=== PATIENT | female | born 1950 | race Caucasian/White ===

== ENCOUNTER 2020-07-15 13:12 | Inpatient (IN) | payer OTHER ==
[2020-07-15] MEDS ORDERED: SODIUM CHLORIDE 0.9% 500 ML INFUS.BAG IV ONE ×2 (14:11→16:35)
--- NOTE | 2020-07-15 14:11 | PDOC ---
History of Present Illness - General Chief Complaint: Weakness Stated Complaint: R/O SEPSIS Time Seen by Provider: 07/15/20 13:57 Past History - Medical History Allergies/Adverse Reactions: Allergies Allergy/AdvReac Type Severity Reaction Status Date / Time No Known Allergies Allergy Verified 07/15/20 13:21 Home Medications: Ambulatory Orders Escitalopram Oxalate [Lexapro -] 20 mg PO HS 04/10/20 Risperidone 3 mg PO HS 04/10/20 Aspirin [ASA -] 325 mg PO DAILY tablet 04/15/20 Atorvastatin Ca [Lipitor] 80 mg PO HS tablet 04/15/20 Clopidogrel Bisulfate [Plavix -] 75 mg PO DAILY #30 tablet 04/15/20 Enoxaparin [Lovenox -] 40 mg SQ DAILY disp.syrin 04/15/20 Insulin (Levemir) [Levemir Vial] 12 units SQ BID units 04/15/20 Insulin (Levemir) [Levemir Vial] 15 units SQ BID@0700,2200 units 04/15/20 Insulin Sliding Scale [Novolog Vial Sliding Scale -] 1 vial SQ ACHS units 04/15/20 Metoprolol Succinate [Toprol XL -] 50 mg PO DAILY tab.sr.24h 04/15/20 metFORMIN HCL [Glucophage -] 1,000 mg PO BID@0700,1630 tablet 04/15/20 Anemia: No Asthma: No Cancer: No Cardiac Disorders: (s/p stent 2014) CVA: Yes (04/2020) COPD: No CHF: No Dementia: No Diabetes: Yes GI Disorders: No Disorders: No HTN: Yes Hypercholesterolemia: Yes Liver Disease: No Psychiatric Problems: Yes Seizures: No Thyroid Disease: No - Surgical History Abdominal Surgery: No Appendectomy: No Cardiac Surgery: Yes (s/p stent 2014) Cholecystectomy: No Lung Surgery: No Neurologic Surgery: No Orthopedic Surgery: No - Reproductive History Is Patient Now?: No - Psycho-Social/Smoking History Smoking History: Never smoked Have you smoked in the past 12 months: No Information on smoking cessation initiated: No - Substance Abuse Hx (Audit-C & DAST Scrn) How often the patient has a drink containing alcohol: Never Score: In Men: 4 or > Positive; In Women: 3 or > Positive: 0 Screen Result (Pos requires Nsg. Audit-10AR): Negative In the last yr the pt used illegal drug/Rx for NonMed reason: No Score: Yes response is considered Positive: 0 Screen Result (Positive result requires Nsg. DAST-10): Negative *Physical Exam - Vital Signs Last Vital Signs Temp Pulse Resp BP Pulse Ox 97.8 F 100 H 19 97/57 L 98 07/15/20 13:14 07/15/20 13:14 07/15/20 13:14 07/15/20 13:14 07/15/20 13:14 ED Treatment Course - ADDITIONAL ORDERS Additional order review: Laboratory Results 07/15/20 13:26 POC Glucometer 105 07/15/20 13:26 POC Glucometer 105 Discharge - Follow up/Referral Referrals: Beatriz Desir [Primary Care Provider] - - Patient Discharge Instructions - Post Discharge Activity
--- NOTE | 2020-07-15 14:18 | PDOC ---
History of Present Illness - General Chief Complaint: Weakness Stated Complaint: R/O SEPSIS Time Seen by Provider: 07/15/20 13:57 - History of Present Illness Initial Comments: 07/15/20 14:12 HPI 70y/o F hx of CVA (3months ago), IDDM, HTN presents to the ED with 2 weeks of urinary frequency and urgency. pt is tamazight speaking and accompanied by her daughter. pt has been complaining of suprapubic pain and increaed urinary frequ ency. Pt' peterer reports that the urine is fouls smelling, but there is no hematuria, pt was at pcp's office today where she was hypotensive and hypoglycemic to 46. daughter reports pt has had decreased appetite over the last 2 weeks. PMHx: as noted above ROS: as noted SHx: Denies Etoh, IVDA, tobacco use Allergies: NKDA ROS: GENERAL/CONSTITUTIONAL: No fever or chills. No weakness. HEAD, EYES, EARS, NOSE AND THROAT: No change in vision. No ear pain or discharge. No sore throat. CARDIOVASCULAR: No chest pain or shortness of breath RESPIRATORY: No cough, wheezing, or hemoptysis. GASTROINTESTINAL: No nausea, vomiting, diarrhea or constipation. GENITOURINARY: No dysuria, frequency, or change in urination. MUSCULOSKELETAL: No joint or muscle swelling or pain. No neck or back pain. SKIN: No rash NEUROLOGIC: No headache, vertigo, loss of consciousness, or change in strength/sensation. ENDOCRINE: No increased thirst. No abnormal weight change HEMATOLOGIC/LYMPHATIC: No anemia, easy bleeding, or history of blood clots. ALLERGIC/IMMUNOLOGIC: No hives or skin allergy. PE: GENERAL: Awake, alert, and fully oriented, in no acute distress HEAD: No signs of trauma, normocephalic, atraumatic EYES: PERRLA, EOMI, sclera anicteric, conjunctiva clear ENT: Auricles normal inspection, hearing grossly normal, nares patent, oropharynx clear without exudates. Moist mucosa NECK: Normal ROM, supple, no lymphadenopathy, JVD, or masses LUNGS: No distress, speaks full sentences, clear to auscultation bilaterally HEART: Regular rate and rhythm, normal S1 and S2, no murmurs, rubs or gallops, peripheral pulses normal and equal bilaterally. ABDOMEN: Soft, suprapubic ttp. No guarding, no rebound. No masses EXTREMITIES : Normal inspection, Normal range of motion, no edema. No clubbing or cyanosis NEUROLOGICAL: Cranial nerves II through XII grossly intact. Normal speech, normal gait, no focal sensorimotor deficits SKIN: Warm, Dry, normal turgor, no rashes or lesions noted MDM DDx including but not limited to: uti, ED course elevated lactic acid ua positive for uti pt given 2L NS, and ceftriaxone IV CXR: arthritic changes some atelectasis at right base Dr. Beatriz Desir's service contacted for admission 07/15/20 18:41 Past History - Medical History Allergies/Adverse Reactions: Allergies Allergy/AdvReac Type Severity Reaction Status Date / Time No Known Allergies Allergy Verified 07/15/20 13:21 Home Medications: Ambulatory Orders Escitalopram Oxalate [Lexapro -] 20 mg PO HS 04/10/20 Aspirin [ASA -] 325 mg PO DAILY tablet 04/15/20 Atorvastatin Ca [Lipitor] 80 mg PO HS tablet 04/15/20 Insulin Sliding Scale [Novolog Vial Sliding Scale -] 1 vial SQ ACHS units 04/15/20 Metoprolol Succinate [Toprol XL -] 50 mg PO DAILY tab.sr.24h 04/15/20 Insulin (Levemir) [Levemir Vial] 16 units SQ BID@0700,2200 07/15/20 metFORMIN HCL [Glucophage -] 500 mg PO BID@0700,1630 07/15/20 Anemia: No Asthma: No Cancer: No Cardiac Disorders: (s/p stent 2014) CVA: Yes (04/2020) COPD: No CHF: No Dementia: No Diabetes: Yes GI Disorders: No Disorders: No HTN: Yes Hypercholesterolemia: Yes Liver Disease: No Psychiatric Problems: Yes Seizures: No Thyroid Disease: No - Surgical History Abdominal Surgery: No Appendectomy: No Cardiac Surgery: Yes (s/p stent 2014) Cholecystectomy: No Lung Surgery: No Neurologic Surgery: No Orthopedic Surgery: No - Reproductive History Is Patient Now?: No - Psycho-Social/Smoking History Smoking History: Never smoked Have you smoked in the past 12 months: No Information on smoking cessation initiated: No - Substance Abuse Hx (Audit-C & DAST Scrn) How often the patient has a drink containing alcohol: Never Score: In Men: 4 or > Positive; In Women: 3 or > Positive: 0 Screen Result (Pos requires Nsg. Audit-10AR): Negative In the last yr the pt used illegal drug/Rx for NonMed reason: No Score: Yes response is considered Positive: 0 Screen Result (Positive result requires Nsg. DAST-10): Negative *Physical Exam - Vital Signs Last Vital Signs Temp Pulse Resp BP Pulse Ox 97.8 F 100 H 19 97/57 L 98 07/15/20 13:14 07/15/20 13:14 07/15/20 13:14 07/15/20 13:14 07/15/20 13:14 ED Treatment Course - LABORATORY CBC & Chemistry Diagram: 07/21/20 08:02 07/21/20 08:02 - ADDITIONAL ORDERS Additional order review: Laboratory Results 07/15/20 13:26 POC Glucometer 105 07/15/20 13:26 POC Glucometer 105 Discharge - Discharge Information Problems reviewed: Yes Clinical Impression/Diagnosis: Urinary tract infection Qualifiers: Urinary tract infection type: acute pyelonephritis Qualified Code(s): N10 - Acute pyelonephritis - Follow up/Referral - Patient Discharge Instructions - Post Discharge Activity
[2020-07-15 14:57] LABS: BASO % 0.2 % (0-2.0); EOS % 0.1 % (0-4.5); HEMOGLOBIN 10.9 GM/dL (10.7-15.3); LYMPH % 5.9 % (8-40); MCH 28.9 pg (25.7-33.7); MCHC 33.1 g/dl (32.0-36.0); MEAN CELL VOLUME 87.5 fl (80-96); MONO % 4.4 % (3.8-10.2); NEUT % 89.4 % (42.8-82.8); PLATELET COUNT 542 K/MM3 (134-434); RBC 3.77 M/mm3 (3.60-5.2); RDW 14.9 % (11.6-15.6); WHITE BLOOD COUNT 22.5 K/mm3 (4.0-10.0)
[2020-07-15 15:22] LABS: ALBUMIN 1.9 g/dl (3.4-5.0); BILIRUBIN,TOTAL 0.8 mg/dL (0.2-1); BLOOD UREA NITROGEN 15.9 mg/dL (7-18); CALCIUM 8.5 mg/dL (8.5-10.1); CREATININE 1.2 mg/dL (0.55-1.3); POTASSIUM 3.6 mmol/L (3.5-5.1); TOT PROT 7.4 g/dl (6.4-8.2)
[2020-07-15 15:24] LABS: ANISOCYTOSIS 0; MACROCYTOSIS 0; PLATELET ESTIMATE INCREASED
--- NOTE | 2020-07-15 16:58 | PDOC ---
Documentation entered by Jordyn Bueno SCRIBE, acting as scribe for Soraida Lyons MD. Soraida Lyons MD: This documentation has been prepared by the Myles mora Xhesika, SCRIBE, under my direction and personally reviewed by me in its entirety. I confirm that the documentation accurately reflects all work, treatment, procedures, and medical decision making performed by me. Attending Attestation - Resident Resident Name: BrisaleisaKeikoSravanthiTiffanie - [facility] HPI: 07/15/20 15:02 The patient is a 70y/o F with a pmh of CVA (3months ago), IDDM, HTN who presents to the ED with intermittent lower abdominal/ suprapubic pain, urinary frequency, urgency and dysuria x2 weeks. Per daughter, the pt's urine is fouls smelling, but denies hematuria. Daughter reports 2 weeks of decreased appetite. Per daughter, the pt was seen at her PCP's office today and she was hypotensive and hypoglycemic to 46, was given orange juice and was sent to the ED. Allergies: NKDA PCP:Dr. Desir, Beatriz - Physicial Exam PE: 07/15/20 15:44 GENERAL: aao x2, in no acute distress HEAD: No signs of trauma NECK: Normal ROM, supple, no lymphadenopathy, JVD, or masses LUNGS: Breath sounds equal, clear to auscultation bilaterally. No wheezes, and no crackles HEART: Regular rate and rhythm, normal S1 and S2, no murmurs, rubs or gallops ABDOMEN: Soft, nontender, normoactive bowel sounds. No guarding, no rebound. No masses EXTREMITIES: Normal range of motion, no edema. No clubbing or cyanosis. No cords, erythema, or tenderness SKIN: Warm, Dry, normal turgor, no rashes lesions noted. - Medical Decision Making 07/15/20 16:48 Pt presents to the ED complaining of dysuria, urgency and frequency and hypoglycemia in her PCPs office. Now is comfortable and at her baseline mental status, although daughter reports intermittent confusion for several days. Borderline BP on arrival to the ED, improved with IV fluids. Symptoms are most consistent with a UTI, although other infectious etiologies remain on the differential. Will check CT head to rule out intracranial bleed or mass. Will give IV hydration and IV antibiotics and admit to medicine. 07/15/20 16:52 Discharge - Discharge Information Problems reviewed: Yes Clinical Impression/Diagnosis: Urinary tract infection Qualifiers: Urinary tract infection type: acute pyelonephritis Qualified Code(s): N10 - Acute pyelonephritis - Follow up/Referral - Patient Discharge Instructions - Post Discharge Activity
[2020-07-15] MEDS ORDERED: CEFTRIAXONE 1,000 MG in DEXTROSE 5%-WATER - 50 ML IVPB ONE (17:26)
[2020-07-15] MEDS ORDERED: CEFTRIAXONE 1 GM/50 ML BAG ONE (17:48)
[2020-07-15 18:10] LABS: EPI CELLS 13 /uL (0-25.1); HYALINE CASTS 4 /uL (0-3.1); URINE APPEARANCE TURBID; URINE BACTERIA 3968 /uL (0-1359); URINE BILIRUBIN NEGATIVE (NEGATIVE); URINE COLOR YELLOW; URINE GLUCOSE (UA) NEGATIVE (NEGATIVE); URINE KETONE NEGATIVE (NEGATIVE); URINE LEUK ESTERASE 3+ (NEGATIVE); URINE NITRITE NEGATIVE (NEGATIVE); URINE PROTEIN 2+ (NEGATIVE); URINE WBC 2057 /uL (0-25.8)
[2020-07-15 18:32] LABS: URINE RBC 233.5 /uL (0-23.9); YEAST NEGATIVE (NEGATIVE)
[2020-07-15] MEDS ORDERED: ATORVASTATIN CA 80 MG TABLET (FP) ONE (22:53)
[2020-07-15] MEDS ORDERED: HEPARIN NA (PORCINE) 5,000 UNITS/ML 1ML VIAL ONE (22:54)
[2020-07-15] MEDS ORDERED: ESCITALOPRAM OXALATE 10 MG TABLET ONE (22:54)
[2020-07-15] MEDS ORDERED: INSULIN (LEVEMIR) 100 UNITS/ML UNITS SQ ONE (22:55)
[2020-07-15] MEDS: INSULIN (LEVEMIR) 100 UNITS/ML UNITS SQ SCH (23:18)
[2020-07-15] MEDS: HEPARIN NA (PORCINE) 5,000 UNITS/ML 1ML VIAL SQ SCH (23:18)
[2020-07-15] MEDS: INSULIN SLIDING SCALE (NOVOLOG) 1 VIAL SQ SCH (23:19)
[2020-07-15] MEDS: ATORVASTATIN CA 80 MG TABLET (FP) PO SCH (23:19)
[2020-07-15] MEDS: ESCITALOPRAM OXALATE 20 MG TABLET PO SCH (23:19)
[2020-07-16 06:10] LABS: BASO % 0.2 % (0-2.0); EOS % 0.4 % (0-4.5); HEMATOCRIT 28.3 % (32.4-45.2); HEMOGLOBIN 9.5 GM/dL (10.7-15.3); LYMPH % 10.8 % (8-40); MCH 29.1 pg (25.7-33.7); MCHC 33.6 g/dl (32.0-36.0); MEAN CELL VOLUME 86.6 fl (80-96); MEAN PLT VOLUME 7.4 fl (7.5-11.1); MONO % 7.2 % (3.8-10.2); NEUT % 81.4 % (42.8-82.8); PLATELET COUNT 432 K/MM3 (134-434); RBC 3.27 M/mm3 (3.60-5.2); RDW 14.6 % (11.6-15.6)
[2020-07-16 06:34] LABS: ALBUMIN 1.5 g/dl (3.4-5.0); BILIRUBIN,TOTAL 0.7 mg/dL (0.2-1); BLOOD UREA NITROGEN 13.2 mg/dL (7-18); CALCIUM 7.3 mg/dL (8.5-10.1); CREATININE 0.7 mg/dL (0.55-1.3)
[2020-07-16 06:40] LABS: POTASSIUM 2.6 mmol/L (3.5-5.1)
[2020-07-16] MEDS ORDERED: DEXTROSE 50%-WATER - 25 GM/50 ML VIAL IVPUSH ONE (07:35)
[2020-07-16] MEDS ORDERED: DEXTROSE 50%-WATER 25 GM/50 ML DISP.SYRIN ONE (07:36)
[2020-07-16] MEDS: INSULIN SLIDING SCALE (NOVOLOG) 1 VIAL SQ SCH ×4 (07:53→21:21)
[2020-07-16] MEDS: INSULIN (LEVEMIR) 100 UNITS/ML UNITS SQ SCH (07:54)
[2020-07-16] MEDS ORDERED: HEPARIN NA (PORCINE) 5,000 UNITS/ML 1ML VIAL ONE ×2 (08:47→21:23)
[2020-07-16] MEDS ORDERED: ASPIRIN 325 MG ENTERIC COATED TABLET (FP) ONE (08:47)
[2020-07-16] MEDS: metFORMIN HCL 500 MG TABLET (FP) PO SCH ×2 (08:47→21:11)
[2020-07-16] MEDS ORDERED: CEFTRIAXONE 1 GM/50 ML BAG ONE (08:47)
[2020-07-16] MEDS ORDERED: metFORMIN HCL 500 MG TABLET (FP) ONE ×2 (08:47→21:10)
[2020-07-16] MEDS: HEPARIN NA (PORCINE) 5,000 UNITS/ML 1ML VIAL SQ SCH ×2 (09:03→22:23)
[2020-07-16] MEDS: CEFTRIAXONE 1 GM in DEXTROSE 5%-WATER - 50 ML IVPB SCH (09:03)
[2020-07-16] MEDS: ASPIRIN 325 MG TABLET PO SCH (09:03)
--- NOTE | 2020-07-16 09:14 | HP ---
Admitting History and Physical - Primary Care Physician PCP: Beatriz Desir S - Admission Chief Complaint: dysuria low BP History of Present Illness: The patient is a 70y/o F with a pmh of CVA (3months ago), IDDM, HTN who presents to the ED with intermittent lower abdominal/ suprapubic pain, urinary frequency, urgency and dysuria x2 weeks. Per daughter, the pt's urine is fouls smelling, but denies hematuria. Daughter reports 2 weeks of decreased appetite. I saw pt in office yesterday and she was hypotensive and hypoglycemic to 46, was given orange juice and was sent to the ED. History Source: Patient, Family Member Limitations to Obtaining History: No Limitations - Past Medical History [employer]: Yes: CVA Cardiovascular: Yes: CAD, HTN, Hyperlipdemia ...: No Psych: Yes: Schizophrenia Endocrine: Yes: Diabetes Mellitus - Smoking History Smoking history: Never smoked Have you smoked in the past 12 months: No - Alcohol/Substance Use Hx Alcohol Use: No History of Substance Use: reports: None - Social History Usual Living Arrangement: Yes: With Child History of Recent Travel: No Home Medications - Allergies Allergies/Adverse Reactions: Allergies Allergy/AdvReac Type Severity Reaction Status Date / Time No Known Allergies Allergy Verified 07/15/20 13:21 - Home Medications Home Medications: Ambulatory Orders Escitalopram Oxalate [Lexapro -] 20 mg PO HS 04/10/20 Aspirin [ASA -] 325 mg PO DAILY tablet 04/15/20 Atorvastatin Ca [Lipitor] 80 mg PO HS tablet 04/15/20 Insulin Sliding Scale [Novolog Vial Sliding Scale -] 1 vial SQ ACHS units 04/15/20 Metoprolol Succinate [Toprol XL -] 50 mg PO DAILY tab.sr.24h 04/15/20 Insulin (Levemir) [Levemir Vial] 16 units SQ BID@0700,2200 07/15/20 metFORMIN HCL [Glucophage -] 500 mg PO BID@0700,1630 07/15/20 Family Medical History Family History: Unremarkable Review of Systems - Review of Systems Constitutional: denies: Chills, Fever, Lethargy Eyes: denies: Blind Spots, Double Vision, Eye Pain HENT: denies: Ear Pain, Epistaxis Neck: denies: Stiffness, Tenderness Cardiovascular: denies: Chest Pain, Shortness of Breath Respiratory: denies: Cough, SOB Gastrointestinal: reports: Abdominal Pain, Diarrhea. denies: Constipation, Vom iting Genitourinary: reports: Burning, Dysuria. denies: Flank Pain Musculoskeletal: denies: Back Pain, Joint Swelling Integumentary: denies: Eczema, Rash Neurological: reports: Dizziness, Pre-Existing Deficit, Unsteady Gait, Weakness. denies: Change in LOC, Change in Speech, Confusion, Headache, Seizure, Syncope Hematology/Lymphatic: denies: Easily Bruised, Excessive Bleeding Psychiatric: denies: Anxiety, Depression, Suicidal Physical Examination Vital Signs: Vital Signs Temperature 98.0 F 07/16/20 08:17 Pulse Rate 72 07/16/20 08:17 Respiratory Rate 07/16/20 08:17 Blood Pressure 128/57 L 07/16/20 08:17 O2 Sat by Pulse Oximetry (%) 97 07/16/20 08:17 Constitutional: Yes: No Distress, Calm Eyes: Yes: Conjunctiva Clear HENT: Yes: Atraumatic Neck: Yes: Supple Cardiovascular: Yes: Regular Rate and Rhythm Respiratory: Yes: Diminished Gastrointestinal: Yes: Soft. No: Tenderness Renal/: No: Hematuria Musculoskeletal: No: Joint Stiffness, Joint Swelling Extremities: No: Cold, Cool, Cyanosis Edema: No Integumentary: No: Pressure Ulcer, Rash, Venous Stasis Changes Neurological: Yes: Alert, Oriented ...Motor Strength: LUE (4/5), LLE (4/5) Psychiatric: Yes: Alert, Oriented. No: Agitated, Suicidal Ideation Labs: CBC, BMP 07/16/20 05:35 07/16/20 05:35 Imaging - Results Chest X-ray: Report Reviewed Cat Scan: Report Reviewed Assessment/Plan The patient is a 70y/o F with a pmh of CVA (3months ago), IDDM, HTN who presents to the ED with intermittent lower abdominal/ suprapubic pain, urinary frequency, urgency and dysuria x2 weeks. Also borderline hypotensive and hypoglycemic lactic acidosis low K admit IVF IV ATB replete K hold insulin f/u cx labs ID and renal eval abdomen CT d/w pt and daughter Vidaly DVT and falls and decubs pfx d/w pt and daughter do not get OOB alone; turn in bed DVT pfx d/w staff
--- NOTE | 2020-07-16 09:18 | EKG ---
Test Reason : Blood Pressure : / mmHG Vent. Rate : 078 BPM Atrial Rate : 078 BPM P-R Int : 154 ms QRS Dur : 084 ms QT Int : 492 ms P-R-T Axes : 057 -11 028 degrees QTc Int : 560 ms SINUS RHYTHM WITH PREMATURE ATRIAL COMPLEXES PROLONGED QT ABNORMAL ECG WHEN COMPARED WITH ECG OF 15-APR-2020 11:40, PREMATURE ATRIAL COMPLEXES ARE NOW PRESENT NONSPECIFIC T WAVE ABNORMALITY NO LONGER EVIDENT IN ANTERIOR LEADS QT HAS LENGTHENED Confirmed by ISMAEL LEAL MD ([id number]) on 07/16/2020 9:18:24 AM Referred By: Confirmed By:ISMAEL LEAL MD
[2020-07-16 09:29] LABS: ANISOCYTOSIS 2+; MACROCYTOSIS 0; PLATELET ESTIMATE NORMAL
[2020-07-16] MEDS ORDERED: KCL 10 MEQ IVPB 10 MEQ/100 ML INFUS.BAG IVPB SCH (09:50)
[2020-07-16] MEDS ORDERED: POTASSIUM CHLORIDE ORAL LIQUID 20 MEQ/15 ML PO ONE (09:55)
[2020-07-16] MEDS ORDERED: POTASSIUM CHLORIDE 10 MEQ in DEXTROSE 5%-NORMAL SALINE 1,000 ML IVPB SCH (10:30)
[2020-07-16] MEDS: POTASSIUM CHLORIDE 10 MEQ in DEXTROSE 5%-NORMAL SALINE 1,000 ML IVPB SCH (11:52)
[2020-07-16] MEDS: KCL 10 MEQ IVPB 10 MEQ/100 ML INFUS.BAG IVPB SCH ×2 (11:57→13:48)
[2020-07-16] MEDS ORDERED: KCL 10 MEQ IVPB 10 MEQ/100 ML INFUS.BAG IVPB ONE ×2 (11:57→13:42)
--- NOTE | 2020-07-16 13:16 | CON.NEP ---
Consult Consult Specialty:: Nephrology Referred by:: Dr. Desir Reason for Consultation:: Hypokalemia - History of Present Illness Chief Complaint: Lower abdominal pain History of Present Illness: This is a 70 year old woman with history of CVA, IDDM, hypertension who presented with lower abdominal pain and found to have likely UTI with hypokalemia. Pt seen and examined in the ED. She is awake and alert, only Romanian speaking. Denies any sob, cp, fever, chills. Had urinary discomfort. Also reports history of diarrhea. No N/V. No flank pain. Her home meds show no list diuretics. - History Source History Provided By: Patient Limitations to Obtaining History: Language Barrier - Past Medical History ...: No Psych: Yes: Schizophrenia - Alcohol/Substance Use Hx Alcohol Use: No - Smoking History Smoking history: Never smoked Have you smoked in the past 12 months: No Home Medications - Allergies Allergies/Adverse Reactions: Allergies Allergy/AdvReac Type Severity Reaction Status Date / Time No Known Allergies Allergy Verified 07/15/20 13:21 - Home Medications Home Medications: Ambulatory Orders Escitalopram Oxalate [Lexapro -] 20 mg PO HS 04/10/20 Aspirin [ASA -] 325 mg PO DAILY tablet 04/15/20 Atorvastatin Ca [Lipitor] 80 mg PO HS tablet 04/15/20 Insulin Sliding Scale [Novolog Vial Sliding Scale -] 1 vial SQ ACHS units 04/15/20 Metoprolol Succinate [Toprol XL -] 50 mg PO DAILY tab.sr.24h 04/15/20 Insulin (Levemir) [Levemir Vial] 16 units SQ BID@0700,2200 07/15/20 metFORMIN HCL [Glucophage -] 500 mg PO BID@0700,1630 07/15/20 Family Medical History Family History: Unremarkable Review of Systems - Review of Systems Constitutional: reports: Loss of Appetite Eyes: reports: No Symptoms HENT: reports: No Symptoms Neck: reports: No Symptoms Cardiovascular: denies: Chest Pain, Edema, Palpitations, Shortness of Breath Respiratory: denies: Cough, Hemoptysis, Orthopnea, SOB, SOB on Exertion Gastrointestinal: reports: Abdominal Pain, Diarrhea. denies: Vomiting Genitourinary: reports: Burning, Dysuria Musculoskeletal: reports: No Symptoms Neurological: reports: No Symptoms Nephrology Consult - Height Height: 5 ft 3 in - Weight Weight: 63.503 kg - BMI Body Mass Index (BMI): 24.7 - Lab Results CBC,BMP: CBC, BMP 07/16/20 05:35 07/16/20 05:35 Anion Gap: Anion Gap Anion Gap 9 MMOL/L (8-16) 07/16/20 05:35 - Imaging Chest X-ray: Report Reviewed - Physical Examination Vital Signs: Vital Signs Temperature 98.0 F 07/16/20 08:17 Pulse Rate 72 07/16/20 08:17 Respiratory Rate 20 07/16/20 08:17 Blood Pressure 128/57 L 07/16/20 08:17 O2 Sat by Pulse Oximetry (%) 97 07/16/20 08:17 Constitutional: Yes: No Distress, Calm Eyes: Yes: Conjunctiva Clear HENT: Yes: Atraumatic Neck: Yes: Supple Cardiovascular: Yes: Regular Rate and Rhythm Respiratory: Yes: Regular, CTA Bilaterally Gastrointestinal: Yes: Soft. No: Tenderness Renal/: No: Bladder Distention, CVA Tenderness - Left, CVA Tenderness - Right, Solorzano Present Extremities: No: Cold, Cool, Cyanosis Edema: No Neurological: Yes: Alert Assessment/Plan 70 year old woman with history of CVA, IDDM, hypertension who presented with lower abdominal pain and found to have likely UTI with hypokalemia. 1. Hypokalemia in setting of diarrhea/GI losses 2. Suspected cystitis/UTI 3. Hypertension 4. IDDM 5. Anemia 6. Lactic acidosis Continue IV and oral potassium supplementation Check Mg levels, keep > 2 Repeat BMP this afternoon Check lactic acid this afternoon Start IVF with potassium Check iron studies Continue empiric antibiotics as per ID Thank you Will follow Guillermo Ricks DO
[2020-07-16 13:55] LABS: BLOOD UREA NITROGEN 13.5 mg/dL (7-18); CALCIUM 7.8 mg/dL (8.5-10.1); CREATININE 0.8 mg/dL (0.55-1.3); POTASSIUM 3.7 mmol/L (3.5-5.1)
--- NOTE | 2020-07-16 14:02 | PN ---
Progress Note (short form) - Note Progress Note: ID consult dictated imp/reccd 70 yo female admitted from home abd pain leukocytosis UTI hyponatremia continue ceftriaxone f/u cultures renal f/u of hyponatremia Problem List - Problems (1) Abdominal pain Code(s): R10.9 - UNSPECIFIED ABDOMINAL PAIN (2) Leukocytosis Code(s): D72.829 - ELEVATED WHITE BLOOD CELL COUNT, UNSPECIFIED (3) Urinary tract infection Code(s): N39.0 - URINARY TRACT INFECTION, SITE NOT SPECIFIED Qualifiers: Urinary tract infection type: acute pyelonephritis Qualified Code(s): N10 - Acute pyelonephritis (4) Hyponatremia Code(s): E87.1 - HYPO-OSMOLALITY AND HYPONATREMIA
[2020-07-16 17:34] LABS: CALCIUM 7.7 mg/dL (8.5-10.1); CREATININE 0.7 mg/dL (0.55-1.3); MAGNESIUM 1.9 mg/dL (1.8-2.4); POTASSIUM 3.4 mmol/L (3.5-5.1)
--- NOTE | 2020-07-16 20:36 | CONS ---
INFECTIOUS DISEASE CONSULTATION DATE OF CONSULTATION: DATE OF DICTATION: 07/16/2020 This is a 70-year-old woman who presents with lower abdominal pain. She has a history of schizophrenia. She is awake and alert and currently has no complaints. I am asked to see her for further evaluation. In the ER, she was noted to have a white count of 17,000, no fevers, and pyuria. PAST MEDICAL HISTORY: Notable for schizophrenia. She has a history of CVA in the past, diabetes, and hypertension. SOCIAL HISTORY: She lives in the community. No history of cigarette or substance use. ALLERGIES: She has no known drug allergies. MEDICATIONS: She takes Lexapro, aspirin, Lipitor, insulin, Toprol, Levemir, and Glucophage. FAMILY HISTORY: Not available. REVIEW OF SYSTEMS: Notable for lower abdominal pain. PHYSICAL EXAMINATION: General: She is resting comfortably on a stretcher without any complaints. Vital Signs: Temperature is 98. Pulse is 72. Blood pressure 128/57. Respiratory rate is 20. She is saturating 97% on room air. HEENT: She is normocephalic. Her eyes are anicteric. Neck: Supple. Lungs: Clear to auscultation. Heart: Regular rate and rhythm. Abdomen: Soft, nontender. She has some suprapubic discomfort to deep palpation. Extremities: Without edema. LABORATORY DATA: White count on admission was 22.5; repeat is 17. Hemoglobin is 9.5. Platelets are 432. BUN is 13 and creatinine 0.8. LFTs are normal. Urinalysis has 3+ leukocyte esterase with 2000 white cells. Cultures are pending. Head CT is without acute change. Chest x-ray shows no infiltrate. In summary, this is a 70-year-old woman admitted with a UTI, lower abdominal pain, and leukocytosis. Would agree with ceftriaxone. Follow up her cultures and adjust antibiotic accordingly. She has evidence of hyponatremia as well. Follow up with Urology. AXEL KNUTSON M.D. [id number]
[2020-07-16] MEDS ORDERED: LISINOPRIL 20 MG TABLET ONE (21:23)
[2020-07-16] MEDS ORDERED: ESCITALOPRAM OXALATE 10 MG TABLET ONE (21:23)
[2020-07-16] MEDS: ATORVASTATIN CA 80 MG TABLET (FP) PO SCH (22:23)
[2020-07-16] MEDS: ESCITALOPRAM OXALATE 20 MG TABLET PO SCH (22:23)
[2020-07-16] MEDS: ACETAMINOPHEN 325 MG TABLET (FP) PO PRN (23:38)
[2020-07-17] MEDS: POTASSIUM CHLORIDE 10 MEQ in DEXTROSE 5%-NORMAL SALINE 1,000 ML IVPB SCH ×3 (04:27→16:13)
[2020-07-17] MEDS: INSULIN SLIDING SCALE (NOVOLOG) 1 VIAL SQ SCH ×4 (06:06→21:28)
[2020-07-17] MEDS: metFORMIN HCL 500 MG TABLET (FP) PO SCH ×2 (06:26→17:00)
[2020-07-17 07:39] VITALS: BMI 28.9
--- NOTE | 2020-07-17 08:48 | PN ---
Progress Note, Physician Chief Complaint: in bed NAD had low grade fever last night but afebrile today VSS GLU better had some diarrhea and white vaginal DC - Current Medication List Current Medications: Active Medications Acetaminophen (Tylenol -) 650 mg PO NOW PRN PRN Reason: FEVER Last Admin: 07/16/20 23:38 Dose: 650 mg Documented by: Aspirin (Asa -) 325 mg PO DAILY [facility] Last Admin: 07/16/20 09:03 Dose: 325 mg Documented by: Atorvastatin Calcium (Lipitor -) 80 mg PO [facility] Last Admin: 07/16/20 22:23 Dose: 80 mg Documented by: Escitalopram Oxalate (Lexapro -) 20 mg PO [facility] Last Admin: 07/16/20 22:23 Dose: 20 mg Documented by: Heparin Sodium (Porcine) (Heparin -) 5,000 unit SQ BID [facility] Last Admin: 07/16/20 22:23 Dose: 5,000 unit Documented by: Ceftriaxone Sodium 1 gm/ (Dextrose) 50 mls @ 100 mls/hr IVPB DAILY [facility] Last Admin: 07/16/20 09:03 Dose: 100 mls/hr Documented by: Potassium Chloride 10 meq/ (Dextrose/Sodium Chloride) 1,005 mls @ 75 mls/hr IVPB Q13H [facility] Last Admin: 07/17/20 08:09 Dose: 75 mls/hr Documented by: Insulin Aspart (Novolog Vial Sliding Scale -) 1 vial SQ ACHS [facility]; Protocol Last Admin: 07/17/20 06:06 Dose: Not Given Documented by: Metformin HCl (Glucophage -) 500 mg PO BID@0700,1630 [facility] Last Admin: 07/17/20 06:26 Dose: 500 mg Documented by: Metoprolol Succinate (Toprol Xl -) 50 mg PO DAILY [facility] Last Admin: 07/16/20 09:03 Dose: 50 mg Documented by: - Objective Vital Signs: Vital Signs Temperature 98.2 F 07/17/20 05:51 Pulse Rate 69 07/17/20 05:51 Respiratory Rate 18 07/17/20 05:51 Blood Pressure 167/72 07/17/20 05:51 O2 Sat by Pulse Oximetry (%) 99 07/17/20 05:51 Constitutional: Yes: No Distress, Calm Eyes: Yes: Conjunctiva Clear HENT: Yes: Atraumatic Neck: Yes: Supple Cardiovascular: Yes: Regular Rate and Rhythm Respiratory: Yes: CTA Bilaterally Gastrointestinal: Yes: Soft. No: Tenderness Genitourinary: No: Hematuria Musculoskeletal: No: Joint Stiffness, Joint Swelling Extremities: No: Cold, Cool, Cyanosis Edema: No Integumentary: No: Rash, Venous Stasis Changes Neurological: Yes: Alert, Oriented ...Motor Strength: LUE (4.5), LLE (4/5) Psychiatric: Yes: Alert, Oriented. No: Agitated, Suicidal Ideation Labs: CBC, BMP 07/16/20 05:35 07/16/20 14:00 Assessment/Plan The patient is a 70y/o F with a pmh of CVA (3months ago), IDDM, HTN who presents to the ED with intermittent lower abdominal/ suprapubic pain, urinary frequency, urgency and dysuria x2 weeks. Also borderline hypotensive and hypoglycemic lactic acidosis low K IVF IV ATB replete K hold insulin f/u cx labs ID and renal eval abdomen CT to be done now DVT and falls and decubs pfx d/w pt and daughter do not get OOB alone; turn in bed DVT pfx d/w pt and staff
[2020-07-17] MEDS ORDERED: cefTRIAXone SODIUM 1 GM VIAL ONE (09:19)
[2020-07-17] MEDS ORDERED: PT OWN MED DRAWER 7, Y5N ONE ×2 (09:19→21:12)
[2020-07-17] MEDS ORDERED: DEXTROSE 5%-WATER - 50 ML IVPB ONE (09:20)
[2020-07-17 09:24] LABS: BASO % 0.3 % (0-2.0); EOS % 0.5 % (0-4.5); HEMATOCRIT 29.1 % (32.4-45.2); HEMOGLOBIN 9.7 GM/dL (10.7-15.3); LYMPH % 9.2 % (8-40); MCH 29.5 pg (25.7-33.7); MCHC 33.4 g/dl (32.0-36.0); MEAN CELL VOLUME 88.2 fl (80-96); MEAN PLT VOLUME 7.5 fl (7.5-11.1); MONO % 7.3 % (3.8-10.2); NEUT % 82.7 % (42.8-82.8); PLATELET COUNT 444 K/MM3 (134-434); RDW 14.7 % (11.6-15.6); WHITE BLOOD COUNT 14.3 K/mm3 (4.0-10.0)
[2020-07-17] MEDS: CEFTRIAXONE 1 GM in DEXTROSE 5%-WATER - 50 ML IVPB SCH (09:33)
[2020-07-17] MEDS: HEPARIN NA (PORCINE) 5,000 UNITS/ML 1ML VIAL SQ SCH ×2 (09:34→21:27)
[2020-07-17] MEDS: ASPIRIN 325 MG TABLET PO SCH (09:34)
[2020-07-17 10:18] LABS: ALBUMIN 1.7 g/dl (3.4-5.0); CALCIUM 7.7 mg/dL (8.5-10.1); POTASSIUM 3.4 mmol/L (3.5-5.1)
[2020-07-17 10:24] LABS: BILIRUBIN,TOTAL 0.5 mg/dL (0.2-1); CREATININE 0.6 mg/dL (0.55-1.3); MAGNESIUM 1.8 mg/dL (1.8-2.4); PHOSPHOROUS 2.3 mg/dL (2.5-4.9); TOT PROT 6.4 g/dl (6.4-8.2)
[2020-07-17] MEDS ORDERED: INSULIN (NOVOLOG) ASPART 100 UNITS/ML 10ML VIAL ONE (11:11)
[2020-07-17] MEDS ORDERED: POTASSIUM CHLORIDE TABS 20 MEQ TABLET.ER (FP) PO ONE (11:15)
--- NOTE | 2020-07-17 14:10 | PN ---
Progress Note, Physician History of Present Illness: Pt seen and examined at bedside. She is awake and appears comfortable. - Current Medication List Current Medications: Active Medications Acetaminophen (Tylenol -) 650 mg PO NOW PRN PRN Reason: FEVER Last Admin: 07/16/20 23:38 Dose: 650 mg Documented by: Aspirin (Asa -) 325 mg PO DAILY [facility] Last Admin: 07/17/20 09:34 Dose: 325 mg Documented by: Atorvastatin Calcium (Lipitor -) 80 mg PO HS [facility] Last Admin: 07/16/20 22:23 Dose: 80 mg Documented by: Escitalopram Oxalate (Lexapro -) 20 mg PO HS [facility] Last Admin: 07/16/20 22:23 Dose: 20 mg Documented by: Heparin Sodium (Porcine) (Heparin -) 5,000 unit SQ BID [facility] Last Admin: 07/17/20 09:34 Dose: 5,000 unit Documented by: Ceftriaxone Sodium 1 gm/ (Dextrose) 50 mls @ 100 mls/hr IVPB DAILY [facility] Last Admin: 07/17/20 09:33 Dose: 100 mls/hr Documented by: Potassium Chloride 10 meq/ (Dextrose/Sodium Chloride) 1,005 mls @ 75 mls/hr IVPB Q13H [facility] Last Admin: 07/17/20 08:09 Dose: 75 mls/hr Documented by: Insulin Aspart (Novolog Vial Sliding Scale -) 1 vial SQ ACHS [facility]; Protocol Last Admin: 07/17/20 11:25 Dose: Not Given Documented by: Metformin HCl (Glucophage -) 500 mg PO BID@0700,1630 [facility] Last Admin: 07/17/20 06:26 Dose: 500 mg Documented by: Metoprolol Succinate (Toprol Xl -) 50 mg PO DAILY [facility] Last Admin: 07/17/20 09:34 Dose: 50 mg Documented by: - Objective Vital Signs: Vital Signs Temperature 98.1 F 07/17/20 09:00 Pulse Rate 70 07/17/20 09:00 Respiratory Rate 18 07/17/20 09:00 Blood Pressure 152/75 07/17/20 09:00 O2 Sat by Pulse Oximetry (%) 97 07/17/20 09:00 Constitutional: Yes: Calm Eyes: Yes: Conjunctiva Clear HENT: Yes: Atraumatic Neck: Yes: Supple Cardiovascular: Yes: S1, S2 Respiratory: Yes: CTA Bilaterally Gastrointestinal: Yes: Soft Genitourinary: Yes: Incontinence Musculoskeletal: Yes: Muscle Weakness Edema: No Integumentary: Yes: WNL Neurological: Yes: Oriented Psychiatric: Yes: Oriented Labs: CBC, BMP 07/17/20 08:45 07/17/20 08:45 Assessment/Plan Current Medications Generic Name Dose Route Start Last Admin Trade Name Freq PRN Reason Stop Dose Admin Acetaminophen 650 mg 07/16/20 23:29 07/16/20 23:38 Tylenol - PO 650 mg NOW PRN Administration FEVER Aspirin 325 mg 07/16/20 10:00 07/17/20 09:34 Asa - PO 325 mg DAILY JC Administration Atorvastatin Calcium 80 mg 07/15/20 22:00 07/16/20 22:23 Lipitor - PO 80 mg HS JC Administration Escitalopram Oxalate 20 mg 07/15/20 22:00 07/16/20 22:23 Lexapro - PO 20 mg HS JC Administration Heparin Sodium (Porcine) 5,000 unit 07/15/20 22:00 07/17/20 09:34 Heparin - SQ 5,000 unit BID JC Administration Ceftriaxone Sodium 1 gm/ 50 mls @ 100 mls/hr 07/16/20 10:00 07/17/20 09:33 Dextrose IVPB 100 mls/hr DAILY JC Administration Potassium Chloride 10 meq/ 1,005 mls @ 75 mls/hr 07/16/20 11:48 07/17/20 08:09 Dextrose/Sodium Chloride IVPB 75 mls/hr Q13H JC Administration Insulin Aspart 1 vial 07/15/20 22:00 07/17/20 11:25 Novolog Vial Sliding Scale - SQ Not Given ACHS [facility] Protocol Metformin HCl 500 mg 07/16/20 07:00 07/17/20 06:26 Glucophage - PO 500 mg BID@0700,1630 JC Administration Metoprolol Succinate 50 mg 07/16/20 10:00 07/17/20 09:34 Toprol Xl - PO 50 mg DAILY JC Administration Laboratory Tests 07/15/20 07/15/20 07/16/20 15:12 20:05 16:30 Sodium Potassium Lactic Acid 2.9 H* 2.3 H* 0.9 Phosphorus Magnesium 07/17/20 08:45 Sodium 134 L Potassium 3.4 L Lactic Acid Phosphorus 2.3 L Magnesium 1.8 1. Hypokalemia in setting of diarrhea/GI losses 2. Suspected cystitis/UTI 3. Hypertension 4. IDDM 5. Anemia 6. Lactic acidosis 7. hyponatremia Plan - cont fluids - replace phos - replace potassium - repeat labs in am - sodium improving
[2020-07-17] MEDS ORDERED: POTASSIUM PHOSPHATE IVPB ONE (15:00)
[2020-07-17] MEDS ORDERED: SODIUM CHLORIDE IVPB ONE (15:00)
--- NOTE | 2020-07-17 19:10 | PN ---
Progress Note (short form) - Note Progress Note: abd CT reviewed - diverticulitis and possible abscess; hydronephrosis; rectal thickening; ileum inflammation; added flagyl IV; IF f/u; called GI and surgery for evals; pt stable; f/u labs cultures; d/w pt's daughter Vidaly and d/w staff
--- NOTE | 2020-07-17 19:32 | CON.GI ---
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 Cardio/Vascular: Yes: CAD, HTN, Hyperlipdemia ...: No Psych: Yes: Schizophrenia Endocrine: Yes: Diabetes Mellitus - Alcohol/Substance Use Hx Alcohol Use: No History of Substance Use: reports: None - Smoking History Smoking history: Never smoked Have you smoked in the past 12 months: No - Social History History of Recent Travel: No Home Medications - Allergies Allergies/Adverse Reactions: Allergies Allergy/AdvReac Type Severity Reaction Status Date / Time No Known Allergies Allergy Verified 07/15/20 13:21 - Home Medications Home Medications: Ambulatory Orders Escitalopram Oxalate [Lexapro -] 20 mg PO HS 04/10/20 Aspirin [ASA -] 325 mg PO DAILY tablet 04/15/20 Atorvastatin Ca [Lipitor] 80 mg PO HS tablet 04/15/20 Insulin Sliding Scale [Novolog Vial Sliding Scale -] 1 vial SQ ACHS units 04/15/20 Metoprolol Succinate [Toprol XL -] 50 mg PO DAILY tab.sr.24h 04/15/20 Insulin (Levemir) [Levemir Vial] 16 units SQ BID@0700,2200 07/15/20 metFORMIN HCL [Glucophage -] 500 mg PO BID@0700,1630 07/15/20 Family Medical History Family History: Unremarkable Physical Exam-GI Vital Signs: Vital Signs Temperature 98.7 F 07/17/20 18:00 Pulse Rate 70 07/17/20 18:00 Respiratory Rate 18 07/17/20 18:00 Blood Pressure 159/57 L 07/17/20 18:00 O2 Sat by Pulse Oximetry (%) 97 07/17/20 14:00 Labs: CBC, BMP 07/17/20 08:45 07/17/20 08:45 Problem List - Problems (1) Colonic diverticular abscess Assessment/Plan: R> IV hydration continue antibiotics consult IR for percutaneous drainage Code(s): K57.20 - DVTRCLI OF LG INT W PERFORATION AND ABSCESS W/O BLEEDING
[2020-07-17] MEDS: ATORVASTATIN CA 80 MG TABLET (FP) PO SCH (21:27)
[2020-07-17] MEDS: ESCITALOPRAM OXALATE 20 MG TABLET PO SCH (21:27)
[2020-07-18] MEDS: POTASSIUM CHLORIDE 10 MEQ in DEXTROSE 5%-NORMAL SALINE 1,000 ML IVPB SCH ×3 (03:33→20:38)
[2020-07-18] MEDS: INSULIN SLIDING SCALE (NOVOLOG) 1 VIAL SQ SCH ×4 (06:14→21:47)
[2020-07-18] MEDS: metFORMIN HCL 500 MG TABLET (FP) PO SCH (06:28)
[2020-07-18] MEDS ORDERED: DEXTROSE 5%-WATER - 50 ML IVPB ONE (08:51)
[2020-07-18] MEDS ORDERED: PT OWN MED DRAWER 7, Y5N ONE (08:51)
[2020-07-18] MEDS ORDERED: cefTRIAXone SODIUM 1 GM VIAL ONE (08:51)
[2020-07-18] MEDS: ASPIRIN 325 MG TABLET PO SCH (09:10)
[2020-07-18] MEDS: HEPARIN NA (PORCINE) 5,000 UNITS/ML 1ML VIAL SQ SCH ×2 (09:11→21:45)
[2020-07-18 10:05] LABS: BASO % 0.2 % (0-2.0); EOS % 0.2 % (0-4.5); HEMATOCRIT 29.6 % (32.4-45.2); HEMOGLOBIN 9.9 GM/dL (10.7-15.3); LYMPH % 10.8 % (8-40); MCH 29.3 pg (25.7-33.7); MCHC 33.5 g/dl (32.0-36.0); MEAN CELL VOLUME 87.4 fl (80-96); MEAN PLT VOLUME 7.4 fl (7.5-11.1); MONO % 6.4 % (3.8-10.2); NEUT % 82.4 % (42.8-82.8); PLATELET COUNT 473 K/MM3 (134-434); RBC 3.38 M/mm3 (3.60-5.2); RDW 14.6 % (11.6-15.6); WHITE BLOOD COUNT 13.4 K/mm3 (4.0-10.0)
[2020-07-18 10:30] LABS: BILIRUBIN,TOTAL 0.9 mg/dL (0.2-1); CREATININE 0.6 mg/dL (0.55-1.3); SGPT/ALT 31 U/L (13-61)
[2020-07-18 10:31] LABS: ALBUMIN 1.6 g/dl (3.4-5.0); ALK PHOS 133 U/L (45-117); ANION GAP 9 MMOL/L (8-16); BLOOD UREA NITROGEN 8.6 mg/dL (7-18); CALCIUM 7.6 mg/dL (8.5-10.1); CHLORIDE 102 mmol/L (98-107); CO2 24 mmol/L (21-32); MAGNESIUM 1.8 mg/dL (1.8-2.4); PHOSPHOROUS 3.3 mg/dL (2.5-4.9); SODIUM 134 mmol/L (136-145)
[2020-07-18] MEDS: CEFTRIAXONE 1 GM in DEXTROSE 5%-WATER - 50 ML IVPB SCH (10:34)
[2020-07-18 11:03] LABS: GLUCOSE,RANDOM 147 mg/dL (74-106); SGOT/AST 22 U/L (15-37); TOT PROT 7.3 g/dl (6.4-8.2)
--- NOTE | 2020-07-18 11:54 | PN ---
Progress Note, Physician Chief Complaint: in bed NAD VSS afebrile feels better but still with some abdominal pain and diarrhea CT scan and consults appreciated - Current Medication List Current Medications: Active Medications Acetaminophen (Tylenol -) 650 mg PO NOW PRN PRN Reason: FEVER Last Admin: 07/16/20 23:38 Dose: 650 mg Documented by: Aspirin (Asa -) 325 mg PO DAILY [facility] Last Admin: 07/18/20 09:10 Dose: 325 mg Documented by: Atorvastatin Calcium (Lipitor -) 80 mg PO [facility] Last Admin: 07/17/20 21:27 Dose: 80 mg Documented by: Escitalopram Oxalate (Lexapro -) 20 mg PO [facility] Last Admin: 07/17/20 21:27 Dose: 20 mg Documented by: Heparin Sodium (Porcine) (Heparin -) 5,000 unit SQ BID [facility] Last Admin: 07/18/20 09:11 Dose: 5,000 unit Documented by: Ceftriaxone Sodium 1 gm/ (Dextrose) 50 mls @ 100 mls/hr IVPB DAILY [facility] Last Admin: 07/18/20 10:34 Dose: 100 mls/hr Documented by: Potassium Chloride 10 meq/ (Dextrose/Sodium Chloride) 1,005 mls @ 75 mls/hr IVPB Q13H [facility] Last Admin: 07/18/20 03:33 Dose: Not Given Documented by: Metronidazole (Flagyl 500mg Premixed Ivpb -) 500 mg in 100 mls @ 100 mls/hr IVPB Q8H-IV [facility] Last Admin: 07/18/20 11:14 Dose: 100 mls/hr Documented by: Insulin Aspart (Novolog Vial Sliding Scale -) 1 vial SQ ACHS [facility]; Protocol Last Admin: 07/18/20 11:14 Dose: 2 unit Documented by: Metformin HCl (Glucophage -) 500 mg PO BID@0700,1630 [facility] Last Admin: 07/18/20 06:28 Dose: 500 mg Documented by: Metoprolol Succinate (Toprol Xl -) 50 mg PO DAILY [facility] Last Admin: 07/18/20 09:11 Dose: 50 mg Documented by: - Objective Vital Signs: Vital Signs Temperature 98.1 F 07/18/20 10:00 Pulse Rate 80 07/18/20 10:00 Respiratory Rate 18 07/18/20 10:00 Blood Pressure 160/90 07/18/20 10:00 O2 Sat by Pulse Oximetry (%) 96 07/18/20 10:00 Constitutional: Yes: No Distress Eyes: Yes: Conjunctiva Clear HENT: Yes: Atraumatic Neck: Yes: Supple Cardiovascular: Yes: Regular Rate and Rhythm Respiratory: Yes: CTA Bilaterally, Diminished Gastrointestinal: Yes: Soft. No: Tenderness Genitourinary: No: Hematuria Musculoskeletal: No: Joint Stiffness, Joint Swelling Extremities: No: Cold, Cool Edema: No Integumentary: No: Rash Neurological: Yes: Alert, Oriented ...Motor Strength: LUE, LLE Psychiatric: Yes: Alert, Oriented. No: Agitated, Suicidal Ideation Labs: CBC, BMP 07/18/20 08:10 07/18/20 08:10 - ....Imaging Cat Scan: Report Reviewed Assessment/Plan The patient is a 70y/o F with a pmh of CVA (3months ago), IDDM, HTN who presents to the ED with intermittent lower abdominal/ suprapubic pain,diarrhea, urinary frequency, urgency and dysuria x2 weeks. Also borderline hypotensive and hypoglycemic lactic acidosis low K IVF IV ATB replete K sq insulin per BGM f/u cx labs ID and renal eval abdomen CT noted - GI, , IR consulted; cardio and neuro evals preop DVT and falls and decubs pfx d/w pt and daughter do not get OOB alone; turn in bed DVT pfx d/w pt and staff
--- NOTE | 2020-07-18 12:11 | CONSULT ---
- Consultation REQUESTING PROVIDER: Leopoldo Desir MD CONSULT REQUEST: We have been asked to surgically evaluate this patient for complicated diverticulitis. Hospitalist:Beatriz Desir HISTORY OF PRESENT ILLNESS: YASMANI who is a 70y/o F who presented to the ED with 2 weeks of urinary frequency and urgency. Per her daughter Josee who I spoke with the pt has been complaining of suprapubic pain and increaed urinary frequency. Pt' daughter reports that the urine is foul smelling, but there is no hematuria, pt was at Dr. Haley Wilder office on the day of admission where she was hypotensive and hypoglycemic to 46; she was xferred to the hospital ED. Her daughter reports pt has had decreased appetite over the last 2 weeks; there is no other pertinent hx.; she is not very ambulatory since her CVA. PMHx: CVA/IDDM/HTN/depression PSHx: ? vaginal hystrectomy. Home Medications Medication Instructions Recorded Escitalopram Oxalate [Lexapro -] 20 mg PO HS 04/10/20 Aspirin [ASA -] 325 mg PO DAILY tablet 04/15/20 Atorvastatin Ca [Lipitor] 80 mg PO HS tablet 04/15/20 Insulin Sliding Scale [Novolog 1 vial SQ ACHS units 04/15/20 Vial Sliding Scale -] Metoprolol Succinate [Toprol XL -] 50 mg PO DAILY tab.sr.24h 04/15/20 Insulin (Levemir) [Levemir Vial] 16 units SQ BID@0700,2200 07/15/20 metFORMIN HCL [Glucophage -] 500 mg PO BID@0700,1630 07/15/20 Allergies Allergy/AdvReac Type Severity Reaction Status Date / Time No Known Allergies Allergy Verified 07/15/20 13:21 REVIEW OF SYSTEMS: CONSTITUTIONAL: Absent: fever, chills, diaphoresis, generalized weakness, malaise, loss of appetite, weight change CARDIOVASCULAR: Absent: chest pain, syncope, palpitations, irregular heart rate, lightheadedness, peripheral edema RESPIRATORY: Absent: cough, shortness of breath, dyspnea with exertion, wheezing, stridor, hemoptysis GASTROINTESTINAL: Absent: abdominal pain, abdominal distension, nausea, vomiting, diarrhea, constipation, melena, hematochezia GENITOURINARY: Absent: dysuria, frequency, urgency, hesitancy, hematuria, flank pain, genital pain MUSCULOSKELETAL: Absent: myalgia, arthralgia, joint swelling, back pain, neck pain SKIN: Absent: rash, itching, pallor HEMATOLOGIC/IMMUNOLOGIC: Absent: easy bleeding, easy bruising, lymphadenopathy NEUROLOGIC: Absent: headache, Present:focal weakness. Absent: paresthesias, dizziness, unsteady gait, seizure, mental status changes, bladder or bowel incontinence PSYCHIATRIC: Absent: anxiety, depression, suicidal or homicidal ideation, hallucinations. PHYSICAL EXAM: GENERAL: Awake, alert, and fully oriented, in no acute distress. HEAD: Normal with no signs of trauma. EYES: PERRL, sclera anicteric, conjunctiva clear. NECK: Normal ROM, supple without lymphadenopathy, JVD, or masses. ABDOMEN: Soft, nontender, not distended, normoactive bowel sounds, no guarding, no rebound, no masses. No organomegaly. MUSCULOSKELETAL: Normal ROM at all joints. No bony deformities or tenderness. No CVA tenderness. UPPER EXTREMITIES: 2+ pulses, warm, well-perfused. No cyanosis. Cap refill <2 seconds. No peripheral edema. LOWER EXTREMITIES: 2+ pulses, warm, well-perfused. No calf tenderness. No peripheral edema. NEUROLOGICAL: Normal speech, gait not observed. PSYCH: Cooperative. Good eye contact. Appropriate mood and affect. SKIN: Warm, dry, normal turgor, no rashes or lesions noted. Vital Signs Temperature 98.1 F 07/18/20 10:00 Pulse Rate 80 07/18/20 10:00 Respiratory Rate 18 07/18/20 10:00 Blood Pressure 160/90 07/18/20 10:00 O2 Sat by Pulse Oximetry (%) 96 07/18/20 10:00 Lab Results WBC 13.4 K/mm3 (4.0-10.0) H 07/18/20 08:10 RBC 3.38 M/mm3 (3.60-5.2) L 07/18/20 08:10 Hgb 9.9 GM/dL (10.7-15.3) L 07/18/20 08:10 Hct 29.6 % (32.4-45.2) L 07/18/20 08:10 MCV 87.4 fl (80-96) 07/18/20 08:10 MCHC 33.5 g/dl (32.0-36.0) 07/18/20 08:10 RDW 14.6 % (11.6-15.6) 07/18/20 08:10 Plt Count 473 K/MM3 (134-434) H 07/18/20 08:10 Sodium 134 mmol/L (136-145) L 07/18/20 08:10 Potassium 4.0 mmol/L (3.5-5.1) 07/18/20 08:10 Chloride 102 mmol/L (98-107) 07/18/20 08:10 Carbon Dioxide 24 mmol/L (21-32) 07/18/20 08:10 Anion Gap 9 MMOL/L (8-16) 07/18/20 08:10 BUN 8.6 mg/dL (7-18) 07/18/20 08:10 Creatinine 0.6 mg/dL (0.55-1.3) 07/18/20 08:10 Random Glucose 147 mg/dL (74-106) H 07/18/20 08:10 Calcium 7.6 mg/dL (8.5-10.1) L 07/18/20 08:10 Urine is growing Pseudomonas and E. 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 PLAN: Evaluation for IRD of pelvic collections h/e patient may need a Hartmans procedure and repair of colovesical fistula; I spoke with her daughter Josee about this today; in the inetrim NPO/IVF/IVAB'Patricia evaluation; trend temp and WBC; will f/u. Raghu Horton MD FACS
--- NOTE | 2020-07-18 12:21 | PN ---
Progress Note, Physician History of Present Illness: Pt seen and examined at bedside. She had diarrhea today. - Current Medication List Current Medications: Active Medications Acetaminophen (Tylenol -) 650 mg PO NOW PRN PRN Reason: FEVER Last Admin: 07/16/20 23:38 Dose: 650 mg Documented by: Aspirin (Asa -) 325 mg PO DAILY [facility] Last Admin: 07/18/20 09:10 Dose: 325 mg Documented by: Atorvastatin Calcium (Lipitor -) 80 mg PO HS [facility] Last Admin: 07/17/20 21:27 Dose: 80 mg Documented by: Escitalopram Oxalate (Lexapro -) 20 mg PO HS [facility] Last Admin: 07/17/20 21:27 Dose: 20 mg Documented by: Heparin Sodium (Porcine) (Heparin -) 5,000 unit SQ BID [facility] Last Admin: 07/18/20 09:11 Dose: 5,000 unit Documented by: Ceftriaxone Sodium 1 gm/ (Dextrose) 50 mls @ 100 mls/hr IVPB DAILY [facility] Last Admin: 07/18/20 10:34 Dose: 100 mls/hr Documented by: Potassium Chloride 10 meq/ (Dextrose/Sodium Chloride) 1,005 mls @ 75 mls/hr IVPB Q13H [facility] Last Admin: 07/18/20 03:33 Dose: Not Given Documented by: Metronidazole (Flagyl 500mg Premixed Ivpb -) 500 mg in 100 mls @ 100 mls/hr IVPB Q8H-IV [facility] Last Admin: 07/18/20 11:14 Dose: 100 mls/hr Documented by: Insulin Aspart (Novolog Vial Sliding Scale -) 1 vial SQ ACHS [facility]; Protocol Last Admin: 07/18/20 11:14 Dose: 2 unit Documented by: Insulin Detemir (Levemir Vial) 6 units SQ BID@0700,2200 [facility] Metoprolol Succinate (Toprol Xl -) 50 mg PO DAILY [facility] Last Admin: 07/18/20 09:11 Dose: 50 mg Documented by: Metoprolol Succinate (Toprol Xl -) 25 mg PO DAILY [facility] - Objective Vital Signs: Vital Signs Temperature 98.1 F 07/18/20 10:00 Pulse Rate 80 07/18/20 10:00 Respiratory Rate 18 07/18/20 10:00 Blood Pressure 160/90 07/18/20 10:00 O2 Sat by Pulse Oximetry (%) 96 07/18/20 10:00 Constitutional: Yes: Calm Eyes: Yes: Conjunctiva Clear HENT: Yes: Atraumatic Neck: Yes: Supple Cardiovascular: Yes: S1, S2 Respiratory: Yes: CTA Bilaterally Gastrointestinal: Yes: Normal Bowel Sounds, Soft Genitourinary: Yes: WNL Musculoskeletal: Yes: WNL Edema: No Neurological: Yes: Oriented Psychiatric: Yes: Oriented Labs: CBC, BMP 07/18/20 08:10 07/18/20 08:10 Assessment/Plan Current Medications Generic Name Dose Route Start Last Admin Trade Name Freq PRN Reason Stop Dose Admin Acetaminophen 650 mg 07/16/20 23:29 07/16/20 23:38 Tylenol - PO 650 mg NOW PRN Administration FEVER Aspirin 325 mg 07/16/20 10:00 07/18/20 09:10 Asa - PO 325 mg DAILY JC Administration Atorvastatin Calcium 80 mg 07/15/20 22:00 07/17/20 21:27 Lipitor - PO 80 mg HS JC Administration Escitalopram Oxalate 20 mg 07/15/20 22:00 07/17/20 21:27 Lexapro - PO 20 mg HS JC Administration Heparin Sodium (Porcine) 5,000 unit 07/15/20 22:00 07/18/20 09:11 Heparin - SQ 5,000 unit BID JC Administration Ceftriaxone Sodium 1 gm/ 50 mls @ 100 mls/hr 07/16/20 10:00 07/18/20 10:34 Dextrose IVPB 100 mls/hr DAILY JC Administration Potassium Chloride 10 meq/ 1,005 mls @ 75 mls/hr 07/16/20 11:48 07/18/20 03:33 Dextrose/Sodium Chloride IVPB Not Given Q13H JC Metronidazole 500 mg in 100 mls @ 100 mls/hr 07/17/20 18:00 07/18/20 11:14 Flagyl 500mg Premixed Ivpb - IVPB 100 mls/hr Q8H-IV JC Administration Insulin Aspart 1 vial 07/15/20 22:00 07/18/20 11:14 Novolog Vial Sliding Scale - SQ 2 unit ACHS JC Administration Protocol Insulin Detemir 6 units 07/18/20 22:00 Levemir Vial SQ BID@0700,2200 JC Metoprolol Succinate 50 mg 07/16/20 10:00 07/18/20 09:11 Toprol Xl - PO 50 mg DAILY JC Administration Metoprolol Succinate 25 mg 07/18/20 12:00 Toprol Xl - PO DAILY JC 1. Hypokalemia in setting of diarrhea/GI losses 2. Suspected cystitis/UTI 3. Hypertension 4. IDDM 5. Anemia 6. Lactic acidosis 7. hyponatremia Plan - sodium stabilizing - cont fluids for now as she has diarrhea - cont to monitor lytes - potassium stable - avoid nsaids
[2020-07-18] MEDS: metoPROLOL SUCCINATE 25 MG TAB.SR.24H (FP) PO SCH (13:15)
--- NOTE | 2020-07-18 14:18 | CON.GU ---
Consult - History of Present Illness History of Present Illness: 70 yo female admitted with lower abd pain, dysuria. CT with bilat hydro to bladder and pelvic collections poss from diverticular abscesses. 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 Cardio/Vascular: Yes: CAD, HTN, Hyperlipdemia ...: No Psych: Yes: Schizophrenia Endocrine: Yes: Diabetes Mellitus - Alcohol/Substance Use Hx Alcohol Use: No History of Substance Use: reports: None - Smoking History Smoking history: Never smoked Have you smoked in the past 12 months: No - Social History History of Recent Travel: No Home Medications - Allergies Allergies/Adverse Reactions: Allergies Allergy/AdvReac Type Severity Reaction Status Date / Time No Known Allergies Allergy Verified 07/15/20 13:21 - Home Medications Home Medications: Ambulatory Orders Escitalopram Oxalate [Lexapro -] 20 mg PO HS 04/10/20 Aspirin [ASA -] 325 mg PO DAILY tablet 04/15/20 Atorvastatin Ca [Lipitor] 80 mg PO HS tablet 04/15/20 Insulin Sliding Scale [Novolog Vial Sliding Scale -] 1 vial SQ ACHS units 04/15/20 Metoprolol Succinate [Toprol XL -] 50 mg PO DAILY tab.sr.24h 04/15/20 Insulin (Levemir) [Levemir Vial] 16 units SQ BID@0700,2200 07/15/20 metFORMIN HCL [Glucophage -] 500 mg PO BID@0700,1630 07/15/20 Family Medical History Family History: Unremarkable Review of Systems - Review of Systems Genitourinary: reports: Dysuria Physical Exam- Vital Signs: Vital Signs Temperature 98.1 F 07/18/20 10:00 Pulse Rate 77 07/18/20 13:00 Respiratory Rate 18 07/18/20 13:00 Blood Pressure 161/79 07/18/20 13:00 O2 Sat by Pulse Oximetry (%) 96 07/18/20 10:00 Kidneys: Yes: Other (no CVAT) Labs: CBC, BMP 07/18/20 08:10 07/18/20 08:10 Imaging - Results Cat Scan: Image Reviewed Problem List - Problems (1) Bilateral hydronephrosis Assessment/Plan: unclear if bilateral hydro are from pelvic collections vs retention would insert rodriguez for now abx for uti Code(s): N13.30 - UNSPECIFIED HYDRONEPHROSIS
--- NOTE | 2020-07-18 15:39 | CON.GI ---
Consult Consult Specialty:: coverage for Dr Bronson - History of Present Illness History of Present Illness: The patient is a 70y/o F with a pmh of CVA (3months ago), IDDM, HTN who presents to the ED with intermittent lower abdominal/ suprapubic pain, urinary frequency, urgency and dysuria x2 weeks. History obtained from the medical records as the patient is a poor informant. 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 Cardio/Vascular: Yes: CAD, HTN, Hyperlipdemia ...: No Psych: Yes: Schizophrenia Endocrine: Yes: Diabetes Mellitus - Alcohol/Substance Use Hx Alcohol Use: No History of Substance Use: reports: None - Smoking History Smoking history: Never smoked Have you smoked in the past 12 months: No - Social History History of Recent Travel: No Home Medications - Allergies Allergies/Adverse Reactions: Allergies Allergy/AdvReac Type Severity Reaction Status Date / Time No Known Allergies Allergy Verified 07/15/20 13:21 - Home Medications Home Medications: Ambulatory Orders Escitalopram Oxalate [Lexapro -] 20 mg PO HS 04/10/20 Aspirin [ASA -] 325 mg PO DAILY tablet 04/15/20 Atorvastatin Ca [Lipitor] 80 mg PO HS tablet 04/15/20 Insulin Sliding Scale [Novolog Vial Sliding Scale -] 1 vial SQ ACHS units 04/15/20 Metoprolol Succinate [Toprol XL -] 50 mg PO DAILY tab.sr.24h 04/15/20 Insulin (Levemir) [Levemir Vial] 16 units SQ BID@0700,2200 07/15/20 metFORMIN HCL [Glucophage -] 500 mg PO BID@0700,1630 07/15/20 Family Medical History Family History: Unremarkable Physical Exam-GI Vital Signs: Vital Signs Temperature 98.1 F 07/18/20 10:00 Pulse Rate 77 07/18/20 13:00 Respiratory Rate 18 07/18/20 13:00 Blood Pressure 161/79 07/18/20 13:00 O2 Sat by Pulse Oximetry (%) 96 07/18/20 10:00 Constitutional: Yes: Well Nourished, Poor Hygeine Eyes: Yes: Occular Prosthesis HENT: Yes: Tonsillar Exudate Cardiovascular: Yes: Regular Rate and Rhythm Respiratory: Yes: CTA Bilaterally ...Palpate: Yes: Soft, Tenderness (suprapubic tenderness, mild). No: Firm/Rigid, Guarding, Hepatomegaly, Mass, Pulsatile Mass, Splenomegaly Labs: CBC, BMP 07/18/20 08:10 07/18/20 08:10 CBCD WBC 13.4 K/mm3 (4.0-10.0) H 07/18/20 08:10 RBC 3.38 M/mm3 (3.60-5.2) L 07/18/20 08:10 Hgb 9.9 GM/dL (10.7-15.3) L 07/18/20 08:10 Hct 29.6 % (32.4-45.2) L 07/18/20 08:10 MCV 87.4 fl (80-96) 07/18/20 08:10 MCHC 33.5 g/dl (32.0-36.0) 07/18/20 08:10 RDW 14.6 % (11.6-15.6) 07/18/20 08:10 Plt Count 473 K/MM3 (134-434) H 07/18/20 08:10 MPV 7.4 fl (7.5-11.1) L 07/18/20 08:10 CMP Sodium 134 mmol/L (136-145) L 07/18/20 08:10 Potassium 4.0 mmol/L (3.5-5.1) 07/18/20 08:10 Chloride 102 mmol/L (98-107) 07/18/20 08:10 Carbon Dioxide 24 mmol/L (21-32) 07/18/20 08:10 Anion Gap 9 MMOL/L (8-16) 07/18/20 08:10 BUN 8.6 mg/dL (7-18) 07/18/20 08:10 Creatinine 0.6 mg/dL (0.55-1.3) 07/18/20 08:10 Calcium 7.6 mg/dL (8.5-10.1) L 07/18/20 08:10 Total Bilirubin 0.9 mg/dL (0.2-1) 07/18/20 08:10 AST 22 U/L (15-37) 07/18/20 08:10 ALT 31 U/L (13-61) 07/18/20 08:10 Alkaline Phosphatase 133 U/L (45-117) H 07/18/20 08:10 Total Protein 7.3 g/dl (6.4-8.2) 07/18/20 08:10 Albumin 1.6 g/dl (3.4-5.0) L 07/18/20 08:10 Problem List - Problems (1) Colonic diverticular abscess Assessment/Plan: R> continue antibiotics, IV hydration interventional radiology consult Code(s): K57.20 - DVTRCLI OF LG INT W PERFORATION AND ABSCESS W/O BLEEDING
--- NOTE | 2020-07-18 15:45 | CON.CARD ---
Consult Consult Specialty:: cardiology Reason for Consultation:: pre-op - History of Present Illness Chief Complaint: Pt A&O; no chest pain; + lower abdominal pain. History of Present Illness: The patient is a 70y/o F (b. [place]) with a pmh of CVA (multiple infarcts noted 3 months ago)-->mild-moderate L sided weakness and decreased ability to ambulate, markedly elevated LDL cholesterol-->atorvastatin 80 mg daily 04/2020, IDDM, HTN, scoliosis, degenerative joint disease, who presents to the ED with intermittent lower abdominal/ suprapubic pain, urinary frequency, urgency and dysuria x2 weeks. Per daughter, the pt's urine is foul- smelling, but denies hematuria. Daughter reports 2 weeks of decreased appetite. Per daughter, the pt was seen at her PCP's office; she was hypotensive and hypoglycemic to 46, was given orange juice and was sent to the ED. Allergies: NKDA PCP:Beatriz Fabian Paver: Dr. 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 Cardio/Vascular: Yes: CAD, CHF (diastolic (04/2020 ECHO)), HTN, Hyperlipdemia Pulmonary: No: Asthma Reproductive: Yes: Postmenopausal ...: No Heme/Onc: Yes: Anemia (recently noted) Psych: Yes: Schizophrenia Endocrine: Yes: Diabetes Mellitus - Alcohol/Substance Use Hx Alcohol Use: No History of Substance Use: reports: None - Smoking History Smoking history: Never smoked Have you smoked in the past 12 months: No - Social History History of Recent Travel: No Home Medications - Allergies Allergies/Adverse Reactions: Allergies Allergy/AdvReac Type Severity Reaction Status Date / Time No Known Allergies Allergy Verified 07/15/20 13:21 - Home Medications Home Medications: Ambulatory Orders Escitalopram Oxalate [Lexapro -] 20 mg PO HS 04/10/20 Aspirin [ASA -] 325 mg PO DAILY tablet 04/15/20 Atorvastatin Ca [Lipitor] 80 mg PO HS tablet 04/15/20 Insulin Sliding Scale [Novolog Vial Sliding Scale -] 1 vial SQ ACHS units 04/15/20 Metoprolol Succinate [Toprol XL -] 50 mg PO DAILY tab.sr.24h 04/15/20 Insulin (Levemir) [Levemir Vial] 16 units SQ BID@0700,2200 07/15/20 metFORMIN HCL [Glucophage -] 500 mg PO BID@0700,1630 07/15/20 Family Medical History Family Hx Cardiac Disorders: Father (CVA age 62; LA age?) Review of Systems - Review of Systems Constitutional: reports: Weakness Eyes: reports: No Symptoms HENT: reports: No Symptoms Cardiovascular: reports: No Symptoms Respiratory: reports: SOB on Exertion Gastrointestinal: reports: Abdominal Pain Genitourinary: reports: Dysuria Breasts: reports: No Symptoms Reported Musculoskeletal: reports: Muscle Weakness Integumentary: reports: No Symptoms Neurological: reports: Unsteady Gait, Weakness Endocrine: reports: No Symptoms Hematology/Lymphatic: reports: No Symptoms Psychiatric: reports: Anxiety - Risk Factors Known Risk Factors: Yes: Age, Diabetes Mellitus, Hypercholesterolemia, Hypertension, Physical Inactivity, Prior LA /Emb Stroke Vital Signs: Vital Signs Temperature 98.9 F 07/18/20 14:00 Pulse Rate 77 07/18/20 14:00 Respiratory Rate 18 07/18/20 14:00 Blood Pressure 162/86 07/18/20 14:00 O2 Sat by Pulse Oximetry (%) 100 07/18/20 14:00 Constitutional: Yes: Anxious Eyes: Yes: WNL HENT: Yes: WNL Neck: Yes: WNL Respiratory: Yes: Regular Gastrointestinal: Yes: Soft Renal/: No: Anuria Cardiovascular: Yes: Regular Rate and Rhythm JVD: No Carotid Bruit: No PMI: Non-Displaced Heart Sounds: Yes: S1, S2, S4 Murmur: Yes: Systolic Murmur, Grade 2 Musculoskeletal: Yes: Joint Stiffness, Muscle Weakness Extremities: Yes: Cool Edema: Yes Edema: LLE: Trace, RLE: Trace Peripheral Pulses WNL: Yes Integumentary: Yes: WNL, Venous Stasis Changes Neurological: Yes: Alert, Oriented, Weakness Psychiatric: Yes: Alert, Oriented, Other - Other Data Labs, Other Data: CBC, BMP 07/18/20 08:10 07/18/20 08:10 Abnormal Lab Results 07/18/20 07/18/20 08:10 08:10 WBC 13.4 H RBC 3.38 L Hgb 9.9 L Hct 29.6 L Plt Count 473 H MPV 7.4 L Absolute Neuts (auto) 11.0 H Sodium 134 L Random Glucose 147 H Calcium 7.6 L Alkaline Phosphatase 133 H Creatine Kinase 17 L Albumin 1.6 L HDL Cholesterol 23 L Echo: Report Reviewed Ejection Fraction %: LVEF > or = 40 % Imaging - Results Chest X-ray: Image Reviewed Cat Scan: Image Reviewed Ultrasound: Report Reviewed MRI: Image Reviewed EKG: Image Reviewed Assessment/Plan Dysuria GI Hyperlipidemia poorly-controlled DM HTN iron-deficiency anemia hyperprolactinemia hypoalbuminemia hypokalemia leukocytosis Prolonged QT diastolic LV dysfunction PL: TNI Repeat EKG; f/u QT Start lisinopril 5 mg daily (HTN; DM; CHF); f/u BUn/Cr and electrolytes. ECHO: normal LVEF; abnormal diastolic compliance. Replete K and PO4: Keep K 4.0-4.5; Mg 2.0-2.4; PO4 2.5-4.9. F/u surgical, and GI w/u. 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
[2020-07-18] MEDS: LISINOPRIL 5 MG TABLET PO SCH (17:04)
[2020-07-18 18:06] LABS: CHOLESTEROL 91 mg/dL (50-200); HDL CHOLESTEROL 23 mg/dL (40-60); LDL CHOLESTEROL (ONLY SJRH) 57 mg/dL (5-100); TRIGLYCERIDES 106 mg/dL (0-150)
[2020-07-18] MEDS ORDERED: ACETAMINOPHEN 325 MG TABLET (FP) PO PRN (18:43)
[2020-07-18] MEDS: ESCITALOPRAM OXALATE 20 MG TABLET PO SCH (21:45)
[2020-07-18] MEDS: ATORVASTATIN CA 80 MG TABLET (FP) PO SCH (21:45)
[2020-07-18] MEDS: INSULIN (LEVEMIR) 100 UNITS/ML UNITS SQ SCH (21:46)
[2020-07-19] MEDS: POTASSIUM CHLORIDE 10 MEQ in DEXTROSE 5%-NORMAL SALINE 1,000 ML IVPB SCH (05:54)
[2020-07-19] MEDS: INSULIN SLIDING SCALE (NOVOLOG) 1 VIAL SQ SCH ×4 (06:01→21:06)
[2020-07-19] MEDS: INSULIN (LEVEMIR) 100 UNITS/ML UNITS SQ SCH ×2 (06:07→21:06)
--- NOTE | 2020-07-19 06:30 | PN ---
Progress Note, Physician Chief Complaint: in bed NAD afebrile no new c/o consults appreciated - Current Medication List Current Medications: Active Medications Acetaminophen (Tylenol -) 650 mg PO NOW PRN PRN Reason: FEVER Last Admin: 07/16/20 23:38 Dose: 650 mg Documented by: Acetaminophen (Tylenol -) 650 mg PO Q6H PRN PRN Reason: PAIN LEVEL 6-10 Last Admin: 07/18/20 18:52 Dose: 650 mg Documented by: Aspirin (Asa -) 325 mg PO DAILY [facility] Last Admin: 07/18/20 09:10 Dose: 325 mg Documented by: Atorvastatin Calcium (Lipitor -) 80 mg PO HS [facility] Last Admin: 07/18/20 21:45 Dose: 80 mg Documented by: Escitalopram Oxalate (Lexapro -) 20 mg PO HS [facility] Last Admin: 07/18/20 21:45 Dose: 20 mg Documented by: Heparin Sodium (Porcine) (Heparin -) 5,000 unit SQ BID [facility] Last Admin: 07/18/20 21:45 Dose: 5,000 unit Documented by: Ceftriaxone Sodium 1 gm/ (Dextrose) 50 mls @ 100 mls/hr IVPB DAILY [facility] Last Admin: 07/18/20 10:34 Dose: 100 mls/hr Documented by: Potassium Chloride 10 meq/ (Dextrose/Sodium Chloride) 1,005 mls @ 75 mls/hr IVPB Q13H [facility] Last Admin: 07/19/20 05:54 Dose: Not Given Documented by: Metronidazole (Flagyl 500mg Premixed Ivpb -) 500 mg in 100 mls @ 100 mls/hr IVPB Q8H-IV [facility] Last Admin: 07/19/20 01:14 Dose: 100 mls/hr Documented by: Insulin Aspart (Novolog Vial Sliding Scale -) 1 vial SQ ACHS [facility]; Protocol Last Admin: 07/19/20 06:01 Dose: Not Given Documented by: Insulin Detemir (Levemir Vial) 6 units SQ BID@0700,2200 [facility] Last Admin: 07/19/20 06:07 Dose: 6 units Documented by: Lisinopril (Prinivil) 5 mg PO DAILY [facility] Last Admin: 07/18/20 17:04 Dose: 5 mg Documented by: Metoprolol Succinate (Toprol Xl -) 50 mg PO DAILY [facility] Last Admin: 07/18/20 09:11 Dose: 50 mg Documented by: Metoprolol Succinate (Toprol Xl -) 25 mg PO DAILY [facility] Last Admin: 07/18/20 13:15 Dose: 25 mg Documented by: - Objective Vital Signs: Vital Signs Temperature 98.1 F 07/19/20 05:59 Pulse Rate 68 07/19/20 05:59 Respiratory Rate 16 07/19/20 05:59 Blood Pressure 143/70 07/19/20 05:59 O2 Sat by Pulse Oximetry (%) 99 07/19/20 05:59 Constitutional: Yes: No Distress Eyes: Yes: Conjunctiva Clear HENT: Yes: Atraumatic Neck: Yes: Supple Cardiovascular: Yes: Regular Rate and Rhythm Respiratory: Yes: CTA Bilaterally Gastrointestinal: Yes: Soft. No: Tenderness Genitourinary: No: Hematuria Musculoskeletal: No: Joint Stiffness, Joint Swelling Extremities: No: Cold, Cool Edema: No Integumentary: No: Rash Neurological: Yes: Alert, Oriented ...Motor Strength: LUE, LLE Psychiatric: Yes: Alert, Oriented. No: Agitated, Suicidal Ideation Labs: CBC, BMP 07/18/20 08:10 07/18/20 08:10 Assessment/Plan The patient is a 70y/o F with a pmh of CVA (3months ago), IDDM, HTN who presents to the ED with intermittent lower abdominal/ suprapubic pain,diarrhea, urinary frequency, urgency and dysuria x2 weeks. Also borderline hypotensive and hypoglycemic lactic acidosis low K IVF IV ATB replete K sq insulin per BGM f/u cx labs ID and renal eval abdomen CT diverticulitis abscesses - GI, , IR consulted; surgery consulted - cardio and neuro evals preop DVT and falls and decubs pfx turn in bed DVT pfx d/w pt and staff
[2020-07-19 08:34] LABS: BASO % 0.4 % (0-2.0); EOS % 0.6 % (0-4.5); HEMATOCRIT 27.8 % (32.4-45.2); HEMOGLOBIN 9.4 GM/dL (10.7-15.3); LYMPH % 11.6 % (8-40); MCH 29.5 pg (25.7-33.7); MCHC 33.8 g/dl (32.0-36.0); MEAN CELL VOLUME 87.3 fl (80-96); MONO % 7.3 % (3.8-10.2); NEUT % 80.1 % (42.8-82.8); PLATELET COUNT 487 K/MM3 (134-434); RBC 3.19 M/mm3 (3.60-5.2); RDW 15.2 % (11.6-15.6); WHITE BLOOD COUNT 11.6 K/mm3 (4.0-10.0)
[2020-07-19 08:58] LABS: ALBUMIN 1.5 g/dl (3.4-5.0); BILIRUBIN,TOTAL 0.8 mg/dL (0.2-1); BLOOD UREA NITROGEN 6.7 mg/dL (7-18); CALCIUM 7.7 mg/dL (8.5-10.1); CREATININE 0.6 mg/dL (0.55-1.3); POTASSIUM 3.7 mmol/L (3.5-5.1); TOT PROT 6.1 g/dl (6.4-8.2)
--- NOTE | 2020-07-19 09:36 | PN ---
Progress Note, Physician History of Present Illness: Afebrile, denies abd pain despite pelvic absesses. - Current Medication List Current Medications: Active Medications Acetaminophen (Tylenol -) 650 mg PO NOW PRN PRN Reason: FEVER Last Admin: 07/16/20 23:38 Dose: 650 mg Documented by: Acetaminophen (Tylenol -) 650 mg PO Q6H PRN PRN Reason: PAIN LEVEL 6-10 Last Admin: 07/18/20 18:52 Dose: 650 mg Documented by: Aspirin (Asa -) 325 mg PO DAILY [facility] Last Admin: 07/18/20 09:10 Dose: 325 mg Documented by: Atorvastatin Calcium (Lipitor -) 80 mg PO HS [facility] Last Admin: 07/18/20 21:45 Dose: 80 mg Documented by: Escitalopram Oxalate (Lexapro -) 20 mg PO HS [facility] Last Admin: 07/18/20 21:45 Dose: 20 mg Documented by: Heparin Sodium (Porcine) (Heparin -) 5,000 unit SQ BID [facility] Last Admin: 07/18/20 21:45 Dose: 5,000 unit Documented by: Ceftriaxone Sodium 1 gm/ (Dextrose) 50 mls @ 100 mls/hr IVPB DAILY [facility] Last Admin: 07/18/20 10:34 Dose: 100 mls/hr Documented by: Potassium Chloride 10 meq/ (Dextrose/Sodium Chloride) 1,005 mls @ 75 mls/hr IVPB Q13H [facility] Last Admin: 07/19/20 05:54 Dose: Not Given Documented by: Metronidazole (Flagyl 500mg Premixed Ivpb -) 500 mg in 100 mls @ 100 mls/hr IVPB Q8H-IV [facility] Last Admin: 07/19/20 01:14 Dose: 100 mls/hr Documented by: Insulin Aspart (Novolog Vial Sliding Scale -) 1 vial SQ ACHS [facility]; Protocol Last Admin: 07/19/20 06:01 Dose: Not Given Documented by: Insulin Detemir (Levemir Vial) 6 units SQ BID@0700,2200 [facility] Last Admin: 07/19/20 06:07 Dose: 6 units Documented by: Lisinopril (Prinivil) 5 mg PO DAILY [facility] Last Admin: 07/18/20 17:04 Dose: 5 mg Documented by: Metoprolol Succinate (Toprol Xl -) 50 mg PO DAILY [facility] Last Admin: 07/18/20 09:11 Dose: 50 mg Documented by: Metoprolol Succinate (Toprol Xl -) 25 mg PO DAILY [facility] Last Admin: 07/18/20 13:15 Dose: 25 mg Documented by: - Objective Vital Signs: Vital Signs Temperature 98.1 F 07/19/20 05:59 Pulse Rate 68 07/19/20 05:59 Respiratory Rate 16 07/19/20 05:59 Blood Pressure 143/70 07/19/20 05:59 O2 Sat by Pulse Oximetry (%) 99 07/19/20 05:59 Constitutional: Yes: No Distress, Calm Neck: Yes: Supple Cardiovascular: Yes: Regular Rate and Rhythm Respiratory: Yes: Regular, CTA Bilaterally Gastrointestinal: Yes: Soft, Hypoactive Bowel Sounds Edema: No Labs: CBC, BMP 07/19/20 07:48 07/19/20 07:48 - ....Imaging EKG: Report Reviewed (nsr @ 72 w/o st-t changes) Problem List - Problems (1) Pre-operative cardiovascular examination Code(s): Z01.810 - ENCOUNTER FOR PREPROCEDURAL CARDIOVASCULAR EXAMINATION (2) Colonic diverticular abscess Code(s): K57.20 - DVTRCLI OF LG INT W PERFORATION AND ABSCESS W/O BLEEDING (3) Colovesical fistula Code(s): N32.1 - VESICOINTESTINAL FISTULA (4) CAD (coronary artery disease) Code(s): I25.10 - ATHSCL HEART DISEASE OF [place] CORONARY ARTERY W/O ANG PCTRS Qualifiers: Coronary Disease-Associated Artery/Lesion type: [place] artery [place] vs. transplanted heart: [place] heart Associated angina: without angina Qualified Code(s): I25.10 - Atherosclerotic heart disease of [place] coronary artery without angina pectoris (5) Carotid stenosis, left Code(s): I65.22 - OCCLUSION AND STENOSIS OF LEFT CAROTID ARTERY (6) Cerebrovascular accident (CVA) Code(s): I63.9 - CEREBRAL INFARCTION, UNSPECIFIED Qualifiers: CVA mechanism: unspecified Qualified Code(s): I63.9 - Cerebral infarction, unspecified (7) Diabetes Code(s): E11.9 - TYPE 2 DIABETES MELLITUS WITHOUT COMPLICATIONS Qualifiers: Diabetes mellitus type: type 2 Diabetes mellitus retirement insulin use: with retirement use Diabetes mellitus complication status: with neurologic complications (8) HTN (hypertension) Code(s): I10 - ESSENTIAL (PRIMARY) HYPERTENSION Qualifiers: Hypertension type: essential hypertension Qualified Code(s): I10 - Essential (primary) hypertension (9) Hypercholesterolemia Code(s): E78.00 - PURE HYPERCHOLESTEROLEMIA, UNSPECIFIED (10) Hypothyroidism Code(s): E03.9 - HYPOTHYROIDISM, UNSPECIFIED Qualifiers: Hypothyroidism type: unspecified Qualified Code(s): E03.9 - Hypothyroidism, unspecified Assessment/Plan 04/12/2020 ECHO: normal LVEF; abnormal diastolic compliance, Tr TR 1. Diverticular abscess referable to colovesicular fistula 2. Diastolic dysfunction 3. Poorly controlled DM c/b neuropathy 4. HTN 5. Chronic stroke 6. Multi-infarct dementia 7. Hypokalemia improved 8. Anemia 9. UTI P: 1. Empiric abx per ID 2. Plan for repair of colovesicular fistula. Given absence of symptoms of acute coronary syndrome, decompensated CHF or malignant arrhythmia, may proceed with OR from CV-standpoint w/o further testing 3. Added lisinopril 5 mg daily (HTN; DM; CHF); f/u BUn/Cr and electrolytes, continue Lipitor 80 qd, Toprol XL 75 qd, DVT prophylaxis, ASA held perioperatively, resume once post-op hemostasis assured
[2020-07-19] MEDS ORDERED: DEXTROSE 5%-WATER - 50 ML IVPB ONE (09:49)
[2020-07-19] MEDS ORDERED: cefTRIAXone SODIUM 1 GM VIAL ONE (09:49)
[2020-07-19] MEDS: metoPROLOL SUCCINATE 25 MG TAB.SR.24H (FP) PO SCH (09:57)
[2020-07-19] MEDS: ACETAMINOPHEN 325 MG TABLET (FP) PO PRN ×2 (09:57→11:03)
[2020-07-19] MEDS: LISINOPRIL 5 MG TABLET PO SCH (09:58)
[2020-07-19] MEDS: HEPARIN NA (PORCINE) 5,000 UNITS/ML 1ML VIAL SQ SCH ×2 (09:58→21:03)
[2020-07-19] MEDS: ASPIRIN 325 MG TABLET PO SCH (09:58)
--- NOTE | 2020-07-19 11:02 | EKG ---
Test Reason : Blood Pressure : / mmHG Vent. Rate : 072 BPM Atrial Rate : 072 BPM P-R Int : 148 ms QRS Dur : 086 ms QT Int : 434 ms P-R-T Axes : 048 -21 027 degrees QTc Int : 475 ms NORMAL SINUS RHYTHM NORMAL ECG WHEN COMPARED WITH ECG OF 15-JUL-2020 19:14, PREMATURE ATRIAL COMPLEXES ARE NO LONGER PRESENT QT HAS SHORTENED Confirmed by MERCEDES REYNOSO MD ([id number]) on 07/19/2020 11:02:07 AM Referred By: Confirmed By:MERCEDES REYNOSO MD
[2020-07-19] MEDS: CEFTRIAXONE 1 GM in DEXTROSE 5%-WATER - 50 ML IVPB SCH (11:03)
--- NOTE | 2020-07-19 11:36 | PN ---
Progress Note, Physician History of Present Illness: Seen and examined at the bedside awake and alert no overnight events no sob, cp, fever or chills - Current Medication List Current Medications: Active Medications Acetaminophen (Tylenol -) 650 mg PO NOW PRN PRN Reason: FEVER Last Admin: 07/19/20 11:03 Dose: 650 mg Documented by: Acetaminophen (Tylenol -) 650 mg PO Q6H PRN PRN Reason: PAIN LEVEL 6-10 Last Admin: 07/18/20 18:52 Dose: 650 mg Documented by: Aspirin (Asa -) 325 mg PO DAILY [facility] Last Admin: 07/19/20 09:58 Dose: Not Given Documented by: Atorvastatin Calcium (Lipitor -) 80 mg PO HS [facility] Last Admin: 07/18/20 21:45 Dose: 80 mg Documented by: Escitalopram Oxalate (Lexapro -) 20 mg PO HS [facility] Last Admin: 07/18/20 21:45 Dose: 20 mg Documented by: Heparin Sodium (Porcine) (Heparin -) 5,000 unit SQ BID [facility] Last Admin: 07/19/20 09:58 Dose: Not Given Documented by: Ceftriaxone Sodium 1 gm/ (Dextrose) 50 mls @ 100 mls/hr IVPB DAILY [facility] Last Admin: 07/19/20 11:03 Dose: 100 mls/hr Documented by: Potassium Chloride 10 meq/ (Dextrose/Sodium Chloride) 1,005 mls @ 75 mls/hr IVPB Q13H [facility] Last Admin: 07/19/20 05:54 Dose: Not Given Documented by: Metronidazole (Flagyl 500mg Premixed Ivpb -) 500 mg in 100 mls @ 100 mls/hr IVPB Q8H-IV [facility] Last Admin: 07/19/20 09:57 Dose: 100 mls/hr Documented by: Insulin Aspart (Novolog Vial Sliding Scale -) 1 vial SQ ACHS [facility]; Protocol Last Admin: 07/19/20 11:13 Dose: Not Given Documented by: Insulin Detemir (Levemir Vial) 6 units SQ BID@0700,2200 [facility] Last Admin: 07/19/20 06:07 Dose: 6 units Documented by: Lisinopril (Prinivil) 5 mg PO DAILY [facility] Last Admin: 07/19/20 09:58 Dose: 5 mg Documented by: Metoprolol Succinate (Toprol Xl -) 50 mg PO DAILY [facility] Last Admin: 07/19/20 09:57 Dose: 50 mg Documented by: Metoprolol Succinate (Toprol Xl -) 25 mg PO DAILY [facility] Last Admin: 07/19/20 09:57 Dose: 25 mg Documented by: - Objective Vital Signs: Vital Signs Temperature 98.1 F 07/19/20 05:59 Pulse Rate 68 07/19/20 05:59 Respiratory Rate 16 07/19/20 05:59 Blood Pressure 143/70 07/19/20 05:59 O2 Sat by Pulse Oximetry (%) 99 07/19/20 05:59 Constitutional: Yes: No Distress HENT: Yes: Atraumatic Neck: Yes: Supple Cardiovascular: Yes: Regular Rate and Rhythm Respiratory: Yes: Regular Gastrointestinal: Yes: Soft. No: Tenderness Extremities: No: Cold, Cool, Cyanosis Edema: No Neurological: Yes: Alert, Oriented Labs: CBC, BMP 07/19/20 07:48 07/19/20 07:48 Assessment/Plan 70 year old woman with history of CVA, IDDM, hypertension who presented with lower abdominal pain and found to have likely UTI with hypokalemia. 1. Hypokalemia in setting of diarrhea/GI losses 2. Diverticular abscess 3. Hypertension 4. IDDM 5. Anemia 6. Lactic acidosis Hypokalemia improved and stable. Mg levels > 2 Continue IVF with potassium, will supplament Mg via IV if needed. Surgical follow up, possible OR date later this week. Continue empiric antibiotics as per ABELARDO Ricks DO
--- NOTE | 2020-07-19 11:42 | PN.GI ---
GI Progress Note Subjective: GI NOte: Dr. Fraga's coverage is appreciated. Looks remarkably comfortable despite multiple and large abscesses. Urine is growing E. coli and Pseudomonas and the daughter described foul smelling urine lending support to an underlying colovesical fistula. Discussed the case with DR Horton. Given the multiple # and size of abscesses and the likelihood of a fistula agree with his plan for surgery rather than IR approach. He is coordinating wit Dr. Cheng. - Objective Vital Signs: Vital Signs Temperature 99.1 F 07/19/20 10:00 Pulse Rate 69 07/19/20 10:00 Respiratory Rate 18 07/19/20 10:00 Blood Pressure 151/81 07/19/20 10:00 O2 Sat by Pulse Oximetry (%) 99 07/19/20 10:00 CBC,CMP WBC 11.6 K/mm3 (4.0-10.0) H 07/19/20 07:48 RBC 3.19 M/mm3 (3.60-5.2) L 07/19/20 07:48 Hgb 9.4 GM/dL (10.7-15.3) L 07/19/20 07:48 Hct 27.8 % (32.4-45.2) L 07/19/20 07:48 MCV 87.3 fl (80-96) 07/19/20 07:48 MCH 29.5 pg (25.7-33.7) 07/19/20 07:48 MCHC 33.8 g/dl (32.0-36.0) 07/19/20 07:48 RDW 15.2 % (11.6-15.6) 07/19/20 07:48 Plt Count 487 K/MM3 (134-434) H 07/19/20 07:48 MPV 7.0 fl (7.5-11.1) L 07/19/20 07:48 Absolute Neuts (auto) 9.3 K/mm3 (1.5-8.0) H 07/19/20 07:48 Neutrophils % 80.1 % (42.8-82.8) 07/19/20 07:48 Neutrophils % (Manual) 81.8 % (42.8-82.8) 07/16/20 05:35 Band Neutrophils % 0.0 % 07/16/20 05:35 Lymphocytes % 11.6 % (8-40) 07/19/20 07:48 Lymphocytes % (Manual) 8.1 % (8-40) 07/16/20 05:35 Monocytes % 7.3 % (3.8-10.2) 07/19/20 07:48 Monocytes % (Manual) 9 % (3.8-10.2) D 07/16/20 05:35 Eosinophils % 0.6 % (0-4.5) D 07/19/20 07:48 Eosinophils % (Manual) 1.0 % (0-4.5) D 07/16/20 05:35 Basophils % 0.4 % (0-2.0) 07/19/20 07:48 Basophils % (Manual) 0.0 % (0-2.0) 07/16/20 05:35 Myelocytes % (Man) 0 % (0-2) D 07/16/20 05:35 Promyelocytes % (Man) 0 % (0-2) 07/16/20 05:35 Blast Cells % (Manual) 0 % (0-0) 07/16/20 05:35 Nucleated RBC % 0 % (0-0) 07/19/20 07:48 Metamyelocytes 0 % (0-2) D 07/16/20 05:35 Hypochromia 0 07/16/20 05:35 Platelet Estimate Normal 07/16/20 05:35 Polychromasia 1+ 07/16/20 05:35 Poikilocytosis 0 07/16/20 05:35 Anisocytosis 2+ 07/16/20 05:35 Microcytosis 2+ 07/16/20 05:35 Macrocytosis 0 07/16/20 05:35 Sodium 134 mmol/L (136-145) L 07/19/20 07:48 Potassium 3.7 mmol/L (3.5-5.1) 07/19/20 07:48 Chloride 101 mmol/L (98-107) 07/19/20 07:48 Carbon Dioxide 27 mmol/L (21-32) 07/19/20 07:48 Anion Gap 6 MMOL/L (8-16) L 07/19/20 07:48 BUN 6.7 mg/dL (7-18) L 07/19/20 07:48 Creatinine 0.6 mg/dL (0.55-1.3) 07/19/20 07:48 Est GFR (CKD-EPI)AfAm 105.54 07/19/20 07:48 Est GFR (CKD-EPI)NonAf 91.06 07/19/20 07:48 POC Glucometer 92 UNITS (80-120) 07/19/20 11:07 Random Glucose 132 mg/dL (74-106) H 07/19/20 07:48 Lactic Acid 0.9 mmol/L (0.4-2.0) 07/16/20 16:30 Calcium 7.7 mg/dL (8.5-10.1) L 07/19/20 07:48 Phosphorus 3.3 mg/dL (2.5-4.9) 07/18/20 08:10 Magnesium 1.8 mg/dL (1.8-2.4) 07/18/20 08:10 Iron 21 ug/dL (50-175) L 07/17/20 08:45 TIBC 152 ug/dL (250-450) L 07/17/20 08:45 Iron Saturation 13 % (17.5-39) L 07/17/20 08:45 Unsaturated IBC 131 ug/dL (200-275) L 07/17/20 08:45 Ferritin 1020.9 ng/ml (8-388) H 07/17/20 08:45 Total Bilirubin 0.8 mg/dL (0.2-1) 07/19/20 07:48 AST 16 U/L (15-37) 07/19/20 07:48 ALT 21 U/L (13-61) 07/19/20 07:48 Alkaline Phosphatase 115 U/L (45-117) 07/19/20 07:48 Creatine Kinase 17 U/L (26-192) L 07/18/20 08:10 Troponin I < 0.02 ng/ml (0.00-0.05) 07/18/20 08:10 Total Protein 6.1 g/dl (6.4-8.2) L 07/19/20 07:48 Albumin 1.5 g/dl (3.4-5.0) L 07/19/20 07:48 Triglycerides 106 mg/dL (0-150) 07/18/20 08:10 Cholesterol 91 mg/dL (50-200) 07/18/20 08:10 Total LDL Cholesterol 57 mg/dL (5-100) 07/18/20 08:10 HDL Cholesterol 23 mg/dL (40-60) L 07/18/20 08:10 Current Medications Generic Name Dose Route Start Last Admin Trade Name Flora PRN Reason Stop Dose Admin Acetaminophen 650 mg 07/16/20 23:29 07/19/20 11:03 Tylenol - PO 650 mg NOW PRN Administration FEVER Acetaminophen 650 mg 07/18/20 18:43 07/18/20 18:52 Tylenol - PO 650 mg Q6H PRN Administration PAIN LEVEL 6-10 Aspirin 325 mg 07/16/20 10:00 07/19/20 09:58 Asa - PO Not Given DAILY [facility] Atorvastatin Calcium 80 mg 07/15/20 22:00 07/18/20 21:45 Lipitor - PO 80 mg HS JC Administration Escitalopram Oxalate 20 mg 07/15/20 22:00 07/18/20 21:45 Lexapro - PO 20 mg HS JC Administration Heparin Sodium (Porcine) 5,000 unit 07/15/20 22:00 07/19/20 09:58 Heparin - SQ Not Given BID [facility] Ceftriaxone Sodium 1 gm/ 50 mls @ 100 mls/hr 07/16/20 10:00 07/19/20 11:03 Dextrose IVPB 100 mls/hr DAILY [facility] Administration Potassium Chloride 10 meq/ 1,005 mls @ 75 mls/hr 07/16/20 11:48 07/19/20 05:54 Dextrose/Sodium Chloride IVPB Not Given Q13H [facility] Metronidazole 500 mg in 100 mls @ 100 mls/hr 07/17/20 18:00 07/19/20 09:57 Flagyl 500mg Premixed Ivpb - IVPB 100 mls/hr Q8H-IV JC Administration Insulin Aspart 1 vial 07/15/20 22:00 07/19/20 11:13 Novolog Vial Sliding Scale - SQ Not Given ACHS [facility] Protocol Insulin Detemir 6 units 07/18/20 22:00 07/19/20 06:07 Levemir Vial SQ 6 units BID@0700,2200 JC Administration Lisinopril 5 mg 07/18/20 16:30 07/19/20 09:58 Prinivil PO 5 mg DAILY [facility] Administration Metoprolol Succinate 50 mg 07/16/20 10:00 07/19/20 09:57 Toprol Xl - PO 50 mg DAILY JC Administration Metoprolol Succinate 25 mg 07/18/20 12:00 07/19/20 09:57 Toprol Xl - PO 25 mg DAILY JC Administration Constitutional: Calm ...Auscultate: Yes: Normoactive Bowel Sounds ...Palpate: Yes: Soft, Other (no tenderness elicited) Labs: CBC, BMP 07/19/20 07:48 07/19/20 07:48 Assessment/Plan Impression: - Multiple and large pelvic abscesses likely secondary to diverticular disease and 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 - Diarrhea is likely paradoxical and of an overflow nature with suspect proximal fecal impaction. Stool of C diff negative Plan: - NPO except medications until surgery can be done - evaluation in progress - Continue antibiotics - Switch to Clinimix Discussed with Dr Horton and with Dr. Rambo Li Problem List - Problems (1) Colonic diverticular abscess Code(s): K57.20 - DVTRCLI OF LG INT W PERFORATION AND ABSCESS W/O BLEEDING (2) Colovesical fistula Code(s): N32.1 - VESICOINTESTINAL FISTULA (3) Bilateral hydronephrosis Code(s): N13.30 - UNSPECIFIED HYDRONEPHROSIS (4) Urinary tract infection Code(s): N39.0 - URINARY TRACT INFECTION, SITE NOT SPECIFIED Qualifiers: Urinary tract infection type: acute pyelonephritis Qualified Code(s): N10 - Acute pyelonephritis (5) CAD (coronary artery disease) Code(s): I25.10 - ATHSCL HEART DISEASE OF [place] CORONARY ARTERY W/O ANG PCTRS (6) Cerebrovascular accident (CVA) Code(s): I63.9 - CEREBRAL INFARCTION, UNSPECIFIED Qualifiers: CVA mechanism: unspecified Qualified Code(s): I63.9 - Cerebral infarction, unspecified (7) Diabetes Code(s): E11.9 - TYPE 2 DIABETES MELLITUS WITHOUT COMPLICATIONS (8) HTN (hypertension) Code(s): I10 - ESSENTIAL (PRIMARY) HYPERTENSION (9) Hypercholesterolemia Code(s): E78.00 - PURE HYPERCHOLESTEROLEMIA, UNSPECIFIED (10) Hypothyroidism Code(s): E03.9 - HYPOTHYROIDISM, UNSPECIFIED (11) Schizophrenia Code(s): F20.9 - SCHIZOPHRENIA, UNSPECIFIED
--- NOTE | 2020-07-19 11:48 | CON.NEURO ---
Consult Consult Specialty:: Moe Referred by:: PCP Reason for Consultation:: Clearnace - History of Present Illness History of Present Illness: this is a very pleasant 70-year-old right-handed female patient well known to me from previous admission to [facility] patient can't to the hospital again 4 days ago with a chief complaint of dysuria patient was evaluated by multiple specialists patient was in the hospital back in April ient was diagnosed with right MCA stroke patient was not a candidate for TPA. 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 Cardio/Vascular: Yes: CAD, CHF (diastolic (04/2020 ECHO)), HTN, Hyperlipdemia Pulmonary: No: Asthma ...: No Psych: Yes: Schizophrenia Endocrine: Yes: Diabetes Mellitus - Alcohol/Substance Use Hx Alcohol Use: No History of Substance Use: reports: None - Smoking History Smoking history: Never smoked Have you smoked in the past 12 months: No - Social History History of Recent Travel: No Home Medications - Allergies Allergies/Adverse Reactions: Allergies Allergy/AdvReac Type Severity Reaction Status Date / Time No Known Allergies Allergy Verified 07/15/20 13:21 - Home Medications Home Medications: Ambulatory Orders Escitalopram Oxalate [Lexapro -] 20 mg PO HS 04/10/20 Aspirin [ASA -] 325 mg PO DAILY tablet 04/15/20 Atorvastatin Ca [Lipitor] 80 mg PO HS tablet 04/15/20 Insulin Sliding Scale [Novolog Vial Sliding Scale -] 1 vial SQ ACHS units 04/15/20 Metoprolol Succinate [Toprol XL -] 50 mg PO DAILY tab.sr.24h 04/15/20 Insulin (Levemir) [Levemir Vial] 16 units SQ BID@0700,2200 07/15/20 metFORMIN HCL [Glucophage -] 500 mg PO BID@0700,1630 07/15/20 Family Medical History Family History: Unremarkable Family Hx Cardiac Disorders: Father (CVA age 62; HI age?) Physical Exam-Neuro Vital Signs: Vital Signs Temperature 99.1 F 07/19/20 10:00 Pulse Rate 69 07/19/20 10:00 Respiratory Rate 18 07/19/20 10:00 Blood Pressure 151/81 07/19/20 10:00 O2 Sat by Pulse Oximetry (%) 99 07/19/20 10:00 Labs: CBC, BMP 07/19/20 07:48 07/19/20 07:48 - Neuro Exam Level Of Consciousness: Yes: Oriented to Person, Oriented to Place Eyes: Yes: PERRLA Speech: WNL Dominant Hand: Right Cranial Nerves II-XII Intact: Yes Gag: Present DTR's: 1+ Left Bicep, 1+ Right Bicep, 1+ Left Tricep, 1+ Right Tricep Response to light touch: Abnormal Response to pain prick: Abnormal Response to temperature: Abnormal Motor Strength: 3/5: Left Arm, Right Arm, Left Leg, Right Leg Gait: Deferred Imaging - Results Cat Scan: Image Reviewed Assessment/Plan chronic stroke. Neuropathy associated with diabetes. Multi-infarct dementia 1. Tight blood sugar control. 2. Neurologically patient is cleared for surgery. 3. Resume Ecotrin 48 hours after surgery. 4. Subcutaneous heparin. 5. Homocystine level. Thank you very much for allowing me to be part of this patient's neurological care. Sparkle Rosa M.D. [phone]
[2020-07-19] MEDS ORDERED: AMINO ACIDS 4.25%/D5W 1,000 ML IV SCH (12:30)
--- NOTE | 2020-07-19 13:07 | PN ---
Progress Note (short form) - Note Progress Note: events noted ct scan with acute diverticulitis with multiple absesses, question of colovesicle fistula noted resting comfortably Vital Signs Period Temp Pulse Resp BP Sys/Ferrer Pulse Ox Last 24 Hr 97.8 F-99.1 F 62-77 16-18 143-164/68-86 98-100 cor-rrr llungs clear abd soft,nt ext no edema rodriguez with clear urine CBC, BMP 07/19/20 07:48 07/19/20 07:48 Microbiology 07/18/20 15:00 Stool Clostridioides difficile Antigen - Final 07/18/20 15:00 Stool Clostridioides difficile Toxin Assay - Final 07/15/20 20:10 Blood - Peripheral Venous Blood Culture - Preliminary NO GROWTH OBTAINED AFTER 72 HOURS, INCUBATION TO CONTINUE FOR 2 DAYS. 07/15/20 20:10 Blood - Peripheral Venous Blood Culture - Preliminary NO GROWTH OBTAINED AFTER 72 HOURS, INCUBATION TO CONTINUE FOR 2 DAYS. 07/15/20 15:10 Urine - Urine Clean Catch Urine Culture - Final Pseudomonas Aeruginosa Escherichia Coli imp/reccd diverticulitis with abscess possible colovestilve fistula UTI- hydronephrosis noted switch to zosyn, f/u with urology and surgery crp
[2020-07-19] MEDS ORDERED: PIPERACILLIN/TAZOBACTAM 4.5 GM VIAL IVPB ONE ×2 (13:47→16:35)
[2020-07-19] MEDS ORDERED: DEXTROSE 5%-WATER 100 ML IVPB ONE ×2 (13:47→16:35)
[2020-07-19] MEDS: PIPERACILLIN/TAZOB 4.5 GM 4.5 GM in DEXTROSE 5%-WATER 100 ML IVPB SCH ×2 (14:04→17:56)
[2020-07-19] MEDS: AMINO ACIDS 4.25%/D5W 1,000 ML IV SCH ×2 (16:25→20:57)
[2020-07-19] MEDS ORDERED: INSULIN (NOVOLOG) ASPART 100 UNITS/ML 10ML VIAL ONE (16:34)
[2020-07-19] MEDS ORDERED: PT OWN MED DRAWER 7, Y5N ONE (16:34)
[2020-07-19] MEDS: ESCITALOPRAM OXALATE 20 MG TABLET PO SCH (21:03)
[2020-07-19] MEDS: ATORVASTATIN CA 80 MG TABLET (FP) PO SCH (21:03)
[2020-07-20] MEDS ORDERED: PIPERACILLIN/TAZOBACTAM 4.5 GM VIAL IVPB ONE ×3 (00:42→17:40)
[2020-07-20] MEDS ORDERED: DEXTROSE 5%-WATER 100 ML IVPB ONE ×3 (00:42→17:40)
[2020-07-20] MEDS: PIPERACILLIN/TAZOB 4.5 GM 4.5 GM in DEXTROSE 5%-WATER 100 ML IVPB SCH ×3 (01:24→17:47)
[2020-07-20] MEDS: AMINO ACIDS 4.25%/D5W 1,000 ML IV SCH (02:30)
[2020-07-20] MEDS: INSULIN SLIDING SCALE (NOVOLOG) 1 VIAL SQ SCH ×4 (06:10→21:50)
[2020-07-20] MEDS: INSULIN (LEVEMIR) 100 UNITS/ML UNITS SQ SCH ×2 (06:10→21:42)
[2020-07-20] MEDS: metoPROLOL SUCCINATE 25 MG TAB.SR.24H (FP) PO SCH (09:07)
[2020-07-20] MEDS: LISINOPRIL 5 MG TABLET PO SCH (09:07)
[2020-07-20] MEDS: HEPARIN NA (PORCINE) 5,000 UNITS/ML 1ML VIAL SQ SCH ×2 (09:07→21:48)
[2020-07-20 09:08] LABS: BASO % 0.4 % (0-2.0); EOS % 0.4 % (0-4.5); HEMATOCRIT 26.3 % (32.4-45.2); HEMOGLOBIN 8.9 GM/dL (10.7-15.3); LYMPH % 12.9 % (8-40); MCH 29.6 pg (25.7-33.7); MCHC 33.9 g/dl (32.0-36.0); MEAN CELL VOLUME 87.3 fl (80-96); MEAN PLT VOLUME 7.2 fl (7.5-11.1); MONO % 7.1 % (3.8-10.2); NEUT % 79.2 % (42.8-82.8); PLATELET COUNT 457 K/MM3 (134-434); RBC 3.01 M/mm3 (3.60-5.2); RDW 15.2 % (11.6-15.6); WHITE BLOOD COUNT 11.3 K/mm3 (4.0-10.0)
[2020-07-20 09:18] LABS: INR 1.3 (0.83-1.09); PROTHROMBIN TIME (PATIENT) 15.4 SEC (9.7-13.0)
[2020-07-20 09:21] LABS: ACTIVATED PTT 29.1 SECONDS (25.2-36.5)
[2020-07-20 09:38] LABS: CREATININE 0.6 mg/dL (0.55-1.3); MAGNESIUM 1.3 mg/dL (1.8-2.4); PHOSPHOROUS 1.6 mg/dL (2.5-4.9)
[2020-07-20 09:40] LABS: POTASSIUM 2.9 mmol/L (3.5-5.1)
[2020-07-20] MEDS ORDERED: PT OWN MED DRAWER 7, Y5N ONE ×2 (10:12→11:20)
[2020-07-20] MEDS: ASPIRIN 325 MG TABLET PO SCH (10:27)
[2020-07-20] MEDS: POTASSIUM CHLORIDE TABS 20 MEQ TABLET.ER (FP) PO SCH (10:30)
[2020-07-20] MEDS ORDERED: KCL 10 MEQ IVPB 10 MEQ/100 ML INFUS.BAG IVPB SCH ×2 (10:45)
[2020-07-20] MEDS ORDERED: MAGNESIUM SULF 50% (8.12 MEQ/2 ML-1 GM VIAL) IVPB SCH (10:45)
[2020-07-20] MEDS: POTASSIUM CHLORIDE 40 MEQ in AMINO ACIDS 4.25%/D5W 1,000 ML IVPB SCH ×2 (11:00→22:15)
[2020-07-20] MEDS ORDERED: POTASSIUM PHOSPHATE 30 MM in DEXTROSE 5%-WATER - 500 ML IVPB ONE (11:00)
[2020-07-20] MEDS: MAGNESIUM SULFATE IN WATER 2 GM/50 ML IVPB IVPB SCH ×2 (11:46→12:41)
--- NOTE | 2020-07-20 12:01 | PN ---
Progress Note, Physician History of Present Illness: Seen and examined at the bedside awake and alert still has moderate lower abdominal pain no overnight events no sob, cp, fever or chills - Current Medication List Current Medications: Active Medications Acetaminophen (Tylenol -) 650 mg PO NOW PRN PRN Reason: FEVER Last Admin: 07/19/20 11:03 Dose: 650 mg Documented by: Acetaminophen (Tylenol -) 650 mg PO Q6H PRN PRN Reason: PAIN LEVEL 6-10 Last Admin: 07/18/20 18:52 Dose: 650 mg Documented by: Aspirin (Asa -) 325 mg PO DAILY [facility] Last Admin: 07/20/20 10:27 Dose: 325 mg Documented by: Atorvastatin Calcium (Lipitor -) 80 mg PO HS [facility] Last Admin: 07/19/20 21:03 Dose: 80 mg Documented by: Escitalopram Oxalate (Lexapro -) 20 mg PO HS [facility] Last Admin: 07/19/20 21:03 Dose: 20 mg Documented by: Heparin Sodium (Porcine) (Heparin -) 5,000 unit SQ BID [facility] Last Admin: 07/20/20 09:07 Dose: 5,000 unit Documented by: Piperacillin Sod/Tazobactam (Sod 4.5 gm/ Dextrose) 100 mls @ 200 mls/hr IVPB Q8H-IV [facility]; Protocol Last Admin: 07/20/20 09:07 Dose: 200 mls/hr Documented by: Potassium Chloride 40 meq/ (Amino Acids) 1,020 mls @ 84 mls/hr IVPB Q12H [facility] Potassium Phosphate 30 mm/ (Dextrose) 510 mls @ 62.5 mls/hr IVPB ONCE ONE Stop: 07/20/20 19:09 Magnesium Sulfate (Magnesium Sulf 2 G/50 Ml Bag) 2 gm in 50 mls @ 50 mls/hr IVPB Q1H [facility] Stop: 07/20/20 12:44 Last Admin: 07/20/20 11:46 Dose: 50 mls/hr Documented by: Insulin Aspart (Novolog Vial Sliding Scale -) 1 vial SQ ACHS [facility]; Protocol Last Admin: 07/20/20 11:12 Dose: Not Given Documented by: Insulin Detemir (Levemir Vial) 6 units SQ BID@0700,2200 [facility] Last Admin: 07/20/20 06:10 Dose: Not Given Documented by: Lisinopril (Prinivil) 5 mg PO DAILY [facility] Last Admin: 07/20/20 09:07 Dose: 5 mg Documented by: Metoprolol Succinate (Toprol Xl -) 50 mg PO DAILY [facility] Last Admin: 07/20/20 09:07 Dose: 50 mg Documented by: Metoprolol Succinate (Toprol Xl -) 25 mg PO DAILY [facility] Last Admin: 07/20/20 09:07 Dose: 25 mg Documented by: Potassium Chloride (K-Dur -) 40 meq PO DAILY [facility] Last Admin: 07/20/20 10:30 Dose: 40 meq Documented by: - Objective Vital Signs: Vital Signs Temperature 99.2 F 07/20/20 09:02 Pulse Rate 66 07/20/20 09:02 Respiratory Rate 16 07/20/20 09:02 Blood Pressure 148/77 07/20/20 09:02 O2 Sat by Pulse Oximetry (%) 100 07/20/20 09:02 Constitutional: Yes: No Distress, Calm HENT: Yes: Atraumatic Neck: Yes: Supple Cardiovascular: Yes: Regular Rate and Rhythm Respiratory: Yes: Regular Gastrointestinal: Yes: Soft, Tenderness Extremities: No: Cyanosis Edema: No Neurological: Yes: Alert Labs: CBC, BMP 07/20/20 08:35 07/20/20 08:35 INR, PTT INR 1.30 (0.83-1.09) H 07/20/20 08:35 Assessment/Plan 70 year old woman with history of CVA, IDDM, hypertension who presented with lower abdominal pain and found to have likely UTI with hypokalemia. 1. Hypokalemia in setting of diarrhea/GI losses 2. Diverticular abscess 3. Hypertension 4. IDDM 5. Anemia 6. Lactic acidosis 7. Hypomagnesemia 8. Hypophosphatemia supplement potassium, magnesium and phos today. Repeat levels this evening. Pt changed to IV clinimx yesterday. Will add potassium. Rate reduced as serum sodium was downtrending (Clinmix is mostly D5W) Surgical follow up Continue empiric antibiotics as per ABELARDO Ricks DO
--- NOTE | 2020-07-20 14:59 | PN ---
Progress Note, Physician Chief Complaint: in bed no c/o afebrile consults reviewed - Current Medication List Current Medications: Active Medications Acetaminophen (Tylenol -) 650 mg PO NOW PRN PRN Reason: FEVER Last Admin: 07/19/20 11:03 Dose: 650 mg Documented by: Acetaminophen (Tylenol -) 650 mg PO Q6H PRN PRN Reason: PAIN LEVEL 6-10 Last Admin: 07/18/20 18:52 Dose: 650 mg Documented by: Aspirin (Asa -) 325 mg PO DAILY [facility] Last Admin: 07/20/20 10:27 Dose: 325 mg Documented by: Atorvastatin Calcium (Lipitor -) 80 mg PO HS [facility] Last Admin: 07/19/20 21:03 Dose: 80 mg Documented by: Escitalopram Oxalate (Lexapro -) 20 mg PO [facility] Last Admin: 07/19/20 21:03 Dose: 20 mg Documented by: Heparin Sodium (Porcine) (Heparin -) 5,000 unit SQ BID [facility] Last Admin: 07/20/20 09:07 Dose: 5,000 unit Documented by: Piperacillin Sod/Tazobactam (Sod 4.5 gm/ Dextrose) 100 mls @ 200 mls/hr IVPB Q8H-IV [facility]; Protocol Last Admin: 07/20/20 09:07 Dose: 200 mls/hr Documented by: Potassium Chloride 40 meq/ (Amino Acids) 1,020 mls @ 84 mls/hr IVPB Q12H [facility] Potassium Phosphate 30 mm/ (Dextrose) 510 mls @ 62.5 mls/hr IVPB ONCE ONE Stop: 07/20/20 19:09 Last Admin: 07/20/20 12:53 Dose: 62.5 mls/hr Documented by: Insulin Aspart (Novolog Vial Sliding Scale -) 1 vial SQ ACHS [facility]; Protocol Last Admin: 07/20/20 11:12 Dose: Not Given Documented by: Insulin Detemir (Levemir Vial) 6 units SQ BID@0700,2200 [facility] Last Admin: 07/20/20 06:10 Dose: Not Given Documented by: Lisinopril (Prinivil) 5 mg PO DAILY [facility] Last Admin: 07/20/20 09:07 Dose: 5 mg Documented by: Metoprolol Succinate (Toprol Xl -) 50 mg PO DAILY [facility] Last Admin: 07/20/20 09:07 Dose: 50 mg Documented by: Metoprolol Succinate (Toprol Xl -) 25 mg PO DAILY [facility] Last Admin: 07/20/20 09:07 Dose: 25 mg Documented by: Potassium Chloride (K-Dur -) 40 meq PO DAILY [facility] Last Admin: 07/20/20 10:30 Dose: 40 meq Documented by: - Objective Vital Signs: Vital Signs Temperature 99.2 F 07/20/20 09:02 Pulse Rate 66 07/20/20 09:02 Respiratory Rate 16 07/20/20 09:02 Blood Pressure 148/77 07/20/20 09:02 O2 Sat by Pulse Oximetry (%) 100 07/20/20 09:02 Constitutional: Yes: No Distress, Calm Eyes: Yes: Conjunctiva Clear HENT: Yes: Atraumatic Neck: Yes: Supple Cardiovascular: Yes: Regular Rate and Rhythm Respiratory: Yes: CTA Bilaterally Gastrointestinal: Yes: Soft. No: Tenderness Genitourinary: No: Hematuria Musculoskeletal: No: Joint Stiffness, Joint Swelling Extremities: No: Cold, Cool, Cyanosis Edema: No Integumentary: No: Rash, Venous Stasis Changes Neurological: Yes: Alert, Oriented ...Motor Strength: LUE, LLE Psychiatric: Yes: Alert, Oriented. No: Agitated Labs: CBC, BMP 07/20/20 08:35 07/20/20 08:35 INR, PTT INR 1.30 (0.83-1.09) H 07/20/20 08:35 - ....Imaging Other: Report Reviewed Assessment/Plan The patient is a 70y/o F with a pmh of CVA (3months ago), IDDM, HTN admitted with sepsis diverticulitis with abscesses and UTI, also hydronephrosis IVF IV ATB replete K sq insulin per BGM f/u labs ID, renal, GI, , IR consulted; surgery consulted for possibe Gavin procedure - cardio and neuro evals preop I d/w pt's daughter Vidaly she is aware what surgery entails she discussed with dr Horton and she also informed her sister; aware of what colostomy means and that pt might have it indefinitely DVT and falls and decubs pfx turn in bed DVT pfx d/w pt and staff
[2020-07-20 18:20] LABS: BLOOD UREA NITROGEN 13.9 mg/dL (7-18); CALCIUM 7.2 mg/dL (8.5-10.1); CREATININE 0.7 mg/dL (0.55-1.3); MAGNESIUM 2.8 mg/dL (1.8-2.4); PHOSPHOROUS 3.4 mg/dL (2.5-4.9); POTASSIUM 3.7 mmol/L (3.5-5.1)
--- NOTE | 2020-07-20 21:27 | PN.GI ---
GI Progress Note Subjective: GI NOte: Reports mild lower abdominal pain but no chills or vomiting. DR Ricks's fluid and electrolyte adjustments are appreciated. - Objective Vital Signs: Vital Signs Temperature 98.8 F 07/20/20 18:45 Pulse Rate 57 L 07/20/20 18:45 Respiratory Rate 18 07/20/20 18:45 Blood Pressure 112/55 L 07/20/20 18:45 O2 Sat by Pulse Oximetry (%) 97 07/20/20 18:45 Laboratory Tests 07/15/20 07/16/20 07/19/20 14:05 05:35 07:48 WBC 22.5 H 17.0 H Hgb 10.9 9.4 L BUN Creatinine Random Glucose C-Reactive Protein 07/20/20 07/20/20 07/20/20 08:35 08:35 17:45 WBC 11.3 H Hgb 8.9 L BUN 13.9 Creatinine 0.7 Random Glucose 149 H C-Reactive Protein 9.8 H Constitutional: Calm ...Auscultate: Yes: Hypoactive Bowel Sounds ...Palpate: Yes: Soft, Tenderness (mild LLQ tenderness but no guarding) Labs: CBC, BMP 07/20/20 08:35 07/20/20 17:45 INR, PTT INR 1.30 (0.83-1.09) H 07/20/20 08:35 Assessment/Plan Impression: - Multiple and large pelvic abscesses likely secondary to diverticular disease and 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 - Diarrhea is likely paradoxical and of an overflow nature with suspect proximal fecal impaction. Stool of C diff negative Plan: - NPO except medications until surgery can be done - evaluation in progress - Continue antibiotics - Anticipate surgery 07/22 Problem List - Problems (1) Colonic diverticular abscess Code(s): K57.20 - DVTRCLI OF LG INT W PERFORATION AND ABSCESS W/O BLEEDING (2) Colovesical fistula Code(s): N32.1 - VESICOINTESTINAL FISTULA (3) Bilateral hydronephrosis Code(s): N13.30 - UNSPECIFIED HYDRONEPHROSIS (4) Urinary tract infection Code(s): N39.0 - URINARY TRACT INFECTION, SITE NOT SPECIFIED Qualifiers: Urinary tract infection type: acute pyelonephritis Qualified Code(s): N10 - Acute pyelonephritis (5) CAD (coronary artery disease) Code(s): I25.10 - ATHSCL HEART DISEASE OF [place] CORONARY ARTERY W/O ANG PCTRS Qualifiers: Coronary Disease-Associated Artery/Lesion type: [place] artery [place] vs. transplanted heart: [place] heart Associated angina: without angina Qualified Code(s): I25.10 - Atherosclerotic heart disease of [place] coronary artery wit hout angina pectoris (6) Cerebrovascular accident (CVA) Code(s): I63.9 - CEREBRAL INFARCTION, UNSPECIFIED Qualifiers: CVA mechanism: unspecified Qualified Code(s): I63.9 - Cerebral infarction, unspecified (7) Diabetes Code(s): E11.9 - TYPE 2 DIABETES MELLITUS WITHOUT COMPLICATIONS Qualifiers: Diabetes mellitus type: type 2 Diabetes mellitus mcfp insulin use: with terminal superintendent use Diabetes mellitus complication status: with neurologic complications (8) HTN (hypertension) Code(s): I10 - ESSENTIAL (PRIMARY) HYPERTENSION Qualifiers: Hypertension type: essential hypertension Qualified Code(s): I10 - Essential (primary) hypertension (9) Hypercholesterolemia Code(s): E78.00 - PURE HYPERCHOLESTEROLEMIA, UNSPECIFIED (10) Hypothyroidism Code(s): E03.9 - HYPOTHYROIDISM, UNSPECIFIED Qualifiers: Hypothyroidism type: unspecified Qualified Code(s): E03.9 - Hypothyroidism, unspecified (11) Schizophrenia Code(s): F20.9 - SCHIZOPHRENIA, UNSPECIFIED
[2020-07-20] MEDS ORDERED: ESCITALOPRAM OXALATE 10 MG TABLET ONE (21:34)
[2020-07-20] MEDS ORDERED: INSULIN (NOVOLOG) ASPART 100 UNITS/ML 10ML VIAL ONE (21:35)
[2020-07-20] MEDS: ATORVASTATIN CA 80 MG TABLET (FP) PO SCH (21:48)
[2020-07-20] MEDS: ESCITALOPRAM OXALATE 20 MG TABLET PO SCH (21:48)
[2020-07-21] MEDS ORDERED: PIPERACILLIN/TAZOBACTAM 4.5 GM VIAL IVPB ONE ×3 (01:39→20:05)
[2020-07-21] MEDS ORDERED: DEXTROSE 5%-WATER 100 ML IVPB ONE ×3 (01:39→20:05)
[2020-07-21] MEDS: PIPERACILLIN/TAZOB 4.5 GM 4.5 GM in DEXTROSE 5%-WATER 100 ML IVPB SCH ×3 (01:47→20:11)
[2020-07-21] MEDS: INSULIN SLIDING SCALE (NOVOLOG) 1 VIAL SQ SCH ×4 (06:12→21:45)
[2020-07-21] MEDS: INSULIN (LEVEMIR) 100 UNITS/ML UNITS SQ SCH ×2 (06:12→21:45)
[2020-07-21] MEDS ORDERED: PEG 3350/NA SULF BICARB CL/KCL 4000 ML SOLN.RECON PO ONE (09:00)
[2020-07-21 09:05] LABS: BASO % 0.4 % (0-2.0); EOS % 1.2 % (0-4.5); HEMATOCRIT 26.6 % (32.4-45.2); HEMOGLOBIN 8.9 GM/dL (10.7-15.3); LYMPH % 10.3 % (8-40); MCH 28.9 pg (25.7-33.7); MCHC 33.4 g/dl (32.0-36.0); MEAN CELL VOLUME 86.7 fl (80-96); MEAN PLT VOLUME 7.1 fl (7.5-11.1); NEUT % 81.1 % (42.8-82.8); PLATELET COUNT 490 K/MM3 (134-434); RBC 3.07 M/mm3 (3.60-5.2); RDW 15.4 % (11.6-15.6); WHITE BLOOD COUNT 11.1 K/mm3 (4.0-10.0)
[2020-07-21 09:20] LABS: INR 1.18 (0.83-1.09)
[2020-07-21 09:37] LABS: POTASSIUM 4.3 mmol/L (3.5-5.1)
[2020-07-21 10:08] LABS: ALBUMIN 1.4 g/dl (3.4-5.0); BLOOD UREA NITROGEN 14.3 mg/dL (7-18); CALCIUM 7.4 mg/dL (8.5-10.1); CREATININE 0.7 mg/dL (0.55-1.3); TOT PROT 6.1 g/dl (6.4-8.2)
[2020-07-21] MEDS: POTASSIUM CHLORIDE TABS 20 MEQ TABLET.ER (FP) PO SCH (10:56)
[2020-07-21] MEDS: metoPROLOL SUCCINATE 25 MG TAB.SR.24H (FP) PO SCH (10:56)
[2020-07-21] MEDS: LISINOPRIL 5 MG TABLET PO SCH (10:57)
[2020-07-21] MEDS: HEPARIN NA (PORCINE) 5,000 UNITS/ML 1ML VIAL SQ SCH ×2 (10:57→21:44)
--- NOTE | 2020-07-21 11:44 | PN ---
Progress Note, Physician History of Present Illness: Afebrile, denies abd pain despite pelvic absesses. She us undergoing prep prior to Gavin's procedure. - Current Medication List Current Medications: Active Medications Acetaminophen (Tylenol -) 650 mg PO NOW PRN PRN Reason: FEVER Last Admin: 07/19/20 11:03 Dose: 650 mg Documented by: Acetaminophen (Tylenol -) 650 mg PO Q6H PRN PRN Reason: PAIN LEVEL 6-10 Last Admin: 07/18/20 18:52 Dose: 650 mg Documented by: Aspirin (Asa -) 325 mg PO DAILY [facility] Last Admin: 07/20/20 10:27 Dose: 325 mg Documented by: Atorvastatin Calcium (Lipitor -) 80 mg PO HS [facility] Last Admin: 07/20/20 21:48 Dose: 80 mg Documented by: Escitalopram Oxalate (Lexapro -) 20 mg PO HS [facility] Last Admin: 07/20/20 21:48 Dose: 20 mg Documented by: Heparin Sodium (Porcine) (Heparin -) 5,000 unit SQ BID [facility] Last Admin: 07/21/20 10:57 Dose: 5,000 unit Documented by: Piperacillin Sod/Tazobactam (Sod 4.5 gm/ Dextrose) 100 mls @ 200 mls/hr IVPB Q8H-IV [facility]; Protocol Last Admin: 07/21/20 10:53 Dose: 200 mls/hr Documented by: Potassium Chloride 40 meq/ (Amino Acids) 1,020 mls @ 84 mls/hr IVPB Q12H [facility] Last Admin: 07/20/20 22:15 Dose: 84 mls/hr Documented by: Insulin Aspart (Novolog Vial Sliding Scale -) 1 vial SQ ACHS [facility]; Protocol Last Admin: 07/21/20 06:12 Dose: Not Given Documented by: Insulin Detemir (Levemir Vial) 6 units SQ BID@0700,2200 [facility] Last Admin: 07/21/20 06:12 Dose: Not Given Documented by: Lisinopril (Prinivil) 5 mg PO DAILY [facility] Last Admin: 07/21/20 10:57 Dose: 5 mg Documented by: Metoprolol Succinate (Toprol Xl -) 50 mg PO DAILY [facility] Last Admin: 07/21/20 10:57 Dose: 50 mg Documented by: Metoprolol Succinate (Toprol Xl -) 25 mg PO DAILY [facility] Last Admin: 07/21/20 10:56 Dose: 25 mg Documented by: Potassium Chloride (K-Dur -) 40 meq PO DAILY [facility] Last Admin: 07/21/20 10:56 Dose: 40 meq Documented by: - Objective Vital Signs: Vital Signs Temperature 98.9 F 07/21/20 05:50 Pulse Rate 62 07/21/20 05:50 Respiratory Rate 18 07/21/20 05:50 Blood Pressure 130/70 07/21/20 05:50 O2 Sat by Pulse Oximetry (%) 96 07/21/20 05:50 Constitutional: Yes: No Distress, Calm, Thin Neck: Yes: Supple Cardiovascular: Yes: Regular Rate and Rhythm Respiratory: Yes: Regular, CTA Bilaterally Gastrointestinal: Yes: Soft, Hypoactive Bowel Sounds Genitourinary: Yes: [place] Present Edema: No Labs: CBC, BMP 07/21/20 08:02 07/21/20 08:02 INR, PTT INR 1.18 (0.83-1.09) H 07/21/20 08:02 Problem List - Problems (1) Pre-operative cardiovascular examination Code(s): Z01.810 - ENCOUNTER FOR PREPROCEDURAL CARDIOVASCULAR EXAMINATION (2) Colonic diverticular abscess Code(s): K57.20 - DVTRCLI OF LG INT W PERFORATION AND ABSCESS W/O BLEEDING (3) Colovesical fistula Code(s): N32.1 - VESICOINTESTINAL FISTULA (4) CAD (coronary artery disease) Code(s): I25.10 - ATHSCL HEART DISEASE OF [place] CORONARY ARTERY W/O ANG PCTRS Qualifiers: Coronary Disease-Associated Artery/Lesion type: [place] artery [place] vs. tr ansplanted heart: [place] heart Associated angina: without angina Qualified Code(s): I25.10 - Atherosclerotic heart disease of [place] coronary artery without angina pectoris (5) Carotid stenosis, left Code(s): I65.22 - OCCLUSION AND STENOSIS OF LEFT CAROTID ARTERY (6) Cerebrovascular accident (CVA) Code(s): I63.9 - CEREBRAL INFARCTION, UNSPECIFIED Qualifiers: CVA mechanism: unspecified Qualified Code(s): I63.9 - Cerebral infarction, unspecified (7) Diabetes Code(s): E11.9 - TYPE 2 DIABETES MELLITUS WITHOUT COMPLICATIONS Qualifiers: Diabetes mellitus type: type 2 Diabetes mellitus buttermaker helper insulin use: with buttermaker helper use Diabetes mellitus complication status: with neurologic complications (8) HTN (hypertension) Code(s): I10 - ESSENTIAL (PRIMARY) HYPERTENSION Qualifiers: Hypertension type: essential hypertension Qualified Code(s): I10 - Essential (primary) hypertension (9) Hypercholesterolemia Code(s): E78.00 - PURE HYPERCHOLESTEROLEMIA, UNSPECIFIED (10) Hypothyroidism Code(s): E03.9 - HYPOTHYROIDISM, UNSPECIFIED Qualifiers: Hypothyroidism type: unspecified Qualified Code(s): E03.9 - Hypothyroidism, unspecified Assessment/Plan 04/12/2020 ECHO: normal LVEF; abnormal diastolic compliance, Tr TR 1. Diverticular abscess referable to colovesicular fistula 2. Diastolic dysfunction 3. Poorly controlled DM c/b neuropathy 4. HTN 5. Chronic stroke 6. Multi-infarct dementia 7. Hypokalemia improved 8. Anemia 9. UTI P: 1. Empiric abx per ID 2. Plan for repair of colovesicular fistula 07/22/2020. Given absence of symptoms of acute coronary syndrome, decompensated CHF or malignant arrhythmia, may proceed with OR from CV-standpoint w/o further testing 3. Continue lisinopril 5 mg daily (HTN; DM; CHF); f/u BUn/Cr and electrolytes, continue Lipitor 80 qd, Toprol XL 75 qd, DVT prophylaxis, ASA held perioperatively, resume once post-op hemostasis assured
[2020-07-21 11:53] LABS: PHOSPHOROUS 2.4 mg/dL (2.5-4.9)
--- NOTE | 2020-07-21 13:56 | PN ---
Progress Note, Physician History of Present Illness: Seen and examined at the bedside awake and alert offers no acute complaints no overnight events no sob, cp, fever or chills - Current Medication List Current Medications: Active Medications Acetaminophen (Tylenol -) 650 mg PO NOW PRN PRN Reason: FEVER Last Admin: 07/19/20 11:03 Dose: 650 mg Documented by: Acetaminophen (Tylenol -) 650 mg PO Q6H PRN PRN Reason: PAIN LEVEL 6-10 Last Admin: 07/18/20 18:52 Dose: 650 mg Documented by: Aspirin (Asa -) 325 mg PO DAILY [facility] Last Admin: 07/20/20 10:27 Dose: 325 mg Documented by: Atorvastatin Calcium (Lipitor -) 80 mg PO HS [facility] Last Admin: 07/20/20 21:48 Dose: 80 mg Documented by: Escitalopram Oxalate (Lexapro -) 20 mg PO HS [facility] Last Admin: 07/20/20 21:48 Dose: 20 mg Documented by: Heparin Sodium (Porcine) (Heparin -) 5,000 unit SQ BID [facility] Last Admin: 07/21/20 10:57 Dose: 5,000 unit Documented by: Piperacillin Sod/Tazobactam (Sod 4.5 gm/ Dextrose) 100 mls @ 200 mls/hr IVPB Q8H-IV [facility]; Protocol Last Admin: 07/21/20 10:53 Dose: 200 mls/hr Documented by: Potassium Chloride 40 meq/ (Amino Acids) 1,020 mls @ 84 mls/hr IVPB Q12H [facility] Last Admin: 07/20/20 22:15 Dose: 84 mls/hr Documented by: Insulin Aspart (Novolog Vial Sliding Scale -) 1 vial SQ ACHS [facility]; Protocol Last Admin: 07/21/20 06:12 Dose: Not Given Documented by: Insulin Detemir (Levemir Vial) 6 units SQ BID@0700,2200 [facility] Last Admin: 07/21/20 06:12 Dose: Not Given Documented by: Lisinopril (Prinivil) 5 mg PO DAILY [facility] Last Admin: 07/21/20 10:57 Dose: 5 mg Documented by: Metoprolol Succinate (Toprol Xl -) 50 mg PO DAILY [facility] Last Admin: 07/21/20 10:57 Dose: 50 mg Documented by: Metoprolol Succinate (Toprol Xl -) 25 mg PO DAILY [facility] Last Admin: 07/21/20 10:56 Dose: 25 mg Documented by: Potassium Chloride (K-Dur -) 40 meq PO DAILY [facility] Last Admin: 07/21/20 10:56 Dose: 40 meq Documented by: - Objective Vital Signs: Vital Signs Temperature 98.9 F 07/21/20 05:50 Pulse Rate 62 07/21/20 05:50 Respiratory Rate 18 07/21/20 05:50 Blood Pressure 130/70 07/21/20 05:50 O2 Sat by Pulse Oximetry (%) 96 07/21/20 05:50 Constitutional: Yes: No Distress HENT: Yes: Atraumatic Neck: Yes: Supple Cardiovascular: Yes: Regular Rate and Rhythm Respiratory: Yes: Regular Gastrointestinal: Yes: Soft, Tenderness Extremities: No: Cyanosis Edema: No Labs: CBC, BMP 07/21/20 08:02 07/21/20 08:02 INR, PTT INR 1.18 (0.83-1.09) H 07/21/20 08:02 Assessment/Plan 70 year old woman with history of CVA, IDDM, hypertension who presented with lower abdominal pain and found to have likely UTI with hypokalemia. 1. Hypokalemia in setting of diarrhea/GI losses 2. Diverticular abscess 3. Hypertension 4. IDDM 5. Anemia 6. Lactic acidosis 7. Hypomagnesemia 8. Hypophosphatemia Serum potassium is improved to within normal limits. Phos levels remain slightly low, will give IV sodium phosphate today. Repeat levels this evening. Continue clinmix with KCl with close monitoring of sodium levels. Surgical follow up Continue empiric antibiotics as per ABELARDO Ricks DO
[2020-07-21] MEDS ORDERED: SODIUM PHOSPHATE - 15 MM in DEXTROSE 5%-WATER - 250 ML IVPB ONE (14:00)
--- NOTE | 2020-07-21 15:00 | PN ---
Progress Note, Physician Chief Complaint: in bed NAD VSS afebrile no new c/o feels well - Current Medication List Current Medications: Active Medications Acetaminophen (Tylenol -) 650 mg PO NOW PRN PRN Reason: FEVER Last Admin: 07/19/20 11:03 Dose: 650 mg Documented by: Acetaminophen (Tylenol -) 650 mg PO Q6H PRN PRN Reason: PAIN LEVEL 6-10 Last Admin: 07/18/20 18:52 Dose: 650 mg Documented by: Aspirin (Asa -) 325 mg PO DAILY [facility] Last Admin: 07/20/20 10:27 Dose: 325 mg Documented by: Atorvastatin Calcium (Lipitor -) 80 mg PO HS [facility] Last Admin: 07/20/20 21:48 Dose: 80 mg Documented by: Escitalopram Oxalate (Lexapro -) 20 mg PO [facility] Last Admin: 07/20/20 21:48 Dose: 20 mg Documented by: Heparin Sodium (Porcine) (Heparin -) 5,000 unit SQ BID [facility] Last Admin: 07/21/20 10:57 Dose: 5,000 unit Documented by: Piperacillin Sod/Tazobactam (Sod 4.5 gm/ Dextrose) 100 mls @ 200 mls/hr IVPB Q8H-IV [facility]; Protocol Last Admin: 07/21/20 10:53 Dose: 200 mls/hr Documented by: Potassium Chloride 40 meq/ (Amino Acids) 1,020 mls @ 84 mls/hr IVPB Q12H [facility] Last Admin: 07/20/20 22:15 Dose: 84 mls/hr Documented by: Sodium Phosphate 15 mm/ (Dextrose) 255 mls @ 42.5 mls/hr IVPB ONCE ONE Stop: 07/21/20 19:59 Insulin Aspart (Novolog Vial Sliding Scale -) 1 vial SQ ACHS [facility]; Protocol Last Admin: 07/21/20 06:12 Dose: Not Given Documented by: Insulin Detemir (Levemir Vial) 6 units SQ BID@0700,2200 [facility] Last Admin: 07/21/20 06:12 Dose: Not Given Documented by: Lisinopril (Prinivil) 5 mg PO DAILY [facility] Last Admin: 07/21/20 10:57 Dose: 5 mg Documented by: Metoprolol Succinate (Toprol Xl -) 50 mg PO DAILY [facility] Last Admin: 07/21/20 10:57 Dose: 50 mg Documented by: Metoprolol Succinate (Toprol Xl -) 25 mg PO DAILY [facility] Last Admin: 07/21/20 10:56 Dose: 25 mg Documented by: Potassium Chloride (K-Dur -) 40 meq PO DAILY [facility] Last Admin: 07/21/20 10:56 Dose: 40 meq Documented by: - Objective Vital Signs: Vital Signs Temperature 98.8 F 07/21/20 14:44 Pulse Rate 70 07/21/20 14:44 Respiratory Rate 07/21/20 14:44 Blood Pressure 159/78 07/21/20 14:44 O2 Sat by Pulse Oximetry (%) 96 07/21/20 05:50 Constitutional: Yes: No Distress, Calm Eyes: Yes: Conjunctiva Clear HENT: Yes: Atraumatic Neck: Yes: Supple Cardiovascular: Yes: Regular Rate and Rhythm Respiratory: Yes: CTA Bilaterally Gastrointestinal: Yes: Soft. No: Tenderness Genitourinary: No: Hematuria Musculoskeletal: No: Joint Stiffness, Joint Swelling Extremities: No: Cold, Cool, Cyanosis Edema: No Integumentary: No: Rash, Venous Stasis Changes Neurological: Yes: Alert, Oriented ...Motor Strength: LUE, LLE Psychiatric: Yes: Alert, Oriented. No: Agitated Labs: CBC, BMP 07/21/20 08:02 07/21/20 08:02 INR, PTT INR 1.18 (0.83-1.09) H 07/21/20 08:02 - ....Imaging Other: Report Reviewed Assessment/Plan The patient is a 70y/o F with a pmh of CVA (3months ago), IDDM, HTN admitted with sepsis diverticulitis with abscesses and UTI, also hydronephrosis IVF IV ATB replete K sq insulin per BGM f/u labs ID, renal, GI, , IR consulted; surgery consulted for possibe Gavin procedure - cleared by cardio and neuro I d/w pt's daughter Vidaly she is aware what surgery entails she discussed with dr Horton and she also informed her sister; d/w daughter pt's comorbidities and recent stroke put her at higher risk for surgery for intraop or postop compli cations (like [place] CVA) she understands and agrees with surgery DVT and falls and decubs pfx turn in bed DVT pfx d/w pt and staff
--- NOTE | 2020-07-21 15:02 | PN ---
Progress Note (short form) - Note Progress Note: resting comfortably, no complaints ct scan with acute diverticulitis with multiple abscesses, question of colovesicle fistula noted Vital Signs Period Temp Pulse Resp BP Sys/Ferrer Pulse Ox Last 24 Hr 98.8 F-99.1 F 57-70 18-20 112-159/55-78 96-98 cor-rrr lungs decreased bs at bases abd soft,nt ext no edema +rodriguez CBC, BMP 07/21/20 08:02 07/21/20 08:02 Microbiology 07/18/20 15:00 Stool Clostridioides difficile Antigen - Final 07/18/20 15:00 Stool Clostridioides difficile Toxin Assay - Final 07/15/20 20:10 Blood - Peripheral Venous Blood Culture - Preliminary NO GROWTH OBTAINED AFTER 72 HOURS, INCUBATION TO CONTINUE FOR 2 DAYS. 07/15/20 20:10 Blood - Peripheral Venous Blood Culture - Preliminary NO GROWTH OBTAINED AFTER 72 HOURS, INCUBATION TO CONTINUE FOR 2 DAYS. 07/15/20 15:10 Urine - Urine Clean Catch Urine Culture - Final Pseudomonas Aeruginosa Escherichia Coli imp/reccd diverticulitis with abscess possible colovestilve fistula UTI- hydronephrosis noted continue zosyn for surgery in am crp-9.8
--- NOTE | 2020-07-21 15:39 | SPA.PREOP ---
- PRE-OP NOTE Dx: complicated sigmoid diverticulitis, colovesical fistula Planned Procedure: hartmans procedure Surgeon: Last Vital Signs Temp Pulse Resp BP Pulse Ox 98.8 F 70 20 159/78 96 07/21/20 14:44 07/21/20 14:44 07/21/20 14:44 07/21/20 14:44 07/21/20 05:50 Lab Results WBC 11.1 K/mm3 (4.0-10.0) H 07/21/20 08:02 RBC 3.07 M/mm3 (3.60-5.2) L 07/21/20 08:02 Hgb 8.9 GM/dL (10.7-15.3) L 07/21/20 08:02 Hct 26.6 % (32.4-45.2) L 07/21/20 08:02 MCV 86.7 fl (80-96) 07/21/20 08:02 MCHC 33.4 g/dl (32.0-36.0) 07/21/20 08:02 RDW 15.4 % (11.6-15.6) 07/21/20 08:02 Plt Count 490 K/MM3 (134-434) H 07/21/20 08:02 INR 1.18 (0.83-1.09) H 07/21/20 08:02 Sodium 132 mmol/L (136-145) L 07/21/20 08:02 Potassium 4.3 mmol/L (3.5-5.1) 07/21/20 08:02 Chloride 103 mmol/L (98-107) 07/21/20 08:02 Carbon Dioxide 22 mmol/L (21-32) 07/21/20 08:02 Anion Gap 7 MMOL/L (8-16) L 07/21/20 08:02 BUN 14.3 mg/dL (7-18) 07/21/20 08:02 Creatinine 0.7 mg/dL (0.55-1.3) 07/21/20 08:02 Random Glucose 161 mg/dL (74-106) H 07/21/20 08:02 Calcium 7.4 mg/dL (8.5-10.1) L 07/21/20 08:02 - IMAGING Chest X-ray: Other (no focal lung finding- no infiltrates) EKG: Other (sinus thythm rate 72) - ASSESSMENT/PLAN 1. Make NPO after midnight except po meds 2. GI/DVT PPX 3. Medical optimization / clearance in chart from medical/neurology 4. Consent to be obtained by surgeon after risks, benefits and alternatives discussed with patient and or Health Care Proxy. 5. Bowel prep today with npo after midnight except for meds 6. D/w Dr. Horton 7. BMP T&S in the am <Puja Kelley - Last Filed: 07/21/20 15:45> - PRE-OP NOTE Dx: Planned Procedure: Surgeon: Last Vital Signs Temp Pulse Resp BP Pulse Ox 98.7 F 76 18 144/76 99 07/26/20 14:37 07/26/20 14:37 07/26/20 14:37 07/26/20 14:37 07/26/20 14:37 Lab Results WBC 11.2 K/mm3 (4.0-10.0) H 07/26/20 07:28 RBC 3.33 M/mm3 (3.60-5.2) L 07/26/20 07:28 Hgb 9.9 GM/dL (10.7-15.3) L 07/26/20 07:28 Hct 29.4 % (32.4-45.2) L 07/26/20 07:28 MCV 88.0 fl (80-96) 07/26/20 07:28 MCHC 33.8 g/dl (32.0-36.0) 07/26/20 07:28 RDW 15.1 % (11.6-15.6) 07/26/20 07:28 Plt Count 480 K/MM3 (134-434) H 07/26/20 07:28 INR 1.18 (0.83-1.09) H 07/21/20 08:02 Sodium 138 mmol/L (136-145) 07/26/20 07:28 Potassium 3.2 mmol/L (3.5-5.1) L 07/26/20 07:28 Chloride 104 mmol/L (98-107) 07/26/20 07:28 Carbon Dioxide 26 mmol/L (21-32) 07/26/20 07:28 Anion Gap 8 MMOL/L (8-16) 07/26/20 07:28 BUN 10.7 mg/dL (7-18) 07/26/20 07:28 Creatinine 0.5 mg/dL (0.55-1.3) L 07/26/20 07:28 Random Glucose 83 mg/dL (74-106) 07/26/20 07:28 Calcium 7.0 mg/dL (8.5-10.1) L 07/26/20 07:28 Blood Type A POSITIVE 07/22/20 07:42 Antibody Screen Negative 07/22/20 07:42 - ASSESSMENT/PLAN 1. Make NPO after midnight except po meds 2. GI/DVT PPX 3. Medical optimization / clearance 4. Consent to be obtained by surgeon after risks, benefits and alternatives discussed with patient and or Health Care Proxy. <Raghu Horton - Last Filed: 07/26/20 15:40>
[2020-07-21] MEDS: POTASSIUM CHLORIDE 40 MEQ in AMINO ACIDS 4.25%/D5W 1,000 ML IVPB SCH ×2 (18:09→23:11)
[2020-07-21] MEDS ORDERED: ESCITALOPRAM OXALATE 10 MG TABLET ONE (21:11)
[2020-07-21] MEDS: ATORVASTATIN CA 80 MG TABLET (FP) PO SCH (21:45)
[2020-07-21] MEDS: ESCITALOPRAM OXALATE 20 MG TABLET PO SCH (21:46)
[2020-07-22] MEDS ORDERED: DEXTROSE 5%-WATER 100 ML IVPB ONE ×2 (02:41→17:08)
[2020-07-22] MEDS ORDERED: PIPERACILLIN/TAZOBACTAM 4.5 GM VIAL IVPB ONE ×2 (02:41→17:07)
[2020-07-22] MEDS: PIPERACILLIN/TAZOB 4.5 GM 4.5 GM in DEXTROSE 5%-WATER 100 ML IVPB SCH ×3 (03:00→17:25)
[2020-07-22] MEDS: INSULIN (LEVEMIR) 100 UNITS/ML UNITS SQ SCH ×3 (06:39→22:00)
[2020-07-22] MEDS: INSULIN SLIDING SCALE (NOVOLOG) 1 VIAL SQ SCH ×3 (06:39→16:51)
--- NOTE | 2020-07-22 07:57 | PN ---
Progress Note, Physician Chief Complaint: in bed NAD no new c/o awaiting surgery - Current Medication List Current Medications: Active Medications Acetaminophen (Tylenol -) 650 mg PO NOW PRN PRN Reason: FEVER Last Admin: 07/19/20 11:03 Dose: 650 mg Documented by: Acetaminophen (Tylenol -) 650 mg PO Q6H PRN PRN Reason: PAIN LEVEL 6-10 Last Admin: 07/18/20 18:52 Dose: 650 mg Documented by: Aspirin (Asa -) 325 mg PO DAILY [facility] Last Admin: 07/20/20 10:27 Dose: 325 mg Documented by: Atorvastatin Calcium (Lipitor -) 80 mg PO HS [facility] Last Admin: 07/21/20 21:45 Dose: 80 mg Documented by: Escitalopram Oxalate (Lexapro -) 20 mg PO [facility] Last Admin: 07/21/20 21:46 Dose: 20 mg Documented by: Heparin Sodium (Porcine) (Heparin -) 5,000 unit SQ BID [facility] Last Admin: 07/21/20 21:44 Dose: 5,000 unit Documented by: Piperacillin Sod/Tazobactam (Sod 4.5 gm/ Dextrose) 100 mls @ 200 mls/hr IVPB Q8H-IV [facility]; Protocol Last Admin: 07/22/20 03:00 Dose: 200 mls/hr Documented by: Potassium Chloride 40 meq/ (Amino Acids) 1,020 mls @ 84 mls/hr IVPB Q12H [facility] Last Admin: 07/21/20 23:11 Dose: 84 mls/hr Documented by: Ertapenem 1 gm/ Sodium (Chloride) 50 mls @ 50 mls/hr IVPB ONCE ONE Stop: 07/21/20 16:46 Insulin Aspart (Novolog Vial Sliding Scale -) 1 vial SQ ACHS [facility]; Protocol Last Admin: 07/22/20 06:39 Dose: Not Given Documented by: Insulin Detemir (Levemir Vial) 6 units SQ BID@0700,2200 [facility] Last Admin: 07/22/20 06:39 Dose: 6 units Documented by: Lisinopril (Prinivil) 5 mg PO DAILY [facility] Last Admin: 07/21/20 10:57 Dose: 5 mg Documented by: Metoprolol Succinate (Toprol Xl -) 50 mg PO DAILY [facility] Last Admin: 07/21/20 10:57 Dose: 50 mg Documented by: Metoprolol Succinate (Toprol Xl -) 25 mg PO DAILY [facility] Last Admin: 07/21/20 10:56 Dose: 25 mg Documented by: Potassium Chloride (K-Dur -) 40 meq PO DAILY [facility] Last Admin: 07/21/20 10:56 Dose: 40 meq Documented by: - Objective Vital Signs: Vital Signs Temperature 99.5 F 07/22/20 06:57 Pulse Rate 82 07/22/20 06:57 Respiratory Rate 07/22/20 06:57 Blood Pressure 142/76 07/22/20 06:57 O2 Sat by Pulse Oximetry (%) 100 07/21/20 21:00 Constitutional: Yes: No Distress, Calm Eyes: Yes: Conjunctiva Clear HENT: Yes: Atraumatic Neck: Yes: Supple Cardiovascular: Yes: Regular Rate and Rhythm Respiratory: Yes: CTA Bilaterally Gastrointestinal: Yes: Soft. No: Tenderness Genitourinary: No: Hematuria Musculoskeletal: No: Joint Stiffness, Joint Swelling Extremities: No: Cold, Cool, Cyanosis Edema: No Integumentary: No: Rash, Venous Stasis Changes Neurological: Yes: Alert, Oriented ...Motor Strength: LUE, LLE Psychiatric: Yes: Alert, Oriented. No: Agitated, Suicidal Ideation Labs: CBC, BMP 07/21/20 08:02 07/21/20 08:02 INR, PTT INR 1.18 (0.83-1.09) H 07/21/20 08:02 - ....Imaging Chest X-ray: Report Reviewed Other: Report Reviewed Assessment/Plan The patient is a 70y/o F with a pmh of CVA (3months ago), IDDM, HTN admitted with sepsis diverticulitis with abscesses and UTI, also hydronephrosis IVF/ clinimix; IV ATB replete K NPO except meds sq insulin per BGM f/u labs ID, renal, GI, , IR consulted; surgery for Gavin procedure cleared by cardio and neuro I d/w pt's daughter Vidaly she is aware what surgery entails she discussed with dr Horton and she also informed her sister; d/w daughter pt's comorbidities and recent stroke put her at higher risk for surgery for intraop or postop complications (like [place] CVA) she understands and agrees with surgery DVT and falls and decubs pfx turn in bed DVT pfx d/w pt and staff
[2020-07-22] MEDS ORDERED: fentaNYL CITRATE 250 MCG/5 ML VIAL ONE (08:26)
--- NOTE | 2020-07-22 08:26 | PN ---
Progress Note (short form) - Note Progress Note: Attending Surgeon For laparotomy and Hartmans procedure and drainage of pelvic abscesses; r/b/t/a's d/w the patients daughter Vidaly on # occasions and informed telephone consent obtained; her daughter understands her ostomy will most likely be permanent h/e that decision will be re-evaluated on an ongoing basis after she recovers from this surgery down the line. Raghu Horton MD FACS
[2020-07-22] MEDS ORDERED: PROPOFOL 20 ML ONE ×2 (08:27)
[2020-07-22] MEDS ORDERED: DEXAMETHASONE SOD PHOSPHATE 4 MG/1 ML VIAL ONE (09:12)
[2020-07-22] MEDS ORDERED: LIDOCAINE HCL/PF 2% SDV 5ML VIAL ONE (09:12)
[2020-07-22] MEDS ORDERED: LIDOCAINE HCL 2% JELLY (5 ML/TUBE) ONE (09:12)
[2020-07-22] MEDS ORDERED: ROCURONIUM BROMIDE 50 MG/5 ML SYRINGE ONE ×2 (09:12→11:29)
[2020-07-22] MEDS ORDERED: ERTAPENEM SODIUM 1 GM in SODIUM CHLORIDE 50 ML IVPB ONE (09:15)
[2020-07-22 09:26] LABS: CREATININE 0.7 mg/dL (0.55-1.3); MAGNESIUM 1.7 mg/dL (1.8-2.4); PHOSPHOROUS 2.6 mg/dL (2.5-4.9)
[2020-07-22] MEDS ORDERED: ERTAPENEM SODIUM 1 GM VIAL IVPB ONE (09:40)
[2020-07-22] MEDS ORDERED: HYDROmorphone HCl 2 MG/ML VIAL ONE (09:54)
[2020-07-22] MEDS ORDERED: METOPROLOL TARTRATE 5 MG/5 ML VIAL ONE (10:04)
[2020-07-22] MEDS ORDERED: NEOSTIGMINE METHYLSULFATE 0.5 MG/ML - 10 ML MDV ONE (11:42)
[2020-07-22] MEDS ORDERED: BENZOIN/ALOE VERA/STORAX/TOLU 58 ML BOTTLE ONE (12:00)
--- NOTE | 2020-07-22 12:36 | OP ---
Operative Note - Note: Operative Date: 07/22/20 Pre-Operative Diagnosis: complicated sigmoid diverticulitis Operation: Hartmans procedure Findings: complicated diverticulitis Post-Operative Diagnosis: Same as Pre-op Surgeon: Raghu Horton [employer] Teacher: Rubi Herrera Anesthesiologist/[place] [employer]ORY PROFESSOR: Brittny Singletary Anesthesia: General Specimens Removed: portion of sigmoid colon Estimated Blood Loss (mls): 450 Drains & Tubes with Location: 10 mm SERGE x 2 in the pelvis Drains, Volume Out (mls): 200 Blood Volume Replaced (mls): 300 Fluid Volume Replaced (mls): 1,500
[2020-07-22] MEDS ORDERED: SODIUM PHOSPHATE - 15 MM in DEXTROSE 5%-WATER - 250 ML IVPB ONE (12:58)
--- NOTE | 2020-07-22 13:00 | PN ---
Progress Note, Physician History of Present Illness: Pt in OR today. no overnight events remains on IV clinmix with KCl - Current Medication List Current Medications: Active Medications Acetaminophen (Tylenol -) 650 mg PO NOW PRN PRN Reason: FEVER Last Admin: 07/19/20 11:03 Dose: 650 mg Documented by: Acetaminophen (Tylenol -) 650 mg PO Q6H PRN PRN Reason: PAIN LEVEL 6-10 Last Admin: 07/18/20 18:52 Dose: 650 mg Documented by: Aspirin (Asa -) 325 mg PO DAILY [facility] Last Admin: 07/20/20 10:27 Dose: 325 mg Documented by: Atorvastatin Calcium (Lipitor -) 80 mg PO HS [facility] Last Admin: 07/21/20 21:45 Dose: 80 mg Documented by: Escitalopram Oxalate (Lexapro -) 20 mg PO [facility] Last Admin: 07/21/20 21:46 Dose: 20 mg Documented by: Heparin Sodium (Porcine) (Heparin -) 5,000 unit SQ BID [facility] Last Admin: 07/21/20 21:44 Dose: 5,000 unit Documented by: Piperacillin Sod/Tazobactam (Sod 4.5 gm/ Dextrose) 100 mls @ 200 mls/hr IVPB Q8H-IV [facility]; Protocol Last Admin: 07/22/20 03:00 Dose: 200 mls/hr Documented by: Potassium Chloride 40 meq/ (Amino Acids) 1,020 mls @ 84 mls/hr IVPB Q12H [facility] Last Admin: 07/21/20 23:11 Dose: 84 mls/hr Documented by: Sodium Phosphate 15 mm/ (Dextrose) 255 mls @ 62.5 mls/hr IVPB ONCE ONE Stop: 07/22/20 17:02 Insulin Aspart (Novolog Vial Sliding Scale -) 1 vial SQ ACHS [facility]; Protocol Last Admin: 07/22/20 06:39 Dose: Not Given Documented by: Insulin Detemir (Levemir Vial) 6 units SQ BID@0700,2200 [facility] Last Admin: 07/22/20 06:39 Dose: 6 units Documented by: Lisinopril (Prinivil) 5 mg PO DAILY [facility] Last Admin: 07/21/20 10:57 Dose: 5 mg Documented by: Metoprolol Succinate (Toprol Xl -) 50 mg PO DAILY [facility] Last Admin: 07/21/20 10:57 Dose: 50 mg Documented by: Metoprolol Succinate (Toprol Xl -) 25 mg PO DAILY [facility] Last Admin: 07/21/20 10:56 Dose: 25 mg Documented by: Potassium Chloride (K-Dur -) 40 meq PO DAILY [facility] Last Admin: 07/21/20 10:56 Dose: 40 meq Documented by: - Objective Vital Signs: Vital Signs Temperature 99.5 F 07/22/20 06:57 Pulse Rate 82 07/22/20 06:57 Respiratory Rate 20 07/22/20 06:57 Blood Pressure 142/76 07/22/20 06:57 O2 Sat by Pulse Oximetry (%) 100 07/21/20 21:00 Labs: CBC, BMP 07/21/20 08:02 07/22/20 07:42 INR, PTT INR 1.18 (0.83-1.09) H 07/21/20 08:02 Assessment/Plan 70 year old woman with history of CVA, IDDM, hypertension who presented with lower abdominal pain and found to have likely UTI with hypokalemia. 1. Hypokalemia in setting of diarrhea/GI losses 2. Diverticular abscess 3. Hypertension 4. IDDM 5. Anemia 6. Lactic acidosis 7. Hypomagnesemia 8. Hypophosphatemia Serum potassium is stable. Will give additional dose of sodium phosphate IV today Continue clinmix with KCl with close monitoring of sodium levels. Advance diet as per surgery following procedure. Surgical follow up Continue empiric antibiotics as per ABELARDO Ricks DO
[2020-07-22] MEDS ORDERED: IBUPROFEN 800 MG/8 ML IJ IVPB PRN (13:43)
[2020-07-22] MEDS ORDERED: ACETAMINOPHEN 1000 MG/100 ML VIAL (NON FORMULARY) IVPB PRN (13:44)
[2020-07-22] MEDS ORDERED: MORPHINE SULFATE 2 MG/ML VIAL IVPUSH PRN (13:44)
[2020-07-22] MEDS ORDERED: SODIUM CHLORIDE 0.9% 500 ML INFUS.BAG IV SCH (13:45)
[2020-07-22] MEDS ORDERED: ACETAMINOPHEN INJECTION 100 ML IVPB ONE (15:25)
[2020-07-22] MEDS ORDERED: ONDANSETRON 4 MG/2 ML VIAL IVPUSH PRN (15:31)
[2020-07-22] MEDS ORDERED: LACTATED RINGERS SOLUTION 1000 ML INFUS.BAG IV SCH (16:45)
--- NOTE | 2020-07-22 16:46 | SURG ---
Surgery Abstracter Note Abstracter: Rubi Herrera PA-C (Suzy) Date of Service: 07/22/20 Diagnosis: complicated sigmoid diverticulitis Procedure: Operation: Hartmans procedure I was present for the entirety of the operative procedure. For further detail, please refer to operative report. Visit type - Case Type Case Type: ED Admission - Emergency Emergency Visit: Yes ED Registration Date: 07/15/20 Care time: The patient presented to the Emergency Department on the above date and was hospitalized for further evaluation of their emergent condition. - New patient This patient is new to me today: Yes Date on this admission: 07/22/20 - Critical Care Critical Care patient: No
[2020-07-22] MEDS: POTASSIUM CHLORIDE 40 MEQ in AMINO ACIDS 4.25%/D5W 1,000 ML IVPB SCH (16:49)
[2020-07-22] MEDS: LISINOPRIL 5 MG TABLET PO SCH (16:50)
[2020-07-22] MEDS: POTASSIUM CHLORIDE TABS 20 MEQ TABLET.ER (FP) PO SCH (16:50)
[2020-07-22] MEDS: metoPROLOL SUCCINATE 25 MG TAB.SR.24H (FP) PO SCH (16:50)
[2020-07-22] MEDS: HEPARIN NA (PORCINE) 5,000 UNITS/ML 1ML VIAL SQ SCH (16:50)
[2020-07-22] MEDS: LACTATED RINGERS SOLUTION 1,000 ML IV SCH (17:27)
[2020-07-22] MEDS ORDERED: ESCITALOPRAM OXALATE 10 MG TABLET ONE (21:27)
[2020-07-22] MEDS: ESCITALOPRAM OXALATE 20 MG TABLET NGT SCH (22:05)
[2020-07-22] MEDS: ATORVASTATIN CA 80 MG TABLET (FP) PO SCH (22:06)
[2020-07-23] MEDS ORDERED: PIPERACILLIN/TAZOBACTAM 4.5 GM VIAL IVPB ONE ×3 (01:23→17:53)
[2020-07-23] MEDS ORDERED: DEXTROSE 5%-WATER 100 ML IVPB ONE ×3 (01:23→17:53)
[2020-07-23] MEDS: PIPERACILLIN/TAZOB 4.5 GM 4.5 GM in DEXTROSE 5%-WATER 100 ML IVPB SCH ×3 (01:29→18:01)
[2020-07-23] MEDS: INSULIN (LEVEMIR) 100 UNITS/ML UNITS SQ SCH ×3 (01:33→21:57)
[2020-07-23] MEDS: INSULIN SLIDING SCALE (NOVOLOG) 1 VIAL SQ SCH ×5 (01:34→21:53)
[2020-07-23 08:56] LABS: BASO % 0.2 % (0-2.0); EOS % 0.1 % (0-4.5); HEMATOCRIT 25.5 % (32.4-45.2); HEMOGLOBIN 8.5 GM/dL (10.7-15.3); LYMPH % 7.6 % (8-40); MCH 29.5 pg (25.7-33.7); MCHC 33.4 g/dl (32.0-36.0); MEAN CELL VOLUME 88.2 fl (80-96); MEAN PLT VOLUME 7.2 fl (7.5-11.1); MONO % 5.9 % (3.8-10.2); NEUT % 86.2 % (42.8-82.8); PLATELET COUNT 465 K/MM3 (134-434); RBC 2.89 M/mm3 (3.60-5.2); RDW 15.6 % (11.6-15.6); WHITE BLOOD COUNT 19.5 K/mm3 (4.0-10.0)
--- NOTE | 2020-07-23 09:02 | PN ---
Progress Note, Physician History of Present Illness: POD#1 Hartmans procedure for complicated sigmoid diverticulitis, pain well- controlled. - Current Medication List Current Medications: Active Medications Acetaminophen (Ofirmev Injection -) 1,000 mg IVPB Q6H PRN PRN Reason: PAIN LEVEL 1-5 Stop: 07/23/20 13:44 Last Admin: 07/22/20 15:30 Dose: 1,000 mg Documented by: Aspirin (Asa -) 325 mg NGT DAILY [facility] Atorvastatin Calcium (Lipitor -) 80 mg PO HS [facility] Last Admin: 07/22/20 22:06 Dose: 80 mg Documented by: Escitalopram Oxalate (Lexapro -) 20 mg NGT HS [facility] Last Admin: 07/22/20 22:05 Dose: 20 mg Documented by: Fentanyl (Sublimaze Injection -) 50 mcg IVPUSH [id number] PRN PRN Reason: PAIN-PACU ORDER X 4 DOSES ONLY Last Admin: 07/22/20 14:20 Dose: 25 mcg Documented by: Heparin Sodium (Porcine) (Heparin -) 5,000 unit SQ BID [facility] Piperacillin Sod/Tazobactam (Sod 4.5 gm/ Dextrose) 100 mls @ 200 mls/hr IVPB Q8H-IV [facility]; Protocol Last Admin: 07/23/20 01:29 Dose: 200 mls/hr Documented by: Lactated Ringer's (Lactated Ringers Solution) 1,000 mls @ 125 mls/hr IV ASDIR [facility] Last Admin: 07/22/20 17:27 Dose: 125 mls/hr Documented by: Ibuprofen (Caldolor Injection -) 400 mg IVPB Q8H PRN PRN Reason: PAIN LEVEL 4 - 6 Insulin Aspart (Novolog Vial Sliding Scale -) 1 vial SQ ACHS [facility]; Protocol Last Admin: 07/23/20 06:12 Dose: 4 units Documented by: Insulin Detemir (Levemir Vial) 6 units SQ BID@0700,2200 [facility] Last Admin: 07/23/20 06:12 Dose: 6 units Documented by: Lactated Ringer's (Lactated Ringers Solution) 100 ml IV ASDIR [facility] Last Admin: 07/22/20 17:27 Dose: Not Given Documented by: Lisinopril (Prinivil) 5 mg NGT DAILY [facility] Metoprolol Tartrate (Lopressor Injection -) 5 mg IVPB Q6H PRN PRN Reason: HYPERTENSION Morphine Sulfate (Morphine Sulfate) 0.5 mg IVPUSH Q6H PRN PRN Reason: PAIN LEVEL 7 - 10 Ondansetron HCl (Zofran Injection) 4 mg IVPUSH Q6H PRN PRN Reason: NAUSEA AND/OR VOMITING Potassium Chloride (K-Dur -) 40 meq PO DAILY [facility] - Objective Vital Signs: Vital Signs Temperature 98.9 F 07/23/20 05:57 Pulse Rate 98 H 07/23/20 05:57 Respiratory Rate 20 07/23/20 05:57 Blood Pressure 111/58 L 07/23/20 05:57 O2 Sat by Pulse Oximetry (%) 96 07/23/20 05:57 Constitutional: Yes: No Distress, Calm Neck: Yes: Supple Cardiovascular: Yes: Regular Rate and Rhythm Respiratory: Yes: Regular, Diminished Gastrointestinal: Yes: Hypoactive Bowel Sounds, Other (colostomy bag in place, SERGE drain) Genitourinary: Yes: Solorzano Present Edema: No Labs: CBC, BMP 07/23/20 07:48 INR, PTT INR 1.18 (0.83-1.09) H 07/21/20 08:02 Problem List - Problems (1) Colonic diverticular abscess Code(s): K57.20 - DVTRCLI OF LG INT W PERFORATION AND ABSCESS W/O BLEEDING (2) Colovesical fistula Code(s): N32.1 - VESICOINTESTINAL FISTULA (3) CAD (coronary artery disease) Code(s): I25.10 - ATHSCL HEART DISEASE OF [place] CORONARY ARTERY W/O ANG PCTRS Qualifiers: Coronary Disease-Associated Artery/Lesion type: [place] artery [place] vs. transplanted heart: [place] heart Associated angina: without angina Qualified Code(s): I25.10 - Atherosclerotic heart disease of [place] coronary artery without angina pectoris (4) Carotid stenosis, left Code(s): I65.22 - OCCLUSION AND STENOSIS OF LEFT CAROTID ARTERY (5) Cerebrovascular accident (CVA) Code(s): I63.9 - CEREBRAL INFARCTION, UNSPECIFIED Qualifiers: CVA mechanism: unspecified Qualified Code(s): I63.9 - Cerebral infarction, unspecified (6) Diabetes Code(s): E11.9 - TYPE 2 DIABETES MELLITUS WITHOUT COMPLICATIONS Qualifiers: Diabetes mellitus type: type 2 Diabetes mellitus nursing home insulin use: with exterminator use Diabetes mellitus complication status: with neurologic complications (7) HTN (hypertension) Code(s): I10 - ESSENTIAL (PRIMARY) HYPERTENSION Qualifiers: Hypertension type: essential hypertension Qualified Code(s): I10 - Essential (primary) hypertension (8) Hypercholesterolemia Code(s): E78.00 - PURE HYPERCHOLESTEROLEMIA, UNSPECIFIED (9) Hypothyroidism Code(s): E03.9 - HYPOTHYROIDISM, UNSPECIFIED Qualifiers: Hypothyroidism type: unspecified Qualified Code(s): E03.9 - Hypothyroidism, unspecified Assessment/Plan 04/12/2020 ECHO: normal LVEF; abnormal diastolic compliance, Tr TR 1. POD#1 Gavin's procedure for complicated diverticulitis with abscess and colovesicular fistula 2. Diastolic dysfunction 3. Poorly controlled DM c/b neuropathy 4. HTN 5. Chronic stroke 6. Multi-infarct dementia 7. Hypokalemia improved 8. Anemia 9. UTI P: 1. Empiric abx per ID 2. Lisinopril 5 mg daily held for now, judicious hydration, continue Lopressor 5 IV q6 prn, DVT prophylaxis, ASA resumed as post-op hemostasis assured 3. Post-op management
[2020-07-23 09:11] LABS: ALBUMIN 1.3 g/dl (3.4-5.0); BILIRUBIN,TOTAL 0.4 mg/dL (0.2-1); BLOOD UREA NITROGEN 21.6 mg/dL (7-18); CALCIUM 7.4 mg/dL (8.5-10.1); CREATININE 1.5 mg/dL (0.55-1.3); PHOSPHOROUS 4.9 mg/dL (2.5-4.9); POTASSIUM 4.9 mmol/L (3.5-5.1); TOT PROT 5.2 g/dl (6.4-8.2)
[2020-07-23] MEDS: ASPIRIN 325 MG TABLET NGT SCH (09:47)
[2020-07-23] MEDS: HEPARIN NA (PORCINE) 5,000 UNITS/ML 1ML VIAL SQ SCH ×2 (09:49→21:49)
[2020-07-23] MEDS ORDERED: LISINOPRIL 5 MG TABLET NGT SCH (10:00)
[2020-07-23] MEDS ORDERED: POTASSIUM CHLORIDE TABS 20 MEQ TABLET.ER (FP) PO SCH (10:00)
[2020-07-23 10:46] LABS: ANISOCYTOSIS 0; MACROCYTOSIS 0; OVALOCYTE 1+; PLATELET ESTIMATE NORMAL
--- NOTE | 2020-07-23 10:48 | PN ---
Progress Note, Physician History of Present Illness: tthis is a follow-up consultation to the initial clearance that was done by neurology. According to the patient she feels headache. Patient with difficulty expressing herself slightly with no dysarthria and no aphasia. Patient is on heparin - Current Medication List Current Medications: Active Medications Acetaminophen (Ofirmev Injection -) 1,000 mg IVPB Q6H PRN PRN Reason: PAIN LEVEL 1-5 Stop: 07/23/20 13:44 Last Admin: 07/22/20 15:30 Dose: 1,000 mg Documented by: Aspirin (Asa -) 325 mg NGT DAILY [facility] Last Admin: 07/23/20 09:47 Dose: 325 mg Documented by: Atorvastatin Calcium (Lipitor -) 80 mg PO HS [facility] Last Admin: 07/22/20 22:06 Dose: 80 mg Documented by: Escitalopram Oxalate (Lexapro -) 20 mg NGT HS [facility] Last Admin: 07/22/20 22:05 Dose: 20 mg Documented by: Fentanyl (Sublimaze Injection -) 50 mcg IVPUSH [id number] PRN PRN Reason: PAIN-PACU ORDER X 4 DOSES ONLY Last Admin: 07/22/20 14:20 Dose: 25 mcg Documented by: Heparin Sodium (Porcine) (Heparin -) 5,000 unit SQ BID [facility] Last Admin: 07/23/20 09:49 Dose: 5,000 unit Documented by: Piperacillin Sod/Tazobactam (Sod 4.5 gm/ Dextrose) 100 mls @ 200 mls/hr IVPB Q8H-IV [facility]; Protocol Last Admin: 07/23/20 09:49 Dose: 200 mls/hr Documented by: Lactated Ringer's (Lactated Ringers Solution) 1,000 mls @ 125 mls/hr IV ASDIR [facility] Last Admin: 07/22/20 17:27 Dose: 125 mls/hr Documented by: Ibuprofen (Caldolor Injection -) 400 mg IVPB Q8H PRN PRN Reason: PAIN LEVEL 4 - 6 Insulin Aspart (Novolog Vial Sliding Scale -) 1 vial SQ ACHS [facility]; Protocol Last Admin: 07/23/20 06:12 Dose: 4 units Documented by: Insulin Detemir (Levemir Vial) 6 units SQ BID@0700,2200 [facility] Last Admin: 07/23/20 06:12 Dose: 6 units Documented by: Lactated Ringer's (Lactated Ringers Solution) 100 ml IV ASDIR [facility] Last Admin: 07/22/20 17:27 Dose: Not Given Documented by: Metoprolol Tartrate (Lopressor Injection -) 5 mg IVPB Q6H PRN PRN Reason: HYPERTENSION Morphine Sulfate (Morphine Sulfate) 0.5 mg IVPUSH Q6H PRN PRN Reason: PAIN LEVEL 7 - 10 Ondansetron HCl (Zofran Injection) 4 mg IVPUSH Q6H PRN PRN Reason: NAUSEA AND/OR VOMITING Potassium Chloride (K-Dur -) 40 meq PO DAILY [facility] - Objective Vital Signs: Vital Signs Temperature 98.9 F 07/23/20 05:57 Pulse Rate 98 H 07/23/20 05:57 Respiratory Rate 20 07/23/20 05:57 Blood Pressure 111/58 L 07/23/20 05:57 O2 Sat by Pulse Oximetry (%) 96 07/23/20 05:57 Constitutional: Yes: Well Nourished Eyes: Yes: WNL HENT: Yes: WNL Wound/Incision: Yes: Excoriated Neurological: Yes: Alert, Babinski positive, Cran Nerves II-XII Intact, Dysarthria Labs: CBC, BMP 07/23/20 07:48 07/23/20 07:48 INR, PTT INR 1.18 (0.83-1.09) H 07/21/20 08:02 Problem List - Problems (1) Bilateral hydronephrosis Code(s): N13.30 - UNSPECIFIED HYDRONEPHROSIS (2) Carotid stenosis, left Code(s): I65.22 - OCCLUSION AND STENOSIS OF LEFT CAROTID ARTERY (3) Cerebrovascular accident (CVA) Code(s): I63.9 - CEREBRAL INFARCTION, UNSPECIFIED Qualifiers: CVA mechanism: unspecified Qualified Code(s): I63.9 - Cerebral infarction, unspecified Assessment/Plan continue the subcutaneous heparin. Follow-up with the surgeon. Follow-up with cardiology. Resume the antiplatelet treatment on Sunday
--- NOTE | 2020-07-23 12:20 | PN ---
Progress Note (short form) - Note Progress Note: Attending Surgeon POD #1 No c/o ?? VSS AF abdo-dressing c/d/i; ostomy viable w/some gas and stool h/h 8.5/25.5 WBC 19.5 BUN 21.6 Creatinine 1.5 UO 400 overnight NGT output not recorded SERGE output noted. IMP: stable post op PLAN: NPO/IVF/NGT/rodriguez catheter to remain and not be removed b/o low pelvic surgery. Raghu Horton MD FACS
--- NOTE | 2020-07-23 12:38 | PN ---
Progress Note, Physician History of Present Illness: Seen and examined at the bedside s/p OR for Hartmans procedure yesterday has mild pain in abdomen no sob on IV fluids - Current Medication List Current Medications: Active Medications Acetaminophen (Ofirmev Injection -) 1,000 mg IVPB Q6H PRN PRN Reason: PAIN LEVEL 1-5 Stop: 07/23/20 13:44 Last Admin: 07/22/20 15:30 Dose: 1,000 mg Documented by: Aspirin (Asa -) 325 mg NGT DAILY [facility] Last Admin: 07/23/20 09:47 Dose: 325 mg Documented by: Atorvastatin Calcium (Lipitor -) 80 mg PO HS [facility] Last Admin: 07/22/20 22:06 Dose: 80 mg Documented by: Escitalopram Oxalate (Lexapro -) 20 mg NGT HS [facility] Last Admin: 07/22/20 22:05 Dose: 20 mg Documented by: Heparin Sodium (Porcine) (Heparin -) 5,000 unit SQ BID [facility] Last Admin: 07/23/20 09:49 Dose: 5,000 unit Documented by: Piperacillin Sod/Tazobactam (Sod 4.5 gm/ Dextrose) 100 mls @ 200 mls/hr IVPB Q8H-IV [facility]; Protocol Last Admin: 07/23/20 09:49 Dose: 200 mls/hr Documented by: Lactated Ringer's (Lactated Ringers Solution) 1,000 mls @ 125 mls/hr IV ASDIR [facility] Last Admin: 07/22/20 17:27 Dose: 125 mls/hr Documented by: Ibuprofen (Caldolor Injection -) 400 mg IVPB Q8H PRN PRN Reason: PAIN LEVEL 4 - 6 Insulin Aspart (Novolog Vial Sliding Scale -) 1 vial SQ ACHS [facility]; Protocol Last Admin: 07/23/20 11:27 Dose: Not Given Documented by: Insulin Detemir (Levemir Vial) 6 units SQ BID@0700,2200 [facility] Last Admin: 07/23/20 06:12 Dose: 6 units Documented by: Lactated Ringer's (Lactated Ringers Solution) 100 ml IV ASDIR [facility] Last Admin: 07/22/20 17:27 Dose: Not Given Documented by: Metoprolol Tartrate (Lopressor Injection -) 5 mg IVPB Q6H PRN PRN Reason: HYPERTENSION Morphine Sulfate (Morphine Sulfate) 0.5 mg IVPUSH Q6H PRN PRN Reason: PAIN LEVEL 7 - 10 Potassium Chloride (K-Dur -) 40 meq PO DAILY [facility] - Objective Vital Signs: Vital Signs Temperature 98.9 F 07/23/20 05:57 Pulse Rate 98 H 07/23/20 05:57 Respiratory Rate 07/23/20 05:57 Blood Pressure 111/58 L 07/23/20 05:57 O2 Sat by Pulse Oximetry (%) 96 07/23/20 05:57 Constitutional: Yes: No Distress, Calm HENT: Yes: Atraumatic Neck: Yes: Supple Cardiovascular: Yes: Regular Rate and Rhythm Respiratory: Yes: Regular, Diminished. No: Rales, Rhonchi Gastrointestinal: Yes: Other (dressing in place) Extremities: No: Cyanosis Edema: No Neurological: Yes: Alert Labs: CBC, BMP 07/23/20 07:48 07/23/20 07:48 INR, PTT INR 1.18 (0.83-1.09) H 07/21/20 08:02 Assessment/Plan 70 year old woman with history of CVA, IDDM, hypertension who presented with lower abdominal pain and found to have likely UTI with hypokalemia. 1. Hypokalemia in setting of diarrhea/GI losses 2. Diverticular abscess 3. Hypertension 4. IDDM 5. Anemia 6. Lactic acidosis 7. Hypomagnesemia 8. Hypophosphatemia 9. Acute kidney injury Cr yinka form 0.7 to 1.5 s/p OR. No overt hypotension noted on OR flow sheet. Check urine studies for FeNa Hold ACEi Continue isotonic fluids Hold potassium supplament. Serum potassium is stable. Advance diet as per surgery following procedure. Surgical follow up Continue empiric antibiotics as per ABELARDO Ricks DO
[2020-07-23] MEDS: POTASSIUM CHLORIDE ORAL LIQUID 20 MEQ/15 ML NGT SCH (15:14)
--- NOTE | 2020-07-23 16:32 | PN ---
Progress Note (short form) - Note Progress Note: POD #1 s/p hemicolectomy with colostomy Vital Signs Period Temp Pulse Resp BP Sys/Ferrer Pulse Ox Last 24 Hr 97.6 F-98.9 F 92-110 18-20 101-149/58-72 96-100 +NGT cor-rrr lungs decreased bs at bses abd +ostomy +SERGE drain +midline incision with dressing ext no edema CBC, BMP 07/23/20 07:48 07/23/20 07:48 Microbiology 07/22/20 09:37 Abdomen Gram Stain - Final 07/22/20 09:37 Abdomen Wound Culture - Preliminary Non Lactose Fermenting Gnb 07/15/20 20:10 Blood - Peripheral Venous Blood Culture - Final NO GROWTH AFTER 5 DAYS INCUBATION 07/15/20 20:10 Blood - Peripheral Venous Blood Culture - Final NO GROWTH AFTER 5 DAYS INCUBATION 07/18/20 15:00 Stool Clostridioides difficile Antigen - Final 07/18/20 15:00 Stool Clostridioides difficile Toxin Assay - Final 07/15/20 15:10 Urine - Urine Clean Catch Urine Culture - Final Pseudomonas Aeruginosa Escherichia Coli imp/reccd s/p Gavin's procedure /17- pod #1 continue zosyn f/u operative cultures
[2020-07-23 18:11] LABS: EPI CELLS >36 /uL (0-25.1); HYALINE CASTS 11 /uL (0-3.1); URINE APPEARANCE CLOUDY; URINE BILIRUBIN NEGATIVE (NEGATIVE); URINE COLOR YELLOW; URINE GLUCOSE (UA) NEGATIVE (NEGATIVE); URINE KETONE NEGATIVE (NEGATIVE); URINE LEUK ESTERASE NEGATIVE (NEGATIVE); URINE NITRITE NEGATIVE (NEGATIVE); URINE PROTEIN 2+ (NEGATIVE); URINE RBC 20 /uL (0-23.9); URINE UROBILINOGEN 0.2 mg/dL (0.2-1.0); URINE WBC 32 /uL (0-25.8)
--- NOTE | 2020-07-23 19:38 | PN ---
Progress Note, Physician Chief Complaint: postop on 6s awake alert NAD VSS no abdominal pain!! feels better; no bleed - Current Medication List Current Medications: Active Medications Acetaminophen (Ofirmev Injection -) 1,000 mg IVPB Q6H PRN PRN Reason: PAIN LEVEL 1-5 Aspirin (Asa -) 325 mg NGT DAILY [facility] Last Admin: 07/23/20 09:47 Dose: 325 mg Documented by: Atorvastatin Calcium (Lipitor -) 80 mg PO HS [facility] Last Admin: 07/22/20 22:06 Dose: 80 mg Documented by: Escitalopram Oxalate (Lexapro -) 20 mg NGT HS [facility] Last Admin: 07/22/20 22:05 Dose: 20 mg Documented by: Heparin Sodium (Porcine) (Heparin -) 5,000 unit SQ BID [facility] Last Admin: 07/23/20 09:49 Dose: 5,000 unit Documented by: Piperacillin Sod/Tazobactam (Sod 4.5 gm/ Dextrose) 100 mls @ 200 mls/hr IVPB Q8H-IV [facility]; Protocol Last Admin: 07/23/20 18:01 Dose: 200 mls/hr Documented by: Lactated Ringer's (Lactated Ringers Solution) 1,000 mls @ 125 mls/hr IV ASDIR [facility] Last Admin: 07/22/20 17:27 Dose: 125 mls/hr Documented by: Ibuprofen (Caldolor Injection -) 400 mg IVPB Q8H PRN PRN Reason: PAIN LEVEL 4 - 6 Insulin Aspart (Novolog Vial Sliding Scale -) 1 vial SQ ACHS [facility]; Protocol Last Admin: 07/23/20 17:10 Dose: Not Given Documented by: Insulin Detemir (Levemir Vial) 6 units SQ BID@0700,2200 [facility] Last Admin: 07/23/20 06:12 Dose: 6 units Documented by: Metoprolol Tartrate (Lopressor Injection -) 5 mg IVPB Q6H PRN PRN Reason: HYPERTENSION Morphine Sulfate (Morphine Sulfate) 0.5 mg IVPUSH Q6H PRN PRN Reason: PAIN LEVEL 7 - 10 Potassium Chloride (Potassium Chloride Oral Liquid) 40 meq NGT DAILY [facility] Last Admin: 07/23/20 15:14 Dose: 40 meq Documented by: - Objective Vital Signs: Vital Signs Temperature 98.0 F 09/18/20 15:15 Pulse Rate 92 H 07/23/20 15:15 Respiratory Rate 18 07/23/20 15:15 Blood Pressure 118/64 07/23/20 15:15 O2 Sat by Pulse Oximetry (%) 100 07/23/20 15:15 Constitutional: Yes: No Distress, Calm Eyes: Yes: Conjunctiva Clear HENT: Yes: Atraumatic Neck: Yes: Supple Cardiovascular: Yes: Regular Rate and Rhythm Respiratory: Yes: CTA Bilaterally Gastrointestinal: Yes: Soft, Other (wound dressed care per surgery). No: Ten derness Genitourinary: No: Hematuria Musculoskeletal: No: Joint Stiffness, Joint Swelling Extremities: No: Cold, Cool, Cyanosis Edema: No Integumentary: No: Rash, Venous Stasis Changes Neurological: Yes: Alert, Oriented ...Motor Strength: MORRISEAISHWARYA (old 02/07) Psychiatric: Yes: Alert, Oriented. No: Agitated, Suicidal Ideation Labs: CBC, BMP 07/23/20 07:48 07/23/20 07:48 INR, PTT INR 1.18 (0.83-1.09) H 07/21/20 08:02 Assessment/Plan The patient is a 70y/o F with a pmh of CVA (3months ago), IDDM, HTN admitted with sepsis diverticulitis with abscesses and UTI, also hydronephrosis IVF/ clinimix; IV ATB replete K NPO except meds sq insulin per BGM f/u labs ID, renal, GI, f/u s/p surgery - restart po ASA when OK with surgery cardio and neuro f/u turn in bed DVT pfx sq heparin when OK with surgery d/w pt and staff
[2020-07-23] MEDS ORDERED: ESCITALOPRAM OXALATE 10 MG TABLET ONE (21:43)
[2020-07-23] MEDS: ESCITALOPRAM OXALATE 20 MG TABLET NGT SCH (21:49)
[2020-07-23] MEDS: ATORVASTATIN CA 80 MG TABLET (FP) PO SCH (21:49)
[2020-07-24] MEDS: LACTATED RINGERS SOLUTION 1,000 ML IV SCH ×2 (00:30→20:55)
[2020-07-24] MEDS ORDERED: DEXTROSE 5%-WATER 100 ML IVPB ONE ×3 (01:23→16:54)
[2020-07-24] MEDS ORDERED: PIPERACILLIN/TAZOBACTAM 4.5 GM VIAL IVPB ONE ×3 (01:23→16:54)
[2020-07-24] MEDS: PIPERACILLIN/TAZOB 4.5 GM 4.5 GM in DEXTROSE 5%-WATER 100 ML IVPB SCH ×3 (01:34→17:16)
[2020-07-24 03:01] LABS: URINE BACTERIA MANY /uL (0-1359)
[2020-07-24] MEDS: INSULIN SLIDING SCALE (NOVOLOG) 1 VIAL SQ SCH ×3 (06:15→21:51)
[2020-07-24] MEDS: INSULIN (LEVEMIR) 100 UNITS/ML UNITS SQ SCH ×3 (06:16→21:51)
--- NOTE | 2020-07-24 07:14 | PN ---
Progress Note (short form) - Note Progress Note: Chief Complaint: Events noted, notes reviewed, resting in bed, NG tube in situ, denies chest discomfort, denies dyspnea History of Present Illness: Seen and examined. Events noted, notes reviewed, resting in bed, NG tube in situ, denies chest discomfort, denies dyspnea Medications: Current Medications Generic Name Dose Route Start Last Admin Trade Name Freq PRN Reason Stop Dose Admin Acetaminophen 1,000 mg 07/23/20 16:42 Ofirmev Injection - IVPB Q6H PRN PAIN LEVEL 1-5 Aspirin 325 mg 07/23/20 10:00 07/23/20 09:47 Asa - NGT 325 mg DAILY [facility] Administration Atorvastatin Calcium 80 mg 07/22/20 22:00 07/23/20 21:49 Lipitor - PO 80 mg HS [facility] Administration Escitalopram Oxalate 20 mg 07/22/20 22:00 07/23/20 21:49 Lexapro - NGT 20 mg HS [facility] Administration Heparin Sodium (Porcine) 5,000 unit 07/23/20 10:00 07/23/20 21:49 Heparin - SQ 5,000 unit BID [facility] Administration Piperacillin Sod/Tazobactam 100 mls @ 200 mls/hr 07/22/20 18:00 07/24/20 01:34 Sod 4.5 gm/ Dextrose IVPB 200 mls/hr Q8H-IV [facility] Administration Protocol Lactated Ringer's 1,000 mls @ 125 mls/hr 07/22/20 15:45 07/24/20 00:30 Lactated Ringers Solution IV 125 mls/hr ASDIR [facility] Administration Ibuprofen 400 mg 07/22/20 13:43 07/24/20 00:31 Caldolor Injection - IVPB 400 mg Q8H PRN Administration PAIN LEVEL 4 - 6 Insulin Aspart 1 vial 07/22/20 16:30 07/24/20 06:15 Novolog Vial Sliding Scale - SQ Not Given ACHS [facility] Protocol Insulin Detemir 6 units 07/22/20 22:00 07/24/20 06:16 Levemir Vial SQ Not Given BID@0700,2200 [facility] Metoprolol Tartrate 5 mg 07/22/20 13:20 Lopressor Injection - IVPB Q6H PRN HYPERTENSION Morphine Sulfate 0.5 mg 07/22/20 13:44 Morphine Sulfate IVPUSH Q6H PRN PAIN LEVEL 7 - 10 Potassium Chloride 40 meq 07/23/20 15:00 07/23/20 15:14 Potassium Chloride Oral Liquid NGT 40 meq DAILY [facility] Administration Vital Signs: Last Vital Signs Temp Pulse Resp BP Pulse Ox 98.6 F 109 H 18 132/71 98 07/23/20 22:00 07/23/20 22:00 07/23/20 22:00 07/23/20 22:00 07/23/20 22:00 Intake & Output 07/21/20 07/22/20 07/23/20 07/24/20 23:59 23:59 23:59 23:59 Intake Total 688 3875 2900 1050 Output Total 600 1945 585 Balance 88 1930 2315 1050 Weight 148 lb Neck: Supple Negative JVD Respiratory: Diminished Breath Sounds at the Bases Cardiovascular: S1 S2 Regular Rate Rhythm Gastrointestinal: Soft Benign Normal Bowel Sounds Ext: Negative Edema Labs: CBC, BMP 07/24/20 07:25 07/24/20 07:25 CBC, BMP 07/23/20 07:48 07/23/20 07:48 Hepatic Panel Total Bilirubin 0.4 mg/dL (0.2-1) 07/23/20 07:48 AST 35 U/L (15-37) 07/23/20 07:48 ALT 23 U/L (13-61) 07/23/20 07:48 Alkaline Phosphatase 90 U/L (45-117) 07/23/20 07:48 Albumin 1.3 g/dl (3.4-5.0) L 07/23/20 07:48 INR, PTT INR 1.18 (0.83-1.09) H 07/21/20 08:02 Assessment/Plan ASSESSMENT: 1. POD#2 post Gvain's procedure management of complicated diverticulitis with abscess formation and colo-vesicular fistula 2. CAD angina pectoris 3. Diastolic LV dysfunction with clinical class 0 NYHA classification LV failure 4. HTN 5. DM poorly controlled 6. Hypercholesterolemia 7. History of stroke with multi-infarct dementia 8. Chronic kidney disease 9. Hyponatremia 10. Anemia PLAN: 1. Antibiotics as per the primary team 2. Continue to withhold NATALIE inhibitor therapy pending improvement of renal function- at least to baseline 3. Continue IV Lopressor therapy 4. Continue ASA therapy administration unless it is absolutely contraindicated Simone Rasheed MD
--- NOTE | 2020-07-24 07:48 | PN ---
Progress Note, Physician Chief Complaint: awake alert in bed NAD no fever - dropped Hg will transfuse - Current Medication List Current Medications: Active Medications Acetaminophen (Ofirmev Injection -) 1,000 mg IVPB Q6H PRN PRN Reason: PAIN LEVEL 1-5 Aspirin (Asa -) [address] [facility] Last Admin: 07/23/20 09:47 Dose: 325 mg Documented by: Atorvastatin Calcium (Lipitor -) [address] [facility] Last Admin: 07/23/20 21:49 Dose: 80 mg Documented by: Escitalopram Oxalate (Lexapro -) [address] [facility] Last Admin: 07/23/20 21:49 Dose: 20 mg Documented by: Heparin Sodium (Porcine) (Heparin -) 5,[address] [facility] Last Admin: 07/23/20 21:49 Dose: 5,000 unit Documented by: Piperacillin Sod/Tazobactam (Sod 4.5 gm/ Dextrose) 100 mls @ 200 mls/hr IVPB Q8H-IV [facility]; Protocol Last Admin: 07/24/20 01:34 Dose: 200 mls/hr Documented by: Lactated Ringer's (Lactated Ringers Solution) 1,000 mls @ 125 mls/hr IV ASDIR [facility] Last Admin: 07/24/20 00:30 Dose: 125 mls/hr Documented by: Insulin Aspart (Novolog Vial Sliding Scale -) [address] [facility]; Protocol Last Admin: 07/24/20 06:15 Dose: Not Given Documented by: Insulin Detemir (Levemir Vial) 6 units SQ BID@0700,2200 [facility] Metoprolol Tartrate (Lopressor Injection -) 5 mg IVPB Q6H PRN PRN Reason: HYPERTENSION Morphine Sulfate (Morphine Sulfate) 0.5 mg IVPUSH Q6H PRN PRN Reason: PAIN LEVEL 7 - 10 Potassium Chloride (Potassium Chloride Oral Liquid) [address] [facility] Last Admin: 07/23/20 15:14 Dose: 40 meq Documented by: - Objective Vital Signs: Vital Signs Temperature 98.6 F 07/23/20 22:00 Pulse Rate 109 H 07/23/20 22:00 Respiratory Rate 18 07/23/20 22:00 Blood Pressure 132/71 07/23/20 22:00 O2 Sat by Pulse Oximetry (%) 98 07/23/20 22:00 Constitutional: Yes: No Distress, Calm Eyes: Yes: Conjunctiva Clear HENT: Yes: Atraumatic Neck: Yes: Supple Cardiovascular: Yes: Regular Rate and Rhythm Respiratory: Yes: CTA Bilaterally Gastrointestinal: Yes: Soft, Other (colostomy) Genitourinary: No: Hematuria Musculoskeletal: No: Joint Stiffness, Joint Swelling Extremities: No: Cold, Cool Edema: No Integumentary: No: Rash, Venous Stasis Changes Neurological: Yes: Alert, Oriented ...Motor Strength: LUE, LLE Psychiatric: Yes: Alert, Oriented. No: Agitated, Suicidal Ideation Labs: CBC, BMP 07/23/20 07:48 07/23/20 07:48 INR, PTT INR 1.18 (0.83-1.09) H 07/21/20 08:02 - ....Imaging Other: Report Reviewed Assessment/Plan The patient is a 70y/o F with a pmh of CVA (3months ago), IDDM, HTN admitted with sepsis diverticulitis with abscesses and UTI, also hydronephrosis s/p Faustino procedure IVF/ clinimix; IV ATB replete K ]anemia transfuse 2 U PRBC NPO except meds sq insulin per BGM f/u labs ID, renal, GI, f/u s/p surgery - restarted po ASA and sq heparin cardio and neuro f/u turn in bed decubs pfx d/w pt and staff
[2020-07-24 08:39] LABS: BASO % 0.1 % (0-2.0); EOS % 0.1 % (0-4.5); HEMATOCRIT 21.8 % (32.4-45.2); HEMOGLOBIN 7.5 GM/dL (10.7-15.3); LYMPH % 7.9 % (8-40); MCH 30.5 pg (25.7-33.7); MCHC 34.5 g/dl (32.0-36.0); MEAN CELL VOLUME 88.5 fl (80-96); MEAN PLT VOLUME 7.2 fl (7.5-11.1); NEUT % 84.9 % (42.8-82.8); PLATELET COUNT 474 K/MM3 (134-434); RBC 2.47 M/mm3 (3.60-5.2); RDW 15.8 % (11.6-15.6); WHITE BLOOD COUNT 18.2 K/mm3 (4.0-10.0)
[2020-07-24 09:14] LABS: ALBUMIN 1.2 g/dl (3.4-5.0); BILIRUBIN,TOTAL 0.4 mg/dL (0.2-1); BLOOD UREA NITROGEN 18.6 mg/dL (7-18); CALCIUM 7.2 mg/dL (8.5-10.1); CREATININE 0.8 mg/dL (0.55-1.3); MAGNESIUM 1.6 mg/dL (1.8-2.4); PHOSPHOROUS 2.7 mg/dL (2.5-4.9)
[2020-07-24] MEDS ORDERED: POTASSIUM CHLORIDE ORAL LIQUID 20 MEQ/15 ML NGT SCH (10:00)
[2020-07-24] MEDS: ASPIRIN 325 MG TABLET NGT SCH (10:25)
[2020-07-24] MEDS: POTASSIUM CHLORIDE ORAL LIQUID 20 MEQ/15 ML NGT SCH (10:25)
[2020-07-24] MEDS: HEPARIN NA (PORCINE) 5,000 UNITS/ML 1ML VIAL SQ SCH ×2 (10:26→21:05)
--- NOTE | 2020-07-24 11:37 | PN ---
Progress Note (short form) - Note Progress Note: Attending Surgeon POD #2 No c/o ?? VSS AF abdo-dressing c/d/i; ostomy viable w/gas and stool prior to being changed this AM; shayan in place; wound open and packed h/h 7.5/21.8 WBC 18.5 BUN 18.6 Creatinine 0.8 UO good NGT output 100 SERGE output noted. IMP: stable post op PLAN: NPO/IVF/NGT removed/rodriguez catheter to remain and not be removed b/o low pelvic surgery; OOB; continue antibiotics; decrease IVF; ? consider PRBC's.. Raghu Horton MD FACS
[2020-07-24 12:06] LABS: ANISOCYTOSIS 0; MACROCYTOSIS 0; PLATELET ESTIMATE NORMAL
[2020-07-24] MEDS: ACETAMINOPHEN 1000 MG/100 ML VIAL (NON FORMULARY) IVPB PRN (20:17)
[2020-07-24] MEDS ORDERED: ESCITALOPRAM OXALATE 10 MG TABLET ONE (20:50)
[2020-07-24] MEDS: ESCITALOPRAM OXALATE 20 MG TABLET NGT SCH (21:11)
[2020-07-24] MEDS: ATORVASTATIN CA 80 MG TABLET (FP) PO SCH (21:11)
[2020-07-25] MEDS: LACTATED RINGERS SOLUTION 1,000 ML IV SCH ×2 (01:00→15:10)
[2020-07-25] MEDS ORDERED: DEXTROSE 5%-WATER 100 ML IVPB ONE ×3 (01:06→16:58)
[2020-07-25] MEDS ORDERED: PIPERACILLIN/TAZOBACTAM 4.5 GM VIAL IVPB ONE ×3 (01:06→16:58)
[2020-07-25] MEDS: PIPERACILLIN/TAZOB 4.5 GM 4.5 GM in DEXTROSE 5%-WATER 100 ML IVPB SCH ×3 (01:28→17:06)
[2020-07-25] MEDS: ACETAMINOPHEN 1000 MG/100 ML VIAL (NON FORMULARY) IVPB PRN ×2 (05:03→23:53)
[2020-07-25] MEDS: INSULIN (LEVEMIR) 100 UNITS/ML UNITS SQ SCH ×2 (06:07→21:08)
[2020-07-25] MEDS: INSULIN SLIDING SCALE (NOVOLOG) 1 VIAL SQ SCH ×4 (06:08→21:07)
[2020-07-25] MEDS: METOPROLOL TARTRATE 5 MG/5 ML VIAL IVPB PRN ×2 (06:29→21:07)
--- NOTE | 2020-07-25 06:56 | PN ---
Progress Note (short form) - Note Progress Note: Chief Complaint: Events noted, notes reviewed, resting in bed, NG tube in situ, denies chest discomfort, denies dyspnea History of Present Illness: Seen and examined. Events noted, notes reviewed, resting in bed, NG tube in situ, denies chest discomfort, denies dyspnea Medications: Current Medications Generic Name Dose Route Start Last Admin Trade Name Freq PRN Reason Stop Dose Admin Acetaminophen 1,000 mg 07/23/20 16:42 07/25/20 05:03 Ofirmev Injection - IVPB 1,000 mg Q6H PRN Administration PAIN LEVEL 1-5 Aspirin 325 mg 07/23/20 10:00 07/24/20 10:25 Asa - NGT Not Given DAILY [facility] Atorvastatin Calcium 80 mg 07/22/20 22:00 07/24/20 21:11 Lipitor - PO 80 mg HS [facility] Administration Escitalopram Oxalate 20 mg 07/22/20 22:00 07/24/20 21:11 Lexapro - NGT Not Given HS [facility] Heparin Sodium (Porcine) 5,000 unit 07/23/20 10:00 07/24/20 21:05 Heparin - SQ 5,000 unit BID [facility] Administration Piperacillin Sod/Tazobactam 100 mls @ 200 mls/hr 07/22/20 18:00 07/25/20 01:28 Sod 4.5 gm/ Dextrose IVPB 200 mls/hr Q8H-IV [facility] Administration Protocol Lactated Ringer's 1,000 mls @ 75 mls/hr 07/24/20 11:41 07/25/20 01:00 Lactated Ringers Solution IV 75 mls/hr ASDIR [facility] Administration Insulin Aspart 1 vial 07/22/20 16:30 07/25/20 06:08 Novolog Vial Sliding Scale - SQ Not Given ACHS [facility] Protocol Insulin Detemir 6 units 07/24/20 22:00 07/25/20 06:07 Levemir Vial SQ Not Given BID@0700,2200 [facility] Metoprolol Tartrate 5 mg 07/22/20 13:20 07/25/20 06:29 Lopressor Injection - IVPB 5 mg Q6H PRN Administration HYPERTENSION Morphine Sulfate 0.5 mg 07/22/20 13:44 Morphine Sulfate IVPUSH Q6H PRN PAIN LEVEL 7 - 10 Potassium Chloride 40 meq 07/23/20 15:00 07/24/20 10:25 Potassium Chloride Oral Liquid NGT Not Given DAILY [facility] Vital Signs: Last Vital Signs Temp Pulse Resp BP Pulse Ox 98.4 F 97 H 20 160/90 100 07/25/20 00:50 07/25/20 06:29 07/25/20 00:50 07/25/20 06:29 07/25/20 00:50 Intake & Output 07/22/20 07/23/20 07/24/20 07/25/20 23:59 23:59 23:59 23:59 Intake Total 3875 2900 2150 1450 Output Total 1945 585 810 100 Balance 1930 2315 1340 1350 Weight 148 lb Neck: Supple Negative JVD Respiratory: Diminished Breath Sounds at the Bases Cardiovascular: S1 S2 Regular Rate Rhythm Gastrointestinal: Soft Benign Normal Bowel Sounds Ext: Negative Edema Labs: CBC, BMP 07/25/20 07:16 07/25/20 07:16 Hepatic Panel Total Bilirubin 0.6 mg/dL (0.2-1) 07/25/20 07:16 AST 83 U/L (15-37) H 07/25/20 07:16 ALT 38 U/L (13-61) 07/25/20 07:16 Alkaline Phosphatase 107 U/L (45-117) 07/25/20 07:16 Albumin 1.2 g/dl (3.4-5.0) L 07/25/20 07:16 CBC, BMP 07/24/20 07:25 07/24/20 07:25 Hepatic Panel Total Bilirubin 0.4 mg/dL (0.2-1) 07/24/20 07:25 AST 77 U/L (15-37) H 07/24/20 07:25 ALT 34 U/L (13-61) 07/24/20 07:25 Alkaline Phosphatase 105 U/L (45-117) 07/24/20 07:25 Albumin 1.2 g/dl (3.4-5.0) L 07/24/20 07:25 INR, PTT INR 1.18 (0.83-1.09) H 07/21/20 08:02 Assessment/Plan ASSESSMENT: 1. POD#3 post Gavin's procedure management of complicated diverticulitis with abscess formation and colo-vesicular fistula 2. CAD angina pectoris 3. Diastolic LV dysfunction with clinical class 0 NYHA classification LV failure 4. HTN 5. DM poorly controlled 6. Hypercholesterolemia 7. History of stroke with multi-infarct dementia 8. Chronic kidney disease 9. Hyponatremia, resolved 10. Anemia, improved PLAN: 1. Antibiotics as per the primary team 2. Continue to withhold NATALIE inhibitor therapy pending improvement of renal function- at least to baseline 3. Continue IV Lopressor therapy 4. Continue ASA therapy administration unless it is absolutely contraindicated Simone Rasheed MD
[2020-07-25 08:37] LABS: BASO % 0.1 % (0-2.0); EOS % 0.2 % (0-4.5); HEMATOCRIT 30.2 % (32.4-45.2); HEMOGLOBIN 10.5 GM/dL (10.7-15.3); LYMPH % 7.7 % (8-40); MCH 30.2 pg (25.7-33.7); MCHC 34.7 g/dl (32.0-36.0); MEAN CELL VOLUME 87.1 fl (80-96); MEAN PLT VOLUME 7.2 fl (7.5-11.1); MONO % 6.1 % (3.8-10.2); NEUT % 85.9 % (42.8-82.8); PLATELET COUNT 457 K/MM3 (134-434); RBC 3.47 M/mm3 (3.60-5.2); RDW 14.9 % (11.6-15.6); WHITE BLOOD COUNT 13.9 K/mm3 (4.0-10.0)
[2020-07-25 08:58] LABS: ALBUMIN 1.2 g/dl (3.4-5.0); BILIRUBIN,TOTAL 0.6 mg/dL (0.2-1); CALCIUM 7.2 mg/dL (8.5-10.1); CREATININE 0.7 mg/dL (0.55-1.3); POTASSIUM 4.1 mmol/L (3.5-5.1); TOT PROT 5.2 g/dl (6.4-8.2)
[2020-07-25] MEDS: POTASSIUM CHLORIDE ORAL LIQUID 20 MEQ/15 ML NGT SCH (10:24)
[2020-07-25] MEDS: HEPARIN NA (PORCINE) 5,000 UNITS/ML 1ML VIAL SQ SCH ×2 (10:24→21:07)
[2020-07-25] MEDS: ASPIRIN 325 MG TABLET NGT SCH (10:24)
--- NOTE | 2020-07-25 11:26 | PN ---
Progress Note (short form) - Note Progress Note: Attending Surgeon POD #3 No c/o ??; more alert and conversant today; received 2U PRBC's yesterday VSS AF abdo-dressing c/d/i; ostomy viable w/gas but no stool this AM this AM; shayan in place; wound open and packed h/h 30.2/10.5 WBC 13.9 BUN/creatinine nl UO good IMP: stable post op PLAN: NPO/IVF//rodriguez catheter to remain and not be removed b/o low pelvic surgery; OOB; continue antibiotics; IVF; . Raghu Horton MD FACS
--- NOTE | 2020-07-25 12:08 | PN ---
Progress Note (short form) - Note Progress Note: alert, no complaints POD #3 s/p hemicolectomy with colostomy Vital Signs Period Temp Pulse Resp BP Sys/Ferrer Pulse Ox Last 24 Hr 97.8 F-99 F 93-98 18-20 143-160/68-90 98-100 cor-rrr lungs clear abd soft +grace(2) +ostomy ext no edema +rodriguez CBC, BMP 07/25/20 07:16 07/25/20 07:16 Microbiology 07/22/20 09:37 Abdomen Gram Stain - Final 07/22/20 09:37 Abdomen Wound Culture - Final Pseudomonas Aeruginosa Escherichia Coli 07/15/20 20:10 Blood - Peripheral Venous Blood Culture - Final NO GROWTH AFTER 5 DAYS INCUBATION 07/15/20 20:10 Blood - Peripheral Venous Blood Culture - Final NO GROWTH AFTER 5 DAYS INCUBATION 07/18/20 15:00 Stool Clostridioides difficile Antigen - Final 07/18/20 15:00 Stool Clostridioides difficile Toxin Assay - Final 07/15/20 15:10 Urine - Urine Clean Catch Urine Culture - Final Pseudomonas Aeruginosa Escherichia Coli imp/reccd s/p Gavin's procedure 07/22- pod #3 operative cultures with pseudomonas and ecoli continue zosyn wbc trending down
--- NOTE | 2020-07-25 18:59 | PN ---
Progress Note, Physician Chief Complaint: no pain no sob received 2 u PRbc - Current Medication List Current Medications: Active Medications Acetaminophen (Ofirmev Injection -) 1,000 mg IVPB Q6H PRN PRN Reason: PAIN LEVEL 1-5 Last Admin: 07/25/20 05:03 Dose: 1,000 mg Documented by: Aspirin (Asa -) 325 mg NGT DAILY [facility] Last Admin: 07/25/20 10:24 Dose: 325 mg Documented by: Atorvastatin Calcium (Lipitor -) 80 mg PO HS [facility] Last Admin: 07/24/20 21:11 Dose: 80 mg Documented by: Escitalopram Oxalate (Lexapro -) 20 mg NGT HS [facility] Last Admin: 07/24/20 21:11 Dose: Not Given Documented by: Heparin Sodium (Porcine) (Heparin -) 5,000 unit SQ BID [facility] Last Admin: 07/25/20 10:24 Dose: 5,000 unit Documented by: Piperacillin Sod/Tazobactam (Sod 4.5 gm/ Dextrose) 100 mls @ 200 mls/hr IVPB Q8H-IV [facility]; Protocol Last Admin: 07/25/20 17:06 Dose: 200 mls/hr Documented by: Lactated Ringer's (Lactated Ringers Solution) 1,000 mls @ 75 mls/hr IV ASDIR [facility] Last Admin: 07/25/20 15:10 Dose: 75 mls/hr Documented by: Insulin Aspart (Novolog Vial Sliding Scale -) 1 vial SQ ACHS [facility]; Protocol Last Admin: 07/25/20 17:04 Dose: Not Given Documented by: Insulin Detemir (Levemir Vial) 6 units SQ BID@0700,2200 [facility] Last Admin: 07/25/20 06:07 Dose: Not Given Documented by: Metoprolol Tartrate (Lopressor Injection -) 5 mg IVPB Q6H PRN PRN Reason: HYPERTENSION Last Admin: 07/25/20 06:29 Dose: 5 mg Documented by: Morphine Sulfate (Morphine Sulfate) 0.5 mg IVPUSH Q6H PRN PRN Reason: PAIN LEVEL 7 - 10 Potassium Chloride (Potassium Chloride Oral Liquid) 40 meq NGT DAILY [facility] Last Admin: 07/25/20 10:24 Dose: Not Given Documented by: - Objective Vital Signs: Vital Signs Temperature 98.7 F 07/25/20 09:00 Pulse Rate 85 07/25/20 09:00 Respiratory Rate 20 07/25/20 09:00 Blood Pressure 150/89 07/25/20 09:00 O2 Sat by Pulse Oximetry (%) 119 H 07/25/20 09:00 Constitutional: Yes: No Distress, Calm Eyes: Yes: Conjunctiva Clear HENT: Yes: Atraumatic Neck: Yes: Supple Cardiovascular: Yes: Regular Rate and Rhythm Respiratory: Yes: CTA Bilaterally Gastrointestinal: Yes: Soft, Other (colostomy). No: Tenderness Genitourinary: No: Hematuria Musculoskeletal: No: Joint Stiffness, Joint Swelling Extremities: No: Cold, Cool, Cyanosis Edema: No Integumentary: No: Rash, Venous Stasis Changes Neurological: Yes: Alert, Oriented ...Motor Strength: LUE, LLE Psychiatric: Yes: Alert, Oriented. No: Agitated Labs: CBC, BMP 07/25/20 07:16 07/25/20 07:16 INR, PTT INR 1.18 (0.83-1.09) H 07/21/20 08:02 - ....Imaging Other: Report Reviewed Assessment/Plan The patient is a 70y/o F with a pmh of CVA (3months ago), IDDM, HTN admitted with sepsis diverticulitis with abscesses and UTI, also hydronephrosis s/p Faustino procedure IVF/ clinimix; IV ATB replete K anemia s/p transfused 2 U PRBC NPO except meds sq insulin per BGM f/u labs ID, renal, GI, f/u s/p surgery - restarted po ASA and sq heparin cardio and neuro f/u turn in bed decubs pfx d/w pt and staff
[2020-07-25] MEDS: ATORVASTATIN CA 80 MG TABLET (FP) PO SCH (21:08)
[2020-07-25] MEDS: ESCITALOPRAM OXALATE 20 MG TABLET NGT SCH (21:08)
[2020-07-26] MEDS ORDERED: PIPERACILLIN/TAZOBACTAM 4.5 GM VIAL IVPB ONE ×3 (01:09→17:36)
[2020-07-26] MEDS ORDERED: DEXTROSE 5%-WATER 100 ML IVPB ONE ×3 (01:10→17:36)
[2020-07-26] MEDS: PIPERACILLIN/TAZOB 4.5 GM 4.5 GM in DEXTROSE 5%-WATER 100 ML IVPB SCH ×3 (01:13→18:03)
[2020-07-26] MEDS: LACTATED RINGERS SOLUTION 1,000 ML IV SCH (06:07)
[2020-07-26] MEDS: METOPROLOL TARTRATE 5 MG/5 ML VIAL IVPB PRN (06:07)
[2020-07-26] MEDS: INSULIN SLIDING SCALE (NOVOLOG) 1 VIAL SQ SCH ×4 (06:07→21:50)
[2020-07-26] MEDS: INSULIN (LEVEMIR) 100 UNITS/ML UNITS SQ SCH ×2 (06:08→21:50)
[2020-07-26] MEDS ORDERED: PT OWN MED DRAWER 7, Y5N ONE (06:46)
--- NOTE | 2020-07-26 08:52 | PN ---
Progress Note, Physician Chief Complaint: in bed NAD VSS - Current Medication List Current Medications: Active Medications Acetaminophen (Ofirmev Injection -) 1,000 mg IVPB Q6H PRN PRN Reason: PAIN LEVEL 1-5 Last Admin: 07/25/20 23:53 Dose: 1,000 mg Documented by: Aspirin (Asa -) 325 mg NGT DAILY [facility] Last Admin: 07/25/20 10:24 Dose: 325 mg Documented by: Atorvastatin Calcium (Lipitor -) 80 mg PO HS [facility] Last Admin: 07/25/20 21:08 Dose: Not Given Documented by: Escitalopram Oxalate (Lexapro -) 20 mg NGT HS [facility] Last Admin: 07/25/20 21:08 Dose: Not Given Documented by: Heparin Sodium (Porcine) (Heparin -) 5,000 unit SQ BID [facility] Last Admin: 07/25/20 21:07 Dose: 5,000 unit Documented by: Piperacillin Sod/Tazobactam (Sod 4.5 gm/ Dextrose) 100 mls @ 200 mls/hr IVPB Q8H-IV [facility]; Protocol Last Admin: 07/26/20 01:13 Dose: 200 mls/hr Documented by: Lactated Ringer's (Lactated Ringers Solution) 1,000 mls @ 75 mls/hr IV ASDIR [facility] Last Admin: 07/26/20 06:07 Dose: 75 mls/hr Documented by: Insulin Aspart (Novolog Vial Sliding Scale -) 1 vial SQ ACHS [facility]; Protocol Last Admin: 07/26/20 06:07 Dose: Not Given Documented by: Insulin Detemir (Levemir Vial) 6 units SQ BID@0700,2200 [facility] Last Admin: 07/26/20 06:08 Dose: Not Given Documented by: Metoprolol Tartrate (Lopressor Injection -) 5 mg IVPB Q6H PRN PRN Reason: GIVE IF BP > 150/90 Last Admin: 07/26/20 06:07 Dose: 5 mg Documented by: Morphine Sulfate (Morphine Sulfate) 0.5 mg IVPUSH Q6H PRN PRN Reason: PAIN LEVEL 7 - 10 Potassium Chloride (Potassium Chloride Oral Liquid) 40 meq NGT DAILY [facility] Last Admin: 07/25/20 10:24 Dose: Not Given Documented by: - Objective Vital Signs: Vital Signs Temperature 98.2 F 07/26/20 06:00 Pulse Rate 82 09/21/20 06:07 Respiratory Rate 18 07/26/20 06:00 Blood Pressure 170/86 07/26/20 06:07 O2 Sat by Pulse Oximetry (%) 97 07/26/20 06:00 Constitutional: Yes: No Distress, Calm Eyes: Yes: Conjunctiva Clear HENT: Yes: Atraumatic Neck: Yes: Supple Cardiovascular: Yes: Regular Rate and Rhythm Respiratory: Yes: CTA Bilaterally Gastrointestinal: Yes: Soft, Other (colostomy) Genitourinary: No: Hematuria Musculoskeletal: No: Joint Stiffness, Joint Swelling Extremities: No: Cold, Cool, Cyanosis Edema: Yes (both hands ) Integumentary: No: Rash, Venous Stasis Changes Neurological: Yes: Alert, Oriented ...Motor Strength: LUE, LLE Psychiatric: Yes: Alert, Oriented. No: Agitated, Suicidal Ideation Labs: INR, PTT INR 1.18 (0.83-1.09) H 07/21/20 08:02 - ....Imaging Other: Report Reviewed Assessment/Plan The patient is a 70y/o F with a pmh of CVA (3months ago), IDDM, HTN admitted with sepsis diverticulitis with abscesses and UTI, also hydronephrosis s/p Faustino procedure IVF/ clinimix; IV ATB advance diet per surgery sq insulin per BGM f/u labs ID, renal, GI, f/u s/p surgery - restarted po ASA and sq heparin cardio and neuro f/u turn in bed decubs pfx d/w pt and staff
[2020-07-26 09:16] LABS: ALBUMIN 1.2 g/dl (3.4-5.0); BILIRUBIN,TOTAL 0.8 mg/dL (0.2-1); BLOOD UREA NITROGEN 10.7 mg/dL (7-18); CREATININE 0.5 mg/dL (0.55-1.3); POTASSIUM 3.2 mmol/L (3.5-5.1); TOT PROT 4.8 g/dl (6.4-8.2)
[2020-07-26 09:26] LABS: BASO % 0.2 % (0-2.0); EOS % 1.4 % (0-4.5); HEMATOCRIT 29.4 % (32.4-45.2); HEMOGLOBIN 9.9 GM/dL (10.7-15.3); LYMPH % 12.5 % (8-40); MCH 29.8 pg (25.7-33.7); MCHC 33.8 g/dl (32.0-36.0); MEAN PLT VOLUME 7.1 fl (7.5-11.1); MONO % 7.2 % (3.8-10.2); NEUT % 78.7 % (42.8-82.8); PLATELET COUNT 480 K/MM3 (134-434); RBC 3.33 M/mm3 (3.60-5.2); RDW 15.1 % (11.6-15.6); WHITE BLOOD COUNT 11.2 K/mm3 (4.0-10.0)
--- NOTE | 2020-07-26 09:41 | PN ---
Progress Note, Physician History of Present Illness: POD#4 Hartmans procedure for complicated sigmoid diverticulitis, pain well- controlled, no complaints. - Current Medication List Current Medications: Active Medications Acetaminophen (Ofirmev Injection -) 1,000 mg IVPB Q6H PRN PRN Reason: PAIN LEVEL 1-5 Last Admin: 07/25/20 23:53 Dose: 1,000 mg Documented by: Aspirin (Asa -) 325 mg NGT DAILY [facility] Last Admin: 07/25/20 10:24 Dose: 325 mg Documented by: Atorvastatin Calcium (Lipitor -) 80 mg PO HS [facility] Last Admin: 07/25/20 21:08 Dose: Not Given Documented by: Escitalopram Oxalate (Lexapro -) 20 mg NGT HS [facility] Last Admin: 07/25/20 21:08 Dose: Not Given Documented by: Heparin Sodium (Porcine) (Heparin -) 5,000 unit SQ BID [facility] Last Admin: 07/25/20 21:07 Dose: 5,000 unit Documented by: Piperacillin Sod/Tazobactam (Sod 4.5 gm/ Dextrose) 100 mls @ 200 mls/hr IVPB Q8H-IV [facility]; Protocol Last Admin: 07/26/20 01:13 Dose: 200 mls/hr Documented by: Lactated Ringer's (Lactated Ringers Solution) 1,000 mls @ 75 mls/hr IV ASDIR [facility] Last Admin: 07/26/20 06:07 Dose: 75 mls/hr Documented by: Insulin Aspart (Novolog Vial Sliding Scale -) 1 vial SQ ACHS [facility]; Protocol Last Admin: 07/26/20 06:07 Dose: Not Given Documented by: Insulin Detemir (Levemir Vial) 6 units SQ BID@0700,2200 [facility] Last Admin: 07/26/20 06:08 Dose: Not Given Documented by: Metoprolol Tartrate (Lopressor Injection -) 5 mg IVPB Q6H PRN PRN Reason: GIVE IF BP > 150/90 Last Admin: 07/26/20 06:07 Dose: 5 mg Documented by: Morphine Sulfate (Morphine Sulfate) 0.5 mg IVPUSH Q6H PRN PRN Reason: PAIN LEVEL 7 - 10 Potassium Chloride (Potassium Chloride Oral Liquid) 40 meq NGT DAILY [facility] Last Admin: 07/25/20 10:24 Dose: Not Given Documented by: - Objective Vital Signs: Vital Signs Temperature 98.2 F 07/26/20 06:00 Pulse Rate 82 07/26/20 06:07 Respiratory Rate 18 07/26/20 06:00 Blood Pressure 170/86 07/26/20 06:07 O2 Sat by Pulse Oximetry (%) 97 07/26/20 06:00 Constitutional: Yes: No Distress, Calm Neck: Yes: Supple Cardiovascular: Yes: Regular Rate and Rhythm Respiratory: Yes: Regular, CTA Bilaterally, On Nasal O2 Gastrointestinal: Yes: Soft, Hypoactive Bowel Sounds, Other (Colostomy intact, SERGE drain in) Genitourinary: Yes: [place] Present Peripheral Pulses WNL: No Labs: CBC, BMP 07/26/20 07:28 07/26/20 07:28 INR, PTT INR 1.18 (0.83-1.09) H 07/21/20 08:02 Problem List - Problems (1) Colonic diverticular abscess Code(s): K57.20 - DVTRCLI OF LG INT W PERFORATION AND ABSCESS W/O BLEEDING (2) Colovesical fistula Code(s): N32.1 - VESICOINTESTINAL FISTULA (3) CAD (coronary artery disease) Code(s): I25.10 - ATHSCL HEART DISEASE OF [place] CORONARY ARTERY W/O ANG PCTRS Qualifiers: Coronary Disease-Associated Artery/Lesion type: [place] artery [place] vs. 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 POD#4 Gavin's procedure for complicated diverticulitis with abscess and colovesicular fistula 2. Diastolic dysfunction 3. Poorly controlled DM c/b neuropathy 4. HTN 5. Chronic stroke 6. Multi-infarct dementia 7. Hypokalemia improved 8. Anemia s/p 2 u pRBC 9. UTI P: 1. Empiric abx per ID 2. Lisinopril 5 mg daily held for now, judicious hydration, continue Lopressor 5 IV q6 prn, DVT prophylaxis, ASA 325 qd resumed as post-op hemostasis assured 3. Post-op management, monitor Hgb post transfusion 4. DVT prophylaxis
[2020-07-26] MEDS ORDERED: INSULIN (NOVOLOG) ASPART 100 UNITS/ML 10ML VIAL ONE (11:34)
[2020-07-26] MEDS: HEPARIN NA (PORCINE) 5,000 UNITS/ML 1ML VIAL SQ SCH ×2 (12:00→21:51)
[2020-07-26] MEDS: ASPIRIN 325 MG TABLET NGT SCH (12:01)
[2020-07-26] MEDS: POTASSIUM CHLORIDE ORAL LIQUID 20 MEQ/15 ML NGT SCH (12:01)
--- NOTE | 2020-07-26 12:29 | PN ---
Progress Note, Physician - Current Medication List Current Medications: Active Medications Acetaminophen (Ofirmev Injection -) 1,000 mg IVPB Q6H PRN PRN Reason: PAIN LEVEL 1-5 Last Admin: 07/25/20 23:53 Dose: 1,000 mg Documented by: Aspirin (Asa -) 325 mg NGT DAILY [facility] Last Admin: 07/26/20 12:01 Dose: 325 mg Documented by: Atorvastatin Calcium (Lipitor -) 80 mg PO HS [facility] Last Admin: 07/25/20 21:08 Dose: Not Given Documented by: Escitalopram Oxalate (Lexapro -) 20 mg NGT HS [facility] Last Admin: 07/25/20 21:08 Dose: Not Given Documented by: Heparin Sodium (Porcine) (Heparin -) 5,000 unit SQ BID [facility] Last Admin: 07/26/20 12:00 Dose: 5,000 unit Documented by: Piperacillin Sod/Tazobactam (Sod 4.5 gm/ Dextrose) 100 mls @ 200 mls/hr IVPB Q8H-IV [facility]; Protocol Last Admin: 07/26/20 11:38 Dose: 200 mls/hr Documented by: Lactated Ringer's (Lactated Ringers Solution) 1,000 mls @ 75 mls/hr IV ASDIR [facility] Last Admin: 07/26/20 06:07 Dose: 75 mls/hr Documented by: Insulin Aspart (Novolog Vial Sliding Scale -) 1 vial SQ ACHS [facility]; Protocol Last Admin: 07/26/20 11:38 Dose: Not Given Documented by: Insulin Detemir (Levemir Vial) 6 units SQ BID@0700,2200 [facility] Last Admin: 07/26/20 06:08 Dose: Not Given Documented by: Metoprolol Tartrate (Lopressor Injection -) 5 mg IVPB Q6H PRN PRN Reason: GIVE IF BP > 150/90 Last Admin: 07/26/20 06:07 Dose: 5 mg Documented by: Morphine Sulfate (Morphine Sulfate) 0.5 mg IVPUSH Q6H PRN PRN Reason: PAIN LEVEL 7 - 10 Potassium Chloride (Potassium Chloride Oral Liquid) 40 meq NGT DAILY [facility] Last Admin: 07/26/20 12:01 Dose: Not Given Documented by: - Objective Vital Signs: Vital Signs Temperature 98.2 F 07/26/20 06:00 Pulse Rate 82 07/26/20 06:07 Respiratory Rate 18 07/26/20 06:00 Blood Pressure 170/86 07/26/20 06:07 O2 Sat by Pulse Oximetry (%) 97 07/26/20 06:00 Labs: CBC, BMP 07/26/20 07:28 07/26/20 07:28 INR, PTT INR 1.18 (0.83-1.09) H 07/21/20 08:02
--- NOTE | 2020-07-26 12:33 | PN ---
Progress Note (short form) - Note Progress Note: SURGERY Pt seen and examined at bedside. Pt continues to not pass gas or stool in colostomy bag. Mild abd pain. Denies n/v, fever, chills. NGT removed yesterday. Last Vital Signs Temp Pulse Resp BP Pulse Ox 98.2 F 82 18 170/86 97 07/26/20 06:00 07/26/20 06:07 07/26/20 06:00 07/26/20 06:07 07/26/20 06:00 CBC, BMP 07/26/20 07:28 07/26/20 07:28 PE: Gen: A&O X3 Resp: breathing comfortably Abd: soft, nondistended, mild tenderness, Incision clean with no erythema or discharge (packing changed), colostomy present with no gas or stool in bag. Ext: no edema Problem List - Problems (1) Colonic diverticular abscess Assessment/Plan: Plan -continue NPO, IVF -keep rodriguez in place. -monitor SERGE output. -abx as per Med/ID -OOB/ ambulate Pt seen and examined with Dr. Horton who agrees with plan. Code(s): K57.20 - DVTRCLI OF LG INT W PERFORATION AND ABSCESS W/O BLEEDING
--- NOTE | 2020-07-26 12:55 | PN ---
Progress Note, Physician History of Present Illness: Seen and examined at the bedside sleeping but arousebale no overnight events remains NPO, on IV fluids has yet to pass gas or stool into ostomy per surgery. - Current Medication List Current Medications: Active Medications Acetaminophen (Ofirmev Injection -) 1,000 mg IVPB Q6H PRN PRN Reason: PAIN LEVEL 1-5 Last Admin: 07/25/20 23:53 Dose: 1,000 mg Documented by: Aspirin (Asa -) 325 mg NGT DAILY [facility] Last Admin: 07/26/20 12:01 Dose: 325 mg Documented by: Atorvastatin Calcium (Lipitor -) 80 mg PO HS [facility] Last Admin: 07/25/20 21:08 Dose: Not Given Documented by: Escitalopram Oxalate (Lexapro -) 20 mg NGT HS [facility] Last Admin: 07/25/20 21:08 Dose: Not Given Documented by: Heparin Sodium (Porcine) (Heparin -) 5,000 unit SQ BID [facility] Last Admin: 07/26/20 12:00 Dose: 5,000 unit Documented by: Piperacillin Sod/Tazobactam (Sod 4.5 gm/ Dextrose) 100 mls @ 200 mls/hr IVPB Q8H-IV [facility]; Protocol Last Admin: 07/26/20 11:38 Dose: 200 mls/hr Documented by: Potassium Chloride 40 meq/ (Amino Acids) 1,020 mls @ 42 mls/hr IVPB Q24H [facility] Insulin Aspart (Novolog Vial Sliding Scale -) 1 vial SQ ACHS [facility]; Protocol Last Admin: 07/26/20 11:38 Dose: Not Given Documented by: Insulin Detemir (Levemir Vial) 6 units SQ BID@0700,2200 [facility] Last Admin: 07/26/20 06:08 Dose: Not Given Documented by: Metoprolol Tartrate (Lopressor Injection -) 5 mg IVPB Q6H PRN PRN Reason: GIVE IF BP > 150/90 Last Admin: 07/26/20 06:07 Dose: 5 mg Documented by: Morphine Sulfate (Morphine Sulfate) 0.5 mg IVPUSH Q6H PRN PRN Reason: PAIN LEVEL 7 - 10 Potassium Chloride (Potassium Chloride Oral Liquid) 40 meq NGT DAILY [facility] Last Admin: 07/26/20 12:01 Dose: Not Given Documented by: - Objective Vital Signs: Vital Signs Temperature 98.2 F 07/26/20 06:00 Pulse Rate 82 07/26/20 06:07 Respiratory Rate 18 07/26/20 06:00 Blood Pressure 170/86 07/26/20 06:07 O2 Sat by Pulse Oximetry (%) 97 07/26/20 06:00 Constitutional: Yes: No Distress, Calm HENT: Yes: Atraumatic Neck: Yes: Supple Cardiovascular: Yes: Regular Rate and Rhythm Respiratory: Yes: Regular Gastrointestinal: Yes: Soft Extremities: No: Cold, Cool, Cyanosis Edema: No Neurological: Yes: Alert Labs: CBC, BMP 07/26/20 07:28 07/26/20 07:28 INR, PTT INR 1.18 (0.83-1.09) H 07/21/20 08:02 Assessment/Plan 70 year old woman with history of CVA, IDDM, hypertension who presented with lower abdominal pain and found to have likely UTI with hypokalemia. 1. Hypokalemia in setting of diarrhea/GI losses 2. Diverticular abscess 3. Hypertension 4. IDDM 5. Anemia 6. Lactic acidosis 7. Hypomagnesemia 8. Hypophosphatemia 9. Acute kidney injury Renal function now improved back to baseline. Change IV fluids to Clinimix with KCl Remains NPO, Advance diet as per surgery following procedure. Surgical follow up Continue empiric antibiotics as per ID Trend renal function and electrolytes emperatriz Ricks DO
--- NOTE | 2020-07-26 15:53 | PN ---
Progress Note (short form) - Note Progress Note: alert, no complaints POD #4 s/p hemicolectomy with colostomy Vital Signs Period Temp Pulse Resp BP Sys/Ferrer Pulse Ox Last 24 Hr 98 F-98.8 F 76-90 18-18 144-170/76-86 97-99 cor-rrr lungs decreased bs at bases abd soft,nt +SERGE (2), +ostomy ext no edema CBC, BMP 07/26/20 07:28 07/26/20 07:28 Microbiology 07/22/20 09:37 Abdomen Gram Stain - Final 07/22/20 09:37 Abdomen Wound Culture - Final Pseudomonas Aeruginosa Escherichia Coli 07/15/20 20:10 Blood - Peripheral Venous Blood Culture - Final NO GROWTH AFTER 5 DAYS INCUBATION 07/15/20 20:10 Blood - Peripheral Venous Blood Culture - Final NO GROWTH AFTER 5 DAYS INCUBATION 07/18/20 15:00 Stool Clostridioides difficile Antigen - Final 07/18/20 15:00 Stool Clostridioides difficile Toxin Assay - Final 07/15/20 15:10 Urine - Urine Clean Catch Urine Culture - Final Pseudomonas Aeruginosa Escherichia Coli imp/reccd s/p Gavin's procedure 07/22- pod #4 operative cultures with pseudomonas and ecoli continue zosyn wbc continues to improve
[2020-07-26] MEDS: POTASSIUM CHLORIDE 40 MEQ in AMINO ACIDS 4.25%/D5W 1,000 ML IVPB SCH (17:16)
--- NOTE | 2020-07-26 17:22 | PATH ---
Surgical Pathology Report Patient Name: DAGOBERTO VAZQUEZ Med. Rec. #: [id number] /Age/Gender: 1950 (Age: 70) / F Account: [id number] Location: [address] [place] [address]/[facility] Taken: 07/22/2020 Received: 07/22/2020 Reported: 07/26/2020 Physicians: MD Beatriz Mooney M.D. Specimen(s) Received PORTION SIGMOID COLON Clinical History Complicated sigmoid diverticulitis Final Diagnosis SIGMOID COLON, PORTION, CLEMENS'S PROCEDURE: SEGMENT OF COLON WITH DIVERTICULITIS, DIVERTICULOSIS, FOCAL STRICTURE, SEROSAL THICKENING, HEMORRHAGE AND DEFECT. SURGICAL MARGINS ARE VIABLE. Electronically Signed Dagoberto Lynne M.D. Gross Description Received in formalin labeled "portion of sigmoid colon" is a segment of colon measuring 15 cm in length. The specimen displays an open and stapled mucosal margins, as well as abundant attached pericolonic adipose tissue. The serosa is robin-quezada, rough with focal serosal thickening. There is a central defect and stricture, 5 cm from both mucosal margins. Sectioning shows multiple diverticula with associated fecaliths. Few of diverticula show surface defect and mucosal erythema. The remainder of the mucosa is edematous. [employer] sections are submitted in 8 cassettes as follows: 1-open mucosal margin; 2-stapled mucosal margin; 3-4- stricture and defect; 5-6 diverticula; 7- edematous mucosa; 8-serosal thickening. [facility] [place]/07/22/2020
[2020-07-26] MEDS: ESCITALOPRAM OXALATE 20 MG TABLET NGT SCH (21:50)
[2020-07-26] MEDS: ATORVASTATIN CA 80 MG TABLET (FP) PO SCH (21:51)
[2020-07-27] MEDS ORDERED: PIPERACILLIN/TAZOBACTAM 4.5 GM VIAL IVPB ONE ×3 (01:31→16:49)
[2020-07-27] MEDS ORDERED: DEXTROSE 5%-WATER 100 ML IVPB ONE ×3 (01:31→16:49)
[2020-07-27] MEDS: PIPERACILLIN/TAZOB 4.5 GM 4.5 GM in DEXTROSE 5%-WATER 100 ML IVPB SCH ×3 (01:35→17:40)
[2020-07-27] MEDS ORDERED: INSULIN (LEVEMIR) 100 UNITS/ML UNITS SQ ONE (06:17)
[2020-07-27] MEDS: INSULIN (LEVEMIR) 100 UNITS/ML UNITS SQ SCH ×2 (06:21→21:23)
[2020-07-27] MEDS: ACETAMINOPHEN 1000 MG/100 ML VIAL (NON FORMULARY) IVPB PRN (06:22)
[2020-07-27] MEDS: INSULIN SLIDING SCALE (NOVOLOG) 1 VIAL SQ SCH ×4 (06:24→21:22)
[2020-07-27 08:05] LABS: BASO % 0.3 % (0-2.0); EOS % 1.5 % (0-4.5); HEMATOCRIT 28.2 % (32.4-45.2); HEMOGLOBIN 9.6 GM/dL (10.7-15.3); LYMPH % 10.5 % (8-40); MCHC 34.1 g/dl (32.0-36.0); MEAN CELL VOLUME 87.9 fl (80-96); MEAN PLT VOLUME 6.9 fl (7.5-11.1); MONO % 7.1 % (3.8-10.2); NEUT % 80.6 % (42.8-82.8); PLATELET COUNT 489 K/MM3 (134-434); RBC 3.21 M/mm3 (3.60-5.2); RDW 14.9 % (11.6-15.6); WHITE BLOOD COUNT 10.1 K/mm3 (4.0-10.0)
[2020-07-27 08:37] LABS: ALBUMIN 1.2 g/dl (3.4-5.0); BILIRUBIN,TOTAL 0.5 mg/dL (0.2-1); BLOOD UREA NITROGEN 9.3 mg/dL (7-18); CALCIUM 7.3 mg/dL (8.5-10.1); CREATININE 0.5 mg/dL (0.55-1.3); MAGNESIUM 1.6 mg/dL (1.8-2.4); PHOSPHOROUS 1.4 mg/dL (2.5-4.9); POTASSIUM 3.1 mmol/L (3.5-5.1); TOT PROT 4.8 g/dl (6.4-8.2)
--- NOTE | 2020-07-27 09:22 | PN ---
Progress Note (short form) - Note Progress Note: Surgery-POD#5 Pt without complaints of nausea. Dressing and colostomy change last pm. Vital Signs Period Temp Pulse Resp BP Sys/Ferrer Pulse Ox Last 24 Hr 98 F-98.7 F 76-79 18-19 138-150/70-80 98-100 GEN: Alert and follow commands ABD: intermittent shayan intact. Incision clean and fascia intact. Ostomy- pink and viable, no flatus, minimal brown liquid stool. Abd soft, non-disteded, inc tenderness. LE: no calf tenderness b/l. CBC, BMP 07/27/20 07:02 07/27/20 06:00 A/P: 70 yo female s/p hartmans for complicated diverticulitits OOB and ambulate with PT(ordered) Solorzano removed for TOV today, bladder scan and straight cath if unable to void May try sips of clears hypokalemia-low magnesium and phosphorous level-repleted today. chem 10 in the am D/w Dr. Horton
[2020-07-27] MEDS ORDERED: MAGNESIUM 2GM/50ML STERILE WATER IVPB IVPB ONE ×2 (09:45→10:45)
[2020-07-27] MEDS ORDERED: POTASSIUM PHOSPHATE 15 MM in SODIUM CHLORIDE 250 ML IVPB ONE (10:00)
--- NOTE | 2020-07-27 10:25 | PN ---
Progress Note, Physician Chief Complaint: awake alert NAD VSS seen by surgery to start clear fluid afebrile no NV no pain - Current Medication List Current Medications: Active Medications Acetaminophen (Ofirmev Injection -) 1,000 mg IVPB Q6H PRN PRN Reason: PAIN LEVEL 1-5 Last Admin: 07/27/20 06:22 Dose: 1,000 mg Documented by: Aspirin (Asa -) 325 mg NGT DAILY [facility] Last Admin: 07/26/20 12:01 Dose: 325 mg Documented by: Atorvastatin Calcium (Lipitor -) 80 mg PO HS [facility] Last Admin: 07/26/20 21:51 Dose: Not Given Documented by: Escitalopram Oxalate (Lexapro -) 20 mg NGT HS [facility] Last Admin: 07/26/20 21:50 Dose: Not Given Documented by: Heparin Sodium (Porcine) (Heparin -) 5,000 unit SQ BID [facility] Last Admin: 07/26/20 21:51 Dose: 5,000 unit Documented by: Piperacillin Sod/Tazobactam (Sod 4.5 gm/ Dextrose) 100 mls @ 200 mls/hr IVPB Q8H-IV [facility]; Protocol Last Admin: 07/27/20 01:35 Dose: 200 mls/hr Documented by: Potassium Chloride 40 meq/ (Amino Acids) 1,020 mls @ 42 mls/hr IVPB Q24H [facility] Last Admin: 07/26/20 17:16 Dose: 42 mls/hr Documented by: Potassium Phosphate 15 mm/ (Sodium Chloride) 255 mls @ 42.5 mls/hr IVPB ONCE ONE Stop: 07/27/20 15:59 Insulin Aspart (Novolog Vial Sliding Scale -) 1 vial SQ ACHS [facility]; Protocol Last Admin: 07/27/20 06:24 Dose: Not Given Documented by: Insulin Detemir (Levemir Vial) 6 units SQ BID@0700,2200 [facility] Last Admin: 07/27/20 06:21 Dose: 6 units Documented by: Metoprolol Tartrate (Lopressor Injection -) 5 mg IVPB Q6H PRN PRN Reason: GIVE IF BP > 150/90 Last Admin: 07/26/20 06:07 Dose: 5 mg Documented by: Morphine Sulfate (Morphine Sulfate) 0.5 mg IVPUSH Q6H PRN PRN Reason: PAIN LEVEL 7 - 10 Potassium Chloride (Potassium Chloride Oral Liquid) 40 meq NGT DAILY [facility] Last Admin: 07/26/20 12:01 Dose: Not Given Documented by: - Objective Vital Signs: Vital Signs Temperature 98.2 F 07/27/20 06:22 Pulse Rate 77 07/27/20 06:22 Respiratory Rate 18 07/27/20 06:22 Blood Pressure 150/77 07/27/20 06:22 O2 Sat by Pulse Oximetry (%) 100 07/27/20 06:22 Constitutional: Yes: No Distress, Calm Eyes: Yes: Conjunctiva Clear HENT: Yes: Atraumatic Neck: Yes: Supple Cardiovascular: Yes: Regular Rate and Rhythm Respiratory: Yes: CTA Bilaterally Gastrointestinal: Yes: Soft Genitourinary: No: CVA Tenderness - Left, CVA Tenderness - Right, Hematuria Musculoskeletal: No: Joint Stiffness, Joint Swelling Extremities: No: Cold, Cool Edema: Yes (hands ) Integumentary: No: Erythema Neurological: Yes: Alert, Oriented ...Motor Strength: LUE, LLE Psychiatric: Yes: Alert, Oriented. No: Agitated, Suicidal Ideation Labs: CBC, BMP 07/27/20 07:02 07/27/20 06:00 INR, PTT INR 1.18 (0.83-1.09) H 07/21/20 08:02 - ....Imaging Other: Report Reviewed Assessment/Plan The patient is a 70y/o F with a pmh of CVA (3months ago), IDDM, HTN admitted with sepsis diverticulitis with abscesses and UTI, also hydronephrosis s/p Faustino procedure IVF/ clinimix; IV ATB advance diet per surgery sq insulin per BGM f/u labs ID, renal, GI, f/u s/p surgery - restarted po ASA and sq heparin cardio and neuro f/u turn in bed decubs pfx d/w pt and staff called daughter Josee
[2020-07-27] MEDS: ASPIRIN 325 MG TABLET NGT SCH (10:59)
[2020-07-27] MEDS: HEPARIN NA (PORCINE) 5,000 UNITS/ML 1ML VIAL SQ SCH ×2 (10:59→21:22)
[2020-07-27] MEDS: POTASSIUM CHLORIDE ORAL LIQUID 20 MEQ/15 ML NGT SCH (11:04)
--- NOTE | 2020-07-27 11:45 | PN ---
Progress Note, Physician History of Present Illness: Seen and examined at the bedside awake and alert non-verbal no overnight events started on clear liquid diet - Current Medication List Current Medications: Active Medications Acetaminophen (Ofirmev Injection -) 1,000 mg IVPB Q6H PRN PRN Reason: PAIN LEVEL 1-5 Last Admin: 07/27/20 06:22 Dose: 1,000 mg Documented by: Aspirin (Asa -) 325 mg NGT DAILY [facility] Last Admin: 07/27/20 10:59 Dose: 325 mg Documented by: Atorvastatin Calcium (Lipitor -) 80 mg PO HS [facility] Last Admin: 07/26/20 21:51 Dose: Not Given Documented by: Escitalopram Oxalate (Lexapro -) 20 mg NGT HS [facility] Last Admin: 07/26/20 21:50 Dose: Not Given Documented by: Heparin Sodium (Porcine) (Heparin -) 5,000 unit SQ BID [facility] Last Admin: 07/27/20 10:59 Dose: 5,000 unit Documented by: Piperacillin Sod/Tazobactam (Sod 4.5 gm/ Dextrose) 100 mls @ 200 mls/hr IVPB Q 8H-IV [facility]; Protocol Last Admin: 07/27/20 10:59 Dose: 200 mls/hr Documented by: Potassium Chloride 40 meq/ (Amino Acids) 1,020 mls @ 42 mls/hr IVPB Q24H [facility] Last Admin: 07/26/20 17:16 Dose: 42 mls/hr Documented by: Potassium Phosphate 15 mm/ (Sodium Chloride) 255 mls @ 42.5 mls/hr IVPB ONCE ONE Stop: 07/27/20 15:59 Last Admin: 07/27/20 10:57 Dose: 42.5 mls/hr Documented by: Insulin Aspart (Novolog Vial Sliding Scale -) 1 vial SQ ACHS [facility]; Protocol Last Admin: 07/27/20 06:24 Dose: Not Given Documented by: Insulin Detemir (Levemir Vial) 6 units SQ BID@0700,2200 [facility] Last Admin: 07/27/20 06:21 Dose: 6 units Documented by: Metoprolol Tartrate (Lopressor Injection -) 5 mg IVPB Q6H PRN PRN Reason: GIVE IF BP > 150/90 Last Admin: 07/26/20 06:07 Dose: 5 mg Documented by: Morphine Sulfate (Morphine Sulfate) 0.5 mg IVPUSH Q6H PRN PRN Reason: PAIN LEVEL 7 - 10 Potassium Chloride (Potassium Chloride Oral Liquid) 40 meq NGT DAILY [facility] Last Admin: 07/27/20 11:04 Dose: Not Given Documented by: - Objective Vital Signs: Vital Signs Temperature 97.7 F 07/27/20 10:00 Pulse Rate 110 H 07/27/20 10:00 Respiratory Rate 18 07/27/20 10:00 Blood Pressure 153/81 07/27/20 10:00 O2 Sat by Pulse Oximetry (%) 100 07/27/20 10:00 Constitutional: Yes: No Distress, Calm Neck: Yes: Supple Cardiovascular: Yes: Regular Rate and Rhythm Respiratory: Yes: Regular Gastrointestinal: Yes: Soft. No: Tenderness Extremities: No: Cold, Cool, Cyanosis Edema: No Labs: CBC, BMP 07/27/20 07:02 07/27/20 06:00 INR, PTT INR 1.18 (0.83-1.09) H 07/21/20 08:02 Assessment/Plan 70 year old woman with history of CVA, IDDM, hypertension who presented with lower abdominal pain and found to have likely UTI with hypokalemia. 1. Hypokalemia in setting of diarrhea/GI losses 2. Diverticular abscess 3. Hypertension 4. IDDM 5. Anemia 6. Lactic acidosis 7. Hypomagnesemia 8. Hypophosphatemia 9. Acute kidney injury Renal function stable. Continue Clinimix with KCl Advance diet as per surgery Continue empiric antibiotics as per ID Trend renal function and electrolytes daily Guillermo Ricks DO
--- NOTE | 2020-07-27 13:26 | PN ---
Progress Note, Physician Chief Complaint: Events noted Post abdominal surgery Hemodynamically stable History of Present Illness: Patient was seen and examined. Awake and alert. Chart was reviewed Denies chest pain or SOB - Current Medication List Current Medications: Active Medications Acetaminophen (Ofirmev Injection -) 1,000 mg IVPB Q6H PRN PRN Reason: PAIN LEVEL 1-5 Last Admin: 07/27/20 06:22 Dose: 1,000 mg Documented by: Aspirin (Asa -) 325 mg NGT DAILY [facility] Last Admin: 07/27/20 10:59 Dose: 325 mg Documented by: Atorvastatin Calcium (Lipitor -) 80 mg PO HS [facility] Last Admin: 07/26/20 21:51 Dose: Not Given Documented by: Escitalopram Oxalate (Lexapro -) 20 mg NGT HS [facility] Last Admin: 07/26/20 21:50 Dose: Not Given Documented by: Heparin Sodium (Porcine) (Heparin -) 5,000 unit SQ BID [facility] Last Admin: 07/27/20 10:59 Dose: 5,000 unit Documented by: Piperacillin Sod/Tazobactam (Sod 4.5 gm/ Dextrose) 100 mls @ 200 mls/hr IVPB Q8H-IV [facility]; Protocol Last Admin: 07/27/20 10:59 Dose: 200 mls/hr Documented by: Potassium Chloride 40 meq/ (Amino Acids) 1,020 mls @ 42 mls/hr IVPB Q24H [facility] Last Admin: 07/26/20 17:16 Dose: 42 mls/hr Documented by: Potassium Phosphate 15 mm/ (Sodium Chloride) 255 mls @ 42.5 mls/hr IVPB ONCE ONE Stop: 07/27/20 15:59 Last Admin: 07/27/20 10:57 Dose: 42.5 mls/hr Documented by: Insulin Aspart (Novolog Vial Sliding Scale -) 1 vial SQ ACHS [facility]; Protocol Last Admin: 07/27/20 11:55 Dose: Not Given Documented by: Insulin Detemir (Levemir Vial) 6 units SQ BID@0700,2200 [facility] Last Admin: 07/27/20 06:21 Dose: 6 units Documented by: Metoprolol Tartrate (Lopressor Injection -) 5 mg IVPB Q6H PRN PRN Reason: GIVE IF BP > 150/90 Last Admin: 07/26/20 06:07 Dose: 5 mg Documented by: Potassium Chloride (Potassium Chloride Oral Liquid) 40 meq NGT DAILY [facility] Last Admin: 07/27/20 11:04 Dose: Not Given Documented by: - Objective Vital Signs: Vital Signs Temperature 97.7 F 07/27/20 10:00 Pulse Rate 110 H 07/27/20 10:00 Respiratory Rate 18 07/27/20 10:00 Blood Pressure 153/81 07/27/20 10:00 O2 Sat by Pulse Oximetry (%) 100 07/27/20 10:00 Neck: Yes: Supple Cardiovascular: Yes: Regular Rate and Rhythm, S1, S2 Respiratory: Yes: CTA Bilaterally Gastrointestinal: Yes: Other (Colostomy) Edema: No Labs: CBC, BMP 07/27/20 07:02 07/27/20 06:00 Problem List - Problems (1) Colonic diverticular abscess Code(s): K57.20 - DVTRCLI OF LG INT W PERFORATION AND ABSCESS W/O BLEEDING (2) Colovesical fistula Code(s): N32.1 - VESICOINTESTINAL FISTULA (3) CAD (coronary artery disease) Code(s): I25.10 - ATHSCL HEART DISEASE OF [place] CORONARY ARTERY W/O ANG PCTRS Qualifiers: Coronary Disease-Associated Artery/Lesion type: [place] artery [place] vs. transplanted heart: [place] heart Associated angina: without angina Qualified Code(s): I25.10 - Atherosclerotic heart disease of [place] coronary artery without angina pectoris (4) Carotid stenosis, left Code(s): I65.22 - OCCLUSION AND STENOSIS OF LEFT CAROTID ARTERY (5) Cerebrovascular accident (CVA) Code(s): I63.9 - CEREBRAL INFARCTION, UNSPECIFIED Qualifiers: CVA mechanism: unspecified Qualified Code(s): I63.9 - Cerebral infarction, unspecified (6) Diabetes Code(s): E11.9 - TYPE 2 DIABETES MELLITUS WITHOUT COMPLICATIONS Qualifiers: Diabetes mellitus type: type 2 Diabetes mellitus residential insulin use: with technician terminal and repeater use Diabetes mellitus complication status: with neurologic complications (7) HTN (hypertension) Code(s): I10 - ESSENTIAL (PRIMARY) HYPERTENSION Qualifiers: Hypertension type: essential hypertension Qualified Code(s): I10 - Essential (primary) hypertension (8) Hypercholesterolemia Code(s): E78.00 - PURE HYPERCHOLESTEROLEMIA, UNSPECIFIED (9) Hypothyroidism Code(s): E03.9 - HYPOTHYROIDISM, UNSPECIFIED Qualifiers: Hypothyroidism type: unspecified Qualified Code(s): E03.9 - Hypothyroidism, unspecified Assessment/Plan 1. Post Gavin's procedure for complicated diverticulitis with abscess and colovesicular fistula 2. Diastolic dysfunction 3. Poorly controlled DM 4. HTN 5. Chronic stroke 6. Multi-infarct dementia 7. Hypokalemia 8. Anemia s/p 2 u pRBC 9. UTI PLAN: 1. Empiric antibiotic per ID 2. Continue Lopressor 5 IV q6 prn 3. DVT prophylaxis 4. Post-op management, 5. Monitor Hgb post transfusion Dylan García MD
--- NOTE | 2020-07-27 14:48 | PN ---
Progress Note (short form) - Note Progress Note: alert, no complaints POD #5 s/p hemicolectomy with colostomy no vomiting tolerating clears Vital Signs Period Temp Pulse Resp BP Sys/Ferrer Pulse Ox Last 24 Hr 97.7 F-98.2 F 77-110 18-18 138-153/70-81 98-100 cor-rrr lungs clear abd soft, +SERGE, +ostomy function dressing just changed- nurse reports wound is clean ext no edema CBC, BMP 07/27/20 07:02 07/27/20 06:00 Microbiology 07/22/20 09:37 Abdomen Gram Stain - Final 07/22/20 09:37 Abdomen Wound Culture - Final Pseudomonas Aeruginosa Escherichia Coli 07/15/20 20:10 Blood - Peripheral Venous Blood Culture - Final NO GROWTH AFTER 5 DAYS INCUBATION 07/15/20 20:10 Blood - Peripheral Venous Blood Culture - Final NO GROWTH AFTER 5 DAYS INCUBATION 07/18/20 15:00 Stool Clostridioides difficile Antigen - Final 07/18/20 15:00 Stool Clostridioides difficile Toxin Assay - Final 07/15/20 15:10 Urine - Urine Clean Catch Urine Culture - Final Pseudomonas Aeruginosa Escherichia Coli imp/reccd s/p Gavin's procedure 07/22- pod #5 operative cultures with pseudomonas and ecoli continue zosyn wbc continues to improve
[2020-07-27] MEDS: POTASSIUM CHLORIDE 40 MEQ in AMINO ACIDS 4.25%/D5W 1,000 ML IVPB SCH (15:37)
[2020-07-27] MEDS ORDERED: PT OWN MED DRAWER 7, Y5N ONE (16:57)
[2020-07-27] MEDS ORDERED: ESCITALOPRAM OXALATE 10 MG TABLET ONE (20:47)
[2020-07-27] MEDS: ATORVASTATIN CA 80 MG TABLET (FP) PO SCH (21:21)
[2020-07-27] MEDS: ESCITALOPRAM OXALATE 20 MG TABLET NGT SCH (21:21)
[2020-07-28] MEDS ORDERED: DEXTROSE 5%-WATER 100 ML IVPB ONE ×3 (00:42→16:36)
[2020-07-28] MEDS ORDERED: PIPERACILLIN/TAZOBACTAM 4.5 GM VIAL IVPB ONE ×3 (00:42→16:36)
[2020-07-28] MEDS: PIPERACILLIN/TAZOB 4.5 GM 4.5 GM in DEXTROSE 5%-WATER 100 ML IVPB SCH ×3 (01:11→16:59)
[2020-07-28] MEDS ORDERED: SODIUM CHLORIDE 0.9% 500 ML INFUS.BAG IV ONE (03:49)
--- NOTE | 2020-07-28 03:52 | RAPID ---
Physical Examination Vital Signs: Vital Signs Temperature 97.7 F 07/28/20 03:46 Pulse Rate 122 H 07/28/20 03:47 Respiratory Rate 18 07/28/20 03:46 Blood Pressure 89/52 L 07/28/20 03:47 O2 Sat by Pulse Oximetry (%) 100 07/28/20 03:46 Constitutional: Yes: Calm Labs: CBC, BMP 07/27/20 07:02 07/27/20 06:00 Rapid Response - Rapid Response Assessment: S: Rapid response was called at . Upon arrival the patient was found to be lethargic and hypotensive 85/60. Nurse states that patient has become increasingly lethargic and less responsive. O: Exam Minimally alert, responding with one word answers PERRL EOM intact Lungs: CTAB without wheezes, rhonchi Cardiovascular: RRR GI: Normal bowel sounds. Colostomy bag with dark stool. Suprapubic catheter. Neuro: Airline Flight Attendant strength equal bilaterally. Patient cooperative. Extremities: generalized edema in upper and lower extremities Blood glucose 208 Assessment / Plan - AMS -- CVA vs. seizure vs. electrolyte derrangement -- CT head negative for acute processes -Hypotension -- 500 cc bolus given -- Blood cultures, urine culture -- Dehydration vs. GI bleed vs. Sepsis
--- NOTE | 2020-07-28 06:14 | PN ---
Progress Note, Physician Chief Complaint: events noted - pt's nurse called me at 5 am this morning, pt's BP dropped and she had some dark material coming through colostomy; CBC ordered stat and pt transferred to ICU; received IVF and stat PRBC ordered I am told by nurse that last evening pt took few spoons of clear fluids but she vomited after that, nurse called surgery dr Horton last evening and she was kept NPO after that pt was receiving sq heparin for DVT pfx and po ASA for recent CVA - Current Medication List Current Medications: Active Medications Acetaminophen (Ofirmev Injection -) 1,000 mg IVPB Q6H PRN PRN Reason: PAIN LEVEL 1-5 Last Admin: 07/27/20 06:22 Dose: 1,000 mg Documented by: Atorvastatin Calcium (Lipitor -) 80 mg PO HS [facility] Last Admin: 07/27/20 21:21 Dose: Not Given Documented by: Escitalopram Oxalate (Lexapro -) 20 mg NGT HS [facility] Last Admin: 07/27/20 21:21 Dose: Not Given Documented by: Heparin Sodium (Porcine) (Heparin -) 5,000 unit SQ BID [facility] Last Admin: 07/27/20 21:22 Dose: 5,000 unit Documented by: Piperacillin Sod/Tazobactam (Sod 4.5 gm/ Dextrose) 100 mls @ 200 mls/hr IVPB Q8H-IV [facility]; Protocol Last Admin: 07/28/20 01:11 Dose: 200 mls/hr Documented by: Potassium Chloride 40 meq/ (Amino Acids) 1,020 mls @ 42 mls/hr IVPB Q24H [facility] Last Admin: 07/27/20 15:37 Dose: Not Given Documented by: Insulin Aspart (Novolog Vial Sliding Scale -) 1 vial SQ ACHS [facility]; Protocol Last Admin: 07/27/20 21:22 Dose: 2 units Documented by: Insulin Detemir (Levemir Vial) 6 units SQ BID@0700,2200 [facility] Last Admin: 07/27/20 21:23 Dose: 6 units Documented by: Metoprolol Tartrate (Lopressor Injection -) 5 mg IVPB Q6H PRN PRN Reason: GIVE IF BP > 150/90 Last Admin: 07/26/20 06:07 Dose: 5 mg Documented by: Potassium Chloride (Potassium Chloride Oral Liquid) 40 meq NGT DAILY [facility] Last Admin: 07/27/20 11:04 Dose: Not Given Documented by: - Objective Vital Signs: Vital Signs Temperature 97.7 F 07/28/20 03:46 Pulse Rate 122 H 07/28/20 03:47 Respiratory Rate 18 07/28/20 03:46 Blood Pressure 89/52 L 07/28/20 03:47 O2 Sat by Pulse Oximetry (%) 100 07/28/20 03:46 Constitutional: Yes: Other (in ICU SBP 80s) HENT: Yes: Atraumatic Neck: Yes: Supple Cardiovascular: Yes: Tachycardia Respiratory: Yes: Diminished Gastrointestinal: Yes: Other (colostomy bag with dark material; wound no bleed) Genitourinary: No: Hematuria Musculoskeletal: No: Joint Stiffness, Joint Swelling Extremities: No: Cold, Cool, Cyanosis Edema: No Integumentary: No: Rash Neurological: Yes: Alert. No: Oriented ...Motor Strength: LUE, LLE (old L sided weakness, pt not following commands at this point) Psychiatric: Yes: Alert. No: Oriented, Agitated Labs: CBC, BMP 07/27/20 07:02 07/27/20 06:00 INR, PTT INR 1.18 (0.83-1.09) H 07/21/20 08:02 - ....Imaging Other: Report Reviewed Assessment/Plan The patient is a 70y/o F with a pmh of CVA (3months ago), IDDM, HTN admitted with sepsis diverticulitis with abscesses and UTI, also hydronephrosis; s/p Faustino procedure; hypotension this am and dark material through colostomy; Hg 5.6 IVF; IVF/ clinimix; IV ATB; IV PPI might need pressors NGT inserted in ICU by surgery dark material aspirated NPO sq insulin per BGM f/u labs cardio and neuro f/u, ID, renal, GI, f/u hold ASA and heparin for now might need EGD / surgical intervention; prognosis guarded d/w surgery PA, d/w GI dr Bronson and d/w pt's daughter Vidaly / phone turn in bed decubs pfx t time 35 min
[2020-07-28 06:51] LABS: BASO % 0.2 % (0-2.0); EOS % 0.1 % (0-4.5); HEMATOCRIT 16.6 % (32.4-45.2); HEMOGLOBIN 5.6 GM/dL (10.7-15.3); LYMPH % 7.6 % (8-40); MCH 30.5 pg (25.7-33.7); MCHC 33.4 g/dl (32.0-36.0); MEAN CELL VOLUME 91.3 fl (80-96); MEAN PLT VOLUME 7.7 fl (7.5-11.1); MONO % 2.9 % (3.8-10.2); NEUT % 89.2 % (42.8-82.8); PLATELET COUNT 455 K/MM3 (134-434); RBC 1.82 M/mm3 (3.60-5.2); RDW 15.8 % (11.6-15.6); WHITE BLOOD COUNT 17.5 K/mm3 (4.0-10.0)
--- NOTE | 2020-07-28 07:08 | CONSULT ---
Consultation: REQUESTING PROVIDER: CONSULT REQUEST: We have been asked to medically evaluate this patient for ICU admission. HISTORY OF PRESENT ILLNESS: The patient is a 70 to female with a PMHx of CVA (3months ago), IDDM, HTN who presents to the ED from Dr. Desir's office because of low blood glucose level and hypotension. Patient also reported intermittent lower abdominal & suprapubic pain, increased urinary frequency, urgency and dysuria for 2 weeks. Per daughter, the pt's urine is fouls smelling, but denies hematuria. Daughter reports 2 weeks of decreased appetite. Patient was admitted med/surg for sepsis. Urine cultures grew Pseudomonas and E. coli. Patient on IV zosyn. CT abdomen showed bilateral hydro to bladder and pelvic collections from diverticular abscesses. Surgery performed IRD of pelvic collections with Hartmans procedure and repair of colovesical fistula on 07/22 Patient became hypotensive with AMS overnight. Rapid response was called. Patient had CT head which was negative for acute bleeds. Her colostomy bag was collecting very dark stool, repeat cbc and FOBT were collected. REVIEW OF SYSTEMS: Patient is awake but not responding to questions CONSTITUTIONAL: Absent: fever, chills, diaphoresis, generalized weakness, malaise, loss of appetite, weight change HEENT: Absent: rhinorrhea, nasal congestion, throat pain, throat swelling, difficulty swallowing, mouth swelling, ear pain, eye pain, visual changes CARDIOVASCULAR: Absent: chest pain, syncope, palpitations, irregular heart rate, lightheadedness, peripheral edema RESPIRATORY: Absent: cough, shortness of breath, dyspnea with exertion, orthopnea, wheezing, stridor, hemoptysis GASTROINTESTINAL: Absent: abdominal pain, abdominal distension, nausea, vomiting, diarrhea, constipation, melena, hematochezia GENITOURINARY: Absent: dysuria, frequency, urgency, hesitancy, hematuria, flank pain, genital pain MUSCULOSKELETAL: Absent: myalgia, arthralgia, joint swelling, back pain, neck pain SKIN: Absent: rash, itching, pallor HEMATOLOGIC/IMMUNOLOGIC: Absent: easy bleeding, easy bruising, lymphadenopathy, frequent infections ENDOCRINE: Absent: unexplained weight gain, unexplained weight loss, heat intolerance, cold intolerance NEUROLOGIC: Absent: headache, focal weakness or paresthesias, dizziness, unsteady gait, seizure, mental status changes, bladder or bowel incontinence PSYCHIATRIC: Absent: anxiety, depression, suicidal or homicidal ideation, hallucinations. PHYSICAL EXAMINATION Vital Signs - 24 hr 07/27/20 07/27/20 07/27/20 09:00 10:00 14:59 Temperature 97.7 F 98.0 F Pulse Rate 110 H 81 Respiratory 18 18 Rate Blood Pressure 153/81 156/82 O2 Sat by Pulse 100 100 98 Oximetry (%) 07/27/20 07/28/20 07/28/20 21:00 03:46 03:47 Temperature 98.1 F 97.7 F Pulse Rate 101 H 140 H 122 H Respiratory 18 18 Rate Blood Pressure 128/79 71/50 L 89/52 L O2 Sat by Pulse 98 100 Oximetry (%) 07/28/20 07/28/20 05:20 06:15 Temperature 97.7 F 96.8 F L Pulse Rate 84 116 H Respiratory 18 28 H Rate Blood Pressure 156/114 H 84/41 L O2 Sat by Pulse 98 100 Oximetry (%) GENERAL: Awake, not oriented, altered from baseline HEAD: Normal with no signs of trauma. EYES: PERRL, EOMI, conjunctiva pale ENT: dry mucous membranes. NECK: Normal range of motion LUNGS: CTA BL HEART: RRR ABDOMEN: Obese, soft, colostomy bag in place draining dark black feces UPPER EXTREMITIES: non pitting edema, tips of fingers cold, rest of extremities warm LOWER EXTREMITIES: non pitting edema, toes cold, rest of extremities warm. NEUROLOGICAL: Unable to fully assess, AMS from baseline which is responsive and communicative SKIN: no rashes or lesions noted. Laboratory Last Values WBC 17.5 K/mm3 (4.0-10.0) H 07/28/20 06:18 RBC 1.82 M/mm3 (3.60-5.2) L 07/28/20 06:18 Hgb 5.6 GM/dL (10.7-15.3) L* 07/28/20 06:18 Hct 16.6 % (32.4-45.2) L D 07/28/20 06:18 MCV 91.3 fl (80-96) 07/28/20 06:18 MCH 30.5 pg (25.7-33.7) 07/28/20 06:18 MCHC 33.4 g/dl (32.0-36.0) 07/28/20 06:18 RDW 15.8 % (11.6-15.6) H 07/28/20 06:18 Plt Count 455 K/MM3 (134-434) H 07/28/20 06:18 MPV 7.7 fl (7.5-11.1) D 07/28/20 06:18 Absolute Neuts (auto) 15.6 K/mm3 (1.5-8.0) H 07/28/20 06:18 Neutrophils % 89.2 % (42.8-82.8) H 07/28/20 06:18 Neutrophils % (Manual) 80.0 % (42.8-82.8) 07/24/20 07:25 Band Neutrophils % 0.0 % 07/24/20 07:25 Lymphocytes % 7.6 % (8-40) L D 07/28/20 06:18 Lymphocytes % (Manual) 8.0 % (8-40) D 07/24/20 07:25 Monocytes % 2.9 % (3.8-10.2) L 07/28/20 06:18 Monocytes % (Manual) 8 % (3.8-10.2) D 07/24/20 07:25 Eosinophils % 0.1 % (0-4.5) D 07/28/20 06:18 Eosinophils % (Manual) 0.0 % (0-4.5) 07/24/20 07:25 Basophils % 0.2 % (0-2.0) 07/28/20 06:18 Basophils % (Manual) 0.0 % (0-2.0) 07/24/20 07:25 Myelocytes % (Man) 3 % (0-2) H D 07/24/20 07:25 Promyelocytes % (Man) 0 % (0-2) 07/24/20 07:25 Blast Cells % (Manual) 0 % (0-0) 07/24/20 07:25 Nucleated RBC % 0 % (0-0) 07/28/20 06:18 Metamyelocytes 0 % (0-2) D 07/24/20 07:25 Hypochromia 0 07/24/20 07:25 Platelet Estimate Normal 07/24/20 07:25 Polychromasia 1+ 07/24/20 07:25 Poikilocytosis 1+ 07/24/20 07:25 Anisocytosis 0 07/24/20 07:25 Microcytosis 0 07/24/20 07:25 Macrocytosis 0 07/24/20 07:25 Spherocytes 1+ 07/23/20 07:48 Ovalocytes 1+ 07/23/20 07:48 Michelle Cells 1+ 07/24/20 07:25 PT with INR 14.00 SEC (9.7-13.0) H 07/21/20 08:02 INR 1.18 (0.83-1.09) H 07/21/20 08:02 PTT (Actin FS) 29.1 SECONDS (25.2-36.5) 07/20/20 08:35 Sodium 140 mmol/L (136-145) 07/28/20 06:18 Potassium 4.3 mmol/L (3.5-5.1) 07/28/20 06:18 Chloride 106 mmol/L (98-107) 07/28/20 06:18 Carbon Dioxide 15 mmol/L (21-32) L 07/28/20 06:18 Anion Gap 18 MMOL/L (8-16) H 07/28/20 06:18 BUN 31.6 mg/dL (7-18) H 07/28/20 06:18 Creatinine 1.2 mg/dL (0.55-1.3) 07/28/20 06:18 Est GFR (CKD-EPI)AfAm 52.29 07/28/20 06:18 Est GFR (CKD-EPI)NonAf 45.11 07/28/20 06:18 POC Glucometer 183 UNITS (80-120) 07/28/20 06:43 Random Glucose 198 mg/dL (74-106) H 07/28/20 06:18 Lactic Acid 0.9 mmol/L (0.4-2.0) 07/16/20 16:30 Calcium 7.0 mg/dL (8.5-10.1) L 07/28/20 06:18 Phosphorus 3.6 mg/dL (2.5-4.9) 07/28/20 06:18 Magnesium 2.2 mg/dL (1.8-2.4) 07/28/20 06:18 Iron 21 ug/dL (50-175) L 07/17/20 08:45 TIBC 152 ug/dL (250-450) L 07/17/20 08:45 Iron Saturation 13 % (17.5-39) L 07/17/20 08:45 Unsaturated IBC 131 ug/dL (200-275) L 07/17/20 08:45 Ferritin 1020.9 ng/ml (8-388) H 07/17/20 08:45 Total Bilirubin 0.1 mg/dL (0.2-1) L 07/28/20 06:18 AST 65 U/L (15-37) H 07/28/20 06:18 ALT 25 U/L (13-61) 07/28/20 06:18 Alkaline Phosphatase 73 U/L (45-117) 07/28/20 06:18 Creatine Kinase 17 U/L (26-192) L 07/18/20 08:10 Troponin I < 0.02 ng/ml (0.00-0.05) 07/18/20 08:10 C-Reactive Protein 9.8 MG/DL (0.00-0.3) H 07/20/20 08:35 Total Protein 4.1 g/dl (6.4-8.2) L 07/28/20 06:18 Albumin 1.0 g/dl (3.4-5.0) L 07/28/20 06:18 Triglycerides 106 mg/dL (0-150) 07/18/20 08:10 Cholesterol 91 mg/dL (50-200) 07/18/20 08:10 Total LDL Cholesterol 57 mg/dL (5-100) 07/18/20 08:10 HDL Cholesterol 23 mg/dL (40-60) L 07/18/20 08:10 Urine Color Yellow 07/23/20 14:00 Urine Appearance Cloudy 07/23/20 14:00 Urine pH 5.0 (5.0-8.0) D 07/23/20 14:00 Ur Specific [place] 1.027 (1.010-1.035) 07/23/20 14:00 Urine Protein 2+ (NEGATIVE) H 07/23/20 14:00 Urine Glucose (UA) Negative (NEGATIVE) 07/23/20 14:00 Urine Ketones Negative (NEGATIVE) 07/23/20 14:00 Urine Blood Negative (NEGATIVE) 07/23/20 14:00 Urine Nitrite Negative (NEGATIVE) 07/23/20 14:00 Urine Bilirubin Negative (NEGATIVE) 07/23/20 14:00 Urine Urobilinogen 0.2 mg/dL (0.2-1.0) 07/23/20 14:00 Ur Leukocyte Esterase Negative (NEGATIVE) 07/23/20 14:00 Urine WBC (Auto) 32 /uL (0-25.8) 07/23/20 14:00 Urine RBC (Auto) 20 /uL (0-23.9) 07/23/20 14:00 Urine Casts (Auto) 11 /uL (0-3.1) 07/23/20 14:00 U Pathogenic Cast Auto 1-3 /lpf (NEGATIVE) 07/23/20 14:00 U Epithel Cells (Auto) >36 /uL (0-25.1) 07/23/20 14:00 U Sm Round Cell (Auto) None seen 07/23/20 14:00 Urine Bacteria (Auto) Many /uL (0-1359) 07/23/20 14:00 Urine Yeast (Auto) Negative (NEGATIVE) 07/15/20 15:10 Ur Random Creatinine 132.0 mg/dL (30-150) 07/23/20 14:00 Ur Random Sodium < 18 MMOL/L (40-220) L 07/23/20 14:00 COVID-19 (LESTER) Not detected (Not Detected) 07/16/20 04:15 Blood Type A POSITIVE 07/28/20 06:55 Antibody Screen Negative 07/22/20 07:42 Crossmatch See Detail 07/28/20 06:55 Active Medications Generic Name Dose Route Start Last Admin Trade Name Freq PRN Reason Stop Dose Admin Acetaminophen 1,000 mg 07/23/20 16:42 07/27/20 06:22 Ofirmev Injection - IVPB 1,000 mg Q6H PRN Administration PAIN LEVEL 1-5 Heparin Sodium (Porcine) 5,000 unit 07/23/20 10:00 07/27/20 21:22 Heparin - SQ 5,000 unit BID JC Administration Piperacillin Sod/Tazobactam 100 mls @ 200 mls/hr 07/22/20 18:00 07/28/20 01:11 Sod 4.5 gm/ Dextrose IVPB 200 mls/hr Q8H-IV JC Administration Protocol Potassium Chloride 40 meq/ 1,020 mls @ 42 mls/hr 07/26/20 12:30 07/27/20 15:37 Amino Acids IVPB Not Given Q24H JC Insulin Aspart 1 vial 07/22/20 16:30 07/27/20 21:22 Novolog Vial Sliding Scale - SQ 2 units ACHS JC Administration Protocol Insulin Detemir 6 units 07/24/20 22:00 07/27/20 21:23 Levemir Vial SQ 6 units BID@0700,2200 JC Administration Metoprolol Tartrate 5 mg 07/22/20 13:20 07/26/20 06:07 Lopressor Injection - IVPB 5 mg Q6H PRN Administration GIVE IF BP > 150/90 Pantoprazole Sodium 40 mg 07/28/20 10:00 Protonix Iv IVPUSH DAILY JC Pantoprazole Sodium 40 mg 07/28/20 07:15 Protonix Iv IVPUSH 07/28/20 07:16 ONCE ONE Potassium Chloride 40 meq 07/23/20 15:00 07/27/20 11:04 Potassium Chloride Oral Liquid NGT Not Given DAILY JC ASSESSMENT/PLAN: The patient is a 70 to female with a PMHx of CVA (3months ago), IDDM, HTN. Currently admitted to hospital for UTI secondary to colovesical fistula, 2/2 complicated sigmoid colon diverticulitis. Underwent IRD of pelvic abscesses with a Hartmans procedure and repair of colovesical fistula on 07/22. Patient has been treated with Zosyn was was restarted on AC s/p procedure. Patient became hypotensive with AMS, was admitted to ICU for hypovolemic shock 2/2 acute blood loss vs septic shock Neuro - AMS, not communicating or answering questions which she does at baseline - hx CVA 3 months ago - hx schizophrenia, daughter is HCP Pulm - CXR today showed possible early medial R lung infiltrate - sat 100% on non rebreather, switch to [place] Cardio - hx HTN, on metoprolol - currently Hypotensive - IVF resusitation - continue to reevaluate for need for pressors GI - colostomy bag s/p armstrong's procedure - current black stool in colostomy bag - possible GI bleed - place NG tube, see if there is blood in NG tube - Dr. Bronson saw patient 07/[address] Bronson this AM start PPI drip scope later today Heme - possible GI bleed - surgery consulted - hbg 5.6 >> 2 units pRBCs ordered - UTI - colovesical fistula - place rodriguez ID - Urine cultures grew Pseudomonas and E. coli. - Patient on IV zosyn day 6 - Dr. Blake following Renal - no current issues - monitor bun/cr - watch I&Os Endo - IDDM - BGM w/ISS DVT ppx - was on heparin, hold because of bleed GI ppx -PPI drip started FEN - IVF resuscitation for hypotension - replace and replete electrolytes as needed - NPO for possible procedure/GI bleed Visit type - Medication Review Med list reviewed for High Risk Meds patients 65 and older: Yes - Emergency Visit Emergency Visit: Yes ED Registration Date: 07/15/20 Care time: The patient presented to the Emergency Department on the above date and was hospitalized for further evaluation of their emergent condition. - New Patient This patient is new to me today: Yes Date on this admission: 08/14/20 - Critical Care Critical Care patient: Yes Total Critical Care Time (in minutes): 36 Critical Care Statement: The care of this patient involved high complexity decis ion making to prevent further life threatening deterioration of the patient's condition and/or to evaluate & treat vital organ system(s) failure or risk of failure. ATTENDING PHYSICIAN STATEMENT I saw and evaluated the patient. I reviewed the resident's note and discussed the case with the resident. I agree with the resident's findings and plan as documented. SUBJECTIVE: OBJECTIVE: ASSESSMENT AND PLAN:
[2020-07-28] MEDS ORDERED: PANTOPRAZOLE SODIUM 40 MG VIAL IVPUSH ONE (07:15)
--- NOTE | 2020-07-28 07:25 | PN ---
Progress Note (short form) - Note Progress Note: Paged after 6 am. Patient was transfered to [facility] from the 6th floor. Her pressure was 83/45 after receiving 500 cc bolus. Upon exam patient was pale, more lethargic than earlier in the morning. Minimally responsive to sternal rub. She was given additional 500 cc bolus with minimal improvement in blood pressure. Given hypotension, dark stool, Hb 5.6, patient is recommended to be transferred to ICU. ICU team attended and is accepting the patient.
[2020-07-28 07:34] LABS: BILIRUBIN,TOTAL 0.1 mg/dL (0.2-1); BLOOD UREA NITROGEN 31.6 mg/dL (7-18); CREATININE 1.2 mg/dL (0.55-1.3); MAGNESIUM 2.2 mg/dL (1.8-2.4); PHOSPHOROUS 3.6 mg/dL (2.5-4.9); POTASSIUM 4.3 mmol/L (3.5-5.1); TOT PROT 4.1 g/dl (6.4-8.2)
[2020-07-28] MEDS ORDERED: SODIUM CHLORIDE 1,000 ML IV SCH ×2 (07:45→21:30)
[2020-07-28] MEDS ORDERED: PANTOPRAZOLE SODIUM 80 MG in SODIUM CHLORIDE 100 ML IVPB SCH (09:30)
--- NOTE | 2020-07-28 09:39 | PN ---
Progress Note, Physician History of Present Illness: Hypotensive, lethargic, dark stools in colostomy with significant anemia suspicious of UGI bleed. NGT with dark gastric contents, transfused 2 u pRBC, EGD shows gastric clot Dieulafoy lesion vs Cristel Morales tear. - Current Medication List Current Medications: Active Medications Acetaminophen (Ofirmev Injection -) 1,000 mg IVPB Q6H PRN PRN Reason: PAIN LEVEL 1-5 Last Admin: 07/27/20 06:22 Dose: 1,000 mg Documented by: Chlorhexidine Gluconate (Hibiclens For Decolonization -) 1 applic TP HS JC Piperacillin Sod/Tazobactam (Sod 4.5 gm/ Dextrose) 100 mls @ 200 mls/hr IVPB Q8H-IV JC; Protocol Last Admin: 07/28/20 01:11 Dose: 200 mls/hr Documented by: Potassium Chloride 40 meq/ (Amino Acids) 1,020 mls @ 42 mls/hr IVPB Q24H [facility] Last Admin: 07/27/20 15:37 Dose: Not Given Documented by: Sodium Chloride (Normal Saline -) 1,000 mls @ 100 mls/hr IV ASDIR JC Pantoprazole Sodium 80 mg/ (Sodium Chloride) 100 mls @ 10 mls/hr IVPB Q10H [facility] Stop: 07/31/20 09:25 Insulin Aspart (Novolog Vial Sliding Scale -) 1 vial SQ ACHS [facility]; Protocol Last Admin: 07/27/20 21:22 Dose: 2 units Documented by: Insulin Detemir (Levemir Vial) 6 units SQ BID@0700,2200 [facility] Last Admin: 07/27/20 21:23 Dose: 6 units Documented by: Metoprolol Tartrate (Lopressor Injection -) 5 mg IVPB Q6H PRN PRN Reason: GIVE IF BP > 150/90 Last Admin: 07/26/20 06:07 Dose: 5 mg Documented by: Mupirocin (Bactroban Ointment (For Decolonization) -) 1 applic NS BID [facility] Stop: 08/02/20 09:59 Sodium Hypochlorite (Dakin's Solution 0.25% (Half-Strength) -) 1 applic TP DAILY [facility] - Objective Vital Signs: Vital Signs Temperature 96.8 F L 07/28/20 06:15 Pulse Rate 116 H 07/28/20 06:15 Respiratory Rate 28 H 07/28/20 06:15 Blood Pressure 84/41 L 07/28/20 06:15 O2 Sat by Pulse Oximetry (%) 100 07/28/20 06:15 Cardiovascular: Yes: Regular Rate and Rhythm Respiratory: Yes: On Venti-Mask Gastrointestinal: Yes: Soft, Hypoactive Bowel Sounds, Melena, Other (Colostomy) Edema: No Neurological: Yes: Lethargy Labs: CBC, BMP 07/28/20 06:18 07/28/20 06:18 INR, PTT INR 1.18 (0.83-1.09) H 07/21/20 08:02 - ....Imaging Chest X-ray: Report Reviewed (Early right base infiltrate) Cat Scan: Report Reviewed (HCT: No acute changes) Problem List - Problems (1) Colonic diverticular abscess Code(s): K57.20 - DVTRCLI OF LG INT W PERFORATION AND ABSCESS W/O BLEEDING (2) Colovesical fistula Code(s): N32.1 - VESICOINTESTINAL FISTULA (3) CAD (coronary artery disease) Code(s): I25.10 - ATHSCL HEART DISEASE OF [place] CORONARY ARTERY W/O ANG PCTRS Qualifiers: Coronary Disease-Associated Artery/Lesion type: [place] artery [place] vs. transplanted heart: [place] heart Associated angina: without angina Qualified Code(s): I25.10 - Atherosclerotic heart disease of [place] coronary artery without angina pectoris (4) Carotid stenosis, left Code(s): I65.22 - OCCLUSION AND STENOSIS OF LEFT CAROTID ARTERY (5) Cerebrovascular accident (CVA) Code(s): I63.9 - CEREBRAL INFARCTION, UNSPECIFIED Qualifiers: CVA mechanism: unspecified Qualified Code(s): I63.9 - Cerebral infarction, unspecified (6) Diabetes Code(s): E11.9 - TYPE 2 DIABETES MELLITUS WITHOUT COMPLICATIONS Qualifiers: Diabetes mellitus type: type 2 Diabetes mellitus press tender long goods insulin use: with intermediate use Diabetes mellitus complication status: with neurologic complications (7) HTN (hypertension) Code(s): I10 - ESSENTIAL (PRIMARY) HYPERTENSION Qualifiers: Hypertension type: essential hypertension Qualified Code(s): I10 - Essential (primary) hypertension (8) Hypercholesterolemia Code(s): E78.00 - PURE HYPERCHOLESTEROLEMIA, UNSPECIFIED (9) Hypothyroidism Code(s): E03.9 - HYPOTHYROIDISM, UNSPECIFIED Qualifiers: Hypothyroidism type: unspecified Qualified Code(s): E03.9 - Hypothyroidism, unspecified (10) GI hemorrhage Code(s): K92.2 - GASTROINTESTINAL HEMORRHAGE, UNSPECIFIED Qualifiers: GI bleed type/associated pathology: melena Qualified Code(s): K92.1 - Melena Assessment/Plan 04/12/2020 ECHO: normal LVEF; abnormal diastolic compliance, Tr TR 1. Post Gavin's procedure for complicated diverticulitis with abscess and colovesicular fistula 2. Diastolic dysfunction 3. Poorly controlled DM 4. HTN 5. Chronic stroke 6. Multi-infarct dementia 7. Hypokalemia resolved 8. UGI bleed, melena with acute blood loss anemia s/p 2 u pRBC 9. UTI 10. Lactic acidoses PLAN: 1. Empiric antibiotic per ID 2. Volume resuscitation, pressors MAP>65 mmHg, Protonix gtt, pRBC transfusion and f/u EGD 2. Hold Lopressor 5 IV q6 prn pending hemodynamic stability 3. Mechanical DVT prophylaxis 4. Post-op management, 5. Monitor Hgb post transfusion, trend lactate
[2020-07-28] MEDS ORDERED: PANTOPRAZOLE SODIUM 40 MG VIAL IVPUSH SCH (10:00)
--- NOTE | 2020-07-28 10:09 | PROC ---
Central Line Insertion Indication: Sepsis Risks and Benefits Explained: No (AMS) Consent on Chart: No (Emergent) Central Line: Triple Lumen Catheter Anesthesia: 1% Lidocaine Sterile Technique: Yes Ultrasound Guided Assistance: Yes Position: Right Internal Jugular Post Insertion: Yes: Chest X-Ray Ordered Sterile Dressing Applied: Yes
--- NOTE | 2020-07-28 10:27 | PN ---
Progress Note (short form) - Note Progress Note: Surgery-POD#6 Pt had emesis yesterday pm, black in color and is having black stool in ostomy. She had a rapid response overnight and transferred to the ICU. NGT insterted today on rounds, confirmed placement with auscultation over the stomach. 300ml black liquid returned, secured at 60cm and placed to Low wall suction. Vital Signs Period Temp Pulse Resp BP Sys/Ferrer Pulse Ox Last 24 Hr 96.8 F-98.1 F 81-140 18-28 71-156/41-114 98-100 SERGE: RLQ-80ml serosangrenous LLQ: 30ml serous GEN: arousable, not following commands ABD: intermittent shayan intact. Incision clean and fascia intact. Ostomy- pink and viable and with black liquid stool. Greenish color to 4x4 gauze from the wound today. ABD soft and non-distended LE: no calf swelling b/l CBC, BMP 07/28/20 06:18 07/28/20 06:18 Laboratory Tests 07/27/20 07/28/20 07/28/20 06:00 06:18 06:18 WBC 17.5 H Hgb 5.6 L* Hct 16.6 L D Plt Count 455 H Sodium 140 Potassium 4.3 Chloride 106 Carbon Dioxide 15 L Anion Gap 18 H BUN 31.6 H Creatinine 1.2 Lactic Acid Calcium 7.0 L Phosphorus 1.4 L 3.6 Magnesium 1.6 L 2.2 Total Bilirubin 0.1 L AST 65 H ALT 25 Alkaline Phosphatase 73 07/28/20 06:55 WBC Hgb Hct Plt Count Sodium Potassium Chloride Carbon Dioxide Anion Gap BUN Creatinine Lactic Acid 11.9 H* Calcium Phosphorus Magnesium Total Bilirubin AST ALT Alkaline Phosphatase A/P: 70 yo female s/p hartmans for complicated diverticulitits, now with GI bleed possibly upper. NGT with dark bloody contents. Pt in ICU and central line to being placed PRBC currently being transfused, Serial H&H. Pt scheduled for an EGD Pt on IV protonix drip Hold all anticoagulation D/w Dr. Horton
[2020-07-28] MEDS ORDERED: MIDAZOLAM HCL 2 MG/2 ML SINGLE DOSE VIAL ONE (11:06)
[2020-07-28] MEDS: MUPIROCIN 2% TOPICAL OINTMENT FOR DECOLONIZATION NS SCH ×2 (11:09→22:57)
[2020-07-28 11:47] LABS: ANISOCYTOSIS 1+; PLATELET ESTIMATE INCREASED
[2020-07-28 11:49] LABS: HEMATOCRIT 26.7 % (32.4-45.2); MCH 30.9 pg (25.7-33.7); MCHC 33.7 g/dl (32.0-36.0); MEAN CELL VOLUME 91.9 fl (80-96); MEAN PLT VOLUME 8.2 fl (7.5-11.1); PLATELET COUNT 299 K/MM3 (134-434); RBC 2.91 M/mm3 (3.60-5.2); RDW 14.1 % (11.6-15.6); WHITE BLOOD COUNT 17.4 K/mm3 (4.0-10.0)
[2020-07-28 11:55] LABS: INR 1.56 (0.83-1.09); PROTHROMBIN TIME (PATIENT) 18.5 SEC (9.7-13.0)
--- NOTE | 2020-07-28 12:12 | PN.GI ---
GI Progress Note Subjective: GI Procedure Note: Contacted by Dr Alvarado to inform me that patient developed hematemesis and hypotension overnight with Hb drop from 9 to 5. The colostomy has melena. I contacted Shobha's daughter and informed her of the situation and obtained an informed consent for EGD. After the patient received 2 units of PRB Cs the EGD was undertaken. Please see EGD report. The bleeding site is the gastric cardia/fundus but the lesion could not be uncovered. The bleeding did stop during the course of the procedure, likely due to air insufflation with gastric distension and compression of feeding blood vessels. I suspect a Dieulafoy lesion or perhaps a Cristel Morales tear. If bleeding persists an angiogram should be pursued for possible embolization or repeat EGD after Reglan - Objective Vital Signs: Vital Signs Temperature 96.8 F L 07/28/20 06:15 Pulse Rate 116 H 07/28/20 06:15 Respiratory Rate 28 H 07/28/20 06:15 Blood Pressure 84/41 L 07/28/20 06:15 O2 Sat by Pulse Oximetry (%) 100 07/28/20 06:15 CBC,CMP WBC 17.4 K/mm3 (4.0-10.0) H 07/28/20 10:20 RBC 2.91 M/mm3 (3.60-5.2) L 07/28/20 10:20 Hgb 9.0 GM/dL (10.7-15.3) L 07/28/20 10:20 Hct 26.7 % (32.4-45.2) L D 07/28/20 10:20 MCV 91.9 fl (80-96) 07/28/20 10:20 MCH 30.9 pg (25.7-33.7) 07/28/20 10:20 MCHC 33.7 g/dl (32.0-36.0) 07/28/20 10:20 RDW 14.1 % (11.6-15.6) D 07/28/20 10:20 Plt Count 299 K/MM3 (134-434) D 07/28/20 10:20 MPV 8.2 fl (7.5-11.1) 07/28/20 10:20 Absolute Neuts (auto) 15.6 K/mm3 (1.5-8.0) H 07/28/20 06:18 Total Counted 100 07/28/20 06:18 Neutrophils % 89.2 % (42.8-82.8) H 07/28/20 06:18 Neutrophils % (Manual) 81.0 % (42.8-82.8) 07/28/20 06:18 Band Neutrophils % 2.0 % 07/28/20 06:18 Lymphocytes % 7.6 % (8-40) L D 07/28/20 06:18 Lymphocytes % (Manual) 8.0 % (8-40) 07/28/20 06:18 Monocytes % 2.9 % (3.8-10.2) L 07/28/20 06:18 Monocytes % (Manual) 6 % (3.8-10.2) 07/28/20 06:18 Eosinophils % 0.1 % (0-4.5) D 07/28/20 06:18 Eosinophils % (Manual) 0.0 % (0-4.5) 07/24/20 07:25 Basophils % 0.2 % (0-2.0) 07/28/20 06:18 Basophils % (Manual) 0.0 % (0-2.0) 07/24/20 07:25 Myelocytes % (Man) 2 % (0-2) D 07/28/20 06:18 Promyelocytes % (Man) 0 % (0-2) 07/24/20 07:25 Blast Cells % (Manual) 0 % (0-0) 07/24/20 07:25 Nucleated RBC % 0 % (0-0) 07/28/20 06:18 Metamyelocytes 0 % (0-2) D 07/24/20 07:25 Hypochromia 0 07/24/20 07:25 Platelet Estimate Increased 07/28/20 06:18 Polychromasia 1+ 07/24/20 07:25 Poikilocytosis 1+ 07/24/20 07:25 Anisocytosis 1+ 07/28/20 06:18 Microcytosis 0 07/24/20 07:25 Macrocytosis 0 07/24/20 07:25 Spherocytes 1+ 07/23/20 07:48 Ovalocytes 1+ 07/23/20 07:48 Michelle Cells 1+ 07/24/20 07:25 Fragmented RBCs 1+ 09/23/20 06:18 Sodium 140 mmol/L (136-145) 07/28/20 06:18 Potassium 4.3 mmol/L (3.5-5.1) 07/28/20 06:18 Chloride 106 mmol/L (98-107) 07/28/20 06:18 Carbon Dioxide 15 mmol/L (21-32) L 07/28/20 06:18 Anion Gap 18 MMOL/L (8-16) H 07/28/20 06:18 BUN 31.6 mg/dL (7-18) H 07/28/20 06:18 Creatinine 1.2 mg/dL (0.55-1.3) 07/28/20 06:18 Est GFR (CKD-EPI)AfAm 52.29 07/28/20 06:18 Est GFR (CKD-EPI)NonAf 45.11 07/28/20 06:18 POC Glucometer 183 UNITS (80-120) 07/28/20 06:43 Random Glucose 198 mg/dL (74-106) H 07/28/20 06:18 Lactic Acid 11.9 mmol/L (0.4-2.0) H* 07/28/20 06:55 Calcium 7.0 mg/dL (8.5-10.1) L 07/28/20 06:18 Phosphorus 3.6 mg/dL (2.5-4.9) 07/28/20 06:18 Magnesium 2.2 mg/dL (1.8-2.4) 07/28/20 06:18 Iron 21 ug/dL (50-175) L 07/17/20 08:45 TIBC 152 ug/dL (250-450) L 07/17/20 08:45 Iron Saturation 13 % (17.5-39) L 07/17/20 08:45 Unsaturated IBC 131 ug/dL (200-275) L 07/17/20 08:45 Ferritin 1020.9 ng/ml (8-388) H 07/17/20 08:45 Total Bilirubin 0.1 mg/dL (0.2-1) L 07/28/20 06:18 AST 65 U/L (15-37) H 07/28/20 06:18 ALT 25 U/L (13-61) 07/28/20 06:18 Alkaline Phosphatase 73 U/L (45-117) 07/28/20 06:18 Creatine Kinase 17 U/L (26-192) L 07/18/20 08:10 Troponin I < 0.02 ng/ml (0.00-0.05) 07/18/20 08:10 C-Reactive Protein 9.8 MG/DL (0.00-0.3) H 07/20/20 08:35 Total Protein 4.1 g/dl (6.4-8.2) L 07/28/20 06:18 Albumin 1.0 g/dl (3.4-5.0) L 07/28/20 06:18 Triglycerides 106 mg/dL (0-150) 07/18/20 08:10 Cholesterol 91 mg/dL (50-200) 07/18/20 08:10 Total LDL Cholesterol 57 mg/dL (5-100) 07/18/20 08:10 HDL Cholesterol 23 mg/dL (40-60) L 07/18/20 08:10 Constitutional: Anxious ...Auscultate: Yes: Hyperactive Bowel Sounds ...Palpate: Yes: Soft, Other (nontender) Labs: CBC, BMP 07/28/20 10:20 07/28/20 06:18 INR, PTT INR 1.56 (0.83-1.09) H 07/28/20 10:20 Assessment/Plan Impression: - Gastric fundus, and Dr Desir and cardia bleed ? Dieulafoy, ? MW tear. I discussed the findings with her daughter Luz Elena [phone] - Multiple and large pelvic abscesses likely secondary to diverticular disease and 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 - Diarrhea is likely paradoxical and of an overflow nature with suspect proximal fecal impaction. Stool of C diff negative Plan: - NPO except ice chips - NG suctioning - PPI drip - Seral CBCs - Vitamin K - EGD or angiogram if bleeding recurs, otherwsie EGD on Sunday Discussed with Dr. Horton and Dr Desir Problem List - Problems (1) Hematemesis of unknown etiology Code(s): K92.0 - HEMATEMESIS (2) GI hemorrhage Code(s): K92.2 - GASTROINTESTINAL HEMORRHAGE, UNSPECIFIED (3) Colonic diverticular abscess Code(s): K57.20 - DVTRCLI OF LG INT W PERFORATION AND ABSCESS W/O BLEEDING (4) Colovesical fistula Code(s): N32.1 - VESICOINTESTINAL FISTULA (5) Bilateral hydronephrosis Code(s): N13.30 - UNSPECIFIED HYDRONEPHROSIS (6) Urinary tract infection Code(s): N39.0 - URINARY TRACT INFECTION, SITE NOT SPECIFIED Qualifiers: Urinary tract infection type: acute pyelonephritis Qualified Code(s): N10 - Acute pyelonephritis (7) CAD (coronary artery disease) Code(s): I25.10 - ATHSCL HEART DISEASE OF [place] CORONARY ARTERY W/O ANG PCTRS Qualifiers: Coronary Disease-Associated Artery/Lesion type: [place] artery [place] vs. tr ansplanted heart: [place] heart Associated angina: without angina Qualified Code(s): I25.10 - Atherosclerotic heart disease of [place] coronary artery without angina pectoris (8) Cerebrovascular accident (CVA) Code(s): I63.9 - CEREBRAL INFARCTION, UNSPECIFIED Qualifiers: CVA mechanism: unspecified Qualified Code(s): I63.9 - Cerebral infarction, unspecified (9) Diabetes Code(s): E11.9 - TYPE 2 DIABETES MELLITUS WITHOUT COMPLICATIONS Qualifiers: Diabetes mellitus type: type 2 Diabetes mellitus terminal supervisor insulin use: with group home use Diabetes mellitus complication status: with neurologic complications (10) HTN (hypertension) Code(s): I10 - ESSENTIAL (PRIMARY) HYPERTENSION Qualifiers: Hypertension type: essential hypertension Qualified Code(s): I10 - Essential (primary) hypertension (11) Hypercholesterolemia Code(s): E78.00 - PURE HYPERCHOLESTEROLEMIA, UNSPECIFIED (12) Hypothyroidism Code(s): E03.9 - HYPOTHYROIDISM, UNSPECIFIED Qualifiers: Hypothyroidism type: unspecified Qualified Code(s): E03.9 - Hypothyroidism, unspecified (13) Schizophrenia Code(s): F20.9 - SCHIZOPHRENIA, UNSPECIFIED
[2020-07-28] MEDS ORDERED: PHYTONADIONE 10 MG/1 ML AMP IVPB ONE (12:25)
[2020-07-28] MEDS: PANTOPRAZOLE SODIUM 80 MG in SODIUM CHLORIDE 100 ML IVPB SCH ×2 (12:39→23:18)
[2020-07-28] MEDS ORDERED: METOCLOPRAMIDE HCL INJECTION 10 MG/2 ML VIAL IVPUSH SCH (12:45)
[2020-07-28] MEDS ORDERED: METOCLOPRAMIDE HCL INJECTION 10 MG/2 ML VIAL IVPUSH PRN (12:46)
--- NOTE | 2020-07-28 12:46 | PN ---
Teaching Attending Note Name of Resident: Yeny Alvarado ATTENDING PHYSICIAN STATEMENT I saw and evaluated the patient. I reviewed the resident's note and discussed the case with the resident. I agree with the resident's findings and plan as documented. SUBJECTIVE: Pt seen and examined in the ICU. Dark blood from NGT and ostomy with drop in H/H, BP. Transfused 2 units PRBC, central line placed now s/p EGD showing large gastric clot but unable to identify source. OBJECTIVE: Vital Signs Period Temp Pulse Resp BP Sys/Ferrer Pulse Ox Last 24 Hr 96.8 F-98.1 F 81-140 18-28 66-156/30-114 98-100 Intake & Output 07/25/20 07/26/20 07/27/20 07/28/20 23:59 23:59 23:59 23:59 Intake Total 1450 2180 1208 600 Output Total 885 2025 1229 670 Balance 565 155 -21 -70 Gen: lethargic Heart: RRR Lung: decreased breath sounds at the bases Abd: soft, +ostomy pink with dark blood Ext: no edema CBC, BMP 07/28/20 10:20 07/28/20 06:18 Active Medications Acetaminophen (Ofirmev Injection -) 1,000 mg IVPB Q6H PRN PRN Reason: PAIN LEVEL 1-5 Last Admin: 07/27/20 06:22 Dose: 1,000 mg Documented by: Chlorhexidine Gluconate (Hibiclens For Decolonization -) 1 applic TP HS JC Piperacillin Sod/Tazobactam (Sod 4.5 gm/ Dextrose) 100 mls @ 200 mls/hr IVPB Q8H-IV JC; Protocol Last Admin: 07/28/20 12:39 Dose: 200 mls/hr Documented by: Potassium Chloride 40 meq/ (Amino Acids) 1,020 mls @ 42 mls/hr IVPB Q24H JC Last Admin: 07/27/20 15:37 Dose: Not Given Documented by: Sodium Chloride (Normal Saline -) 1,000 mls @ 100 mls/hr IV ASDIR JC Last Admin: 07/28/20 08:09 Dose: 100 mls/hr Documented by: Pantoprazole Sodium 80 mg/ (Sodium Chloride) 100 mls @ 10 mls/hr IVPB Q10H JC Stop: 07/31/20 09:25 Pantoprazole Sodium 80 mg/ (Sodium Chloride) 100 mls @ 10 mls/hr IVPB Q10H JC Stop: 07/31/20 12:04 Last Admin: 07/28/20 12:39 Dose: 10 mls/hr Documented by: Insulin Aspart (Novolog Vial Sliding Scale -) 1 vial SQ ACHS JC; Protocol Last Admin: 07/27/20 21:22 Dose: 2 units Documented by: Insulin Detemir (Levemir Vial) 6 units SQ BID@0700,2200 [facility] Last Admin: 07/27/20 21:23 Dose: 6 units Documented by: Metoclopramide HCl (Reglan Injection -) 10 mg IVPUSH Q6H JC Metoprolol Tartrate (Lopressor Injection -) 5 mg IVPB Q6H PRN PRN Reason: GIVE IF BP > 150/90 Last Admin: 07/26/20 06:07 Dose: 5 mg Documented by: Mupirocin (Bactroban Ointment (For Decolonization) -) 1 applic NS BID [facility] Stop: 08/02/20 09:59 Last Admin: 07/28/20 11:09 Dose: 1 applic Documented by: Phytonadione (Aqua Mephyton Injection -) 10 mg IVPB ONCE ONE Stop: 07/28/20 12:26 Sodium Hypochlorite (Dakin's Solution 0.25% (Half-Strength) -) 1 applic TP DAILY [facility] ASSESSMENT AND PLAN: GI Bleed Acute Blood Loss Anemia Hemorrhagic Shock Complicated Diverticulitis s/p Gavin's Procedure UTI LV Diastolic Dysfunction HTN DM h/o CVA - monitor H/H, coags - transfuse as needed - pressors if MAP <65 - antibiotics per ID - NPO - large bore IV access - DVT prophylaxis - continue ICU monitoring
[2020-07-28] MEDS ORDERED: INSULIN (NOVOLOG) ASPART 100 UNITS/ML 10ML VIAL ONE (12:49)
--- NOTE | 2020-07-28 13:38 | PN ---
Progress Note (short form) - Note Progress Note: events overnight noted-transferred to ICU suspected GI bleed s/p egd this am with large clot found in stomach no bleeding source identified Vital Signs Period Temp Pulse Resp BP Sys/Ferrer Pulse Ox Last 24 Hr 96.8 F-98.1 F 81-140 18-28 66-156/30-114 98-100 cor-rrr lungs decreased bs at bases abd soft, +SERGE with small amt dark blood +ostomy with black stool ext no edema CBC, BMP 07/28/20 10:20 07/28/20 06:18 Microbiology 07/22/20 09:37 Abdomen Gram Stain - Final 07/22/20 09:37 Abdomen Wound Culture - Final Pseudomonas Aeruginosa Escherichia Coli 07/15/20 20:10 Blood - Peripheral Venous Blood Culture - Final NO GROWTH AFTER 5 DAYS INCUBATION 07/15/20 20:10 Blood - Peripheral Venous Blood Culture - Final NO GROWTH AFTER 5 DAYS INCUBATION 07/18/20 15:00 Stool Clostridioides difficile Antigen - Final 07/18/20 15:00 Stool Clostridioides difficile Toxin Assay - Final 07/15/20 15:10 Urine - Urine Clean Catch Urine Culture - Final Pseudomonas Aeruginosa Escherichia Coli imp/reccd s/p GI bleed-s/p transfusion, s/p EGD s/p Gavin's procedure 07/22- pod #6 operative cultures with pseudomonas and ecoli suspect current leukocytosis due to GI bleed continue zosyn
--- NOTE | 2020-07-28 13:55 | EKG ---
Test Reason : Blood Pressure : / mmHG Vent. Rate : 080 BPM Atrial Rate : 080 BPM P-R Int : 124 ms QRS Dur : 072 ms QT Int : 394 ms P-R-T Axes : 043 -12 -01 degrees QTc Int : 454 ms NORMAL SINUS RHYTHM WITH SINUS ARRHYTHMIA LOW VOLTAGE QRS NONSPECIFIC ST AND T WAVE ABNORMALITY ABNORMAL ECG WHEN COMPARED WITH ECG OF 19-JUL-2020 09:43, NONSPECIFIC T WAVE ABNORMALITY NOW EVIDENT IN LATERAL LEADS Confirmed by Aron Urena ([id number]) on 07/28/2020 1:54:53 PM Referred By: TRENT DAVIES DR Confirmed By:Aron Urena
[2020-07-28] MEDS: INSULIN SLIDING SCALE (NOVOLOG) 1 VIAL SQ SCH ×4 (13:58→22:54)
--- NOTE | 2020-07-28 14:03 | PN ---
Progress Note, Physician History of Present Illness: Seen and examined at the bedside transferred to the ICU overnight for acute GI bleed awake on NRB O2 mask non-verbal s/p PRBC transfusion BP is 110/70 - Current Medication List Current Medications: Active Medications Acetaminophen (Ofirmev Injection -) 1,000 mg IVPB Q6H PRN PRN Reason: PAIN LEVEL 1-5 Last Admin: 07/27/20 06:22 Dose: 1,000 mg Documented by: Chlorhexidine Gluconate (Hibiclens For Decolonization -) 1 applic TP HS [facility] Piperacillin Sod/Tazobactam (Sod 4.5 gm/ Dextrose) 100 mls @ 200 mls/hr IVPB Q8H-IV JC; Protocol Last Admin: 07/28/20 12:39 Dose: 200 mls/hr Documented by: Potassium Chloride 40 meq/ (Amino Acids) 1,020 mls @ 42 mls/hr IVPB Q24H [facility] Last Admin: 07/27/20 15:37 Dose: Not Given Documented by: Sodium Chloride (Normal Saline -) 1,000 mls @ 100 mls/hr IV ASDIR [facility] Last Admin: 07/28/20 08:09 Dose: 100 mls/hr Documented by: Pantoprazole Sodium 80 mg/ (Sodium Chloride) 100 mls @ 10 mls/hr IVPB Q10H [facility] Stop: 07/31/20 12:04 Last Admin: 07/28/20 12:39 Dose: 10 mls/hr Documented by: Insulin Aspart (Novolog Vial Sliding Scale -) 1 vial SQ ACHS [facility]; Protocol Last Admin: 07/27/20 21:22 Dose: 2 units Documented by: Insulin Detemir (Levemir Vial) 6 units SQ BID@0700,2200 [facility] Last Admin: 07/27/20 21:23 Dose: 6 units Documented by: Metoclopramide HCl (Reglan Injection -) 10 mg IVPUSH Q6H PRN PRN Reason: EXCESSIVE BLEEDING Metoprolol Tartrate (Lopressor Injection -) 5 mg IVPB Q6H PRN PRN Reason: GIVE IF BP > 150/90 Last Admin: 07/26/20 06:07 Dose: 5 mg Documented by: Mupirocin (Bactroban Ointment (For Decolonization) -) 1 applic NS BID [facility] Stop: 08/02/20 09:59 Last Admin: 07/28/20 11:09 Dose: 1 applic Documented by: Sodium Hypochlorite (Dakin's Solution 0.25% (Half-Strength) -) 1 applic TP DAILY JC - Objective Vital Signs: Vital Signs Temperature 97.6 F 07/28/20 07:20 Pulse Rate 86 07/28/20 10:50 Respiratory Rate 20 07/28/20 10:50 Blood Pressure 105/79 07/28/20 10:50 O2 Sat by Pulse Oximetry (%) 100 07/28/20 10:50 Constitutional: Yes: No Distress, Calm HENT: Yes: Atraumatic Neck: Yes: Supple Cardiovascular: Yes: Regular Rate and Rhythm Respiratory: Yes: Diminished, On Venti-Mask Gastrointestinal: Yes: Soft Extremities: No: Cyanosis Edema: No Labs: CBC, BMP 07/28/20 10:20 07/28/20 06:18 INR, PTT INR 1.56 (0.83-1.09) H 07/28/20 10:20 Assessment/Plan 70 year old woman with history of CVA, IDDM, hypertension who presented with lower abdominal pain and found to have likely UTI with hypokalemia. 1. Hypokalemia in setting of diarrhea/GI losses 2. Diverticular abscess 3. Hypertension 4. IDDM 5. Anemia 6. Lactic acidosis 7. Hypomagnesemia 8. Hypophosphatemia 9. Acute kidney injury 10. Acute GI bleed 11. Lactic acidosis Cr yinka from 0.5 to 1.2 in setting of acute GI bleed and hypotension Continue isotonic saline, Bolus PRN maintain MAP > 65, CVP 8-10 Check repeat lactic acid and bmp in the evening GI following, s/p endoscopy this am, no site of bleeding located ICU monitoring Transfuse further as needed Trend renal function and electrolytes Guillermo Ricks DO
[2020-07-28 16:29] LABS: HEMATOCRIT 25.8 % (32.4-45.2); MCHC 34.9 g/dl (32.0-36.0); MEAN CELL VOLUME 88.9 fl (80-96); MEAN PLT VOLUME 8.1 fl (7.5-11.1); PLATELET COUNT 320 K/MM3 (134-434); RDW 14.1 % (11.6-15.6); WHITE BLOOD COUNT 15.7 K/mm3 (4.0-10.0)
[2020-07-28] MEDS ORDERED: PT OWN MED DRAWER 7, Y5N ONE (16:35)
[2020-07-28 16:41] LABS: INR 1.29 (0.83-1.09); PROTHROMBIN TIME (PATIENT) 15.3 SEC (9.7-13.0)
[2020-07-28 16:44] LABS: ACTIVATED PTT 24.6 SECONDS (25.2-36.5)
[2020-07-28] MEDS: SODIUM HYPOCHLORITE 0.25%- 473 ML BULK BOTTLE TP SCH (19:16)
[2020-07-28] MEDS: INSULIN (LEVEMIR) 100 UNITS/ML UNITS SQ SCH ×2 (19:16→22:54)
[2020-07-28] MEDS ORDERED: SODIUM CHLORIDE 0.9%/KCL 20 MEQ/1,000 ML INFUS.BAG IV SCH (20:30)
[2020-07-28] MEDS: SODIUM CHLORIDE 0.9%/KCL 20 MEQ/1,000 ML INFUS.BAG IV SCH (21:00)
[2020-07-28] MEDS: POTASSIUM CHLORIDE 40 MEQ in AMINO ACIDS 4.25%/D5W 1,000 ML IVPB SCH (21:26)
[2020-07-28] MEDS: CHLORHEXIDINE GLUCONATE 4% CLEANSER FOR DECOLONIZATION TP SCH (22:57)
[2020-07-29] MEDS ORDERED: PIPERACILLIN/TAZOBACTAM 4.5 GM VIAL IVPB ONE ×3 (01:27→16:52)
[2020-07-29] MEDS ORDERED: DEXTROSE 5%-WATER 100 ML IVPB ONE ×3 (01:27→16:52)
[2020-07-29] MEDS: PIPERACILLIN/TAZOB 4.5 GM 4.5 GM in DEXTROSE 5%-WATER 100 ML IVPB SCH ×3 (02:44→17:00)
[2020-07-29] MEDS: INSULIN (LEVEMIR) 100 UNITS/ML UNITS SQ SCH ×2 (06:01→21:57)
[2020-07-29] MEDS: INSULIN SLIDING SCALE (NOVOLOG) 1 VIAL SQ SCH ×4 (06:02→21:57)
[2020-07-29] MEDS ORDERED: METOPROLOL TARTRATE 5 MG/5 ML VIAL IVPB PRN (07:17)
[2020-07-29 07:21] LABS: BASO % 0.1 % (0-2.0); EOS % 0.1 % (0-4.5); HEMATOCRIT 20.5 % (32.4-45.2); HEMOGLOBIN 7.2 GM/dL (10.7-15.3); LYMPH % 14.6 % (8-40); MCH 30.7 pg (25.7-33.7); MCHC 35.1 g/dl (32.0-36.0); MEAN CELL VOLUME 87.3 fl (80-96); MEAN PLT VOLUME 7.9 fl (7.5-11.1); MONO % 5.1 % (3.8-10.2); NEUT % 80.1 % (42.8-82.8); PLATELET COUNT 345 K/MM3 (134-434); RBC 2.35 M/mm3 (3.60-5.2); RDW 14.5 % (11.6-15.6); WHITE BLOOD COUNT 14.7 K/mm3 (4.0-10.0)
--- NOTE | 2020-07-29 07:25 | PN ---
Progress Note, Physician History of Present Illness: Pt assessed at bedside. Resting comfortable in restraints due to pulling out her ng tube last night. She endorses abdominal pain. - Current Medication List Current Medications: Active Medications Acetaminophen (Ofirmev Injection -) 1,000 mg IVPB Q6H PRN PRN Reason: PAIN LEVEL 1-5 Chlorhexidine Gluconate (Hibiclens For Decolonization -) 1 applic TP HS [facility] Last Admin: 07/28/20 22:57 Dose: 1 applic Documented by: Pantoprazole Sodium 80 mg/ (Sodium Chloride) 100 mls @ 10 mls/hr IVPB Q10H [facility] Stop: 07/31/20 12:04 Last Admin: 07/28/20 23:18 Dose: 10 mls/hr Documented by: Potassium Chloride/Sodium Chloride (Ns+20 Meq Kcl -) 20 meq in 1,000 mls @ 75 mls/hr IV ASDIR [facility] Last Admin: 07/28/20 21:00 Dose: 75 mls/hr Documented by: Piperacillin Sod/Tazobactam (Sod 4.5 gm/ Dextrose) 100 mls @ 200 mls/hr IVPB Q8H-IV [facility]; Protocol Insulin Aspart (Novolog Vial Sliding Scale -) 1 vial SQ ACHS [facility]; Protocol Insulin Detemir (Levemir Vial) 6 units SQ BID@0700,2200 [facility] Metoclopramide HCl (Reglan Injection -) 10 mg IVPUSH Q6H PRN PRN Reason: EXCESSIVE BLEEDING Last Admin: 07/28/20 14:20 Dose: 10 mg Documented by: Metoprolol Tartrate (Lopressor Injection -) 5 mg IVPB Q6H PRN PRN Reason: GIVE IF BP > 150/90 Mupirocin (Bactroban Ointment (For Decolonization) -) 1 applic NS BID [facility] Stop: 08/02/20 09:59 Last Admin: 07/28/20 22:57 Dose: 1 applic Documented by: Sodium Hypochlorite (Dakin's Solution 0.25% (Half-Strength) -) 1 applic TP DAILY [facility] Last Admin: 07/28/20 19:16 Dose: Not Given Documented by: - Objective Vital Signs: Vital Signs Temperature 97 F L 07/29/20 06:45 Pulse Rate 72 07/29/20 06:45 Respiratory Rate 19 07/29/20 06:45 Blood Pressure 104/59 L 07/29/20 06:45 O2 Sat by Pulse Oximetry (%) 95 07/29/20 06:45 Constitutional: Yes: Well Nourished, No Distress, Calm Eyes: Yes: Conjunctiva Clear, EOM Intact HENT: Yes: Atraumatic, Normocephalic, Other (NG tube with 500 cc tarry fluid) Cardiovascular: Yes: Regular Rate and Rhythm Respiratory: Yes: Regular, CTA Bilaterally Gastrointestinal: Yes: Normal Bowel Sounds, Soft, Other (colostomy bag with black tarry fluid, 2 SERGE drains. painful abdomen) Wound/Incision: Yes: Clean/Dry, Well Approximated, Sutures Intact, Dressing Dry and Intact Neurological: Yes: Alert, Oriented, Confusion Impression/Plan Impression/Plan: 70 yo female POD#8 Gavin ([id number]-[id number]-fkynzm w/ ostomy bag and repair of colo-vesicular fistula) admitted to ICU for Hemorrhagic Shock +/- Septic Shock Neuro - AMS, Alert & Oriented - hx CVA 3 months ago - hx schizophrenia, daughter is HCP Cardio - hx HTN -metoprolol (5mg IVPB, q6) , hold for SBP <100, HR <60 Pulm - CXR today showed possible early medial R lung infiltrate - sat 100% on switch to NC PEN/GI - Hartmans Procedure (07/22) - GI bleed- -NG stopped draining -Ostomy has melana - 2 SERGE Tubes draining serous fluid - Dr. Bronson EGD Scope- - bleeding at gastric cardia/fundus - suspected Dieulafoy or Cristel Morales - Dr. Cassidy for CT Angiogram - consented by daughter over phone - potential embolization - Pantoprazole(IVPB)(8mg/hour) - Metoclopramide (10mg, q6) - 1L NS + 20mEQ K @ 75 mL/hour - 1L LR - UTI - Colovesical fistula - Indwelling Solorzano - Urine Clx pending , previous culture grew Pseudomonas and E. coli. - Zosyn (4.5g) started on 07/22 - Dr. Blake following Heme - GI Bleed - Hb 7.2 with bleeding - Transfusing 1 unit LR Endo - IDDM - Hold Novolog/Levemir due to NPO DVT ppx - Hold Heparin due to Bleeding Visit type - Emergency Visit Emergency Visit: Yes ED Registration Date: 07/15/20 Care time: The patient presented to the Emergency Department on the above date and was hospitalized for further evaluation of their emergent condition. - New Patient This patient is new to me today: No - Critical Care Critical Care patient: No - Medication Review Med list reviewed for High Risk Meds patients 65 and older: Yes ATTENDING PHYSICIAN STATEMENT I saw and evaluated the patient. I reviewed the resident's note and discussed the case with the resident. I agree with the resident's findings and plan as documented. SUBJECTIVE: OBJECTIVE: ASSESSMENT AND PLAN:
[2020-07-29 07:38] LABS: INR 1.11 (0.83-1.09); PROTHROMBIN TIME (PATIENT) 13.1 SEC (9.7-13.0)
[2020-07-29 07:40] LABS: ALBUMIN 1.1 g/dl (3.4-5.0); BILIRUBIN,TOTAL 0.3 mg/dL (0.2-1); BLOOD UREA NITROGEN 35.3 mg/dL (7-18); CREATININE 0.7 mg/dL (0.55-1.3); MAGNESIUM 2.1 mg/dL (1.8-2.4); PHOSPHOROUS 1.7 mg/dL (2.5-4.9); POTASSIUM 3.2 mmol/L (3.5-5.1); TOT PROT 4.1 g/dl (6.4-8.2)
[2020-07-29 07:53] LABS: CALCIUM 6.6 mg/dL (8.5-10.1)
[2020-07-29 08:17] LABS: ANISOCYTOSIS 1+; MACROCYTOSIS 0; PLATELET ESTIMATE NORMAL
--- NOTE | 2020-07-29 08:19 | PN.GI ---
GI Progress Note Subjective: GI NOte: Bleeding persists. Will pursue CTA - Objective Vital Signs: Vital Signs Temperature 97 F L 07/29/20 06:45 Pulse Rate 75 07/29/20 08:00 Respiratory Rate 20 07/29/20 08:00 Blood Pressure 126/55 L 07/29/20 08:00 O2 Sat by Pulse Oximetry (%) 98 07/29/20 08:00 Laboratory Tests 07/28/20 07/29/20 15:10 05:15 Hgb 9.0 L 7.2 L ...Auscultate: Yes: Normoactive Bowel Sounds ...Palpate: Yes: Soft, Other Labs: CBC, BMP 07/29/20 05:15 07/29/20 05:15 INR, PTT INR 1.11 (0.83-1.09) H 07/29/20 05:15 Assessment/Plan Impression: - Gastric fundus and cardia bleed ? Dieulafoy, ? MW tear. - Multiple and large pelvic abscesses likely secondary to diverticular disease and 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 - Diarrhea is likely paradoxical and of an overflow nature with suspect proximal fecal impaction. Stool of C diff negative Plan: - Discussed CTA as the next step with the ICY resident - Possible repeat EGD tomorrow Problem List - Problems (1) Hematemesis of unknown etiology Code(s): K92.0 - HEMATEMESIS (2) GI hemorrhage Code(s): K92.2 - GASTROINTESTINAL HEMORRHAGE, UNSPECIFIED Qualifiers: GI bleed type/associated pathology: melena Qualified Code(s): K92.1 - Melena (3) Colonic diverticular abscess Code(s): K57.20 - DVTRCLI OF LG INT W PERFORATION AND ABSCESS W/O BLEEDING (4) Colovesical fistula Code(s): N32.1 - VESICOINTESTINAL FISTULA (5) Bilateral hydronephrosis Code(s): N13.30 - UNSPECIFIED HYDRONEPHROSIS (6) Urinary tract infection Code(s): N39.0 - URINARY TRACT INFECTION, SITE NOT SPECIFIED Qualifiers: Urinary tract infection type: acute pyelonephritis Qualified Code(s): N10 - Acute pyelonephritis (7) CAD (coronary artery disease) Code(s): I25.10 - ATHSCL HEART DISEASE OF [place] CORONARY ARTERY W/O ANG PCTRS Qualifiers: Coronary Disease-Associated Artery/Lesion type: [place] artery [place] vs. transplanted heart: [place] heart Associated angina: without angina Qualified Code(s): I25.10 - Atherosclerotic heart disease of [place] coronary artery without angina pectoris (8) Cerebrovascular accident (CVA) Code(s): I63.9 - CEREBRAL INFARCTION, UNSPECIFIED Qualifiers: CVA mechanism: unspecified Qualified Code(s): I63.9 - Cerebral infarction, unspecified (9) Diabetes Code(s): E11.9 - TYPE 2 DIABETES MELLITUS WITHOUT COMPLICATIONS Qualifiers: Diabetes mellitus type: type 2 Diabetes mellitus longterm insulin use: wi longterm use Diabetes mellitus complication status: with neurologic c omplications (10) HTN (hypertension) Code(s): I10 - ESSENTIAL (PRIMARY) HYPERTENSION Qualifiers: Hypertension type: essential hypertension Qualified Code(s): I10 - Essential (primary) hypertension (11) Hypercholesterolemia Code(s): E78.00 - PURE HYPERCHOLESTEROLEMIA, UNSPECIFIED (12) Hypothyroidism Code(s): E03.9 - HYPOTHYROIDISM, UNSPECIFIED Qualifiers: Hypothyroidism type: unspecified Qualified Code(s): E03.9 - Hypothyroidism, unspecified (13) Schizophrenia Code(s): F20.9 - SCHIZOPHRENIA, UNSPECIFIED
--- NOTE | 2020-07-29 08:30 | PN ---
Progress Note, Physician Chief Complaint: s/p PRBC still had some black material / ostomy; Hg trending down; will go for CTA awake alert NAD VSS - Current Medication List Current Medications: Active Medications Acetaminophen (Ofirmev Injection -) 1,000 mg IVPB Q6H PRN PRN Reason: PAIN LEVEL 1-5 Chlorhexidine Gluconate (Hibiclens For Decolonization -) 1 applic TP HS [facility] Last Admin: 07/28/20 22:57 Dose: 1 applic Documented by: Pantoprazole Sodium 80 mg/ (Sodium Chloride) 100 mls @ 10 mls/hr IVPB Q10H [facility] Stop: 07/31/20 12:04 Last Admin: 07/28/20 23:18 Dose: 10 mls/hr Documented by: Potassium Chloride/Sodium Chloride (Ns+20 Meq Kcl -) 20 meq in 1,000 mls @ 75 mls/hr IV ASDIR [facility] Last Admin: 07/28/20 21:00 Dose: 75 mls/hr Documented by: Piperacillin Sod/Tazobactam (Sod 4.5 gm/ Dextrose) 100 mls @ 200 mls/hr IVPB Q8H-IV [facility]; Protocol Insulin Aspart (Novolog Vial Sliding Scale -) 1 vial SQ ACHS [facility]; Protocol Insulin Detemir (Levemir Vial) 6 units SQ BID@0700,2200 [facility] Metoclopramide HCl (Reglan Injection -) 10 mg IVPUSH Q6H-IV [facility] Metoprolol Tartrate (Lopressor Injection -) 5 mg IVPB Q6H PRN PRN Reason: GIVE IF BP > 150/90 Mupirocin (Bactroban Ointment (For Decolonization) -) 1 applic NS BID [facility] Stop: 08/02/20 09:59 Last Admin: 07/28/20 22:57 Dose: 1 applic Documented by: Sodium Hypochlorite (Dakin's Solution 0.25% (Half-Strength) -) 1 applic TP DAILY [facility] Last Admin: 07/28/20 19:16 Dose: Not Given Documented by: - Objective Vital Signs: Vital Signs Temperature 97 F L 07/29/20 06:45 Pulse Rate 75 07/29/20 08:00 Respiratory Rate 20 07/29/20 08:00 Blood Pressure 126/55 L 07/29/20 08:00 O2 Sat by Pulse Oximetry (%) 98 09/24/20 08:00 Constitutional: Yes: No Distress Eyes: Yes: Conjunctiva Clear HENT: Yes: Atraumatic Neck: Yes: Supple Cardiovascular: Yes: Regular Rate and Rhythm Respiratory: Yes: Diminished Gastrointestinal: Yes: Soft. No: Tenderness Genitourinary: No: Hematuria Extremities: No: Calf Tenderness, Cold, Cool, Cyanosis Edema: No Integumentary: No: Rash, Venous Stasis Changes Neurological: Yes: Alert ...Motor Strength: LUE (old 4/5), LLE (old 4/5) Psychiatric: Yes: Alert. No: Agitated Labs: CBC, BMP 07/29/20 05:15 07/29/20 05:15 INR, PTT INR 1.11 (0.83-1.09) H 07/29/20 05:15 - ....Imaging Other: Report Reviewed Assessment/Plan The patient is a 70y/o F with a pmh of CVA (3months ago), IDDM, HTN admitted with sepsis diverticulitis with abscesses and UTI, also hydronephrosis; s/p Faustino procedure; hypotension this am and dark material through colostomy; transferred to ICU s/p EGD - clot; will proceed with CTA IVF; IVF/ clinimix; ivATB per ID; IV PPI f/u labs cardio and neuro f/u, ID, renal, GI, f/u hold ASA and heparin d/w staff; d/w pt and pt's family at bedside prognosis guarded; turn in bed decubs pfx t time 35 min
--- NOTE | 2020-07-29 09:10 | PN ---
Progress Note (short form) - Note Progress Note: GENERAL SURGERY POD #7 Resting comfortably. NGT remains on LWCS. Continues to have black/tarry output from ostomy. Feels very weak. Denies CP, palpitations, SOB or HARKINS. Last Vital Signs Temp Pulse Resp BP Pulse Ox 97 F L 75 20 126/55 L 98 07/29/20 06:45 07/29/20 08:00 07/29/20 08:00 07/29/20 08:00 07/29/20 08:00 H/H Trend 07/28/20 07/28/20 07/28/20 07/29/20 06:18 10:20 15:10 05:15 Hgb 5.6 9.0 9.0 7.2 Hct 16.6 26.7 25.8 20.5 24 Hr Output 07/28/20 07/28/20 07/28/20 06:00 10:00 18:51 06:00 LLQ SERGE 10 20 10 RLQ SERGE 20 15 15 PE GEN: alert. ABD: Soft. Intermittent shayan intact. Incision clean. Deep fascia intact. Greenish color to 4x4 gauze. Not malodorous. Ostomy viable (black liquid stool) LE: all compartments soft. non-tender. no swelling/edema. A/P: 70 yo female now POD # 7 s/p Faustino's procedure for complicated diverticulitis. Now with possible UGIB. H/H continue to drop despite pRBC tra nsfusion. Had EGD yesterday w/ Dr. Bronson - Transfuse pRBC PRN. Keep Hct > 30 - Protonix IV gtt - Cont to hold all AC - GI bleeding scan ordered - Serial H/H - Daily wound packing ordered. 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 Horton and agrees
[2020-07-29] MEDS ORDERED: PT OWN MED DRAWER 7, Y5N ONE ×2 (09:19→10:33)
[2020-07-29] MEDS: PANTOPRAZOLE SODIUM 80 MG in SODIUM CHLORIDE 100 ML IVPB SCH ×2 (09:22→21:58)
[2020-07-29] MEDS: METOCLOPRAMIDE HCL INJECTION 10 MG/2 ML VIAL IVPUSH SCH ×3 (09:22→21:50)
[2020-07-29] MEDS: MUPIROCIN 2% TOPICAL OINTMENT FOR DECOLONIZATION NS SCH ×2 (09:22→21:56)
[2020-07-29] MEDS: SODIUM CHLORIDE 0.9%/KCL 20 MEQ/1,000 ML INFUS.BAG IV SCH ×2 (09:23→22:49)
--- NOTE | 2020-07-29 10:19 | PN ---
Progress Note, Physician History of Present Illness: Hypotensive, lethargic, dark stools in colostomy with significant anemia suspicious of UGI bleed. NGT with dark gastric contents, transfused 2 u pRBC with improved sensorium and hemodynamics, EGD shows gastric clot Dieulafoy lesion vs Cristel Morales tear. - Current Medication List Current Medications: Active Medications Acetaminophen (Ofirmev Injection -) 1,000 mg IVPB Q6H PRN PRN Reason: PAIN LEVEL 1-5 Chlorhexidine Gluconate (Hibiclens For Decolonization -) 1 applic TP HS [facility] Last Admin: 07/28/20 22:57 Dose: 1 applic Documented by: Pantoprazole Sodium 80 mg/ (Sodium Chloride) 100 mls @ 10 mls/hr IVPB Q10H [facility] Stop: 07/31/20 12:04 Last Admin: 07/29/20 09:22 Dose: 10 mls/hr Documented by: Potassium Chloride/Sodium Chloride (Ns+20 Meq Kcl -) 20 meq in 1,000 mls @ 75 mls/hr IV ASDIR [facility] Last Admin: 07/29/20 09:23 Dose: 75 mls/hr Documented by: Piperacillin Sod/Tazobactam (Sod 4.5 gm/ Dextrose) 100 mls @ 200 mls/hr IVPB Q 8H-IV [facility]; Protocol Last Admin: 07/29/20 09:22 Dose: 200 mls/hr Documented by: Insulin Aspart (Novolog Vial Sliding Scale -) 1 vial SQ ACHS [facility]; Protocol Insulin Detemir (Levemir Vial) 6 units SQ BID@0700,2200 [facility] Metoclopramide HCl (Reglan Injection -) 10 mg IVPUSH Q6H-IV [facility] Last Admin: 07/29/20 09:22 Dose: 10 mg Documented by: Metoprolol Tartrate (Lopressor Injection -) 5 mg IVPB Q6H PRN PRN Reason: GIVE IF BP > 150/90 Mupirocin (Bactroban Ointment (For Decolonization) -) 1 applic NS BID [facility] Stop: 08/02/20 09:59 Last Admin: 07/29/20 09:22 Dose: 1 applic Documented by: Sodium Hypochlorite (Dakin's Solution 0.25% (Half-Strength) -) 1 applic TP DAILY [facility] Last Admin: 07/28/20 19:16 Dose: Not Given Documented by: - Objective Vital Signs: Vital Signs Temperature 97 F L 07/29/20 06:45 Pulse Rate 75 07/29/20 08:00 Respiratory Rate 07/29/20 09:00 Blood Pressure 126/55 L 07/29/20 08:00 O2 Sat by Pulse Oximetry (%) 98 07/29/20 09:00 Constitutional: Yes: No Distress, Calm Neck: Yes: Supple Cardiovascular: Yes: Regular Rate and Rhythm Respiratory: Yes: Regular, CTA Bilaterally Gastrointestinal: Yes: Normal Bowel Sounds, Soft, Other (Colostomy with melena) Genitourinary: Yes: Solorzano Present Edema: No Labs: CBC, BMP 07/29/20 05:15 07/29/20 05:15 INR, PTT INR 1.11 (0.83-1.09) H 07/29/20 05:15 - ....Imaging EKG: Report Reviewed (Tele: SR) Problem List - Problems (1) Colonic diverticular abscess Code(s): K57.20 - DVTRCLI OF LG INT W PERFORATION AND ABSCESS W/O BLEEDING (2) Colovesical fistula Code(s): N32.1 - VESICOINTESTINAL FISTULA (3) CAD (coronary artery disease) Code(s): I25.10 - ATHSCL HEART DISEASE OF [place] CORONARY ARTERY W/O ANG PCTRS Qualifiers: Coronary Disease-Associated Artery/Lesion type: [place] artery [place] vs. 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 Diabetes mellitus complication status: with neurologic complications (7) HTN (hypertension) Code(s): I10 - ESSENTIAL (PRIMARY) HYPERTENSION Qualifiers: Hypertension type: essential hypertension Qualified Code(s): I10 - Essential (primary) hypertension (8) Hypercholesterolemia Code(s): E78.00 - PURE HYPERCHOLESTEROLEMIA, UNSPECIFIED (9) Hypothyroidism Code(s): E03.9 - HYPOTHYROIDISM, UNSPECIFIED Qualifiers: Hypothyroidism type: unspecified Qualified Code(s): E03.9 - Hypothyroidism, unspecified (10) GI hemorrhage Code(s): K92.2 - GASTROINTESTINAL HEMORRHAGE, UNSPECIFIED Qualifiers: GI bleed type/associated pathology: melena Qualified Code(s): K92.1 - Melena Assessment/Plan 04/12/2020 ECHO: normal LVEF; abnormal diastolic compliance, Tr TR 1. Post Gavin's procedure for complicated diverticulitis with abscess and colovesicular fistula 2. Diastolic dysfunction 3. Poorly controlled DM 4. HTN 5. Chronic stroke 6. Multi-infarct dementia 7. Hypokalemia resolved 8. UGI bleed, melena with acute blood loss anemia s/p 2 u pRBC 9. UTI 10. Lactic acidoses improving PLAN: 1. Empiric antibiotic per ID 2. Volume resuscitation, pressors as needed MAP>65 mmHg, Protonix gtt, pRBC transfusion 3. Lopressor 5 IV q6 prn as hemodynamics tolerate 4. Mechanical DVT prophylaxis 5. Post-op management 6. Monitor Hgb post transfusion, replete K 7. F/u bleeding scan
[2020-07-29] MEDS: SODIUM HYPOCHLORITE 0.25%- 473 ML BULK BOTTLE TP SCH (10:38)
[2020-07-29] MEDS ORDERED: LACTATED RINGERS SOLUTION 1,000 ML/1,000 ML INFUS.BAG IV STA (11:27)
--- NOTE | 2020-07-29 13:35 | PN ---
Progress Note (short form) - Note Progress Note: events overnight noted-transferred to ICU suspected GI bleed s/p egd with large clot found in stomach no bleeding source identified s/p 2 gram droop in hgb this am just returned from CTA being transfused no distress noted Vital Signs Period Temp Pulse Resp BP Sys/Ferrer Pulse Ox Last 24 Hr 97 F-98.5 F 72-98 17-24 100-126/47-68 95-100 cor-rrr lungs clear abd soft,nt +ostomy with black stool +SERGE with serous blood tinged fluid ext no edema CBC, BMP 07/29/20 05:15 07/29/20 05:15 07/22/20 09:37 Abdomen Gram Stain - Final 07/22/20 09:37 Abdomen Wound Culture - Final Pseudomonas Aeruginosa Escherichia Coli 07/15/20 20:10 Blood - Peripheral Venous Blood Culture - Final NO GROWTH AFTER 5 DAYS INCUBATION 07/15/20 20:10 Blood - Peripheral Venous Blood Culture - Final NO GROWTH AFTER 5 DAYS INCUBATION 07/18/20 15:00 Stool Clostridioides difficile Antigen - Final 07/18/20 15:00 Stool Clostridioides difficile Toxin Assay - Final 07/15/20 15:10 Urine - Urine Clean Catch Urine Culture - Final Pseudomonas Aeruginosa Escherichia Coli imp/reccd s/p GI bleed-s/p transfusion, s/p EGD, f/u CTA abd/pelvis s/p Gavin's procedure 07/22- pod #6 operative cultures with pseudomonas and ecoli suspect current leukocytosis due to GI bleed continue zosyn f/u surgery and GI
[2020-07-29 15:13] LABS: BASO % 0.5 % (0-2.0); EOS % 0.3 % (0-4.5); HEMATOCRIT 26.1 % (32.4-45.2); LYMPH % 11.1 % (8-40); MCH 30.6 pg (25.7-33.7); MCHC 34.4 g/dl (32.0-36.0); MEAN CELL VOLUME 88.8 fl (80-96); MEAN PLT VOLUME 8.1 fl (7.5-11.1); MONO % 5.1 % (3.8-10.2); PLATELET COUNT 343 K/MM3 (134-434); RBC 2.94 M/mm3 (3.60-5.2); RDW 14.6 % (11.6-15.6); WHITE BLOOD COUNT 13.4 K/mm3 (4.0-10.0)
[2020-07-29 15:35] LABS: ANISOCYTOSIS 2+; MACROCYTOSIS 0; PLATELET ESTIMATE NORMAL
[2020-07-29] MEDS: CHLORHEXIDINE GLUCONATE 4% CLEANSER FOR DECOLONIZATION TP SCH (21:57)
[2020-07-30] MEDS: SODIUM CHLORIDE 0.9%/KCL 20 MEQ/1,000 ML INFUS.BAG IV SCH (00:02)
[2020-07-30] MEDS ORDERED: DEXTROSE 5%-WATER 100 ML IVPB ONE ×3 (02:25→17:27)
[2020-07-30] MEDS ORDERED: PIPERACILLIN/TAZOBACTAM 4.5 GM VIAL IVPB ONE ×3 (02:25→17:27)
[2020-07-30] MEDS: PIPERACILLIN/TAZOB 4.5 GM 4.5 GM in DEXTROSE 5%-WATER 100 ML IVPB SCH ×3 (02:30→17:36)
[2020-07-30] MEDS: METOCLOPRAMIDE HCL INJECTION 10 MG/2 ML VIAL IVPUSH SCH ×2 (02:30→09:10)
[2020-07-30] MEDS: PANTOPRAZOLE SODIUM 80 MG in SODIUM CHLORIDE 100 ML IVPB SCH ×3 (03:50→23:15)
[2020-07-30] MEDS: INSULIN SLIDING SCALE (NOVOLOG) 1 VIAL SQ SCH ×4 (06:03→21:17)
[2020-07-30] MEDS: INSULIN (LEVEMIR) 100 UNITS/ML UNITS SQ SCH ×2 (06:03→22:18)
[2020-07-30 07:02] LABS: PROTHROMBIN TIME (PATIENT) 11.8 SEC (9.7-13.0)
[2020-07-30 07:05] LABS: ACTIVATED PTT 24.2 SECONDS (25.2-36.5)
[2020-07-30 07:18] LABS: BASO % 0.3 % (0-2.0); EOS % 1.1 % (0-4.5); HEMATOCRIT 24.2 % (32.4-45.2); HEMOGLOBIN 8.5 GM/dL (10.7-15.3); LYMPH % 11.9 % (8-40); MCH 30.6 pg (25.7-33.7); MEAN CELL VOLUME 87.4 fl (80-96); MEAN PLT VOLUME 7.9 fl (7.5-11.1); MONO % 6.3 % (3.8-10.2); NEUT % 80.4 % (42.8-82.8); PLATELET COUNT 374 K/MM3 (134-434); RBC 2.76 M/mm3 (3.60-5.2); WHITE BLOOD COUNT 12.5 K/mm3 (4.0-10.0)
[2020-07-30 07:25] LABS: ALBUMIN 1.3 g/dl (3.4-5.0); BILIRUBIN,TOTAL 0.5 mg/dL (0.2-1); BLOOD UREA NITROGEN 20.4 mg/dL (7-18); CALCIUM 7.1 mg/dL (8.5-10.1); CREATININE 0.4 mg/dL (0.55-1.3); POTASSIUM 3.2 mmol/L (3.5-5.1); TOT PROT 4.5 g/dl (6.4-8.2)
--- NOTE | 2020-07-30 07:56 | PN ---
Progress Note, Physician History of Present Illness: Pt assessed at bedside. Resting comfortably. Reports abdominal pain that is consistent with previous days at surgical site. Overnight: no acute events - Current Medication List Current Medications: Active Medications Acetaminophen (Ofirmev Injection -) 1,000 mg IVPB Q6H PRN PRN Reason: PAIN LEVEL 1-5 Chlorhexidine Gluconate (Hibiclens For Decolonization -) 1 applic TP HS [facility] Last Admin: 07/29/20 21:57 Dose: 1 applic Documented by: Pantoprazole Sodium 80 mg/ (Sodium Chloride) 100 mls @ 10 mls/hr IVPB Q10H [facility] Stop: 07/31/20 12:04 Last Admin: 07/30/20 03:50 Dose: Not Given Documented by: Potassium Chloride/Sodium Chloride (Ns+20 Meq Kcl -) 20 meq in 1,000 mls @ 75 mls/hr IV ASDIR [facility] Last Admin: 07/30/20 00:02 Dose: 75 mls/hr Documented by: Piperacillin Sod/Tazobactam (Sod 4.5 gm/ Dextrose) 100 mls @ 200 mls/hr IVPB Q8H-IV [facility]; Protocol Last Admin: 07/30/20 02:30 Dose: 200 mls/hr Documented by: Insulin Aspart (Novolog Vial Sliding Scale -) 1 vial SQ ACHS [facility]; Protocol Last Admin: 07/30/20 06:03 Dose: Not Given Documented by: Insulin Detemir (Levemir Vial) 6 units SQ BID@0700,2200 [facility] Last Admin: 07/30/20 06:03 Dose: Not Given Documented by: Metoclopramide HCl (Reglan Injection -) 10 mg IVPUSH Q6H-IV [facility] Last Admin: 07/30/20 02:30 Dose: 10 mg Documented by: Metoprolol Tartrate (Lopressor Injection -) 5 mg IVPB Q6H PRN PRN Reason: GIVE IF BP > 150/90 Mupirocin (Bactroban Ointment (For Decolonization) -) 1 applic NS BID [facility] Stop: 08/02/20 09:59 Last Admin: 07/29/20 21:56 Dose: 1 applic Documented by: Sodium Hypochlorite (Dakin's Solution 0.25% (Half-Strength) -) 1 applic TP DAILY [facility] Last Admin: 07/29/20 10:38 Dose: 1 applic Documented by: - Objective Vital Signs: Vital Signs Temperature 98.9 F 07/30/20 07:00 Pulse Rate 73 07/30/20 07:00 Respiratory Rate 15 07/30/20 07:00 Blood Pressure 138/56 L 07/30/20 07:00 O2 Sat by Pulse Oximetry (%) 100 07/30/20 07:00 Additional Findings/Remarks: Constitutional: Yes: Well Nourished, No Distress, Calm Eyes: Yes: Conjunctiva Clear, EOM Intact HENT: Yes: Atraumatic, Normocephalic, Other (NG tube with 500 cc tarry fluid) Cardiovascular: Yes: Regular Rate and Rhythm Respiratory: Yes: Regular, CTA Bilaterally Gastrointestinal: Yes: Normal Bowel Sounds, Soft, Other (colostomy bag with black tarry fluid, 2 SERGE drains. painful abdomen), dry clean staple sites Wound/Incision: Yes: Clean/Dry, Well Approximated, Sutures Intact, Dressing Dry and Intact Neurological: Yes: Alert, Oriented, Confusion Labs: K 3.2, Cl 114 CBC, BMP 07/30/20 05:45 INR, PTT INR 1.00 (0.83-1.09) 07/30/20 05:45 Impression/Plan Impression/Plan: Impression/Plan: 70 yo female POD#9 Gavin ([id number] w/ ostomy bag and repair of colo-vesicular fistula) admitted to ICU for Hemorrhagic Shock +/- Septic Shock Neuro - AMS, Alert & Oriented - hx CVA 3 months ago - hx schizophrenia, daughter is HCP Cardio - hx HTN -metoprolol (5mg IVPB, q6) , hold for SBP <100, HR <60 Pulm - on room air - sat 100% PEN/GI - Hartmans Procedure (07/22) - GI bleed- -NG- drained 200cc -Ostomy has melana - 2 SERGE Tubes draining serous fluid - Dr. Bronson EGD Scope (07/28) - bleeding at gastric cardia/fundus - suspected Dieulafoy or Cristel Morales - Dr. Cassidy for CT Angiogram (07/29) - consented by daughter over phone - limited visualization, unable to identify bleed - Dr. Bronson EGD Scope (07/30) - 2 gastric ulcers - no active bleeding - Pantoprazole(IVPB)(8mg/hour) - Metoclopramide (10mg, q6) - Hypokalemia, repleated - advance to clear liquid diet - UTI - Colovesical fistula - Indwelling Solorzano - Urine Clx yeast , previous culture grew Pseudomonas and E. coli. - Zosyn (4.5g) started on 07/22 - Dr. Blake following Heme - GI Bleed - Hb stable without active bleeding Endo - IDDM - Hold Novolog/Levemir due to NPO DVT ppx - Hold Heparin due to Bleeding Central Line (r. IJ) 07/28 Dispo: Floors (Dr. Desir) Visit type - Emergency Visit Emergency Visit: Yes ED Registration Date: 07/15/20 Care time: The patient presented to the Emergency Department on the above date and was hospitalized for further evaluation of their emergent condition. - New Patient This patient is new to me today: No - Critical Care Critical Care patient: No - Medication Review Med list reviewed for High Risk Meds patients 65 and older: Yes ATTENDING PHYSICIAN STATEMENT I saw and evaluated the patient. I reviewed the resident's note and discussed the case with the resident. I agree with the resident's findings and plan as documented. SUBJECTIVE: OBJECTIVE: ASSESSMENT AND PLAN:
--- NOTE | 2020-07-30 08:26 | PN ---
Progress Note, Physician History of Present Illness: Hypotensive, lethargic, dark stools in colostomy with significant anemia suspicious of UGI bleed. NGT with dark gastric contents, transfused 2 u pRBC with improved sensorium and hemodynamics, EGD shows gastric clot Dieulafoy lesion vs Critsel Morales tear. Hgb and hemodynamics stable. - Current Medication List Current Medications: Active Medications Acetaminophen (Ofirmev Injection -) 1,000 mg IVPB Q6H PRN PRN Reason: PAIN LEVEL 1-5 Chlorhexidine Gluconate (Hibiclens For Decolonization -) 1 applic TP HS [facility] Last Admin: 07/29/20 21:57 Dose: 1 applic Documented by: Pantoprazole Sodium 80 mg/ (Sodium Chloride) 100 mls @ 10 mls/hr IVPB Q10H [facility] Stop: 07/31/20 12:04 Last Admin: 07/30/20 03:50 Dose: Not Given Documented by: Potassium Chloride/Sodium Chloride (Ns+20 Meq Kcl -) 20 meq in 1,000 mls @ 75 mls/hr IV ASDIR [facility] Last Admin: 07/30/20 00:02 Dose: 75 mls/hr Documented by: Piperacillin Sod/Tazobactam (Sod 4.5 gm/ Dextrose) 100 mls @ 200 mls/hr IVPB Q8H-IV [facility]; Protocol Last Admin: 07/30/20 02:30 Dose: 200 mls/hr Documented by: Insulin Aspart (Novolog Vial Sliding Scale -) 1 vial SQ ACHS [facility]; Protocol Last Admin: 07/30/20 06:03 Dose: Not Given Documented by: Insulin Detemir (Levemir Vial) 6 units SQ BID@0700,2200 [facility] Last Admin: 07/30/20 06:03 Dose: Not Given Documented by: Metoclopramide HCl (Reglan Injection -) 10 mg IVPUSH Q6H-IV [facility] Last Admin: 07/30/20 02:30 Dose: 10 mg Documented by: Metoprolol Tartrate (Lopressor Injection -) 5 mg IVPB Q6H PRN PRN Reason: GIVE IF BP > 150/90 Mupirocin (Bactroban Ointment (For Decolonization) -) 1 applic NS BID [facility] Stop: 08/02/20 09:59 Last Admin: 07/29/20 21:56 Dose: 1 applic Documented by: Sodium Hypochlorite (Dakin's Solution 0.25% (Half-Strength) -) 1 applic TP DAILY [facility] Last Admin: 07/29/20 10:38 Dose: 1 applic Documented by: - Objective Vital Signs: Vital Signs Temperature 98.9 F 07/30/20 07:00 Pulse Rate 80 07/30/20 08:00 Respiratory Rate 18 07/30/20 08:00 Blood Pressure 136/68 07/30/20 08:00 O2 Sat by Pulse Oximetry (%) 100 07/30/20 08:00 Constitutional: Yes: No Distress, Calm Neck: Yes: Supple Cardiovascular: Yes: Regular Rate and Rhythm Respiratory: Yes: Regular, CTA Bilaterally Gastrointestinal: Yes: Soft, Hypoactive Bowel Sounds, Other (Colostomy with dark stools) ...Rectal Exam: Yes: Guaiac Positive Genitourinary: Yes: Solorzano Present Edema: No Labs: CBC, BMP 07/30/20 05:45 07/30/20 05:45 INR, PTT INR 1.00 (0.83-1.09) 07/30/20 05:45 - ....Imaging EKG: Report Reviewed (Tele: NSR) Problem List - Problems (1) Colonic diverticular abscess Code(s): K57.20 - DVTRCLI OF LG INT W PERFORATION AND ABSCESS W/O BLEEDING (2) Colovesical fistula Code(s): N32.1 - VESICOINTESTINAL FISTULA (3) CAD (coronary artery disease) Code(s): I25.10 - ATHSCL HEART DISEASE OF [place] CORONARY ARTERY W/O ANG PCTRS Qualifiers: Coronary Disease-Associated Artery/Lesion type: three [place] artery [place] vs. transplanted heart: three affiliated heart Associated angina: without angina Qualified Code(s): I25.10 - Atherosclerotic heart disease of [place] coronary artery without angina pectoris (4) Carotid stenosis, left Code(s): I65.22 - OCCLUSION AND STENOSIS OF LEFT CAROTID ARTERY (5) Cerebrovascular accident (CVA) Code(s): I63.9 - CEREBRAL INFARCTION, UNSPECIFIED Qualifiers: CVA mechanism: unspecified Qualified Code(s): I63.9 - Cerebral infarction, unspecified (6) Diabetes Code(s): E11.9 - TYPE 2 DIABETES MELLITUS WITHOUT COMPLICATIONS Qualifiers: Diabetes mellitus type: type 2 Diabetes mellitus terminal operator insulin use: with terminal operator use Diabetes mellitus complication status: with neurologic complications (7) HTN (hypertension) Code(s): I10 - ESSENTIAL (PRIMARY) HYPERTENSION Qualifiers: Hypertension type: essential hypertension Qualified Code(s): I10 - Essential (primary) hypertension (8) Hypercholesterolemia Code(s): E78.00 - PURE HYPERCHOLESTEROLEMIA, UNSPECIFIED (9) Hypothyroidism Code(s): E03.9 - HYPOTHYROIDISM, UNSPECIFIED Qualifiers: Hypothyroidism type: unspecified Qualified Code(s): E03.9 - Hypothyroidism, unspecified (10) GI hemorrhage Code(s): K92.2 - GASTROINTESTINAL HEMORRHAGE, UNSPECIFIED Qualifiers: GI bleed type/associated pathology: melena Qualified Code(s): K92.1 - Melena Assessment/Plan 04/12/2020 ECHO: normal LVEF; abnormal diastolic compliance, Tr TR 1. Post Gavin's procedure for complicated diverticulitis with abscess and colovesicular fistula 2. Diastolic dysfunction 3. Poorly controlled DM 4. HTN 5. Chronic stroke 6. Multi-infarct dementia 7. Hypokalemia resolved 8. UGI bleed, melena with acute blood loss anemia s/p 2 u pRBC 9. UTI 10. Lactic acidoses improving PLAN: 1. Empiric antibiotic per ID 2. Volume resuscitation, pressors as needed MAP>65 mmHg, Protonix gtt, pRBC transfusion 3. Lopressor 5 IV q6 prn as hemodynamics tolerate 4. Mechanical DVT prophylaxis 5. Post-op management 6. Monitor Hgb post transfusion, replete K 7. Abd & pelvic CTA showed no bleeding source
[2020-07-30] MEDS: MUPIROCIN 2% TOPICAL OINTMENT FOR DECOLONIZATION NS SCH ×2 (09:10→21:16)
[2020-07-30] MEDS: SODIUM HYPOCHLORITE 0.25%- 473 ML BULK BOTTLE TP SCH (09:11)
--- NOTE | 2020-07-30 10:02 | PN ---
Progress Note, Physician Chief Complaint: CTA no obvious source of bleeding s/p PRBC will go for another EGD today awake alert NAD VSS - Current Medication List Current Medications: Active Medications Acetaminophen (Ofirmev Injection -) 1,000 mg IVPB Q6H PRN PRN Reason: PAIN LEVEL 1-5 Chlorhexidine Gluconate (Hibiclens For Decolonization -) 1 applic TP HS [facility] Last Admin: 07/29/20 21:57 Dose: 1 applic Documented by: Pantoprazole Sodium 80 mg/ (Sodium Chloride) 100 mls @ 10 mls/hr IVPB Q10H [facility] Stop: 07/31/20 12:04 Last Admin: 07/30/20 03:50 Dose: Not Given Documented by: Potassium Chloride/Sodium Chloride (Ns+20 Meq Kcl -) 20 meq in 1,000 mls @ 75 mls/hr IV ASDIR [facility] Last Admin: 07/30/20 00:02 Dose: 75 mls/hr Documented by: Piperacillin Sod/Tazobactam (Sod 4.5 gm/ Dextrose) 100 mls @ 200 mls/hr IVPB Q8H-IV [facility]; Protocol Last Admin: 07/30/20 09:11 Dose: 200 mls/hr Documented by: Insulin Aspart (Novolog Vial Sliding Scale -) 1 vial SQ ACHS [facility]; Protocol Last Admin: 07/30/20 06:03 Dose: Not Given Documented by: Insulin Detemir (Levemir Vial) 6 units SQ BID@0700,2200 [facility] Last Admin: 07/30/20 06:03 Dose: Not Given Documented by: Metoclopramide HCl (Reglan Injection -) 10 mg IVPUSH Q6H-IV [facility] Last Admin: 07/30/20 09:10 Dose: 10 mg Documented by: Metoprolol Tartrate (Lopressor Injection -) 5 mg IVPB Q6H PRN PRN Reason: GIVE IF BP > 150/90 Mupirocin (Bactroban Ointment (For Decolonization) -) 1 applic NS BID [facility] Stop: 08/02/20 09:59 Last Admin: 07/30/20 09:10 Dose: 1 applic Documented by: Sodium Hypochlorite (Dakin's Solution 0.25% (Half-Strength) -) 1 applic TP DAILY [facility] Last Admin: 07/30/20 09:11 Dose: 1 applic Documented by: - Objective Vital Signs: Vital Signs Temperature 98.9 F 07/30/20 07:00 Pulse Rate 80 07/30/20 08:00 Respiratory Rate 18 07/30/20 08:00 Blood Pressure 136/68 07/30/20 08:00 O2 Sat by Pulse Oximetry (%) 100 07/30/20 08:00 Constitutional: Yes: No Distress, Calm Eyes: Yes: Conjunctiva Clear HENT: Yes: Atraumatic Neck: Yes: Supple Cardiovascular: Yes: Regular Rate and Rhythm Respiratory: Yes: Diminished Gastrointestinal: Yes: Soft. No: Tenderness Genitourinary: No: Hematuria Musculoskeletal: No: Joint Stiffness, Joint Swelling Extremities: No: Cold, Cool, Cyanosis Edema: No Integumentary: No: Rash Neurological: Yes: Alert ...Motor Strength: LUE (4/5), LLE (4/5) Psychiatric: Yes: Alert. No: Agitated Labs: CBC, BMP 07/30/20 05:45 07/30/20 05:45 INR, PTT INR 1.00 (0.83-1.09) 07/30/20 05:45 - ....Imaging Other: Report Reviewed Assessment/Plan The patient is a 70y/o F with a pmh of CVA (3months ago), IDDM, HTN admitted with sepsis diverticulitis with abscesses and UTI, also hydronephrosis; s/p Faustino procedure; GIB ; transferred to ICU s/p EGD - clot; s/p CTA no source of bleeding repeat EGD today IVF; IVF/ clinimix; ivATB per ID; IV PPI f/u labs cardio and neuro f/u, ID, renal, GI, f/u hold ASA and heparin d/w GI d/w staff; d/w pt - prognosis guarded; turn in bed decubs pfx t time 35 min
--- NOTE | 2020-07-30 10:34 | PN ---
Progress Note (short form) - Note Progress Note: GI PROCEDURE NOTE: After informed consent was obtained from the patient's daughter, upper endoscopy was performed. Please see scanned EGD report. EGD revealed two GE-junction ulcers, one with a visible vessel but without active bleeding. The patient also had two two gastric body ulcers, that did not have active bleeding. A biopsy was taken in the antrum to exclude H pylori. The findings were discussed with the daughter(Josee De Guzman). Pt can start clear liquid diet please continue with PPI gtt Problem List - Problems (1) Esophageal ulcer with bleeding Problems reviewed: Yes (2) Gastric ulcer with hemorrhage Problems reviewed: Yes Code(s): K25.4 - CHRONIC OR UNSPECIFIED GASTRIC ULCER WITH HEMORRHAGE Qualifiers: Gastric ulcer chronicity: acute Qualified Code(s): K25.0 - Acute gastric ulcer with hemorrhage (3) Hematemesis of unknown etiology Code(s): K92.0 - HEMATEMESIS (4) GI hemorrhage Code(s): K92.2 - GASTROINTESTINAL HEMORRHAGE, UNSPECIFIED Qualifiers: GI bleed type/associated pathology: melena Qualified Code(s): K92.1 - Melena (5) Colonic diverticular abscess Code(s): K57.20 - DVTRCLI OF LG INT W PERFORATION AND ABSCESS W/O BLEEDING (6) Colovesical fistula Code(s): N32.1 - VESICOINTESTINAL FISTULA (7) Bilateral hydronephrosis Code(s): N13.30 - UNSPECIFIED HYDRONEPHROSIS (8) Urinary tract infection Code(s): N39.0 - URINARY TRACT INFECTION, SITE NOT SPECIFIED Qualifiers: Urinary tract infection type: acute pyelonephritis Qualified Code(s): N10 - Acute pyelonephritis (9) CAD (coronary artery disease) Code(s): I25.10 - ATHSCL HEART DISEASE OF [place] CORONARY ARTERY W/O ANG PCTRS Qualifiers: Coronary Disease-Associated Artery/Lesion type: [place] artery [place] vs. transplanted heart: [place] heart Associated angina: without angina Qualified Code(s): I25.10 - Atherosclerotic heart disease of [place] coronary artery without angina pectoris (10) Cerebrovascular accident (CVA) Code(s): I63.9 - CEREBRAL INFARCTION, UNSPECIFIED Qualifiers: CVA mechanism: unspecified Qualified Code(s): I63.9 - Cerebral infarction, unspecified (11) Diabetes Code(s): E11.9 - TYPE 2 DIABETES MELLITUS WITHOUT COMPLICATIONS Qualifiers: Diabetes mellitus type: type 2 Diabetes mellitus manager intermediate insulin use: with manager intermediate use Diabetes mellitus complication status: with neurologic complications (12) HTN (hypertension) Code(s): I10 - ESSENTIAL (PRIMARY) HYPERTENSION Qualifiers: Hypertension type: essential hypertension Qualified Code(s): I10 - Essential (primary) hypertension (13) Hypercholesterolemia Code(s): E78.00 - PURE HYPERCHOLESTEROLEMIA, UNSPECIFIED (14) Hypothyroidism Code(s): E03.9 - HYPOTHYROIDISM, UNSPECIFIED Qualifiers: Hypothyroidism type: unspecified Qualified Code(s): E03.9 - Hypothyroidism, unspecified (15) Schizophrenia Code(s): F20.9 - SCHIZOPHRENIA, UNSPECIFIED
[2020-07-30 10:39] LABS: ANISOCYTOSIS 1+; MACROCYTOSIS 0; OVALOCYTE 1+; PLATELET ESTIMATE NORMAL; TOXIC GRANULATION 1+
[2020-07-30] MEDS: KCL 10 MEQ IVPB 10 MEQ/100 ML INFUS.BAG IVPB SCH ×3 (11:58→14:30)
--- NOTE | 2020-07-30 12:10 | PN ---
Progress Note (short form) - Note Progress Note: Surgery-POD#8 Repeat EGD today-2 non-bleeding ulcer at the EG junction and 2 ulcers in the gastric body. Biopsy taken of the gastric ulcers to r/o h pylori. Vital Signs Period Temp Pulse Resp BP Sys/Ferrer Pulse Ox Last 24 Hr 97.8 F-98.9 F 68-82 13-27 116-154/51-85 94-100 SERGE: 20ml serosangrenous LLQ: 20ml serous GEN: arousable ABD: intermittent shayan intact. Incision clean and fascia intact. Ostomy- pink and viable and with black liquid stool. ABD soft and non-distended. JPs removed today with the tip intact. 4x4 gauze and tegaderm dressing applied. CBC, BMP 07/30/20 05:45 07/30/20 05:45 A/P: 70 yo female s/p hartmans for complicated diverticulitits, now with GI bleed stable s/p EGD x2. Pt on IV protonix drip Hold all anticoagulation May begin clears if cleared by GI Local wound care D/w Dr. Horton
--- NOTE | 2020-07-30 12:34 | PN ---
Teaching Attending Note Name of Resident: Jaylen Edgardo ATTENDING PHYSICIAN STATEMENT I saw and evaluated the patient. I reviewed the resident's note and discussed the case with the resident. I agree with the resident's findings and plan as documented. SUBJECTIVE: The patient seen and examined in the ICU. Awake but confused. No occult bleeding noted overnight. S/P EGD: 2 GE-junction ulcers, one with a visible vessel but without active bleeding. The patient also had two two gastric body ulcers, that did not have active bleeding. Intake & Output 07/27/20 07/28/20 07/29/20 07/30/20 23:59 23:59 23:59 23:59 Intake Total 1208 2500 3570 1065 Output Total 1229 1755 1500 415 Balance -21 745 2070 650 Last Vital Signs Temp Pulse Resp BP Pulse Ox 97.8 F 77 18 154/85 100 07/30/20 10:00 07/30/20 12:00 07/30/20 12:00 07/30/20 12:00 07/30/20 12:00 Active Medications Acetaminophen (Ofirmev Injection -) 1,000 mg IVPB Q6H PRN PRN Reason: PAIN LEVEL 1-5 Chlorhexidine Gluconate (Hibiclens For Decolonization -) 1 applic TP HS JC Last Admin: 07/29/20 21:57 Dose: 1 applic Documented by: Pantoprazole Sodium 80 mg/ (Sodium Chloride) 100 mls @ 10 mls/hr IVPB Q10H [facility] Stop: 07/31/20 12:04 Last Admin: 07/30/20 03:50 Dose: Not Given Documented by: Potassium Chloride/Sodium Chloride (Ns+20 Meq Kcl -) 20 meq in 1,000 mls @ 75 mls/hr IV ASDIR JC Last Admin: 07/30/20 00:02 Dose: 75 mls/hr Documented by: Piperacillin Sod/Tazobactam (Sod 4.5 gm/ Dextrose) 100 mls @ 200 mls/hr IVPB Q8H-IV JC; Protocol Last Admin: 07/30/20 09:11 Dose: 200 mls/hr Documented by: Potassium Chloride (Potassium Chloride 10 Meq Premix Ivpb -) 10 meq in 100 mls @ 100 mls/hr IVPB Q60M [facility] Stop: 07/30/20 13:44 Last Admin: 07/30/20 11:58 Dose: 100 mls/hr Documented by: Insulin Aspart (Novolog Vial Sliding Scale -) 1 vial SQ ACHS [facility]; Protocol Last Admin: 07/30/20 11:59 Dose: Not Given Documented by: Insulin Detemir (Levemir Vial) 6 units SQ BID@0700,2200 [facility] Last Admin: 07/30/20 06:03 Dose: Not Given Documented by: Metoprolol Tartrate (Lopressor Injection -) 5 mg IVPB Q6H PRN PRN Reason: GIVE IF BP > 150/90 Mupirocin (Bactroban Ointment (For Decolonization) -) 1 applic NS BID [facility] Stop: 08/02/20 09:59 Last Admin: 07/30/20 09:10 Dose: 1 applic Documented by: Sodium Hypochlorite (Dakin's Solution 0.25% (Half-Strength) -) 1 applic TP DAILY [facility] Last Admin: 07/30/20 09:11 Dose: 1 applic Documented by: GENERAL: Awake, not oriented, altered from baseline HEAD: Normal with no signs of trauma. EYES: PERRL, EOMI, conjunctiva pale ENT: dry mucous membranes. NECK: Normal range of motion LUNGS: CTA BL HEART: RRR ABDOMEN: Obese, soft, colostomy bag in place draining dark black feces UPPER EXTREMITIES: non pitting edema, tips of fingers cold, rest of extremities warm LOWER EXTREMITIES: non pitting edema, toes cold, rest of extremities warm. NEUROLOGICAL: Non-focal SKIN: no rashes or lesions noted. Laboratory Results - last 24 hr 07/29/20 07/29/20 07/29/20 14:50 16:49 21:48 WBC 13.4 H RBC 2.94 L Hgb 9.0 L Hct 26.1 L D MCV 88.8 MCH 30.6 MCHC 34.4 RDW 14.6 Plt Count 343 MPV 8.1 Absolute Neuts (auto) 11.2 H Neutrophils % 83.0 H Neutrophils % (Manual) 80.0 Band Neutrophils % 0.0 Lymphocytes % 11.1 D Lymphocytes % (Manual) 13.0 D Monocytes % 5.1 Monocytes % (Manual) 2 L Eosinophils % 0.3 D Eosinophils % (Manual) 2.0 D Basophils % 0.5 D Basophils % (Manual) 0.0 Myelocytes % (Man) 0 Promyelocytes % (Man) 0 Blast Cells % (Manual) 0 Nucleated RBC % 0 Metamyelocytes 0 Hypochromia 0 Toxic Granulation Platelet Estimate Normal Polychromasia 1+ Poikilocytosis 1+ Anisocytosis 2+ Microcytosis 2+ Macrocytosis 0 Spherocytes Ovalocytes Michelle Cells 1+ Schistocytes PT with INR INR PTT (Actin FS) Sodium Potassium Chloride Carbon Dioxide Anion Gap BUN Creatinine Est GFR (CKD-EPI)AfAm Est GFR (CKD-EPI)NonAf POC Glucometer 127 114 Random Glucose Calcium Total Bilirubin AST ALT Alkaline Phosphatase Total Protein Albumin Stool Occult Blood 07/30/20 07/30/20 07/30/20 05:45 05:45 05:45 WBC 12.5 H RBC 2.76 L Hgb 8.5 L Hct 24.2 L MCV 87.4 MCH 30.6 MCHC 35.0 RDW 15.0 Plt Count 374 MPV 7.9 Absolute Neuts (auto) 10.0 H Neutrophils % 80.4 Neutrophils % (Manual) 85.0 H Band Neutrophils % 2.0 Lymphocytes % 11.9 Lymphocytes % (Manual) 7.0 L D Monocytes % 6.3 Monocytes % (Manual) 3 L Eosinophils % 1.1 D Eosinophils % (Manual) 2.0 Basophils % 0.3 Basophils % (Manual) 0.0 Myelocytes % (Man) 0 Promyelocytes % (Man) 0 Blast Cells % (Manual) 0 Nucleated RBC % 0 Metamyelocytes 0 Hypochromia 0 Toxic Granulation 1+ Platelet Estimate Normal Polychromasia 1+ Poikilocytosis 2+ Anisocytosis 1+ Microcytosis 1+ Macrocytosis 0 Spherocytes 1+ Ovalocytes 1+ [place] Cells 1+ Schistocytes 1+ PT with INR 11.80 INR 1.00 PTT (Actin FS) 24.2 L Sodium 146 H Potassium 3.2 L Chloride 114 H Carbon Dioxide 25 Anion Gap 7 L BUN 20.4 H Creatinine 0.4 L Est GFR (CKD-EPI)AfAm 120.60 Est GFR (CKD-EPI)NonAf 104.06 POC Glucometer Random Glucose 117 H Calcium 7.1 L Total Bilirubin 0.5 AST 46 H ALT 43 Alkaline Phosphatase 58 Total Protein 4.5 L Albumin 1.3 L Stool Occult Blood 07/30/20 07/30/20 07/30/20 05:52 06:01 11:55 WBC RBC Hgb Hct MCV MCH MCHC RDW Plt Count MPV Absolute Neuts (auto) Neutrophils % Neutrophils % (Manual) Band Neutrophils % Lymphocytes % Lymphocytes % (Manual) Monocytes % Monocytes % (Manual) Eosinophils % Eosinophils % (Manual) Basophils % Basophils % (Manual) Myelocytes % (Man) Promyelocytes % (Man) Blast Cells % (Manual) Nucleated RBC % Metamyelocytes Hypochromia Toxic Granulation Platelet Estimate Polychromasia Poikilocytosis Anisocytosis Microcytosis Macrocytosis Spherocytes Ovalocytes [place] Cells Schistocytes PT with INR INR PTT (Actin FS) Sodium Potassium Chloride Carbon Dioxide Anion Gap BUN Creatinine Est GFR (CKD-EPI)AfAm Est GFR (CKD-EPI)NonAf POC Glucometer 109 108 Random Glucose Calcium Total Bilirubin AST ALT Alkaline Phosphatase Total Protein Albumin Stool Occult Blood Positive ASSESSMENT/PLAN: S/P EGD: 2 GE-junction ulcers, one with a visible vessel but without active bleeding. The patient also had two two gastric body ulcers, that did not have active bleeding. CVA (3months ago) IDDM HTN UTI secondary to colovesical fistula, 2/2 complicated sigmoid colon diverticulitis S/P IRD of pelvic abscesses with a Hartmans procedure and repair of colovesical fistula on 07/22. Normal transfusion Supplemental O2 as needed VTE prophylaxis IVF Aspiration precautions ABX per ID PPI Dr Pierce
--- NOTE | 2020-07-30 14:03 | DS ---
Physical Exam: SUBJECTIVE: Patient seen and examined at bedside. Pt complains of abdominal pain at the surgical site. Otherwise no acute events overnight. OBJECTIVE: Vital Signs Period Temp Pulse Resp BP Sys/Ferrer Pulse Ox Last 24 Hr 97.8 F-98.9 F 68-82 13-27 116-154/51-85 94-100 PHYSICAL EXAM Constitutional: Yes: Well Nourished, No Distress, Calm Eyes: Yes: Conjunctiva Clear, EOM Intact HENT: Yes: Atraumatic, Normocephalic, Other (NG tube with 500 cc tarry fluid) Cardiovascular: Yes: Regular Rate and Rhythm Respiratory: Yes: Regular, CTA Bilaterally Gastrointestinal: Yes: Normal Bowel Sounds, Soft, Other (colostomy bag with black tarry fluid, 2 SERGE drains. painful abdomen), dry clean staple sites Wound/Incision: Yes: Clean/Dry, Well Approximated, Sutures Intact, Dressing Dry and Intact Neurological: Yes: Alert, Oriented, Confusion LABS Laboratory Results - last 24 hr 07/28/20 07/29/20 07/29/20 06:55 14:50 16:49 WBC 13.4 H RBC 2.94 L Hgb 9.0 L Hct 26.1 L D MCV 88.8 MCH 30.6 MCHC 34.4 RDW 14.6 Plt Count 343 MPV 8.1 Absolute Neuts (auto) 11.2 H Neutrophils % 83.0 H Neutrophils % (Manual) 80.0 Band Neutrophils % 0.0 Lymphocytes % 11.1 D Lymphocytes % (Manual) 13.0 D Monocytes % 5.1 Monocytes % (Manual) 2 L Eosinophils % 0.3 D Eosinophils % (Manual) 2.0 D Basophils % 0.5 D Basophils % (Manual) 0.0 Myelocytes % (Man) 0 Promyelocytes % (Man) 0 Blast Cells % (Manual) 0 Nucleated RBC % 0 Metamyelocytes 0 Hypochromia 0 Toxic Granulation Platelet Estimate Normal Polychromasia 1+ Poikilocytosis 1+ Anisocytosis 2+ Microcytosis 2+ Macrocytosis 0 Spherocytes Ovalocytes Michelle Cells 1+ Schistocytes PT with INR INR PTT (Actin FS) Sodium Potassium Chloride Carbon Dioxide Anion Gap BUN Creatinine Est GFR (CKD-EPI)AfAm Est GFR (CKD-EPI)NonAf POC Glucometer 127 Random Glucose Calcium Total Bilirubin AST ALT Alkaline Phosphatase Total Protein Albumin Stool Occult Blood Crossmatch See Detail 07/29/20 07/30/20 07/30/20 21:48 05:45 05:45 WBC RBC Hgb Hct MCV MCH MCHC RDW Plt Count MPV Absolute Neuts (auto) Neutrophils % Neutrophils % (Manual) Band Neutrophils % Lymphocytes % Lymphocytes % (Manual) Monocytes % Monocytes % (Manual) Eosinophils % Eosinophils % (Manual) Basophils % Basophils % (Manual) Myelocytes % (Man) Promyelocytes % (Man) Blast Cells % (Manual) Nucleated RBC % Metamyelocytes Hypochromia Toxic Granulation Platelet Estimate Polychromasia Poikilocytosis Anisocytosis Microcytosis Macrocytosis Spherocytes Ovalocytes [place] Cells Schistocytes PT with INR 11.80 INR 1.00 PTT (Actin FS) 24.2 L Sodium 146 H Potassium 3.2 L Chloride 114 H Carbon Dioxide 25 Anion Gap 7 L BUN 20.4 H Creatinine 0.4 L Est GFR (CKD-EPI)AfAm 120.60 Est GFR (CKD-EPI)NonAf 104.06 POC Glucometer 114 Random Glucose 117 H Calcium 7.1 L Total Bilirubin 0.5 AST 46 H ALT 43 Alkaline Phosphatase 58 Total Protein 4.5 L Albumin 1.3 L Stool Occult Blood Crossmatch 07/30/20 07/30/20 07/30/20 05:45 05:52 06:01 WBC 12.5 H RBC 2.76 L Hgb 8.5 L Hct 24.2 L MCV 87.4 MCH 30.6 MCHC 35.0 RDW 15.0 Plt Count 374 MPV 7.9 Absolute Neuts (auto) 10.0 H Neutrophils % 80.4 Neutrophils % (Manual) 85.0 H Band Neutrophils % 2.0 Lymphocytes % 11.9 Lymphocytes % (Manual) 7.0 L D Monocytes % 6.3 Monocytes % (Manual) 3 L Eosinophils % 1.1 D Eosinophils % (Manual) 2.0 Basophils % 0.3 Basophils % (Manual) 0.0 Myelocytes % (Man) 0 Promyelocytes % (Man) 0 Blast Cells % (Manual) 0 Nucleated RBC % 0 Metamyelocytes 0 Hypochromia 0 Toxic Granulation 1+ Platelet Estimate Normal Polychromasia 1+ Poikilocytosis 2+ Anisocytosis 1+ Microcytosis 1+ Macrocytosis 0 Spherocytes 1+ Ovalocytes 1+ Michelle Cells 1+ Schistocytes 1+ PT with INR INR PTT (Actin FS) Sodium Potassium Chloride Carbon Dioxide Anion Gap BUN Creatinine Est GFR (CKD-EPI)AfAm Est GFR (CKD-EPI)NonAf POC Glucometer 109 Random Glucose Calcium Total Bilirubin AST ALT Alkaline Phosphatase Total Protein Albumin Stool Occult Blood Positive Crossmatch 07/30/20 11:55 WBC RBC Hgb Hct MCV MCH MCHC RDW Plt Count MPV Absolute Neuts (auto) Neutrophils % Neutrophils % (Manual) Band Neutrophils % Lymphocytes % Lymphocytes % (Manual) Monocytes % Monocytes % (Manual) Eosinophils % Eosinophils % (Manual) Basophils % Basophils % (Manual) Myelocytes % (Man) Promyelocytes % (Man) Blast Cells % (Manual) Nucleated RBC % Metamyelocytes Hypochromia Toxic Granulation Platelet Estimate Polychromasia Poikilocytosis Anisocytosis Microcytosis Macrocytosis Spherocytes Ovalocytes [place] Cells Schistocytes PT with INR INR PTT (Actin FS) Sodium Potassium Chloride Carbon Dioxide Anion Gap BUN Creatinine Est GFR (CKD-EPI)AfAm Est GFR (CKD-EPI)NonAf POC Glucometer 108 Random Glucose Calcium Total Bilirubin AST ALT Alkaline Phosphatase Total Protein Albumin Stool Occult Blood Crossmatch HOSPITAL COURSE: Date of Admission:07/15/20 Date of Discharge: 07/30/20 Minutes to complete discharge: 30 Discharge Summary Problems reviewed: Yes Reason For Visit: URINARY TRACT INFECTION Current Active Problems Abdominal pain (Acute) Bilateral hydronephrosis (Acute) Colonic diverticular abscess (Acute) Colovesical fistula (Acute) Esophageal ulcer with bleeding (Acute) GI hemorrhage (Acute) Gastric ulcer with hemorrhage (Acute) Hematemesis of unknown etiology (Acute) Hyponatremia (Acute) Leukocytosis (Acute) Pre-operative cardiovascular examination (Acute) Urinary tract infection (Acute) Hospital Course: The patient is a 70 yo F with a pmh of CVA (3months ago), IDDM, HTN. She was brought in by EMS from her PCP clinic. She presented to the ED with intermittent lower abdominal/ suprapubic pain, urinary frequency, urgency and dysuria for 2 weeks. Per daughter, the urine is fouls smelling, but denies hematuria. Daughter reports 2 weeks of decreased appetite. In the hospital, she was found to be altered from baseline. CT Head was negative for any acute intracranial pathology. CT Abd/Pelvic found acute sigmoid diverticulitis with 3 possible diverticular abscesses with evidence suggesting primary inflammatory bowel disease as well as Bilateral hydrnephrosis. Dr. 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 Dr. Horton performed Hartmnans surgery to remove a portion of the sigmoid colon and correct the colo-vesicular fistula. Pt was kept NPO after surgery. The NG tube and colostomy bag placed contained dark maroon fluid suggesting a GI bleed. Dr. Bronson performed an EGD which identified bleeding in the gastric cardia/fundus suspicious of Dieulafoy or Cristel Morales. Dr. Cassidy performed a CT Angiogram with out any conclusive evidence for the bleeding source due to motion artifact. Dr Bronson performed another EGD which identified 2 gastric ulcers without active bleeding. Pt is vitally stable. Dark melena continues to drain from the NG and colostomy bag. Hemoglobin is currently stable at 8.5 but over the course of her stay, she received 7 units of pRBC. Stool occult test was positive for blood. Clear liquid diet is started on 07/30 as tolerated. Consider starting back on Novolog/Levemir once diet is advanced. Pt is placed on Pantoprazole (8mg/hr) and Metoclopramide (10mg, q6) for GI prophylaxis. Condition: Stable - Instructions Diet, Activity, Other Instructions: Dr. Horton Discharge Instructions Dear DAGOBERTO VAZQUEZ, Post Operative Instructions Physical activity Resume your normal everyday activity as tolerated no heavy lifting or exercise until seen by your surgeon. You may walk unlimited amounts. Wound care Changing Your Ostomy Pouch Home care: Remove the used pouch and empty into the toilet. Starting at the upper edge of the skin barrier, carefully push the skin away from the barrier with one hand. Slowly peel back the skin barrier with the other hand. Peel all the way around the skin barrier until the pouch comes off. Seal the pouch in a plastic bag. Then put it in a second plastic bag. Throw it away in a trash bin. Clean around the stoma: Wipe any stool off the skin around the stoma with toilet paper. Clean the skin with warm water and a soft washcloth. Wash right up to the edge of the stoma. Pat the skin dry with a clean towel. If needed, put on extra skin protection, such as moisture barrier cream or powder. Put on the new pouch: Peel the backing off the skin barrier. Place the precut skin barrier over the stoma. If you dont use a pouch with a precut skin barrier, size and cut the opening (1/16 inch bigger than the stoma) and peel the backing off the skin barrier. Carefully place it over the stoma. The pouch opening should point toward your feet. If using a pouch with a clamp at the base, it may be easier to apply the clamp to the pouch first. Snap the pouch onto the barrier flange (if you use a 2-piece pouch). Press the barrier against your skin. Hold it in place for 45 seconds. Clamp the tail of the pouch (if drainable or reusable). Wash your hands with clean, warm or cold water for at least 20 seconds when you are done. Diet There are no dietary restrictions. Eat healthy, high-fiber foods. Drink 6 to 8 glasses of liquid each day. This will assist in keeping your bowels are regular. Pain management You may take Tylenol or acetaminophen or Ibuprofen (for example, Motrin, Advil etc.). Call Dr. Horton for any of the following: Severe pain not relieved by medication Fever of 101 or higher Excessive bleeding or drainage on dressing Inability to urinate Call the office at [phone] for a post operative appointment in 7 - 10 days. Referrals: Beatriz Desir [Primary Care Provider] - Raghu Horton MD [Staff Physician] - 1 Week - Home Medications Comprehensive Discharge Medication List: Ambulatory Orders Escitalopram Oxalate [Lexapro -] 20 mg PO HS 04/10/20 Aspirin [ASA -] 325 mg PO DAILY tablet 04/15/20 Atorvastatin Ca [Lipitor] 80 mg PO HS tablet 04/15/20 Insulin Sliding Scale [Novolog Vial Sliding Scale -] 1 vial SQ ACHS units 04/15/20 Metoprolol Succinate [Toprol XL -] 50 mg PO DAILY tab.sr.24h 04/15/20 Insulin (Levemir) [Levemir Vial] 16 units SQ DAILY 07/15/20 metFORMIN HCL [Glucophage -] 500 mg PO BID@0700,1630 07/15/20 Hydrochlorothiazide 25 mg PO DAILY 07/28/20 Risperidone 3 mg PO DAILY 07/28/20 traZODone HCL [Trazodone HCl] 50 mg PO HS 07/28/20 This patient is new to me today: No Emergency Visit: Yes ED Registration Date: 07/15/20 Care time: The patient presented to the Emergency Department on the above date and was hospitalized for further evaluation of their emergent condition. Critical Care patient: No - Discharge Referral Referred to [facility] No ATTENDING PHYSICIAN STATEMENT I saw and evaluated the patient. I reviewed the resident's note and discussed the case with the resident. I agree with the resident's findings and plan as documented. SUBJECTIVE: OBJECTIVE: ASSESSMENT AND PLAN:
--- NOTE | 2020-07-30 15:15 | PN ---
Progress Note (short form) - Note Progress Note: doing well returned from EGD 2 ulcers one with visible blood vessel noted Vital Signs Period Temp Pulse Resp BP Sys/Ferrer Pulse Ox Last 24 Hr 97.8 F-98.9 F 68-86 13-27 116-154/51-85 94-100 cor-rrr llungs clear abd soft,nt +ostomy with black stool, grace drainas removed ext no edema CBC, BMP 07/30/20 05:45 07/30/20 05:45 Microbiology 07/28/20 10:20 Blood - Peripheral Venous Blood Culture - Preliminary NO GROWTH OBTAINED AFTER 48 HOURS, INCUBATION TO CONTINUE FOR 3 DAYS. 07/28/20 10:20 Blood - Peripheral Venous Blood Culture - Preliminary NO GROWTH OBTAINED AFTER 48 HOURS, INCUBATION TO CONTINUE FOR 3 DAYS. 07/28/20 10:30 Urine - Urine - Catheterized Urine Culture - Final Yeast Like Organism 07/22/20 09:37 Abdomen Gram Stain - Final 07/22/20 09:37 Abdomen Wound Culture - Final Pseudomonas Aeruginosa Escherichia Coli 07/15/20 20:10 Blood - Peripheral Venous Blood Culture - Final NO GROWTH AFTER 5 DAYS INCUBATION 07/15/20 20:10 Blood - Peripheral Venous Blood Culture - Final NO GROWTH AFTER 5 DAYS INCUBATION 07/18/20 15:00 Stool Clostridioides difficile Antigen - Final 07/18/20 15:00 Stool Clostridioides difficile Toxin Assay - Final 07/15/20 15:10 Urine - Urine Clean Catch Urine Culture - Final Pseudomonas Aeruginosa Escherichia Coli a/p s/p armstrong's procedure 07/22 for complicated diverticulitis with abscesses s/p UGI bleed on zosyn, to continue until WBC normalizes Problem List - Problems (1) Abdominal pain Code(s): R10.9 - UNSPECIFIED ABDOMINAL PAIN (2) Leukocytosis Code(s): D72.829 - ELEVATED WHITE BLOOD CELL COUNT, UNSPECIFIED (3) Urinary tract infection Code(s): N39.0 - URINARY TRACT INFECTION, SITE NOT SPECIFIED Qualifiers: Urinary tract infection type: acute pyelonephritis Qualified Code(s): N10 - Acute pyelonephritis (4) Hyponatremia Code(s): E87.1 - HYPO-OSMOLALITY AND HYPONATREMIA
--- NOTE | 2020-07-30 16:10 | PN ---
Progress Note, Physician History of Present Illness: Seen and examined at the bedside s/p EGD with 2 ulcers and 1 visable vessel. on IVF. pt sleeping, no distress. - Current Medication List Current Medications: Active Medications Acetaminophen (Ofirmev Injection -) 1,000 mg IVPB Q6H PRN PRN Reason: PAIN LEVEL 1-5 Chlorhexidine Gluconate (Hibiclens For Decolonization -) 1 applic TP HS [facility] Last Admin: 07/29/20 21:57 Dose: 1 applic Documented by: Pantoprazole Sodium 80 mg/ (Sodium Chloride) 100 mls @ 10 mls/hr IVPB Q10H [facility] Stop: 07/31/20 12:04 Last Admin: 07/30/20 03:50 Dose: Not Given Documented by: Potassium Chloride/Sodium Chloride (Ns+20 Meq Kcl -) 20 meq in 1,000 mls @ 75 mls/hr IV ASDIR [facility] Last Admin: 07/30/20 00:02 Dose: 75 mls/hr Documented by: Piperacillin Sod/Tazobactam (Sod 4.5 gm/ Dextrose) 100 mls @ 200 mls/hr IVPB Q8H-IV [facility]; Protocol Last Admin: 07/30/20 09:11 Dose: 200 mls/hr Documented by: Insulin Aspart (Novolog Vial Sliding Scale -) 1 vial SQ ACHS [facility]; Protocol Last Admin: 07/30/20 11:59 Dose: Not Given Documented by: Insulin Detemir (Levemir Vial) 6 units SQ BID@0700,2200 [facility] Last Admin: 07/30/20 06:03 Dose: Not Given Documented by: Metoprolol Tartrate (Lopressor Injection -) 5 mg IVPB Q6H PRN PRN Reason: GIVE IF BP > 150/90 Mupirocin (Bactroban Ointment (For Decolonization) -) 1 applic NS BID [facility] Stop: 08/02/20 09:59 Last Admin: 07/30/20 09:10 Dose: 1 applic Documented by: Sodium Hypochlorite (Dakin's Solution 0.25% (Half-Strength) -) 1 applic TP DAILY [facility] Last Admin: 07/30/20 09:11 Dose: 1 applic Documented by: - Objective Vital Signs: Vital Signs Temperature 98 F 07/30/20 14:00 Pulse Rate 86 07/30/20 14:00 Respiratory Rate 18 07/30/20 14:00 Blood Pressure 132/62 07/30/20 14:00 O2 Sat by Pulse Oximetry (%) 100 07/30/20 14:00 Constitutional: Yes: No Distress, Calm HENT: Yes: Atraumatic Neck: Yes: Supple Cardiovascular: Yes: Regular Rate and Rhythm Respiratory: Yes: Regular, Diminished Gastrointestinal: Yes: Soft Edema: No Labs: CBC, BMP 07/30/20 05:45 07/30/20 05:45 INR, PTT INR 1.00 (0.83-1.09) 07/30/20 05:45 Assessment/Plan 70 year old woman with history of CVA, IDDM, hypertension who presented with lower abdominal pain and found to have likely UTI with hypokalemia. 1. Hypokalemia in setting of diarrhea/GI losses 2. Diverticular abscess 3. Hypertension 4. IDDM 5. Anemia 6. Lactic acidosis 7. Hypomagnesemia 8. Hypophosphatemia 9. Acute kidney injury 10. Acute GI bleed 11. Lactic acidosis Renal function improved Continue isotonic saline while oral intake is limited. maintain MAP > 65, CVP 8-10 lactic acidosis improved. s/p endoscopy, advance diet as per surgery. ICU monitoring Transfuse further as needed Trend renal function and electrolytes supplement phos and k as needed. Will follow up as needed Guillermo Ricks DO
--- NOTE | 2020-07-30 16:54 | OP ---
DATE OF OPERATION: 07/22/2020 PREOPERATIVE DIAGNOSIS: Complicated sigmoid diverticulitis. POSTOPERATIVE DIAGNOSIS: Complicated sigmoid diverticulitis. PROCEDURE: Sigmoid colon resection and colostomy (Faustino procedure). SURGEON: Raghu Horton MD [facility] OPERATOR: Rubi Herrera PA-C ANESTHESIA: General. OPERATIVE FINDINGS: Complicated diverticulitis with possible sealed previous perforation. The rest of the findings were unremarkable. DESCRIPTION OF PROCEDURE: The patient was placed on the operating room table in the supine position and after the induction of general anesthesia and placement of sequential compression devices on the patients lower extremities, the abdomen was prepped with ChloraPrep and draped in a sterile fashion. A timeout was taken and the peritoneal cavity was entered using a scalpel through a midline incision. The previous and other findings were observed. The sigmoid colon was bluntly mobilized distally and the mesocolon beyond the area of acute pathology was divided using the LigaSure device. Next, TA stapling device was placed and fired nd the proximal sigmoid occluded with Braulio clamps and the distal sigmoid at the rectosigmoid junction was divided using the scalpel after firing the stapling device. Next, the mesocolon was sequentially divided using the LigaSure device. Laterally the colon was mobilized along the lateral peritoneal reflexion as well with the LigaSure device. The left ureter was identified throughout the dissection and preserved. Proximal to the area of acute pathology again the mesentery was divided and then the bowel divided using a TA 90 stapling device twice and the colon divided between the staple lines. The specimen was then removed and passed off the operative field and sent for pathological examination. The colon was further mobilized proximally along the lateral peritoneal reflexion using the LigaSure device. Next, a disc of skin was removed midway between the umbilicus and the left anterior superior iliac spine using electrocautery and an opening in the abdominal wall made of 2 fingerbreadths in diameter for the colostomy. The colon was then brought through the abdominal wall and anchored there temporarily with Davi clamps. The distal stump was identified again and checked for bleeding and was noted to be hemostatic. Copious irrigation was carried out with normal saline until the return was clear and then 2 Guillermo Cortés drains were placed in the pelvis and brought out through separate stab wounds on either side of the midline incision where they were secured through the skin with 2-0 silk suture. Hemostasis was checked for again and noted to be good and the NG tube was confirmed with correct placement in the stomach. Next, the abdomen was closed in a single layer using continuous 0 looped Maxon suture. The subcutaneous tissue was irrigated and the skin around the umbilicus reapproximated with surgical stables. Then 1 inch Iodoform packing followed by dry sterile dressings was placed on the midline wound and it was temporarily covered with a sterile towel. The colostomy was then matured by excising the staple line and securing it to the skin of the abdominal wall with interrupted 3-0 Vicryl suture. A colostomy appliance of appropriate size was placed and then the midline wound dressed with further dry sterile dressings and Medipore tape. A Biopatch was placed around the drain sites which were also dressed in a similar fashion as the midline wound. The drains were connected to bulb suction and the procedure terminated at this point and the patient transferred to the postanesthesia care unit in stable condition awake and alert. ESTIMATED BLOOD LOSS: 300 mL. REPLACEMENTS: Crystalloid. DRAINS: Two 10 mm Guillermo Cortés in the pelvis. BLOOD VOLUME REPLACED: 300 mL. URINE OUTPUT: 200 mL. FLUID VOLUME REPLACED: 1500 mL crystalloid. I, Raghu Horton, was physically present in the operating room from the time the patient was placed on the operating table until she was transferred to the postanesthesia care unit in my accompaniment. MD BRIAN [id number] MTDD
[2020-07-30] MEDS: CHLORHEXIDINE GLUCONATE 4% CLEANSER FOR DECOLONIZATION TP SCH (21:17)
[2020-07-31] MEDS: PANTOPRAZOLE SODIUM 80 MG in SODIUM CHLORIDE 100 ML IVPB SCH ×4 (00:15→23:32)
[2020-07-31] MEDS ORDERED: DEXTROSE 5%-WATER 100 ML IVPB ONE ×3 (02:23→17:17)
[2020-07-31] MEDS ORDERED: PIPERACILLIN/TAZOBACTAM 4.5 GM VIAL IVPB ONE ×3 (02:23→17:17)
[2020-07-31] MEDS: PIPERACILLIN/TAZOB 4.5 GM 4.5 GM in DEXTROSE 5%-WATER 100 ML IVPB SCH ×3 (02:26→17:19)
[2020-07-31 03:05] LABS: BLOOD UREA NITROGEN 15.3 mg/dL (7-18); CREATININE 0.6 mg/dL (0.55-1.3); POTASSIUM 3.2 mmol/L (3.5-5.1)
[2020-07-31] MEDS: INSULIN (LEVEMIR) 100 UNITS/ML UNITS SQ SCH ×2 (06:25→22:03)
[2020-07-31] MEDS: INSULIN SLIDING SCALE (NOVOLOG) 1 VIAL SQ SCH ×4 (06:26→22:03)
[2020-07-31 06:34] LABS: HEMATOCRIT 25.2 % (32.4-45.2); HEMOGLOBIN 8.7 GM/dL (10.7-15.3); MCH 30.6 pg (25.7-33.7); MCHC 34.3 g/dl (32.0-36.0); MEAN CELL VOLUME 89.3 fl (80-96); MEAN PLT VOLUME 7.8 fl (7.5-11.1); PLATELET COUNT 432 K/MM3 (134-434); RBC 2.82 M/mm3 (3.60-5.2); RDW 15.6 % (11.6-15.6); WHITE BLOOD COUNT 13.8 K/mm3 (4.0-10.0)
--- NOTE | 2020-07-31 06:37 | PN ---
[facility] Exam: [facility] Transfer Note (Resident) Patient Name: DAGOBERTO VAZQUEZ Date of : 1950 Patient Status: Inpatient Attending Provider: Beatriz Desir Date: 07/30/20 13:59 Initialization Date: 07/30/20 13:59 Physical Exam: SUBJECTIVE: Patient seen and examined at bedside. Pt complains of abdominal pain at the surgical site. Otherwise no acute events overnight. OBJECTIVE: Vital Signs Period Temp Pulse Resp BP Sys/Ferrer Pulse Ox Last 24 Hr 97.8 F-98.9 F 68-82 13-27 116-154/51-85 94-100 PHYSICAL EXAM Constitutional: Yes: Well Nourished, No Distress, Calm Eyes: Yes: Conjunctiva Clear, EOM Intact HENT: Yes: Atraumatic, Normocephalic, Other (NG tube with 500 cc tarry fluid) Cardiovascular: Yes: Regular Rate and Rhythm Respiratory: Yes: Regular, CTA Bilaterally Gastrointestinal: Yes: Normal Bowel Sounds, Soft, Other (colostomy bag with black tarry fluid, 2 SERGE drains. painful abdomen), dry clean staple sites Wound/Incision: Yes: Clean/Dry, Well Approximated, Sutures Intact, Dressing Dry and Intact Neurological: Yes: Alert, Oriented, Confusion LABS Laboratory Results - last 24 hr 07/28/20 07/29/20 07/29/20 06:55 14:50 16:49 WBC 13.4 H RBC 2.94 L Hgb 9.0 L Hct 26.1 L D MCV 88.8 MCH 30.6 MCHC 34.4 RDW 14.6 Plt Count 343 MPV 8.1 Absolute Neuts (auto) 11.2 H Neutrophils % 83.0 H Neutrophils % (Manual) 80.0 Band Neutrophils % 0.0 Lymphocytes % 11.1 D Lymphocytes % (Manual) 13.0 D Monocytes % 5.1 Monocytes % (Manual) 2 L Eosinophils % 0.3 D Eosinophils % (Manual) 2.0 D Basophils % 0.5 D Basophils % (Manual) 0.0 Myelocytes % (Man) 0 Promyelocytes % (Man) 0 Blast Cells % (Manual) 0 Nucleated RBC % 0 Metamyelocytes 0 Hypochromia 0 Toxic Granulation Platelet Estimate Normal Polychromasia 1+ Poikilocytosis 1+ Anisocytosis 2+ Microcytosis 2+ Macrocytosis 0 Spherocytes Ovalocytes [place] Cells 1+ Schistocytes PT with INR INR PTT (Actin FS) Sodium Potassium Chloride Carbon Dioxide Anion Gap BUN Creatinine Est GFR (CKD-EPI)AfAm Est GFR (CKD-EPI)NonAf POC Glucometer 127 Random Glucose Calcium Total Bilirubin AST ALT Alkaline Phosphatase Total Protein Albumin Stool Occult Blood Crossmatch See Detail 07/29/20 07/30/20 07/30/20 21:48 05:45 05:45 WBC RBC Hgb Hct MCV MCH MCHC RDW Plt Count MPV Absolute Neuts (auto) Neutrophils % Neutrophils % (Manual) Band Neutrophils % Lymphocytes % Lymphocytes % (Manual) Monocytes % Monocytes % (Manual) Eosinophils % Eosinophils % (Manual) Basophils % Basophils % (Manual) Myelocytes % (Man) Promyelocytes % (Man) Blast Cells % (Manual) Nucleated RBC % Metamyelocytes Hypochromia Toxic Granulation Platelet Estimate Polychromasia Poikilocytosis Anisocytosis Microcytosis Macrocytosis Spherocytes Ovalocytes [place] Cells Schistocytes PT with INR 11.80 INR 1.00 PTT (Actin FS) 24.2 L Sodium 146 H Potassium 3.2 L Chloride 114 H Carbon Dioxide 25 Anion Gap 7 L BUN 20.4 H Creatinine 0.4 L Est GFR (CKD-EPI)AfAm 120.60 Est GFR (CKD-EPI)NonAf 104.06 POC Glucometer 114 Random Glucose 117 H Calcium 7.1 L Total Bilirubin 0.5 AST 46 H ALT 43 Alkaline Phosphatase 58 Total Protein 4.5 L Albumin 1.3 L Stool Occult Blood Crossmatch 07/30/20 07/30/20 07/30/20 05:45 05:52 06:01 WBC 12.5 H RBC 2.76 L Hgb 8.5 L Hct 24.2 L MCV 87.4 MCH 30.6 MCHC 35.0 RDW 15.0 Plt Count 374 MPV 7.9 Absolute Neuts (auto) 10.0 H Neutrophils % 80.4 Neutrophils % (Manual) 85.0 H Band Neutrophils % 2.0 Lymphocytes % 11.9 Lymphocytes % (Manual) 7.0 L D Monocytes % 6.3 Monocytes % (Manual) 3 L Eosinophils % 1.1 D Eosinophils % (Manual) 2.0 Basophils % 0.3 Basophils % (Manual) 0.0 Myelocytes % (Man) 0 Promyelocytes % (Man) 0 Blast Cells % (Manual) 0 Nucleated RBC % 0 Metamyelocytes 0 Hypochromia 0 Toxic Granulation 1+ Platelet Estimate Normal Polychromasia 1+ Poikilocytosis 2+ Anisocytosis 1+ Microcytosis 1+ Macrocytosis 0 Spherocytes 1+ Ovalocytes 1+ [place] Cells 1+ Schistocytes 1+ PT with INR INR PTT (Actin FS) Sodium Potassium Chloride Carbon Dioxide Anion Gap BUN Creatinine Est GFR (CKD-EPI)AfAm Est GFR (CKD-EPI)NonAf POC Glucometer 109 Random Glucose Calcium Total Bilirubin AST ALT Alkaline Phosphatase Total Protein Albumin Stool Occult Blood Positive Crossmatch 07/30/20 11:55 WBC RBC Hgb Hct MCV MCH MCHC RDW Plt Count MPV Absolute Neuts (auto) Neutrophils % Neutrophils % (Manual) Band Neutrophils % Lymphocytes % Lymphocytes % (Manual) Monocytes % Monocytes % (Manual) Eosinophils % Eosinophils % (Manual) Basophils % Basophils % (Manual) Myelocytes % (Man) Promyelocytes % (Man) Blast Cells % (Manual) Nucleated RBC % Metamyelocytes Hypochromia Toxic Granulation Platelet Estimate Polychromasia Poikilocytosis Anisocytosis Microcytosis Macrocytosis Spherocytes Ovalocytes Michelle Cells Schistocytes PT with INR INR PTT (Actin FS) Sodium Potassium Chloride Carbon Dioxide Anion Gap BUN Creatinine Est GFR (CKD-EPI)AfAm Est GFR (CKD-EPI)NonAf POC Glucometer 108 Random Glucose Calcium Total Bilirubin AST ALT Alkaline Phosphatase Total Protein Albumin Stool Occult Blood Crossmatch HOSPITAL COURSE: Date of Admission:07/15/20 Date of Discharge: 07/30/20 Minutes to complete discharge: 30 Discharge Summary Problems reviewed: Yes Reason For Visit: URINARY TRACT INFECTION Current Active Problems Abdominal pain (Acute) Bilateral hydronephrosis (Acute) Colonic diverticular abscess (Acute) Colovesical fistula (Acute) Esophageal ulcer with bleeding (Acute) GI hemorrhage (Acute) Gastric ulcer with hemorrhage (Acute) Hematemesis of unknown etiology (Acute) Hyponatremia (Acute) Leukocytosis (Acute) Pre-operative cardiovascular examination (Acute) Urinary tract infection (Acute) Hospital Course: The patient is a 70 yo F with a pmh of CVA (3months ago), IDDM, HTN. She was brought in by EMS from her PCP clinic. She presented to the ED with intermittent lower abdominal/ suprapubic pain, urinary frequency, urgency and dysuria for 2 weeks. Per daughter, the urine is fouls smelling, but denies hematuria. Daughter reports 2 weeks of decreased appetite. In the hospital, she was found to be altered from baseline. CT Head was negative for any acute intracranial pathology. CT Abd/Pelvic found acute sigmoid diverticulitis with 3 possible diverticular abscesses with evidence suggesting primary inflammatory bowel disease as well as Bilateral hydrnephrosis. Dr. 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 Dr. Horton performed Hartmnans surgery to remove a portion of the sigmoid colon and correct the colo-vesicular fistula. Pt was kept NPO after surgery. The NG tube and colostomy bag placed contained dark maroon fluid suggesting a GI bleed. Dr. Bronson performed an EGD which identified bleeding in the gastric cardia/fundus suspicious of Dieulafoy or Cristel Morales. Dr. Cassidy performed a CT Angiogram with out any conclusive evidence for the bleeding source due to motion artifact. Dr Bronson performed another EGD which identified 2 gastric ulcers without active bleeding. Pt is vitally stable. Dark melena continues to drain from the NG and colostomy bag. Hemoglobin is currently stable at 8.5 but over the course of her stay, she received 7 units of pRBC. Stool occult test was positive for blood. Clear liquid diet is started on 07/30 as tolerated. Consider starting back on Novolog/Levemir once diet is advanced. Pt is placed on Pantoprazole (8mg/hr) and Metoclopramide (10mg, q6) for GI prophylaxis. Condition: Stable - Instructions Diet, Activity, Other Instructions: Dr. Horton Discharge Instructions Dear DAGOBERTO VAZQUEZ, Post Operative Instructions Physical activity Resume your normal everyday activity as tolerated no heavy lifting or exercise until seen by your surgeon. You may walk unlimited amounts. Wound care Changing Your Ostomy Pouch Home care: Remove the used pouch and empty into the toilet. Starting at the upper edge of the skin barrier, carefully push the skin away from the barrier with one hand. Slowly peel back the skin barrier with the other hand. Peel all the way around the skin barrier until the pouch comes off. Seal the pouch in a plastic bag. Then put it in a second plastic bag. Throw it away in a trash bin. Clean around the stoma: Wipe any stool off the skin around the stoma with toilet paper. Clean the skin with warm water and a soft washcloth. Wash right up to the edge of the stoma. Pat the skin dry with a clean towel. If needed, put on extra skin protection, such as moisture barrier cream or powder. Put on the new pouch: Peel the backing off the skin barrier. Place the precut skin barrier over the stoma. If you dont use a pouch with a precut skin barrier, size and cut the opening (1/16 inch bigger than the stoma) and peel the backing off the skin barrier. Carefully place it over the stoma. The pouch opening should point toward your feet. If using a pouch with a clamp at the base, it may be easier to apply the clamp to the pouch first. Snap the pouch onto the barrier flange (if you use a 2-piece pouch). Press the barrier against your skin. Hold it in place for 45 seconds. Clamp the tail of the pouch (if drainable or reusable). Wash your hands with clean, warm or cold water for at least 20 seconds when you are done. Diet There are no dietary restrictions. Eat healthy, high-fiber foods. Drink 6 to 8 glasses of liquid each day. This will assist in keeping your bowels are regular. Pain management You may take Tylenol or acetaminophen or Ibuprofen (for example, Motrin, Advil etc.). Call Dr. Horton for any of the following: Severe pain not relieved by medication Fever of 101 or higher Excessive bleeding or drainage on dressing Inability to urinate Call the office at [phone] for a post operative appointment in 7 - 10 days. Referrals: Beatriz Desir [Primary Care Provider] - Raghu Horton MD [Staff Physician] - 1 Week - Home Medications Comprehensive Discharge Medication List: Ambulatory Orders Escitalopram Oxalate [Lexapro -] 20 mg PO HS 04/10/20 Aspirin [ASA -] 325 mg PO DAILY tablet 04/15/20 Atorvastatin Ca [Lipitor] 80 mg PO HS tablet 04/15/20 Insulin Sliding Scale [Novolog Vial Sliding Scale -] 1 vial SQ ACHS units 04/15/20 Metoprolol Succinate [Toprol XL -] 50 mg PO DAILY tab.sr.24h 04/15/20 Insulin (Levemir) [Levemir Vial] 16 units SQ DAILY 07/15/20 metFORMIN HCL [Glucophage -] 500 mg PO BID@0700,1630 07/15/20 Hydrochlorothiazide 25 mg PO DAILY 07/28/20 Risperidone 3 mg PO DAILY 07/28/20 traZODone HCL [Trazodone HCl] 50 mg PO HS 07/28/20 This patient is new to me today: No Emergency Visit: Yes ED Registration Date: 07/15/20 Care time: The patient presented to the Emergency Department on the above date and was hospitalized for further evaluation of their emergent condition. Critical Care patient: No - Discharge Referral Referred to [facility] No ATTENDING PHYSICIAN STATEMENT I saw and evaluated the patient. I reviewed the resident's note and discussed the case with the resident. I agree with the resident's findings and plan as documented. SUBJECTIVE: OBJECTIVE: ASSESSMENT AND PLAN: Visit type - Emergency Visit Emergency Visit: Yes ED Registration Date: 07/15/20 Care time: The patient presented to the Emergency Department on the above date and was hospitalized for further evaluation of their emergent condition. - New Patient This patient is new to me today: No - Critical Care Critical Care patient: No - Medication Review Med list reviewed for High Risk Meds patients 65 and older: Yes ATTENDING PHYSICIAN STATEMENT I saw and evaluated the patient. I reviewed the resident's note and discussed the case with the resident. I agree with the resident's findings and plan as documented. SUBJECTIVE: OBJECTIVE: ASSESSMENT AND PLAN:
[2020-07-31 07:03] LABS: ALBUMIN 1.4 g/dl (3.4-5.0); BILIRUBIN,TOTAL 0.4 mg/dL (0.2-1); BLOOD UREA NITROGEN 14.6 mg/dL (7-18); CALCIUM 7.2 mg/dL (8.5-10.1); CREATININE 0.5 mg/dL (0.55-1.3); MAGNESIUM 1.9 mg/dL (1.8-2.4); POTASSIUM 3.4 mmol/L (3.5-5.1); TOT PROT 4.8 g/dl (6.4-8.2)
[2020-07-31] MEDS: MUPIROCIN 2% TOPICAL OINTMENT FOR DECOLONIZATION NS SCH ×2 (09:21→22:03)
[2020-07-31] MEDS: SODIUM HYPOCHLORITE 0.25%- 473 ML BULK BOTTLE TP SCH (09:21)
[2020-07-31] MEDS: ACETAMINOPHEN 1000 MG/100 ML VIAL (NON FORMULARY) IVPB PRN ×2 (09:27→22:05)
--- NOTE | 2020-07-31 10:08 | PN ---
Progress Note, Physician Chief Complaint: in ICU - BP stable no bleeding, some black material in colostomy but H&H stable awake alert no CP SOB abd wound management per surgery - Current Medication List Current Medications: Active Medications Acetaminophen (Ofirmev Injection -) 1,000 mg IVPB Q6H PRN PRN Reason: PAIN LEVEL 1-5 Last Admin: 07/31/20 09:27 Dose: 1,000 mg Documented by: Chlorhexidine Gluconate (Hibiclens For Decolonization -) 1 applic TP HS [facility] Last Admin: 07/30/20 21:17 Dose: 1 applic Documented by: Pantoprazole Sodium 80 mg/ (Sodium Chloride) 100 mls @ 10 mls/hr IVPB Q10H [facility] Stop: 07/31/20 12:04 Last Admin: 07/31/20 09:22 Dose: 10 mls/hr Documented by: Piperacillin Sod/Tazobactam (Sod 4.5 gm/ Dextrose) 100 mls @ 200 mls/hr IVPB Q8H-IV [facility]; Protocol Last Admin: 07/31/20 09:21 Dose: 200 mls/hr Documented by: Insulin Aspart (Novolog Vial Sliding Scale -) 1 vial SQ ACHS [facility]; Protocol Last Admin: 07/31/20 06:26 Dose: Not Given Documented by: Insulin Detemir (Levemir Vial) 6 units SQ BID@0700,2200 [facility] Last Admin: 07/31/20 06:25 Dose: Not Given Documented by: Metoprolol Tartrate (Lopressor Injection -) 5 mg IVPB Q6H PRN PRN Reason: GIVE IF BP > 150/90 Mupirocin (Bactroban Ointment (For Decolonization) -) 1 applic NS BID [facility] Stop: 08/02/20 09:59 Last Admin: 07/31/20 09:21 Dose: 1 applic Documented by: Sodium Hypochlorite (Dakin's Solution 0.25% (Half-Strength) -) 1 applic TP DAILY [facility] Last Admin: 07/31/20 09:21 Dose: 1 applic Documented by: - Objective Vital Signs: Vital Signs Temperature 97.9 F 07/31/20 06:00 Pulse Rate 83 07/31/20 08:00 Respiratory Rate 20 07/31/20 08:00 Blood Pressure 162/69 07/31/20 08:00 O2 Sat by Pulse Oximetry (%) 100 07/31/20 08:00 Constitutional: Yes: No Distress Eyes: Yes: Conjunctiva Clear HENT: Yes: Atraumatic Neck: Yes: Supple Cardiovascular: Yes: Regular Rate and Rhythm Respiratory: Yes: Diminished Gastrointestinal: Yes: Soft, Other (wound dressed no bleed). No: Tenderness Genitourinary: No: Hematuria Musculoskeletal: No: Joint Stiffness, Joint Swelling Extremities: No: Cold, Cool Edema: Yes (hands ) Integumentary: No: Rash, Venous Stasis Changes Neurological: Yes: Alert ...Motor Strength: LUE (4/5), LLE (4/5) Psychiatric: Yes: Alert. No: Agitated Labs: CBC, BMP 07/31/20 05:45 07/31/20 05:45 INR, PTT INR 1.00 (0.83-1.09) 07/30/20 05:45 - ....Imaging Other: Report Reviewed Assessment/Plan The patient is a 70y/o F with a pmh of CVA (3months ago), IDDM, HTN admitted with sepsis diverticulitis with abscesses and UTI, also hydronephrosis; s/p H artmann procedure; GIB ; transferred to ICU s/p EGD - clot; s/p CTA no source of bleeding s/p EGD - stable IVF; ivATB per ID; IV PPI f/u labs advance diet as tolerated cardio and neuro f/u, ID, renal, GI, f/u hold ASA and heparin d/w GI for at least 2 weeks (until 08/14) d/w staff; d/w pt - prognosis guarded; turn in bed decubs pfx d/w pt's daughter Vidaly / phone t time 35 min
--- NOTE | 2020-07-31 10:13 | PN ---
Progress Note (short form) - Note Progress Note: Attending Surgeon POD#9 s/p Hartmans procedure. In ICU awake; alert; tolerating clear liquid diet. VSS afebrile Abdo-intermittent shayan intact. Incision clean and fascia intact. Ostomy- pink and viable and with black liquid stool; soft and non- distended. h/h stable UO good A/P: 70 yo female s/p Hartmans for complicated diverticulitits, and post op UGI bleed stable s/p EGD x2. Pt on IV protonix drip Hold all anticoagulation May advance diet as tolerated Local wound care Path verfied as diverticulitis. Raghu Horton MD FACS
--- NOTE | 2020-07-31 10:40 | PN ---
Progress Note (short form) - Note Progress Note: PULMONARY SUBJECTIVE: Pt seen and examined in the ICU. No further bleeding. No overnight events. Tolerating clears. OBJECTIVE: Vital Signs Period Temp Pulse Resp BP Sys/Ferrer Pulse Ox Last 24 Hr 97.9 F-98.2 F 73-119 16-28 132-162/60-89 96-100 Intake & Output 07/28/20 07/29/20 07/30/20 07/31/20 23:59 23:59 23:59 23:59 Intake Total 2500 3570 2325 855 Output Total 1755 1500 830 620 Balance 745 2070 1495 235 Gen: NAD at rest Heart: RRR Lung: decreased breath sounds at the bases Abd: soft, +ostomy pink Ext: no edema CBC, BMP 07/31/20 05:45 07/31/20 05:45 Active Medications Acetaminophen (Ofirmev Injection -) 1,000 mg IVPB Q6H PRN PRN Reason: PAIN LEVEL 1-5 Last Admin: 07/31/20 09:27 Dose: 1,000 mg Documented by: Chlorhexidine Gluconate (Hibiclens For Decolonization -) 1 applic TP HS [facility] Last Admin: 07/30/20 21:17 Dose: 1 applic Documented by: Pantoprazole Sodium 80 mg/ (Sodium Chloride) 100 mls @ 10 mls/hr IVPB Q10H [facility] Stop: 07/31/20 12:04 Last Admin: 07/31/20 09:22 Dose: 10 mls/hr Documented by: Piperacillin Sod/Tazobactam (Sod 4.5 gm/ Dextrose) 100 mls @ 200 mls/hr IVPB Q8H-IV [facility]; Protocol Last Admin: 07/31/20 09:21 Dose: 200 mls/hr Documented by: Insulin Aspart (Novolog Vial Sliding Scale -) 1 vial SQ ACHS [facility]; Protocol Last Admin: 07/31/20 06:26 Dose: Not Given Documented by: Insulin Detemir (Levemir Vial) 6 units SQ BID@0700,2200 [facility] Last Admin: 07/31/20 06:25 Dose: Not Given Documented by: Metoprolol Tartrate (Lopressor Injection -) 5 mg IVPB Q6H PRN PRN Reason: GIVE IF BP > 150/90 Mupirocin (Bactroban Ointment (For Decolonization) -) 1 applic NS BID [facility] Stop: 08/02/20 09:59 Last Admin: 07/31/20 09:21 Dose: 1 applic Documented by: Silver Sulfadiazine (Silvadene -) 1 applic TP BID [facility] Sodium Hypochlorite (Dakin's Solution 0.25% (Half-Strength) -) 1 applic TP DAILY [facility] Last Admin: 07/31/20 09:21 Dose: 1 applic Documented by: ASSESSMENT AND PLAN: GI Bleed Acute Blood Loss Anemia Gastric Ulcers Hemorrhagic Shock improved Complicated Diverticulitis s/p Gavin's Procedure UTI LV Diastolic Dysfunction HTN DM h/o CVA - continue protonix - monitor H/H, coags - antibiotics per ID - advance diet - replete lytes - DVT prophylaxis
[2020-07-31] MEDS ORDERED: POTASSIUM CHLORIDE TABS 20 MEQ TABLET.ER (FP) PO ONE (10:42)
--- NOTE | 2020-07-31 11:57 | PN ---
Progress Note, Physician - Current Medication List Current Medications: Active Medications Acetaminophen (Ofirmev Injection -) 1,000 mg IVPB Q6H PRN PRN Reason: PAIN LEVEL 1-5 Last Admin: 07/31/20 09:27 Dose: 1,000 mg Documented by: Chlorhexidine Gluconate (Hibiclens For Decolonization -) 1 applic TP HS [facility] Last Admin: 07/30/20 21:17 Dose: 1 applic Documented by: Pantoprazole Sodium 80 mg/ (Sodium Chloride) 100 mls @ 10 mls/hr IVPB Q10H [facility] Stop: 07/31/20 12:04 Last Admin: 07/31/20 09:22 Dose: 10 mls/hr Documented by: Piperacillin Sod/Tazobactam (Sod 4.5 gm/ Dextrose) 100 mls @ 200 mls/hr IVPB Q8H-IV [facility]; Protocol Last Admin: 07/31/20 09:21 Dose: 200 mls/hr Documented by: Insulin Aspart (Novolog Vial Sliding Scale -) [facility]; Protocol Last Admin: 07/31/20 11:14 Dose: Not Given Documented by: Insulin Detemir (Levemir Vial) 6 units SQ BID@0700,2200 [facility] Last Admin: 07/31/20 06:25 Dose: Not Given Documented by: Metoprolol Tartrate (Lopressor Injection -) 5 mg IVPB Q6H PRN PRN Reason: GIVE IF BP > 150/90 Mupirocin (Bactroban Ointment (For Decolonization) -) 1 applic NS BID [facility] Stop: 08/02/20 09:59 Last Admin: 07/31/20 09:21 Dose: 1 applic Documented by: Silver Sulfadiazine (Silvadene -) 1 applic TP BID [facility] Sodium Hypochlorite (Dakin's Solution 0.25% (Half-Strength) -) 1 applic TP DAILY [facility] Last Admin: 07/31/20 09:21 Dose: 1 applic Documented by: - Objective Vital Signs: Vital Signs Temperature 97.9 F 07/31/20 06:00 Pulse Rate 83 07/31/20 08:00 Respiratory Rate 20 07/31/20 09:00 Blood Pressure 162/69 07/31/20 08:00 O2 Sat by Pulse Oximetry (%) 100 09/26/20 09:00 Eyes: Yes: WNL, Conjunctiva Clear, EOM Intact HENT: Yes: WNL, Atraumatic, Normocephalic Neck: Yes: WNL, Supple, Trachea Midline Cardiovascular: Yes: WNL, Regular Rate and Rhythm Respiratory: Yes: WNL, Regular, CTA Bilaterally Genitourinary: Yes: WNL Musculoskeletal: Yes: WNL Extremities: Yes: WNL Edema: No Integumentary: Yes: WNL Labs: CBC, BMP 07/31/20 05:45 07/31/20 05:45 INR, PTT INR 1.00 (0.83-1.09) 07/30/20 05:45 Assessment/Plan 04/12/2020 ECHO: normal LVEF; abnormal diastolic compliance, Tr TR 1. Post Gavin's procedure for complicated diverticulitis with abscess and colovesicular fistula 2. Diastolic dysfunction 3. Poorly controlled DM 4. HTN 5. Chronic stroke 6. Multi-infarct dementia 7. Hypokalemia resolved 8. UGI bleed, melena with acute blood loss anemia s/p 2 u pRBC 9. UTI 10. Lactic acidoses improving PLAN: 1. Empiric antibiotic per ID 2. Volume resuscitation, pressors as needed MAP>65 mmHg, Protonix gtt, pRBC transfusion 3. Lopressor 5 IV q6 prn as hemodynamics tolerate 4. Mechanical DVT prophylaxis 5. Post-op management 6. Monitor Hgb post transfusion, replete K 7. Abd & pelvic CTA showed no bleeding source Coverage dr. Kendrick cc time spent 36 min
[2020-07-31] MEDS: SILVER SULFADIAZINE 1% TOP CREAM 50 GM JAR TP SCH ×2 (13:29→22:04)
[2020-07-31] MEDS ORDERED: PT OWN MED DRAWER 7, Y5N ONE (17:25)
[2020-07-31] MEDS: CHLORHEXIDINE GLUCONATE 4% CLEANSER FOR DECOLONIZATION TP SCH (22:03)
[2020-08-01] MEDS ORDERED: DEXTROSE 5%-WATER 100 ML IVPB ONE ×3 (01:05→17:05)
[2020-08-01] MEDS ORDERED: PIPERACILLIN/TAZOBACTAM 4.5 GM VIAL IVPB ONE ×3 (01:05→17:05)
[2020-08-01] MEDS: PIPERACILLIN/TAZOB 4.5 GM 4.5 GM in DEXTROSE 5%-WATER 100 ML IVPB SCH ×3 (01:23→17:07)
[2020-08-01] MEDS: INSULIN SLIDING SCALE (NOVOLOG) 1 VIAL SQ SCH ×4 (06:16→21:18)
[2020-08-01] MEDS: INSULIN (LEVEMIR) 100 UNITS/ML UNITS SQ SCH ×2 (06:17→21:18)
[2020-08-01] MEDS: PANTOPRAZOLE SODIUM 80 MG in SODIUM CHLORIDE 100 ML IVPB SCH ×3 (06:38→23:52)
[2020-08-01 06:55] LABS: BASO % 0.8 % (0-2.0); EOS % 2.8 % (0-4.5); HEMATOCRIT 26.7 % (32.4-45.2); HEMOGLOBIN 9.2 GM/dL (10.7-15.3); LYMPH % 12.8 % (8-40); MCH 30.9 pg (25.7-33.7); MCHC 34.4 g/dl (32.0-36.0); MEAN CELL VOLUME 89.7 fl (80-96); MEAN PLT VOLUME 8.1 fl (7.5-11.1); MONO % 6.6 % (3.8-10.2); PLATELET COUNT 474 K/MM3 (134-434); RBC 2.98 M/mm3 (3.60-5.2); RDW 15.5 % (11.6-15.6); WHITE BLOOD COUNT 11.3 K/mm3 (4.0-10.0)
[2020-08-01 07:18] LABS: ALBUMIN 1.5 g/dl (3.4-5.0); BILIRUBIN,TOTAL 0.6 mg/dL (0.2-1); BLOOD UREA NITROGEN 9.4 mg/dL (7-18); CALCIUM 7.6 mg/dL (8.5-10.1); CREATININE 0.5 mg/dL (0.55-1.3); POTASSIUM 3.4 mmol/L (3.5-5.1); TOT PROT 5.1 g/dl (6.4-8.2)
--- NOTE | 2020-08-01 09:32 | PN ---
Progress Note, Physician Chief Complaint: in ICU awake alert; son at bedside; afebrile VSS no new c/o; NAD; stage 2 sacral - d/w staff turn pt in bed; bedside PT ordered; topical silvadene as ordered - Current Medication List Current Medications: Active Medications Acetaminophen (Ofirmev Injection -) 1,000 mg IVPB Q6H PRN PRN Reason: PAIN LEVEL 1-5 Last Admin: 07/31/20 22:05 Dose: 1,000 mg Documented by: Chlorhexidine Gluconate (Hibiclens For Decolonization -) 1 applic TP HS [facility] Last Admin: 07/31/20 22:03 Dose: 1 applic Documented by: Piperacillin Sod/Tazobactam (Sod 4.5 gm/ Dextrose) 100 mls @ 200 mls/hr IVPB Q8H-IV [facility]; Protocol Last Admin: 08/01/20 01:23 Dose: 200 mls/hr Documented by: Pantoprazole Sodium 80 mg/ (Sodium Chloride) 100 mls @ 10 mls/hr IVPB Q10H [facility] Stop: 08/03/20 17:59 Last Admin: 08/01/20 06:38 Dose: Not Given Documented by: Insulin Aspart (Novolog Vial Sliding Scale -) 1 vial SQ ACHS [facility]; Protocol Last Admin: 08/01/20 06:16 Dose: Not Given Documented by: Insulin Detemir (Levemir Vial) 6 units SQ BID@0700,2200 [facility] Last Admin: 08/01/20 06:17 Dose: Not Given Documented by: Metoprolol Tartrate (Lopressor Injection -) 5 mg IVPB Q6H PRN PRN Reason: GIVE IF BP > 150/90 Mupirocin (Bactroban Ointment (For Decolonization) -) 1 applic NS BID [facility] Stop: 08/02/20 09:59 Last Admin: 07/31/20 22:03 Dose: 1 applic Documented by: Silver Sulfadiazine (Silvadene -) 1 applic TP BID [facility] Last Admin: 07/31/20 22:04 Dose: 1 applic Documented by: Sodium Hypochlorite (Dakin's Solution 0.25% (Half-Strength) -) 1 applic TP DAILY [facility] Last Admin: 07/31/20 09:21 Dose: 1 applic Documented by: - Objective Vital Signs: Vital Signs Temperature 98.2 F 08/01/20 06:00 Pulse Rate 72 08/01/20 06:00 Respiratory Rate 15 08/01/20 06:00 Blood Pressure 152/78 08/01/20 06:00 O2 Sat by Pulse Oximetry (%) 100 08/01/20 06:00 Constitutional: Yes: No Distress, Calm Eyes: Yes: Conjunctiva Clear HENT: Yes: Atraumatic Neck: Yes: Supple Cardiovascular: Yes: Regular Rate and Rhythm Respiratory: Yes: Diminished Gastrointestinal: Yes: Soft, Other (wound dressed no bleed) Genitourinary: No: Hematuria Extremities: No: Cold, Cool Edema: Yes (hands ) Integumentary: Yes: Pressure Ulcer (stage 2 sacral) Neurological: Yes: Alert ...Motor Strength: LUE (4/5), LLE (4/5) Psychiatric: Yes: Alert. No: Agitated Labs: CBC, BMP 08/01/20 05:40 08/01/20 05:40 INR, PTT INR 1.00 (0.83-1.09) 07/30/20 05:45 - ....Imaging Other: Report Reviewed Assessment/Plan The patient is a 70y/o F with a pmh of recent CVA , IDDM, HTN admitted with sepsis diverticulitis with abscesses and UTI, also hydronephrosis; s/p Faustino procedure; GIB ; s/p EGD - stable; PUD IVF; iv ATB per ID; IV PPI f/u labs advance diet as tolerated cardio and neuro f/u, ID, renal, GI, f/u hold ASA and heparin d/w GI for at least 2 weeks (until 08/14) d/w staff; d/w pt - prognosis guarded; turn in bed decubs pfx d/w pt's daughter Vidaly / phone and pt's son at bedside t time 35 min
--- NOTE | 2020-08-01 09:49 | PN ---
Progress Note (short form) - Note Progress Note: PULMONARY SUBJECTIVE: Pt seen and examined in the ICU. No further bleeding. No overnight events. Tolerating full liquid diet. OBJECTIVE: Vital Signs Period Temp Pulse Resp BP Sys/Ferrer Pulse Ox Last 24 Hr 97.8 F-98.5 F 67-93 15-31 138-168/73-88 98-100 Intake & Output 07/29/20 07/30/20 07/31/20 08/01/20 23:59 23:59 23:59 23:59 Intake Total 3570 2325 2490 320 Output Total 2710 901 5296 700 Balance 2070 1495 520 -380 Gen: NAD at rest Heart: RRR Lung: decreased breath sounds at the bases Abd: soft, +ostomy pink Ext: no edema CBC, BMP 08/01/20 05:40 08/01/20 05:40 Active Medications Acetaminophen (Ofirmev Injection -) 1,000 mg IVPB Q6H PRN PRN Reason: PAIN LEVEL 1-5 Last Admin: 07/31/20 22:05 Dose: 1,000 mg Documented by: Chlorhexidine Gluconate (Hibiclens For Decolonization -) 1 applic TP HS [facility] Last Admin: 07/31/20 22:03 Dose: 1 applic Documented by: Piperacillin Sod/Tazobactam (Sod 4.5 gm/ Dextrose) 100 mls @ 200 mls/hr IVPB Q8H-IV [facility]; Protocol Last Admin: 08/01/20 01:23 Dose: 200 mls/hr Documented by: Pantoprazole Sodium 80 mg/ (Sodium Chloride) 100 mls @ 10 mls/hr IVPB Q10H [facility] Stop: 08/03/20 17:59 Last Admin: 08/01/20 06:38 Dose: Not Given Documented by: Insulin Aspart (Novolog Vial Sliding Scale -) 1 vial SQ ACHS [facility]; Protocol Last Admin: 08/01/20 06:16 Dose: Not Given Documented by: Insulin Detemir (Levemir Vial) 6 units SQ BID@0700,2200 [facility] Last Admin: 08/01/20 06:17 Dose: Not Given Documented by: Metoprolol Tartrate (Lopressor Injection -) 5 mg IVPB Q6H PRN PRN Reason: GIVE IF BP > 150/90 Mupirocin (Bactroban Ointment (For Decolonization) -) 1 applic NS BID [facility] Stop: 08/02/20 09:59 Last Admin: 07/31/20 22:03 Dose: 1 applic Documented by: Silver Sulfadiazine (Silvadene -) 1 applic TP BID [facility] Last Admin: 07/31/20 22:04 Dose: 1 applic Documented by: Sodium Hypochlorite (Dakin's Solution 0.25% (Half-Strength) -) 1 applic TP DAILY [facility] Last Admin: 07/31/20 09:21 Dose: 1 applic Documented by: ASSESSMENT AND PLAN: GI Bleed Acute Blood Loss Anemia Gastric Ulcers Hemorrhagic Shock improved Complicated Diverticulitis s/p Gavin's Procedure UTI LV Diastolic Dysfunction HTN DM h/o CVA - continue protonix - monitor H/H, coags - antibiotics per ID - advance diet per surgery - replete lytes - DVT prophylaxis
--- NOTE | 2020-08-01 10:18 | PN ---
Progress Note, Physician - Current Medication List Current Medications: Active Medications Acetaminophen (Ofirmev Injection -) 1,000 mg IVPB Q6H PRN PRN Reason: PAIN LEVEL 1-5 Last Admin: 07/31/20 22:05 Dose: 1,000 mg Documented by: Chlorhexidine Gluconate (Hibiclens For Decolonization -) 1 applic TP HS [facility] Last Admin: 07/31/20 22:03 Dose: 1 applic Documented by: Piperacillin Sod/Tazobactam (Sod 4.5 gm/ Dextrose) 100 mls @ 200 mls/hr IVPB Q8H-IV [facility]; Protocol Last Admin: 08/01/20 01:23 Dose: 200 mls/hr Documented by: Pantoprazole Sodium 80 mg/ (Sodium Chloride) 100 mls @ 10 mls/hr IVPB Q10H [facility] Stop: 08/03/20 17:59 Last Admin: 08/01/20 06:38 Dose: Not Given Documented by: Insulin Aspart (Novolog Vial Sliding Scale -) 1 vial SQ [facility]; Protocol Last Admin: 08/01/20 06:16 Dose: Not Given Documented by: Insulin Detemir (Levemir Vial) 6 units SQ BID@0700,2200 [facility] Last Admin: 08/01/20 06:17 Dose: Not Given Documented by: Metoprolol Tartrate (Lopressor Injection -) 5 mg IVPB Q6H PRN PRN Reason: GIVE IF BP > 150/90 Mupirocin (Bactroban Ointment (For Decolonization) -) 1 applic NS BID [facility] Stop: 08/02/20 09:59 Last Admin: 07/31/20 22:03 Dose: 1 applic Documented by: Silver Sulfadiazine (Silvadene -) 1 applic TP BID [facility] Last Admin: 07/31/20 22:04 Dose: 1 applic Documented by: Sodium Hypochlorite (Dakin's Solution 0.25% (Half-Strength) -) 1 applic TP DAILY [facility] Last Admin: 07/31/20 09:21 Dose: 1 applic Documented by: - Objective Vital Signs: Vital Signs Temperature 98.2 F 08/01/20 06:00 Pulse Rate 72 08/01/20 06:00 Respiratory Rate 15 08/01/20 06:00 Blood Pressure 152/78 08/01/20 06:00 O2 Sat by Pulse Oximetry (%) 100 08/01/20 06:00 Eyes: Yes: WNL, Conjunctiva Clear, EOM Intact HENT: Yes: WNL, Atraumatic, Normocephalic Neck: Yes: WNL, Supple, Trachea Midline Cardiovascular: Yes: WNL, Regular Rate and Rhythm Respiratory: Yes: WNL, Regular, CTA Bilaterally Gastrointestinal: Yes: WNL, Normal Bowel Sounds Genitourinary: Yes: WNL Musculoskeletal: Yes: WNL Extremities: Yes: WNL Edema: No Integumentary: Yes: WNL Labs: CBC, BMP 08/01/20 05:40 08/01/20 05:40 INR, PTT INR 1.00 (0.83-1.09) 07/30/20 05:45 Assessment/Plan 04/12/2020 ECHO: normal LVEF; abnormal diastolic compliance, Tr TR 1. Post Gavin's procedure for complicated diverticulitis with abscess and colovesicular fistula 2. Diastolic dysfunction 3. Poorly controlled DM 4. HTN 5. Chronic stroke 6. Multi-infarct dementia 7. Hypokalemia resolved 8. UGI bleed, melena with acute blood loss anemia s/p 2 u pRBC 9. UTI 10. Lactic acidoses improving PLAN: 1. Empiric antibiotic per ID 2. Volume resuscitation, pressors as needed MAP>65 mmHg, Protonix gtt, pRBC transfusion 3. Lopressor 5 IV q6 prn as hemodynamics tolerate 4. Mechanical DVT prophylaxis 5. Post-op management 6. Monitor Hgb post transfusion, replete K 7. Abd & pelvic CTA showed no bleeding source Coverage dr. Kendrick cc time spent 36 min
[2020-08-01] MEDS: MUPIROCIN 2% TOPICAL OINTMENT FOR DECOLONIZATION NS SCH ×2 (10:50→21:20)
[2020-08-01] MEDS: SILVER SULFADIAZINE 1% TOP CREAM 50 GM JAR TP SCH ×2 (10:52→21:20)
[2020-08-01] MEDS: SODIUM HYPOCHLORITE 0.25%- 473 ML BULK BOTTLE TP SCH (10:53)
[2020-08-01] MEDS: ACETAMINOPHEN 1000 MG/100 ML VIAL (NON FORMULARY) IVPB PRN (13:07)
[2020-08-01] MEDS: CHLORHEXIDINE GLUCONATE 4% CLEANSER FOR DECOLONIZATION TP SCH (21:10)
[2020-08-02] MEDS ORDERED: DEXTROSE 5%-WATER 100 ML IVPB ONE ×2 (01:50→09:10)
[2020-08-02] MEDS ORDERED: PIPERACILLIN/TAZOBACTAM 4.5 GM VIAL IVPB ONE ×2 (01:50→09:10)
[2020-08-02] MEDS: PANTOPRAZOLE SODIUM 80 MG in SODIUM CHLORIDE 100 ML IVPB SCH ×2 (01:56→10:22)
[2020-08-02] MEDS: PIPERACILLIN/TAZOB 4.5 GM 4.5 GM in DEXTROSE 5%-WATER 100 ML IVPB SCH ×2 (01:56→09:16)
[2020-08-02] MEDS: INSULIN SLIDING SCALE (NOVOLOG) 1 VIAL SQ SCH ×4 (06:17→22:03)
[2020-08-02] MEDS: INSULIN (LEVEMIR) 100 UNITS/ML UNITS SQ SCH ×2 (06:17→22:04)
--- NOTE | 2020-08-02 09:26 | PN ---
Progress Note, Physician Chief Complaint: in bed awake alert took some apple sauce po tolerated OK - Current Medication List Current Medications: Active Medications Acetaminophen (Ofirmev Injection -) 1,000 mg IVPB Q6H PRN PRN Reason: PAIN LEVEL 1-5 Last Admin: 08/01/20 13:07 Dose: 1,000 mg Documented by: Chlorhexidine Gluconate (Hibiclens For Decolonization -) 1 applic TP HS [facility] Last Admin: 08/01/20 21:10 Dose: 1 applic Documented by: Piperacillin Sod/Tazobactam (Sod 4.5 gm/ Dextrose) 100 mls @ 200 mls/hr IVPB Q8H-IV [facility]; Protocol Last Admin: 08/02/20 09:16 Dose: 200 mls/hr Documented by: Pantoprazole Sodium 80 mg/ (Sodium Chloride) 100 mls @ 10 mls/hr IVPB Q10H [facility] Stop: 08/03/20 17:59 Last Admin: 08/02/20 01:56 Dose: Not Given Documented by: Insulin Aspart (Novolog Vial Sliding Scale -) 1 vial SQ [facility]; Protocol Last Admin: 08/02/20 06:17 Dose: Not Given Documented by: Insulin Detemir (Levemir Vial) 6 units SQ BID@0700,2200 [facility] Last Admin: 08/02/20 06:17 Dose: Not Given Documented by: Metoprolol Tartrate (Lopressor Injection -) 5 mg IVPB Q6H PRN PRN Reason: GIVE IF BP > 150/90 Mupirocin (Bactroban Ointment (For Decolonization) -) 1 applic NS BID [facility] Stop: 08/02/20 09:59 Last Admin: 08/01/20 21:20 Dose: 1 applic Documented by: Silver Sulfadiazine (Silvadene -) 1 applic TP BID [facility] Last Admin: 08/01/20 21:20 Dose: 1 applic Documented by: Sodium Hypochlorite (Dakin's Solution 0.25% (Half-Strength) -) 1 applic TP DAILY [facility] Last Admin: 08/01/20 10:53 Dose: 1 applic Documented by: - Objective Vital Signs: Vital Signs Temperature 97.8 F 08/02/20 08:00 Pulse Rate 76 08/02/20 08:00 Respiratory Rate 18 08/02/20 08:00 Blood Pressure 164/75 08/02/20 08:00 O2 Sat by Pulse Oximetry (%) 100 08/02/20 08:40 Constitutional: Yes: No Distress Eyes: Yes: Conjunctiva Clear HENT: Yes: Atraumatic Neck: Yes: Supple Cardiovascular: Yes: Regular Rate and Rhythm Respiratory: Yes: Diminished Gastrointestinal: Yes: Soft. No: Tenderness Genitourinary: No: Hematuria Musculoskeletal: No: Joint Stiffness, Joint Swelling Extremities: No: Cold, Cool, Cyanosis Edema: Yes (hands) Integumentary: No: Rash Neurological: Yes: Alert Psychiatric: Yes: Alert. No: Agitated Labs: CBC, BMP 08/01/20 05:40 08/01/20 05:40 INR, PTT INR 1.00 (0.83-1.09) 07/30/20 05:45 - ....Imaging Other: Report Reviewed Assessment/Plan The patient is a 70y/o F with a pmh of recent CVA , IDDM, HTN admitted with sepsis diverticulitis with abscesses and UTI, also hydronephrosis; s/p Faustino procedure; GIB ; s/p EGD - stable; PUD IVF; iv ATB per ID; IV PPI f/u labs advance diet as tolerated decubs treatment and prophylaxis cardio and neuro f/u, ID, renal, GI, f/u hold ASA and heparin d/w GI for at least 2 weeks (until 08/14) d/w staff; d/w pt - prognosis guarded; turn in bed decubs pfx d.w pt and staff
--- NOTE | 2020-08-02 10:00 | PN ---
Progress Note, Physician History of Present Illness: Previously hypotensive, lethargic, dark stools in colostomy with significant anemia suspicious of UGI bleed. NGT with dark gastric contents, transfused 2 u pRBC with improved sensorium and hemodynamics, EGD shows gastric clot Dieulafoy lesion vs Cristel Morales tear. Hgb and hemodynamics stable, now tolerating full liquids. - Current Medication List Current Medications: Active Medications Acetaminophen (Ofirmev Injection -) 1,000 mg IVPB Q6H PRN PRN Reason: PAIN LEVEL 1-5 Last Admin: 08/01/20 13:07 Dose: 1,000 mg Documented by: Chlorhexidine Gluconate (Hibiclens For Decolonization -) 1 applic TP HS [facility] Last Admin: 08/01/20 21:10 Dose: 1 applic Documented by: Piperacillin Sod/Tazobactam (Sod 4.5 gm/ Dextrose) 100 mls @ 200 mls/hr IVPB Q8H-IV [facility]; Protocol Last Admin: 08/02/20 09:16 Dose: 200 mls/hr Documented by: Pantoprazole Sodium 80 mg/ (Sodium Chloride) 100 mls @ 10 mls/hr IVPB Q10H [facility] Stop: 08/03/20 17:59 Last Admin: 08/02/20 01:56 Dose: Not Given Documented by: Insulin Aspart (Novolog Vial Sliding Scale -) 1 vial SQ ACHS [facility]; Protocol Last Admin: 08/02/20 06:17 Dose: Not Given Documented by: Insulin Detemir (Levemir Vial) 6 units SQ BID@0700,2200 [facility] Last Admin: 08/02/20 06:17 Dose: Not Given Documented by: Metoprolol Tartrate (Lopressor Injection -) 5 mg IVPB Q6H PRN PRN Reason: GIVE IF BP > 150/90 Silver Sulfadiazine (Silvadene -) 1 applic TP BID [facility] Last Admin: 08/01/20 21:20 Dose: 1 applic Documented by: Sodium Hypochlorite (Dakin's Solution 0.25% (Half-Strength) -) 1 applic TP DAILY [facility] Last Admin: 08/01/20 10:53 Dose: 1 applic Documented by: - Objective Vital Signs: Vital Signs Temperature 97.8 F 08/02/20 08:00 Pulse Rate 76 08/02/20 08:00 Respiratory Rate 18 08/02/20 08:00 Blood Pressure 164/75 08/02/20 08:00 O2 Sat by Pulse Oximetry (%) 100 08/02/20 08:40 Constitutional: Yes: No Distress, Calm Neck: Yes: Supple Cardiovascular: Yes: Regular Rate and Rhythm Respiratory: Yes: Regular, CTA Bilaterally Gastrointestinal: Yes: Soft, Hypoactive Bowel Sounds, Other (Colostomy pink) Genitourinary: Yes: [place] Present Edema: No Labs: CBC, BMP 08/01/20 05:40 08/01/20 05:40 INR, PTT INR 1.00 (0.83-1.09) 07/30/20 05:45 - ....Imaging EKG: Report Reviewed (Tele: NSR) Problem List - Problems (1) Colonic diverticular abscess Code(s): K57.20 - DVTRCLI OF LG INT W PERFORATION AND ABSCESS W/O BLEEDING (2) Colovesical fistula Code(s): N32.1 - VESICOINTESTINAL FISTULA (3) CAD (coronary artery disease) Code(s): I25.10 - ATHSCL HEART DISEASE OF [place] CORONARY ARTERY W/O ANG PCTRS Qualifiers: Coronary Disease-Associated Artery/Lesion type: [place] artery [place] vs. transplanted heart: [place] heart Associated angina: without angina Qualified Code(s): I25.10 - Atherosclerotic heart disease of [place] coronary artery without angina pectoris (4) Carotid stenosis, left Code(s): I65.22 - OCCLUSION AND STENOSIS OF LEFT CAROTID ARTERY (5) Cerebrovascular accident (CVA) Code(s): I63.9 - CEREBRAL INFARCTION, UNSPECIFIED Qualifiers: CVA mechanism: unspecified Qualified Code(s): I63.9 - Cerebral infarction, unspecified (6) Diabetes Code(s): E11.9 - TYPE 2 DIABETES MELLITUS WITHOUT COMPLICATIONS Qualifiers: Diabetes mellitus type: type 2 Diabetes mellitus technician terminal and repeater insulin use: with correction use Diabetes mellitus complication status: with neurologic complications (7) HTN (hypertension) Code(s): I10 - ESSENTIAL (PRIMARY) HYPERTENSION Qualifiers: Hypertension type: essential hypertension Qualified Code(s): I10 - Essential (primary) hypertension (8) Hypercholesterolemia Code(s): E78.00 - PURE HYPERCHOLESTEROLEMIA, UNSPECIFIED (9) Hypothyroidism Code(s): E03.9 - HYPOTHYROIDISM, UNSPECIFIED Qualifiers: Hypothyroidism type: unspecified Qualified Code(s): E03.9 - Hypothyroidism, unspecified (10) GI hemorrhage Code(s): K92.2 - GASTROINTESTINAL HEMORRHAGE, UNSPECIFIED Qualifiers: GI bleed type/associated pathology: melena Qualified Code(s): K92.1 - Melena Assessment/Plan 04/12/2020 ECHO: normal LVEF; abnormal diastolic compliance, Tr TR 1. Post Gavin's procedure for complicated diverticulitis with abscess and colovesicular fistula 2. Diastolic dysfunction 3. Poorly controlled DM 4. HTN 5. Chronic stroke 6. Multi-infarct dementia 7. Hypokalemia resolved 8. UGI bleed, gastric ulcers, melena with acute blood loss anemia s/p 2 u pRBC 9. UTI 10. Lactic acidoses improving PLAN: 1. Empiric antibiotic per ID, change Protonix gtt to 40 bid 2. Resume Toprol XL 25 qd, Lipitor as hemodynamics tolerate 3. Mechanical DVT prophylaxis 4. Post-op management 5. Monitor Hgb post transfusion, replete K
[2020-08-02] MEDS: SODIUM HYPOCHLORITE 0.25%- 473 ML BULK BOTTLE TP SCH (10:22)
[2020-08-02] MEDS: SILVER SULFADIAZINE 1% TOP CREAM 50 GM JAR TP SCH ×2 (10:22→22:04)
--- NOTE | 2020-08-02 10:55 | PN ---
Progress Note (short form) - Note Progress Note: PULMONARY SUBJECTIVE: Pt seen and examined in the ICU. No overnight events. Tolerating full liquid diet. OBJECTIVE: Vital Signs Period Temp Pulse Resp BP Sys/Ferrer Pulse Ox Last 24 Hr 97.5 F-98.5 F 69-90 16-19 156-174/70-88 100-100 Intake & Output 07/30/20 07/31/20 08/01/20 08/02/20 23:59 23:59 23:59 23:59 Intake Total 2325 2490 930 170 Output Total 830 1970 3000 1100 Balance 1495 520 -2070 -930 Gen: NAD at rest Heart: RRR Lung: decreased breath sounds at the bases Abd: soft, +ostomy pink Ext: no edema CBC, BMP 08/01/20 05:40 08/01/20 05:40 Active Medications Acetaminophen (Ofirmev Injection -) 1,000 mg IVPB Q6H PRN PRN Reason: PAIN LEVEL 1-5 Last Admin: 08/01/20 13:07 Dose: 1,000 mg Documented by: Chlorhexidine Gluconate (Hibiclens For Decolonization -) 1 applic TP HS [facility] Last Admin: 08/01/20 21:10 Dose: 1 applic Documented by: Piperacillin Sod/Tazobactam (Sod 4.5 gm/ Dextrose) 100 mls @ 200 mls/hr IVPB Q8H-IV [facility]; Protocol Last Admin: 08/02/20 09:16 Dose: 200 mls/hr Documented by: Pantoprazole Sodium 80 mg/ (Sodium Chloride) 100 mls @ 10 mls/hr IVPB Q10H [facility] Stop: 08/03/20 17:59 Last Admin: 08/02/20 10:22 Dose: 10 mls/hr Documented by: Insulin Aspart (Novolog Vial Sliding Scale -) 1 vial SQ ACHS [facility]; Protocol Last Admin: 08/02/20 06:17 Dose: Not Given Documented by: Insulin Detemir (Levemir Vial) 6 units SQ BID@0700,2200 [facility] Last Admin: 08/02/20 06:17 Dose: Not Given Documented by: Metoprolol Tartrate (Lopressor Injection -) 5 mg IVPB Q6H PRN PRN Reason: GIVE IF BP > 150/90 Silver Sulfadiazine (Silvadene -) 1 applic TP BID [facility] Last Admin: 08/02/20 10:22 Dose: 1 applic Documented by: Sodium Hypochlorite (Dakin's Solution 0.25% (Half-Strength) -) 1 applic TP DAILY [facility] Last Admin: 08/02/20 10:22 Dose: 1 applic Documented by: ASSESSMENT AND PLAN: GI Bleed Acute Blood Loss Anemia Gastric Ulcers Hemorrhagic Shock improved Complicated Diverticulitis s/p Gavin's Procedure UTI LV Diastolic Dysfunction HTN DM h/o CVA - continue protonix - monitor H/H, coags - antibiotics per ID - advance diet as tolerated - replete lytes - DVT prophylaxis
--- NOTE | 2020-08-02 12:22 | PN ---
Progress Note, Physician History of Present Illness: Seen and examined at the bedside awake and alert no overnight events making urine - Current Medication List Current Medications: Active Medications Acetaminophen (Ofirmev Injection -) 1,000 mg IVPB Q6H PRN PRN Reason: PAIN LEVEL 1-5 Last Admin: 08/01/20 13:07 Dose: 1,000 mg Documented by: Chlorhexidine Gluconate (Hibiclens For Decolonization -) 1 applic TP HS [facility] Last Admin: 08/01/20 21:10 Dose: 1 applic Documented by: Piperacillin Sod/Tazobactam (Sod 4.5 gm/ Dextrose) 100 mls @ 200 mls/hr IVPB Q8H-IV [facility]; Protocol Last Admin: 08/02/20 09:16 Dose: 200 mls/hr Documented by: Pantoprazole Sodium 80 mg/ (Sodium Chloride) 100 mls @ 10 mls/hr IVPB Q10H [facility]CLUDES [facility] Stop: 08/03/20 17:59 Last Admin: 08/02/20 10:22 Dose: 10 mls/hr Documented by: Insulin Aspart (Novolog Vial Sliding Scale -) [facility]; Protocol Last Admin: 08/02/20 11:42 Dose: Not Given Documented by: Insulin Detemir (Levemir Vial) 6 units SQ BID@0700,2200 [facility] Last Admin: 08/02/20 06:17 Dose: Not Given Documented by: Metoprolol Tartrate (Lopressor Injection -) 5 mg IVPB Q6H PRN PRN Reason: GIVE IF BP > 150/90 Silver Sulfadiazine (Silvadene -) 1 applic TP BID [facility] Last Admin: 08/02/20 10:22 Dose: 1 applic Documented by: Sodium Hypochlorite (Dakin's Solution 0.25% (Half-Strength) -) 1 applic TP DAILY [facility] Last Admin: 08/02/20 10:22 Dose: 1 applic Documented by: - Objective Vital Signs: Vital Signs Temperature 97.8 F 08/02/20 08:00 Pulse Rate 76 08/02/20 08:00 Respiratory Rate 18 08/02/20 08:00 Blood Pressure 164/75 08/02/20 08:00 O2 Sat by Pulse Oximetry (%) 100 08/02/20 08:40 Constitutional: Yes: No Distress, Calm Neck: Yes: Supple Cardiovascular: Yes: Regular Rate and Rhythm Respiratory: Yes: Regular Gastrointestinal: Yes: Soft Edema: No Labs: CBC, BMP 08/01/20 05:40 08/01/20 05:40 INR, PTT INR 1.00 (0.83-1.09) 07/30/20 05:45 Assessment/Plan 70 year old woman with history of CVA, IDDM, hypertension who presented with lower abdominal pain and found to have likely UTI with hypokalemia. 1. Hypokalemia in setting of diarrhea/GI losses 2. Diverticular abscess 3. Hypertension 4. IDDM 5. Anemia 6. Lactic acidosis 7. Hypomagnesemia 8. Hypophosphatemia 9. Acute kidney injury 10. Acute GI bleed 11. Lactic acidosis Renal function improved and stable off IVF, advance diet as per GI maintain MAP > 65, CVP 8-10 lactic acidosis improved. s/p endoscopy, advance diet as per surgery. ICU monitoring Transfuse further as needed Trend renal function and electrolytes supplement phos and k as needed. Will follow up as needed Guillermo Ricks DO
--- NOTE | 2020-08-02 12:23 | PN.GI ---
GI Progress Note Subjective: GI NOte: Stools are turning brown and Hbs stable. Will advance diet - Objective Vital Signs: Vital Signs Temperature 97.8 F 08/02/20 08:00 Pulse Rate 76 08/02/20 08:00 Respiratory Rate 18 08/02/20 08:00 Blood Pressure 164/75 08/02/20 08:00 O2 Sat by Pulse Oximetry (%) 100 08/02/20 08:40 Laboratory Tests 07/30/20 07/31/20 08/01/20 05:45 05:45 05:40 Hgb 8.5 L 8.7 L 9.2 L Constitutional: Calm ...Auscultate: Yes: Normoactive Bowel Sounds ...Palpate: Yes: Soft, Other (nontender) Labs: CBC, BMP 08/01/20 05:40 08/01/20 05:40 INR, PTT INR 1.00 (0.83-1.09) 07/30/20 05:45 Assessment/Plan Impression: - Esophageal ulcer bleed ? NG tube related. - Multiple and large pelvic abscesses likely secondary to diverticular disease and 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 - Diarrhea is likely paradoxical and of an overflow nature with suspect proximal fecal impaction. Stool of C diff negative Plan: - Chopped diet - Stop PI drip and given BID Problem List - Problems (2) Gastric ulcer with hemorrhage Code(s): K25.4 - CHRONIC OR UNSPECIFIED GASTRIC ULCER WITH HEMORRHAGE Qualifiers: Qualified Code(s): K25.0 - Acute gastric ulcer with hemorrhage (3) Hematemesis of unknown etiology Code(s): K92.0 - HEMATEMESIS (4) GI hemorrhage Code(s): K92.2 - GASTROINTESTINAL HEMORRHAGE, UNSPECIFIED Qualifiers: Qualified Code(s): K92.1 - Melena (5) Colonic diverticular abscess Code(s): K57.20 - DVTRCLI OF LG INT W PERFORATION AND ABSCESS W/O BLEEDING (6) Colovesical fistula Code(s): N32.1 - VESICOINTESTINAL FISTULA (7) Bilateral hydronephrosis Code(s): N13.30 - UNSPECIFIED HYDRONEPHROSIS (8) Urinary tract infection Code(s): N39.0 - URINARY TRACT INFECTION, SITE NOT SPECIFIED Qualifiers: Qualified Code(s): N10 - Acute pyelonephritis (9) CAD (coronary artery disease) Code(s): I25.10 - ATHSCL HEART DISEASE OF [place] CORONARY ARTERY W/O ANG PCTRS Qualifiers: Qualified Code(s): I25.10 - Atherosclerotic heart disease of [place] coronary artery without angina pectoris (10) Cerebrovascular accident (CVA) Code(s): I63.9 - CEREBRAL INFARCTION, UNSPECIFIED Qualifiers: Qualified Code(s): I63.9 - Cerebral infarction, unspecified (11) Diabetes Code(s): E11.9 - TYPE 2 DIABETES MELLITUS WITHOUT COMPLICATIONS (12) HTN (hypertension) Code(s): I10 - ESSENTIAL (PRIMARY) HYPERTENSION Qualifiers: Qualified Code(s): I10 - Essential (primary) hypertension (13) Hypercholesterolemia Code(s): E78.00 - PURE HYPERCHOLESTEROLEMIA, UNSPECIFIED (14) Hypothyroidism Code(s): E03.9 - HYPOTHYROIDISM, UNSPECIFIED Qualifiers: Qualified Code(s): E03.9 - Hypothyroidism, unspecified (15) Schizophrenia Code(s): F20.9 - SCHIZOPHRENIA, UNSPECIFIED
--- NOTE | 2020-08-02 13:31 | PATH ---
Surgical Pathology Report Patient Name: SHOBHA VAZQUEZ [facility]. Rec. #: [id number] /Age/Gender: 1950 (Age: 70) / F Account: [id number] Location: ICU [facility] Taken: 07/30/2020 Received: 07/30/2020 Reported: 08/02/2020 Physicians: Bhargav Lucas M.D. Specimen(s) Received GASTRIC ANTRUM Clinical History GI bleeding Postoperative diagnosis: GE junction ulcer, gastric ulcer Final Diagnosis GASTRIC ANTRUM, BIOPSY: GASTRIC ANTRAL MUCOSA WITH MODERATE CHRONIC GASTRITIS. IMMUNOHISTOCHEMICAL STAIN FOR H. PYLORI IS NEGATIVE. Positive and negative controls (internal if applicable) show appropriate results. Electronically Signed Shobha Lynne M.D. Gross Description Received in formalin, labeled "biopsy gastric antrum" is a robin, irregular portion of soft tissue measuring 0.3 cm. in greatest dimension. The specimen is submitted in toto in one cassette. /07/30/2020 [facility]/07/30/2020
--- NOTE | 2020-08-02 15:07 | PN ---
Progress Note (short form) - Note Progress Note: no further bleeding diet advanced alert nad Vital Signs Period Temp Pulse Resp BP Sys/Ferrer Pulse Ox Last 24 Hr 97.5 F-98.4 F 69-90 16-19 156-174/70-88 100-100 cor-rrr lungs clear abd soft, +ostomy with brown stool incison clean, no erythema ext no edema CBC, BMP 08/01/20 05:40 08/01/20 05:40 Microbiology 07/28/20 10:20 Blood - Peripheral Venous Blood Culture - Final NO GROWTH AFTER 5 DAYS INCUBATION 07/28/20 10:20 Blood - Peripheral Venous Blood Culture - Final NO GROWTH AFTER 5 DAYS INCUBATION 07/28/20 10:30 Urine - Urine - Catheterized Urine Culture - Final Yeast Like Organism 07/22/20 09:37 Abdomen Gram Stain - Final 07/22/20 09:37 Abdomen Wound Culture - Final Pseudomonas Aeruginosa Escherichia Coli 07/15/20 20:10 Blood - Peripheral Venous Blood Culture - Final NO GROWTH AFTER 5 DAYS INCUBATION 07/15/20 20:10 Blood - Peripheral Venous Blood Culture - Final NO GROWTH AFTER 5 DAYS INCUBATION 07/18/20 15:00 Stool Clostridioides difficile Antigen - Final 07/18/20 15:00 Stool Clostridioides difficile Toxin Assay - Final 07/15/20 15:10 Urine - Urine Clean Catch Urine Culture - Final Pseudomonas Aeruginosa Escherichia Coli a/p s/p armstrong's procedure 07/22 for complicated diverticulitis with abscesses s/p UGI bleed d/c antibiotics and observe doing well Problem List - Problems (1) Abdominal pain Code(s): R10.9 - UNSPECIFIED ABDOMINAL PAIN (2) Leukocytosis Code(s): D72.829 - ELEVATED WHITE BLOOD CELL COUNT, UNSPECIFIED (3) Urinary tract infection Code(s): N39.0 - URINARY TRACT INFECTION, SITE NOT SPECIFIED Qualifiers: Urinary tract infection type: acute pyelonephritis Qualified Code(s): N10 - Acute pyelonephritis (4) Hyponatremia Code(s): E87.1 - HYPO-OSMOLALITY AND HYPONATREMIA
--- NOTE | 2020-08-02 15:54 | PN ---
Progress Note (short form) - Note Progress Note: Surgery-POD#11 i. Vital Signs Period Temp Pulse Resp BP Sys/Ferrer Pulse Ox Last 24 Hr 97.5 F-98.4 F 69-90 16-19 156-174/70-88 100-100 GEN: arousable ABD: intermittent shayan intact. Incision clean and fascia intact. Ostomy- pink and viable. ABD soft and non-distended. 4x4 gauze and tegaderm dressing applied. CBC, BMP 08/01/20 05:40 08/01/20 05:40 A/P: 70 yo female s/p hartmans for complicated diverticulitits, now with GI bleed stable s/p EGD x2. Pt on IV protonix BID On chopped diet Local wound care D/w Dr. Horton
[2020-08-02] MEDS: metoPROLOL SUCCINATE 25 MG TAB.SR.24H (FP) PO SCH (16:28)
[2020-08-02] MEDS: PANTOPRAZOLE SODIUM 40 MG VIAL IVPUSH SCH (22:03)
[2020-08-02] MEDS: CHLORHEXIDINE GLUCONATE 4% CLEANSER FOR DECOLONIZATION TP SCH (22:04)
[2020-08-03] MEDS: INSULIN (LEVEMIR) 100 UNITS/ML UNITS SQ SCH ×3 (06:15→21:44)
[2020-08-03] MEDS: INSULIN SLIDING SCALE (NOVOLOG) 1 VIAL SQ SCH ×4 (06:16→21:34)
[2020-08-03 06:31] LABS: BASO % 0.6 % (0-2.0); EOS % 1.9 % (0-4.5); HEMATOCRIT 27.1 % (32.4-45.2); HEMOGLOBIN 9.2 GM/dL (10.7-15.3); LYMPH % 15.1 % (8-40); MCH 30.7 pg (25.7-33.7); MCHC 34.1 g/dl (32.0-36.0); MEAN CELL VOLUME 90.1 fl (80-96); MEAN PLT VOLUME 8.1 fl (7.5-11.1); MONO % 8.7 % (3.8-10.2); NEUT % 73.7 % (42.8-82.8); PLATELET COUNT 478 K/MM3 (134-434); RBC 3.01 M/mm3 (3.60-5.2); RDW 16.3 % (11.6-15.6)
[2020-08-03 07:03] LABS: ALBUMIN 1.4 g/dl (3.4-5.0); BILIRUBIN,TOTAL 0.4 mg/dL (0.2-1); BLOOD UREA NITROGEN 4.2 mg/dL (7-18); CALCIUM 7.4 mg/dL (8.5-10.1); CREATININE 0.4 mg/dL (0.55-1.3); TOT PROT 4.8 g/dl (6.4-8.2)
[2020-08-03 07:47] LABS: POTASSIUM 2.4 mmol/L (3.5-5.1)
[2020-08-03] MEDS: KCL 10 MEQ IVPB 10 MEQ/100 ML INFUS.BAG IVPB SCH ×5 (08:02→21:33)
--- NOTE | 2020-08-03 08:02 | PN ---
Progress Note (short form) - Note Progress Note: GENERAL SURGERY POD #12 Resting comfortably without complaint. Bleeding resolved. Diet advanced by GI/Audie. Denies n/v/f/c, CP, palpitations, SOB, HARKINS Last Vital Signs Temp Pulse Resp BP Pulse Ox 98.2 F 76 19 139/67 100 08/03/20 04:37 08/03/20 05:00 08/03/20 05:00 08/03/20 05:00 08/03/20 00:00 CBC, BMP 08/03/20 05:00 08/03/20 05:00 PE GEN: alert. arousable ABD: intermittent shayan intact. Incision clean. Deep fascia intact. + granulation tissue. Ostomy viable (pink & producing). Soft and non-distended. LE: SCDs bilat. All compartments soft. A/P: POD #12 s/p Faustino's procedure for complicated diverticulitits. UGI bleed. S/p EGD x2. -IV protonix BID -Chopped diet -Local wound care ordered -Replete elytes PRN -f/u H.Pylori -f/u GI Case Management Above plan discussed with Dr. Horton and agrees. Problem List - Problems (1) Colonic diverticular abscess Code(s): K57.20 - DVTRCLI OF LG INT W PERFORATION AND ABSCESS W/O BLEEDING (2) Colovesical fistula Code(s): N32.1 - VESICOINTESTINAL FISTULA (3) GI hemorrhage Code(s): K92.2 - GASTROINTESTINAL HEMORRHAGE, UNSPECIFIED Qualifiers: GI bleed type/associated pathology: melena Qualified Code(s): K92.1 - Melena (4) Diabetes Code(s): E11.9 - TYPE 2 DIABETES MELLITUS WITHOUT COMPLICATIONS Qualifiers: Diabetes mellitus type: type 2 Diabetes mellitus nursing home insulin use: with terminal gauger use Diabetes mellitus complication status: with neurologic complications (5) HTN (hypertension) Code(s): I10 - ESSENTIAL (PRIMARY) HYPERTENSION Qualifiers: Hypertension type: essential hypertension Qualified Code(s): I10 - Essential (primary) hypertension (6) Hypokalemia Code(s): E87.6 - HYPOKALEMIA
[2020-08-03] MEDS ORDERED: POTASSIUM CHLORIDE ORAL LIQUID 20 MEQ/15 ML PO ONE (08:15)
[2020-08-03] MEDS ORDERED: POTASSIUM CHLORIDE TABS 20 MEQ TABLET.ER (FP) PO ONE (08:15)
[2020-08-03] MEDS: metoPROLOL SUCCINATE 25 MG TAB.SR.24H (FP) PO SCH (10:00)
[2020-08-03] MEDS: PANTOPRAZOLE SODIUM 40 MG VIAL IVPUSH SCH ×2 (10:00→21:33)
[2020-08-03 10:05] LABS: PLATELET ESTIMATE SLT INCREASE
[2020-08-03 10:07] LABS: OVALOCYTE 1+
[2020-08-03] MEDS: SILVER SULFADIAZINE 1% TOP CREAM 50 GM JAR TP SCH ×2 (11:00→21:34)
--- NOTE | 2020-08-03 11:26 | PN ---
Progress Note (short form) - Note Progress Note: PULMONARY SUBJECTIVE: Pt seen and examined in the ICU. No overnight events. Tolerating full liquid diet. OBJECTIVE: Vital Signs Period Temp Pulse Resp BP Sys/Ferrer Pulse Ox Last 24 Hr 97.9 F-98.4 F 69-88 17-23 120-159/62-80 95-100 Gen: NAD at rest Heart: RRR Lung: decreased breath sounds at the bases Abd: soft, +ostomy pink Ext: no edema CBC, BMP 08/03/20 05:00 08/03/20 05:00 Active Medications Acetaminophen (Tylenol -) 1,000 mg PO Q6H PRN PRN Reason: PAIN LEVEL 1-5 Chlorhexidine Gluconate (Hibiclens For Decolonization -) 1 applic TP HS [facility] Last Admin: 08/02/20 22:04 Dose: 1 applic Documented by: Potassium Chloride (Potassium Chloride 10 Meq Premix Ivpb -) 10 meq in 100 mls @ 100 mls/hr IVPB Q60M [facility] Stop: 08/03/20 11:29 Last Admin: 08/03/20 09:54 Dose: 100 mls/hr Documented by: Insulin Aspart (Novolog Vial Sliding Scale -) 1 vial SQ ACHS [facility]; Protocol Last Admin: 08/03/20 06:16 Dose: Not Given Documented by: Insulin Detemir (Levemir Vial) 6 units SQ BID@0700,2200 [facility] Last Admin: 08/03/20 06:15 Dose: Not Given Documented by: Metoprolol Succinate (Toprol Xl -) 25 mg PO DAILY [facility] Last Admin: 08/03/20 10:00 Dose: 25 mg Documented by: Pantoprazole Sodium (Protonix Iv) 40 mg IVPUSH BID [facility] Last Admin: 08/03/20 10:00 Dose: 40 mg Documented by: Silver Sulfadiazine (Silvadene -) 1 applic TP BID [facility] Last Admin: 08/02/20 22:04 Dose: 1 applic Documented by: Sodium Hypochlorite (Dakin's Solution 0.25% (Half-Strength) -) 1 applic TP DAILY [facility] Last Admin: 08/02/20 10:22 Dose: 1 applic Documented by: ASSESSMENT AND PLAN: GI Bleed Acute Blood Loss Anemia Gastric Ulcers Hemorrhagic Shock improved Complicated Diverticulitis s/p Gavin's Procedure UTI LV Diastolic Dysfunction HTN DM h/o CVA - continue protonix - monitor H/H, coags - antibiotics per ID - advance diet as tolerated - replete lytes - DVT prophylaxis
--- NOTE | 2020-08-03 11:37 | PN ---
Progress Note, Physician Chief Complaint: Events noted Post abdominal surgery Remains in ICU History of Present Illness: Patient was seen and examined. Awake. Chart was reviewed Denies chest pain or SOB Appears anxious - Current Medication List Current Medications: Active Medications Acetaminophen (Tylenol -) 1,000 mg PO Q6H PRN PRN Reason: PAIN LEVEL 1-5 Chlorhexidine Gluconate (Hibiclens For Decolonization -) 1 applic TP HS [facility] Last Admin: 08/02/20 22:04 Dose: 1 applic Documented by: Insulin Aspart (Novolog Vial Sliding Scale -) 1 vial SQ ACH[facility]; Protocol Last Admin: 08/03/20 06:16 Dose: Not Given Documented by: Insulin Detemir (Levemir Vial) 6 units SQ BID@0700,2200 [facility] Last Admin: 08/03/20 06:15 Dose: Not Given Documented by: Metoprolol Succinate (Toprol Xl -) 25 mg PO DAILY [facility] Last Admin: 08/03/20 10:00 Dose: 25 mg Documented by: Pantoprazole Sodium (Protonix Iv) 40 mg IVPUSH BID [facility] Last Admin: 08/03/20 10:00 Dose: 40 mg Documented by: Silver Sulfadiazine (Silvadene -) 1 applic TP BID [facility] Last Admin: 08/02/20 22:04 Dose: 1 applic Documented by: Sodium Hypochlorite (Dakin's Solution 0.25% (Half-Strength) -) 1 applic TP DAILY [facility] Last Admin: 08/02/20 10:22 Dose: 1 applic Documented by: - Objective Vital Signs: Vital Signs Temperature 98.4 F 08/03/20 10:00 Pulse Rate 88 08/03/20 10:00 Respiratory Rate 23 H 08/03/20 10:00 Blood Pressure 135/80 08/03/20 10:00 O2 Sat by Pulse Oximetry (%) 95 08/03/20 10:00 Neck: Yes: Supple Cardiovascular: Yes: Regular Rate and Rhythm, S1, S2 Respiratory: Yes: CTA Bilaterally Gastrointestinal: Yes: Other (post op, colostomy) Edema: No Labs: CBC, BMP 08/03/20 05:00 08/03/20 05:00 INR, PTT INR 1.00 (0.83-1.09) 07/30/20 05:45 Problem List - Problems (1) Colonic diverticular abscess Code(s): K57.20 - DVTRCLI OF LG INT W PERFORATION AND ABSCESS W/O BLEEDING (2) Colovesical fistula Code(s): N32.1 - VESICOINTESTINAL FISTULA (3) CAD (coronary artery disease) Code(s): I25.10 - ATHSCL HEART DISEASE OF [place] CORONARY ARTERY W/O ANG PCTRS Qualifiers: Coronary Disease-Associated Artery/Lesion type: [place] artery [place] vs. transplanted heart: [place] heart Associated angina: without angina Qualified Code(s): I25.10 - Atherosclerotic heart disease of [place] coronary artery without angina pectoris (4) Carotid stenosis, left Code(s): I65.22 - OCCLUSION AND STENOSIS OF LEFT CAROTID ARTERY (5) Cerebrovascular accident (CVA) Code(s): I63.9 - CEREBRAL INFARCTION, UNSPECIFIED Qualifiers: CVA mechanism: unspecified Qualified Code(s): I63.9 - Cerebral infarction, unspecified (6) Diabetes Code(s): E11.9 - TYPE 2 DIABETES MELLITUS WITHOUT COMPLICATIONS Qualifiers: Diabetes mellitus type: type 2 Diabetes mellitus mcc insulin use: with mcc use Diabetes mellitus complication status: with neurologic complications (7) HTN (hypertension) Code(s): I10 - ESSENTIAL (PRIMARY) HYPERTENSION Qualifiers: Hypertension type: essential hypertension Qualified Code(s): I10 - Essential (primary) hypertension (8) Hypercholesterolemia Code(s): E78.00 - PURE HYPERCHOLESTEROLEMIA, UNSPECIFIED (9) Hypothyroidism Code(s): E03.9 - HYPOTHYROIDISM, UNSPECIFIED Qualifiers: Hypothyroidism type: unspecified Qualified Code(s): E03.9 - Hypothyroidism, unspecified Assessment/Plan 1. Post Gavin's procedure for complicated diverticulitis with abscess and c olovesicular fistula 2. Diastolic dysfunction 3. Poorly controlled DM 4. HTN 5. Chronic stroke 6. Multi-infarct dementia 7. Hypokalemia 8. Anemia s/p 2 u pRBC 9. UTI PLAN: 1. Metoprolol ER 25 mg QD 2. DVT prophylaxis 3. Post-op managemen. Surgery input noted 4. Monitor Hgb post transfusion Dylan García MD
[2020-08-03] MEDS ORDERED: POTASSIUM CHLORIDE TABS 20 MEQ TABLET.ER (FP) PO SCH (11:45)
--- NOTE | 2020-08-03 11:47 | PN ---
Progress Note, Physician Chief Complaint: in bed awake alert no pain - Current Medication List Current Medications: Active Medications Acetaminophen (Tylenol -) 1,000 mg PO Q6H PRN PRN Reason: PAIN LEVEL 1-5 Chlorhexidine Gluconate (Hibiclens For Decolonization -) 1 applic TP HS [facility] Last Admin: 08/02/20 22:04 Dose: 1 applic Documented by: Potassium Chloride (Potassium Chloride 10 Meq Premix Ivpb -) 10 meq in 100 mls @ 100 mls/hr IVPB Q60M [facility] Stop: 08/03/20 14:44 Insulin Aspart (Novolog Vial Sliding Scale -) 1 vial SQ ACHS [facility]; Protocol Last Admin: 08/03/20 11:42 Dose: Not Given Documented by: Insulin Detemir (Levemir Vial) 6 units SQ BID@0700,2200 [facility] Last Admin: 08/03/20 06:15 Dose: Not Given Documented by: Metoprolol Succinate (Toprol Xl -) 25 mg PO DAILY [facility] Last Admin: 08/03/20 10:00 Dose: 25 mg Documented by: Pantoprazole Sodium (Protonix Iv) 40 mg IVPUSH BID [facility] Last Admin: 08/03/20 10:00 Dose: 40 mg Documented by: Potassium Chloride (K-Dur -) 20 meq PO DAILY [facility] Silver Sulfadiazine (Silvadene -) 1 applic TP BID [facility] Last Admin: 08/03/20 11:00 Dose: 1 applic Documented by: Sodium Hypochlorite (Dakin's Solution 0.25% (Half-Strength) -) 1 applic TP DAILY [facility] Last Admin: 08/02/20 10:22 Dose: 1 applic Documented by: - Objective Vital Signs: Vital Signs Temperature 98.4 F 08/03/20 10:00 Pulse Rate 88 08/03/20 10:00 Respiratory Rate 23 H 08/03/20 10:00 Blood Pressure 135/80 08/03/20 10:00 O2 Sat by Pulse Oximetry (%) 95 08/03/20 10:00 Constitutional: Yes: No Distress Eyes: Yes: Conjunctiva Clear HENT: Yes: Atraumatic Neck: Yes: Supple Cardiovascular: Yes: Regular Rate and Rhythm Respiratory: Yes: Diminished Gastrointestinal: Yes: Soft, Other (wound) Genitourinary: No: Hematuria Musculoskeletal: No: Joint Stiffness, Joint Swelling Extremities: No: Cold, Cool Edema: Yes (hands) Integumentary: Yes: Pressure Ulcer (sacral 2). No: Rash Neurological: Yes: Alert ...Motor Strength: LUE, LLE Psychiatric: Yes: Alert. No: Agitated Labs: CBC, BMP 08/03/20 05:00 08/03/20 05:00 INR, PTT INR 1.00 (0.83-1.09) 07/30/20 05:45 - ....Imaging Other: Report Reviewed Assessment/Plan The patient is a 70y/o F with a pmh of recent CVA , IDDM, HTN admitted with sepsis diverticulitis with abscesses and UTI, also hydronephrosis; s/p Faustino procedure; GIB ; PUDs; IVF; iv ATB per ID; po PPI f/u labs advance diet as tolerated decubs treatment and prophylaxis cardio and neuro f/u, ID, renal, GI, f/u hold ASA and heparin d/w GI for at least 2 weeks (until 08/14) d/w staff; d/w pt - prognosis guarded; turn in bed decubs pfx d.w pt and staff
--- NOTE | 2020-08-03 12:11 | PN ---
Progress Note, Physician History of Present Illness: Seen and examined at the bedside awake and alert no overnight events making urine Potassium noted to be low - Current Medication List Current Medications: Active Medications Acetaminophen (Tylenol -) 1,000 mg PO Q6H PRN PRN Reason: PAIN LEVEL 1-5 Chlorhexidine Gluconate (Hibiclens For Decolonization -) 1 applic TP HS [facility] Last Admin: 08/02/20 22:04 Dose: 1 applic Documented by: Potassium Chloride (Potassium Chloride 10 Meq Premix Ivpb -) 10 meq in 100 mls @ 100 mls/hr IVPB Q60M [facility] Stop: 08/03/20 15:44 Insulin Aspart (Novolog Vial Sliding Scale -) 1 vial SQ ACHS [facility]; Protocol Last Admin: 08/03/20 11:42 Dose: Not Given Documented by: Insulin Detemir (Levemir Vial) 6 units SQ BID@0700,2200 [facility] Last Admin: 08/03/20 06:15 Dose: Not Given Documented by: Metoprolol Succinate (Toprol Xl -) 25 mg PO DAILY [facility] Last Admin: 08/03/20 10:00 Dose: 25 mg Documented by: Pantoprazole Sodium (Protonix Iv) 40 mg IVPUSH BID [facility] Last Admin: 08/03/20 10:00 Dose: 40 mg Documented by: Potassium Chloride (K-Dur -) 20 meq PO DAILY [facility] Silver Sulfadiazine (Silvadene -) 1 applic TP BID [facility] Last Admin: 08/03/20 11:00 Dose: 1 applic Documented by: Sodium Hypochlorite (Dakin's Solution 0.25% (Half-Strength) -) 1 applic TP D AILY [facility] Last Admin: 08/02/20 10:22 Dose: 1 applic Documented by: - Objective Vital Signs: Vital Signs Temperature 98.4 F 08/03/20 10:00 Pulse Rate 88 08/03/20 10:00 Respiratory Rate 23 H 08/03/20 10:00 Blood Pressure 135/80 08/03/20 10:00 O2 Sat by Pulse Oximetry (%) 95 08/03/20 10:00 Constitutional: Yes: No Distress Neck: Yes: Supple Cardiovascular: Yes: Regular Rate and Rhythm Gastrointestinal: Yes: Soft Extremities: No: Cyanosis Edema: No Labs: CBC, BMP 08/03/20 05:00 08/03/20 05:00 INR, PTT INR 1.00 (0.83-1.09) 07/30/20 05:45 Assessment/Plan 70 year old woman with history of CVA, IDDM, hypertension who presented with lower abdominal pain and found to have likely UTI with hypokalemia. 1. Hypokalemia in setting of diarrhea/GI losses 2. Diverticular abscess 3. Hypertension 4. IDDM 5. Anemia 6. Lactic acidosis 7. Hypomagnesemia 8. Hypophosphatemia 9. Acute kidney injury 10. Acute GI bleed 11. Lactic acidosis Renal function improved and stable lactic acidosis resolved s/p endoscopy, advance diet as per surgery. ICU monitoring Supplament potassium via IV and orally. Repeat level at 2pm. Check mg also, goal mg > 2 Trend renal function and electrolytes Will follow up as needed Guillermo Ricks DO
[2020-08-03] MEDS ORDERED: KCL 10 MEQ IVPB 10 MEQ/100 ML INFUS.BAG IVPB SCH (12:45)
[2020-08-03] MEDS: SODIUM HYPOCHLORITE 0.25%- 473 ML BULK BOTTLE TP SCH (13:00)
[2020-08-03] MEDS: ACETAMINOPHEN 500 MG TABLET (FP) PO PRN ×2 (14:15→21:33)
[2020-08-03 15:44] LABS: BLOOD UREA NITROGEN 4.4 mg/dL (7-18); CALCIUM 7.9 mg/dL (8.5-10.1); CREATININE 0.6 mg/dL (0.55-1.3); POTASSIUM 3.1 mmol/L (3.5-5.1)
--- NOTE | 2020-08-03 16:59 | PN.GI ---
GI Progress Note Subjective: GI Note: Stool in the colostomy is brown today and Hb is stable. Tolerating chopped diet but appetite is not great. NO HP on gastric biopsy. Potassium has been low and requiring replacement. Please avoid oral potassium given the large and deep esophageal ulcers - Objective Vital Signs: Vital Signs Temperature 98.9 F 08/03/20 16:00 Pulse Rate 79 08/03/20 16:00 Respiratory Rate 16 08/03/20 16:00 Blood Pressure 150/72 08/03/20 16:00 O2 Sat by Pulse Oximetry (%) 95 08/03/20 16:00 Laboratory Tests 07/29/20 07/29/20 07/31/20 05:15 14:50 05:45 Hgb 7.2 L 9.0 L 8.7 L BUN Creatinine Albumin 08/01/20 08/03/20 08/03/20 05:40 05:00 05:00 Hgb 9.2 L 9.2 L BUN Creatinine Albumin 1.4 L 08/03/20 14:10 Hgb BUN 4.4 L Creatinine 0.6 Albumin Constitutional: Calm ...Auscultate: Yes: Normoactive Bowel Sounds ...Palpate: Yes: Soft, Other (nontender) Labs: CBC, BMP 08/03/20 05:00 08/03/20 14:10 INR, PTT INR 1.00 (0.83-1.09) 07/30/20 05:45 Assessment/Plan Impression: - Resolved esophageal ulcer bleed, ? NG tube related. Need to avoid oral potassium. - Multiple and large pelvic abscesses likely secondary to diverticular disease and 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 - Diarrhea is likely paradoxical and of an overflow nature with suspect proximal fecal impaction. Stool C diff negative Plan: - Chopped diet - PPI BI - Please replace potassium IV and avoid oral potassium given the esophageal ulcers Problem List - Problems (2) Gastric ulcer with hemorrhage Code(s): K25.4 - CHRONIC OR UNSPECIFIED GASTRIC ULCER WITH HEMORRHAGE Qualifiers: Gastric ulcer chronicity: acute Qualified Code(s): K25.0 - Acute gastric ulcer with hemorrhage (3) Hematemesis of unknown etiology Code(s): K92.0 - HEMATEMESIS (4) GI hemorrhage Code(s): K92.2 - GASTROINTESTINAL HEMORRHAGE, UNSPECIFIED Qualifiers: GI bleed type/associated pathology: melena Qualified Code(s): K92.1 - Melena (5) Colonic diverticular abscess Code(s): K57.20 - DVTRCLI OF LG INT W PERFORATION AND ABSCESS W/O BLEEDING (6) Colovesical fistula Code(s): N32.1 - VESICOINTESTINAL FISTULA (7) Bilateral hydronephrosis Code(s): N13.30 - UNSPECIFIED HYDRONEPHROSIS (8) Urinary tract infection Code(s): N39.0 - URINARY TRACT INFECTION, SITE NOT SPECIFIED Qualifiers: Urinary tract infection type: acute pyelonephritis Qualified Code(s): N10 - Acute pyelonephritis (9) CAD (coronary artery disease) Code(s): I25.10 - ATHSCL HEART DISEASE OF [place] CORONARY ARTERY W/O ANG PCTRS Qualifiers: Coronary Disease-Associated Artery/Lesion type: [place] artery [place] vs. transplanted heart: [place] heart Associated angina: without angina Qualified Code(s): I25.10 - Atherosclerotic heart disease of [place] coronary artery without angina pectoris (10) Cerebrovascular accident (CVA) Code(s): I63.9 - CEREBRAL INFARCTION, UNSPECIFIED Qualifiers: CVA mechanism: unspecified Qualified Code(s): I63.9 - Cerebral infarction, unspecified (11) Diabetes Code(s): E11.9 - TYPE 2 DIABETES MELLITUS WITHOUT COMPLICATIONS Qualifiers: Diabetes mellitus type: type 2 Diabetes mellitus manager intermediate insulin use: with custodial use Diabetes mellitus complication status: with neurologic complications (12) HTN (hypertension) Code(s): I10 - ESSENTIAL (PRIMARY) HYPERTENSION Qualifiers: Hypertension type: essential hypertension Qualified Code(s): I10 - Essential (primary) hypertension (13) Hypercholesterolemia Code(s): E78.00 - PURE HYPERCHOLESTEROLEMIA, UNSPECIFIED (14) Hypothyroidism Code(s): E03.9 - HYPOTHYROIDISM, UNSPECIFIED Qualifiers: Hypothyroidism type: unspecified Qualified Code(s): E03.9 - Hypothyroidism, unspecified (15) Schizophrenia Code(s): F20.9 - SCHIZOPHRENIA, UNSPECIFIED
[2020-08-03] MEDS ORDERED: MAG HYDROX/AL HYDROX/SIMETH 30 ML UNIT-DOSE CUP PO PRN (17:03)
[2020-08-03] MEDS: MAG HYDROX/AL HYDROX/SIMETH 30 ML UNIT-DOSE CUP PO SCH (21:33)
[2020-08-03] MEDS: CHLORHEXIDINE GLUCONATE 4% CLEANSER FOR DECOLONIZATION TP SCH (21:33)
[2020-08-04] MEDS: MAG HYDROX/AL HYDROX/SIMETH 30 ML UNIT-DOSE CUP PO SCH ×3 (06:08→21:23)
[2020-08-04] MEDS: INSULIN SLIDING SCALE (NOVOLOG) 1 VIAL SQ SCH ×4 (06:13→21:22)
[2020-08-04] MEDS: INSULIN (LEVEMIR) 100 UNITS/ML UNITS SQ SCH ×2 (06:13→21:22)
[2020-08-04 07:40] LABS: BASO % 0.8 % (0-2.0); EOS % 2.7 % (0-4.5); HEMATOCRIT 26.2 % (32.4-45.2); HEMOGLOBIN 9.2 GM/dL (10.7-15.3); LYMPH % 18.7 % (8-40); MCH 31.4 pg (25.7-33.7); MEAN CELL VOLUME 89.7 fl (80-96); MONO % 9.3 % (3.8-10.2); NEUT % 68.5 % (42.8-82.8); PLATELET COUNT 459 K/MM3 (134-434); RBC 2.92 M/mm3 (3.60-5.2); RDW 16.7 % (11.6-15.6); WHITE BLOOD COUNT 7.9 K/mm3 (4.0-10.0)
[2020-08-04 08:01] LABS: BLOOD UREA NITROGEN 4.8 mg/dL (7-18); CALCIUM 7.5 mg/dL (8.5-10.1); CREATININE 0.4 mg/dL (0.55-1.3); MAGNESIUM 1.7 mg/dL (1.8-2.4); POTASSIUM 3.2 mmol/L (3.5-5.1)
--- NOTE | 2020-08-04 08:03 | PN ---
Progress Note, Physician Chief Complaint: K and Mg low yesterday repleted to check labs in bed awake alert NAD ate OK per nurse; TLC DCd yesterday no GIB; wound open d/w surgery will leave it open for secondary intent closure, OK to be DC to SNF with open wound Solorzano will DC voiding trails; started bedisde PT was sitting up yesterday for few minutes - Current Medication List Current Medications: Active Medications Acetaminophen (Tylenol -) 1,000 mg PO Q6H PRN PRN Reason: PAIN LEVEL 1-5 Last Admin: 08/03/20 21:33 Dose: 1,000 mg Documented by: Al Hydroxide/Mg Hydroxide (Mylanta Oral Suspension -) 30 ml PO TID [facility] Last Admin: 08/04/20 06:08 Dose: 30 ml Documented by: Chlorhexidine Gluconate (Hibiclens For Decolonization -) 1 applic TP HS [facility] Last Admin: 08/03/20 21:33 Dose: 1 applic Documented by: Insulin Aspart (Novolog Vial Sliding Scale -) 1 vial SQ [facility]; Protocol Last Admin: 08/04/20 06:13 Dose: Not Given Documented by: Insulin Detemir (Levemir Vial) 6 units SQ BID@0700,2200 [facility] Last Admin: 08/04/20 06:13 Dose: Not Given Documented by: Metoprolol Succinate (Toprol Xl -) 25 mg PO DAILY [facility] Last Admin: 08/03/20 10:00 Dose: 25 mg Documented by: Pantoprazole Sodium (Protonix Iv) 40 mg IVPUSH BID [facility] Last Admin: 08/03/20 21:33 Dose: 40 mg Documented by: Silver Sulfadiazine (Silvadene -) 1 applic TP BID [facility] Last Admin: 08/03/20 21:34 Dose: 1 applic Documented by: Sodium Hypochlorite (Dakin's Solution 0.25% (Half-Strength) -) 1 applic TP DAILY [facility] Last Admin: 08/03/20 13:00 Dose: 1 applic Documented by: - Objective Vital Signs: Vital Signs Temperature 98.4 F 08/04/20 04:00 Pulse Rate 67 08/04/20 06:00 Respiratory Rate 18 08/04/20 06:00 Blood Pressure 125/57 L 08/04/20 06:00 O2 Sat by Pulse Oximetry (%) 95 08/04/20 06:00 Constitutional: Yes: No Distress, Calm Eyes: Yes: Conjunctiva Clear HENT: Yes: Atraumatic Neck: Yes: Supple Cardiovascular: Yes: Regular Rate and Rhythm Respiratory: Yes: Diminished Gastrointestinal: Yes: Soft, Other (wound dressed no bleed; colostomy bag). No: Tenderness Genitourinary: Yes: Solorzano Present. No: Hematuria Musculoskeletal: No: Joint Stiffness, Joint Swelling Extremities: No: Cold, Cool, Cyanosis Edema: No Integumentary: Yes: Pressure Ulcer. No: Rash Neurological: Yes: Alert ...Motor Strength: LUE (4.5), LLE (4.5) Psychiatric: Yes: Alert Labs: CBC, BMP 08/04/20 05:50 08/04/20 05:50 INR, PTT INR 1.00 (0.83-1.09) 07/30/20 05:45 - ....Imaging Other: Report Reviewed Assessment/Plan The patient is a 70y/o F with a pmh of recent CVA , IDDM, HTN admitted with sepsis diverticulitis with abscesses and UTI, also hydronephrosis; s/p Faustino procedure; GIB ; PUDs; IVF; iv ATB per ID; po PPI replete K, Mg, f/u labs advance diet as tolerated decubs treatment and prophylaxis cardio and neuro f/u, ID, renal, GI, f/u hold ASA and heparin d/w GI for at least 2 weeks (until 08/14) d/w staff; d/w pt - prognosis guarded; turn in bed decubs pfx d.w pt and staff
[2020-08-04] MEDS ORDERED: MAGNESIUM 1GM/D5W 100ML - 100 ML IVPB IVPB ONE (08:15)
[2020-08-04] MEDS: metoPROLOL SUCCINATE 25 MG TAB.SR.24H (FP) PO SCH (09:45)
[2020-08-04] MEDS: KCL 10 MEQ IVPB 10 MEQ/100 ML INFUS.BAG IVPB SCH ×3 (09:45→13:50)
[2020-08-04] MEDS: SODIUM HYPOCHLORITE 0.25%- 473 ML BULK BOTTLE TP SCH (09:45)
[2020-08-04] MEDS: SILVER SULFADIAZINE 1% TOP CREAM 50 GM JAR TP SCH ×2 (09:45→21:23)
[2020-08-04] MEDS: PANTOPRAZOLE SODIUM 40 MG VIAL IVPUSH SCH ×2 (09:45→21:23)
[2020-08-04 10:38] LABS: ANISOCYTOSIS 1+; MACROCYTOSIS 0; OVALOCYTE 1+; PLATELET ESTIMATE NORMAL
--- NOTE | 2020-08-04 10:42 | PN ---
Progress Note, Physician History of Present Illness: Previously hypotensive, lethargic, dark stools in colostomy with significant anemia suspicious of UGI bleed. NGT with dark gastric contents, transfused 2 u pRBC with improved sensorium and hemodynamics, EGD shows gastric clot Dieulafoy lesion vs Cristel Morales tear. Hgb and hemodynamics stable, now tolerating regular diet, but appetite poor. - Current Medication List Current Medications: Active Medications Acetaminophen (Tylenol -) 1,000 mg PO Q6H PRN PRN Reason: PAIN LEVEL 1-5 Last Admin: 08/03/20 21:33 Dose: 1,000 mg Documented by: Al Hydroxide/Mg Hydroxide (Mylanta Oral Suspension -) 30 ml PO TID [facility] Last Admin: 08/04/20 06:08 Dose: 30 ml Documented by: Chlorhexidine Gluconate (Hibiclens For Decolonization -) 1 applic TP HS [facility] Last Admin: 08/03/20 21:33 Dose: 1 applic Documented by: Potassium Chloride (Potassium Chloride 10 Meq Premix Ivpb -) 10 meq in 100 mls @ 100 mls/hr IVPB Q60M [facility] Stop: 08/04/20 11:59 Last Admin: 08/04/20 09:45 Dose: 100 mls/hr Documented by: Insulin Aspart (Novolog Vial Sliding Scale -) 1 vial SQ ACHS [facility]; Protocol Last Admin: 08/04/20 06:13 Dose: Not Given Documented by: Insulin Detemir (Levemir Vial) 6 units SQ BID@0700,2200 [facility] Last Admin: 08/04/20 06:13 Dose: Not Given Documented by: Metoprolol Succinate (Toprol Xl -) 25 mg PO DAILY [facility] Last Admin: 08/04/20 09:45 Dose: 25 mg Documented by: Pantoprazole Sodium (Protonix Iv) 40 mg IVPUSH BID [facility] Last Admin: 08/04/20 09:45 Dose: 40 mg Documented by: Silver Sulfadiazine (Silvadene -) 1 applic TP BID [facility] Last Admin: 08/04/20 09:45 Dose: 1 applic Documented by: Sodium Hypochlorite (Dakin's Solution 0.25% (Half-Strength) -) 1 applic TP DAILY [facility] Last Admin: 08/04/20 09:45 Dose: 1 applic Documented by: - Objective Vital Signs: Vital Signs Temperature 98.6 F 08/04/20 10:00 Pulse Rate 71 08/04/20 10:00 Respiratory Rate 17 08/04/20 10:00 Blood Pressure 130/65 08/04/20 10:00 O2 Sat by Pulse Oximetry (%) 95 08/04/20 08:34 Constitutional: Yes: No Distress, Calm Neck: Yes: Supple Cardiovascular: Yes: Regular Rate and Rhythm Respiratory: Yes: Regular, CTA Bilaterally Gastrointestinal: Yes: Normal Bowel Sounds, Soft, Other (Colostomy pink with brown stools) Edema: No Labs: CBC, BMP 08/04/20 05:50 08/04/20 05:50 INR, PTT INR 1.00 (0.83-1.09) 07/30/20 05:45 Problem List - Problems (1) Colonic diverticular abscess Code(s): K57.20 - DVTRCLI OF LG INT W PERFORATION AND ABSCESS W/O BLEEDING (2) Colovesical fistula Code(s): N32.1 - VESICOINTESTINAL FISTULA (3) CAD (coronary artery disease) Code(s): I25.10 - ATHSCL HEART DISEASE OF [place] CORONARY ARTERY W/O ANG PCTRS Qualifiers: Coronary Disease-Associated Artery/Lesion type: [place] artery [place] vs. transplanted heart: [place] heart Associated angina: without angina Qualified Code(s): I25.10 - Atherosclerotic heart disease of [place] coronary artery without angina pectoris (4) Carotid stenosis, left Code(s): I65.22 - OCCLUSION AND STENOSIS OF LEFT CAROTID ARTERY (5) Cerebrovascular accident (CVA) Code(s): I63.9 - CEREBRAL INFARCTION, UNSPECIFIED Qualifiers: CVA mechanism: unspecified Qualified Code(s): I63.9 - Cerebral infarction, unspecified (6) Diabetes Code(s): E11.9 - TYPE 2 DIABETES MELLITUS WITHOUT COMPLICATIONS Qualifiers: Diabetes mellitus type: type 2 Diabetes mellitus senior care 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 use Diabetes mellitus complication status: with neurologic complications (7) HTN (hypertension) Code(s): I10 - ESSENTIAL (PRIMARY) HYPERTENSION Qualifiers: Hypertension type: essential hypertension Qualified Code(s): I10 - [place] l (primary) hypertension (8) Hypercholesterolemia Code(s): E78.00 - PURE HYPERCHOLESTEROLEMIA, UNSPECIFIED (9) Hypothyroidism Code(s): E03.9 - HYPOTHYROIDISM, UNSPECIFIED Qualifiers: Hypothyroidism type: unspecified Qualified Code(s): E03.9 - Hypothyroidism, unspecified (10) GI hemorrhage Code(s): K92.2 - GASTROINTESTINAL HEMORRHAGE, UNSPECIFIED Qualifiers: GI bleed type/associated pathology: melena Qualified Code(s): K92.1 - Melena Assessment/Plan 04/12/2020 ECHO: normal LVEF; abnormal diastolic compliance, Tr TR 1. Post Gavin's procedure for complicated diverticulitis with abscess and colovesicular fistula 2. Resolved esophageal ulcer bleed, ? NG tube related 3. Diastolic dysfunction 4. Poorly controlled DM 5. HTN 6. Chronic stroke 7. Multi-infarct dementia 8. Hypokalemia 9. Acute blood loss anemia s/p 2 u pRBC 10. UTI PLAN: 1. Metoprolol ER 25 mg QD 2. DVT prophylaxis, continue Protonix 3. Post-op managemen. Surgery input noted 4. Monitor Hgb post transfusion
--- NOTE | 2020-08-04 11:15 | PN.GI ---
GI Progress Note Subjective: GI NOte: No bleeding noted. Hb stable. Eating but poorly - Objective Vital Signs: Vital Signs Temperature 98.6 F 08/04/20 10:00 Pulse Rate 71 08/04/20 10:00 Respiratory Rate 17 08/04/20 10:00 Blood Pressure 130/65 08/04/20 10:00 O2 Sat by Pulse Oximetry (%) 95 08/04/20 08:34 Laboratory Tests 07/17/20 08/01/20 08/03/20 08:45 05:40 05:00 Hgb 9.2 L 9.2 L Iron 21 L Iron Saturation 13 L 08/04/20 05:50 Hgb 9.2 L Iron Iron Saturation Constitutional: Calm ...Auscultate: Yes: Normoactive Bowel Sounds ...Palpate: Yes: Soft, Other (nontender) Labs: CBC, BMP 08/04/20 05:50 08/04/20 05:50 INR, PTT INR 1.00 (0.83-1.09) 07/30/20 05:45 Assessment/Plan Impression: - Resolved esophageal ulcer bleed, ? NG tube related. Need to avoid oral potassium. - Multiple and large pelvic abscesses likely secondary to diverticular disease associated with a colovesical fistula. - Diarrhea is likely paradoxical and of an overflow nature with suspect proximal fecal impaction. Stool C diff negative Plan: - Chopped diet - PPI BID - Please replace potassium IV and avoid oral potassium given the esophageal ulcers Problem List - Problems (2) Gastric ulcer with hemorrhage Code(s): K25.4 - CHRONIC OR UNSPECIFIED GASTRIC ULCER WITH HEMORRHAGE Qualifiers: Gastric ulcer chronicity: acute Qualified Code(s): K25.0 - Acute gastric ulcer with hemorrhage (3) Hematemesis of unknown etiology Code(s): K92.0 - HEMATEMESIS (4) GI hemorrhage Code(s): K92.2 - GASTROINTESTINAL HEMORRHAGE, UNSPECIFIED Qualifiers: GI bleed type/associated pathology: melena Qualified Code(s): K92.1 - Melena (5) Colonic diverticular abscess Code(s): K57.20 - DVTRCLI OF LG INT W PERFORATION AND ABSCESS W/O BLEEDING (6) Colovesical fistula Code(s): N32.1 - VESICOINTESTINAL FISTULA (7) Bilateral hydronephrosis Code(s): N13.30 - UNSPECIFIED HYDRONEPHROSIS (8) Urinary tract infection Code(s): N39.0 - URINARY TRACT INFECTION, SITE NOT SPECIFIED Qualifiers: Urinary tract infection type: acute pyelonephritis Qualified Code(s): N10 - Acute pyelonephritis (9) CAD (coronary artery disease) Code(s): I25.10 - ATHSCL HEART DISEASE OF [place] CORONARY ARTERY W/O ANG PCTRS Qualifiers: Coronary Disease-Associated Artery/Lesion type: [place] artery [place] vs. 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
--- NOTE | 2020-08-04 11:39 | PN ---
Progress Note (short form) - Note Progress Note: PULMONARY SUBJECTIVE: No overnight events. Tolerating diet. OBJECTIVE: Vital Signs Period Temp Pulse Resp BP Sys/Ferrer Pulse Ox Last 24 Hr 98 F-99.2 F 63-88 15-23 124-150/57-94 95-97 Gen: NAD at rest Heart: RRR Lung: decreased breath sounds at the bases Abd: soft, +ostomy pink Ext: no edema CBC, BMP 08/04/20 05:50 08/04/20 05:50 Active Medications Acetaminophen (Tylenol -) 1,000 mg PO Q6H PRN PRN Reason: PAIN LEVEL 1-5 Last Admin: 08/03/20 21:33 Dose: 1,000 mg Documented by: Al Hydroxide/Mg Hydroxide (Mylanta Oral Suspension -) 30 ml PO TID [facility] Last Admin: 08/04/20 06:08 Dose: 30 ml Documented by: Chlorhexidine Gluconate (Hibiclens For Decolonization -) 1 applic TP HS [facility] Last Admin: 08/03/20 21:33 Dose: 1 applic Documented by: Potassium Chloride (Potassium Chloride 10 Meq Premix Ivpb -) 10 meq in 100 mls @ 100 mls/hr IVPB Q60M [facility] Stop: 08/04/20 11:59 Last Admin: 08/04/20 09:45 Dose: 100 mls/hr Documented by: Insulin Aspart (Novolog Vial Sliding Scale -) 1 vial SQ ACHS [facility]; Protocol Last Admin: 08/04/20 06:13 Dose: Not Given Documented by: Insulin Detemir (Levemir Vial) 6 units SQ BID@0700,2200 [facility] Last Admin: 08/04/20 06:13 Dose: Not Given Documented by: Metoprolol Succinate (Toprol Xl -) 25 mg PO DAILY [facility] Last Admin: 08/04/20 09:45 Dose: 25 mg Documented by: Pantoprazole Sodium (Protonix Iv) 40 mg IVPUSH BID [facility] Last Admin: 08/04/20 09:45 Dose: 40 mg Documented by: Silver Sulfadiazine (Silvadene -) 1 applic TP BID [facility] Last Admin: 08/04/20 09:45 Dose: 1 applic Documented by: Sodium Hypochlorite (Dakin's Solution 0.25% (Half-Strength) -) 1 applic TP DAILY [facility] Last Admin: 08/04/20 09:45 Dose: 1 applic Documented by: ASSESSMENT AND PLAN: GI Bleed Acute Blood Loss Anemia Gastric Ulcers Hemorrhagic Shock improved Complicated Diverticulitis s/p Gavin's Procedure UTI LV Diastolic Dysfunction HTN DM h/o CVA - continue protonix - monitor H/H, coags - antibiotics per ID - advance diet as tolerated - replete lytes - DVT prophylaxis
--- NOTE | 2020-08-04 17:32 | PN ---
Progress Note, Physician History of Present Illness: Seen and examined at the bedside awake and alert no overnight events son at the bedside - Current Medication List Current Medications: Active Medications Acetaminophen (Tylenol -) 1,000 mg PO Q6H PRN PRN Reason: PAIN LEVEL 1-5 Last Admin: 08/03/20 21:33 Dose: 1,000 mg Documented by: Al Hydroxide/Mg Hydroxide (Mylanta Oral Suspension -) 30 ml PO TID [facility] Last Admin: 08/04/20 13:51 Dose: 30 ml Documented by: Amino Acids (Prosource No Carb Liquid Pkt) 30 ml PO BID@0800,1730 [facility] Chlorhexidine Gluconate (Hibiclens For Decolonization -) 1 applic TP HS [facility] Last Admin: 08/03/20 21:33 Dose: 1 applic Documented by: Insulin Aspart (Novolog Vial Sliding Scale -) 1 vial SQ ACHS [facility]; Protocol Last Admin: 08/04/20 16:27 Dose: Not Given Documented by: Insulin Detemir (Levemir Vial) 6 units SQ BID@0700,2200 [facility] Last Admin: 08/04/20 06:13 Dose: Not Given Documented by: Metoprolol Succinate (Toprol Xl -) 25 mg PO DAILY [facility] Last Admin: 08/04/20 09:45 Dose: 25 mg Documented by: Multivitamins/Minerals (Certavite-Antioxidant Liquid) 15 ml PO DAILY [facility] Pantoprazole Sodium (Protonix Iv) 40 mg IVPUSH BID [facility] Last Admin: 08/04/20 09:45 Dose: 40 mg Documented by: Silver Sulfadiazine (Silvadene -) 1 applic TP BID [facility] Last Admin: 08/04/20 09:45 Dose: 1 applic Documented by: Sodium Hypochlorite (Dakin's Solution 0.25% (Half-Strength) -) 1 applic TP DAILY [facility] Last Admin: 08/04/20 09:45 Dose: 1 applic Documented by: - Objective Vital Signs: Vital Signs Temperature 98.7 F 08/04/20 15:00 Pulse Rate 74 08/04/20 15:00 Respiratory Rate 18 08/04/20 15:00 Blood Pressure 143/71 08/04/20 15:00 O2 Sat by Pulse Oximetry (%) 95 08/04/20 15:00 Constitutional: Yes: No Distress, Calm HENT: Yes: Atraumatic Neck: Yes: Supple Cardiovascular: Yes: Regular Rate and Rhythm Gastrointestinal: Yes: Soft Edema: No Labs: CBC, BMP 08/04/20 05:50 08/04/20 05:50 INR, PTT INR 1.00 (0.83-1.09) 07/30/20 05:45 Assessment/Plan 70 year old woman with history of CVA, IDDM, hypertension who presented with lower abdominal pain and found to have likely UTI with hypokalemia. 1. Hypokalemia in setting of diarrhea/GI losses 2. Diverticular abscess 3. Hypertension 4. IDDM 5. Anemia 6. Lactic acidosis 7. Hypomagnesemia 8. Hypophosphatemia 9. Acute kidney injury 10. Acute GI bleed 11. Lactic acidosis Renal function stable lactic acidosis resolved s/p endoscopy, advance diet as per surgery. ICU monitoring K improved but still low, s/p KCL IV x 3 today Check K and Mg in AM Trend renal function and electrolytes Will follow up as needed Guillermo Ricks DO
[2020-08-04] MEDS ORDERED: MAGNESIUM SULF 50% (8.12 MEQ/2 ML-1 GM VIAL) IVPB ONE (17:33)
[2020-08-04] MEDS: AMINO ACIDS/PROTEIN HYDROLYS 30 ML LIQUID.PKT PO SCH ×2 (17:59→18:05)
[2020-08-05] MEDS: MAG HYDROX/AL HYDROX/SIMETH 30 ML UNIT-DOSE CUP PO SCH ×3 (06:33→21:52)
[2020-08-05] MEDS: INSULIN (LEVEMIR) 100 UNITS/ML UNITS SQ SCH ×2 (06:34→21:52)
[2020-08-05] MEDS: INSULIN SLIDING SCALE (NOVOLOG) 1 VIAL SQ SCH ×4 (06:34→21:53)
[2020-08-05] MEDS ORDERED: INSULIN (NOVOLOG) ASPART 100 UNITS/ML 10ML VIAL ONE (06:44)
[2020-08-05 06:48] LABS: BASO % 1.1 % (0-2.0); EOS % 2.3 % (0-4.5); HEMATOCRIT 26.5 % (32.4-45.2); HEMOGLOBIN 9.3 GM/dL (10.7-15.3); LYMPH % 20.2 % (8-40); MCH 31.4 pg (25.7-33.7); MCHC 35.1 g/dl (32.0-36.0); MEAN CELL VOLUME 89.6 fl (80-96); MONO % 9.8 % (3.8-10.2); NEUT % 66.6 % (42.8-82.8); PLATELET COUNT 504 K/MM3 (134-434); RBC 2.95 M/mm3 (3.60-5.2); RDW 16.9 % (11.6-15.6)
[2020-08-05 07:12] LABS: ALBUMIN 1.5 g/dl (3.4-5.0); BILIRUBIN,TOTAL 0.4 mg/dL (0.2-1); CALCIUM 7.3 mg/dL (8.5-10.1); CREATININE 0.6 mg/dL (0.55-1.3); MAGNESIUM 2.5 mg/dL (1.8-2.4); PHOSPHOROUS 2.7 mg/dL (2.5-4.9); POTASSIUM 3.1 mmol/L (3.5-5.1); TOT PROT 5.2 g/dl (6.4-8.2)
[2020-08-05] MEDS: AMINO ACIDS/PROTEIN HYDROLYS 30 ML LIQUID.PKT PO SCH ×2 (08:33→17:45)
--- NOTE | 2020-08-05 08:44 | PN ---
Progress Note, Physician History of Present Illness: Previously hypotensive, lethargic, dark stools in colostomy with significant anemia suspicious of UGI bleed. NGT with dark gastric contents, transfused 2 u pRBC with improved sensorium and hemodynamics, EGD shows gastric clot Dieulafoy lesion vs Cristel Morales tear. Hgb and hemodynamics stable, now tolerating regular diet, but appetite poor. - Current Medication List Current Medications: Active Medications Acetaminophen (Tylenol -) 1,000 mg PO Q6H PRN PRN Reason: PAIN LEVEL 1-5 Last Admin: 08/03/20 21:33 Dose: 1,000 mg Documented by: Al Hydroxide/Mg Hydroxide (Mylanta Oral Suspension -) 30 ml PO TID [facility] Last Admin: 08/05/20 06:33 Dose: 30 ml Documented by: Amino Acids (Prosource No Carb Liquid Pkt) 30 ml PO BID@0800,1730 [facility] Last Admin: 08/05/20 08:33 Dose: Not Given Documented by: Insulin Aspart (Novolog Vial Sliding Scale -) 1 vial SQ [facility]; Protocol Last Admin: 08/05/20 06:34 Dose: Not Given Documented by: Insulin Detemir (Levemir Vial) 6 units SQ BID@0700,2200 [facility] Last Admin: 08/05/20 06:34 Dose: 6 units Documented by: Metoprolol Succinate (Toprol Xl -) 25 mg PO DAILY [facility] Last Admin: 08/04/20 09:45 Dose: 25 mg Documented by: Multivitamins/Minerals (Certavite-Antioxidant Liquid) 15 ml PO DAILY [facility] Pantoprazole Sodium (Protonix Iv) 40 mg IVPUSH BID [facility] Last Admin: 08/04/20 21:23 Dose: 40 mg Documented by: Silver Sulfadiazine (Silvadene -) 1 applic TP BID [facility] Last Admin: 08/04/20 21:23 Dose: 1 applic Documented by: Sodium Hypochlorite (Dakin's Solution 0.25% (Half-Strength) -) 1 applic TP DAILY [facility] - Objective Vital Signs: Vital Signs Temperature 97.4 F L 08/05/20 06:00 Pulse Rate 75 08/05/20 06:00 Respiratory Rate 20 08/05/20 06:00 Blood Pressure 140/74 08/05/20 06:00 O2 Sat by Pulse Oximetry (%) 99 08/05/20 06:00 Constitutional: Yes: No Distress, Calm Neck: Yes: Supple Cardiovascular: Yes: Regular Rate and Rhythm Respiratory: Yes: Regular, CTA Bilaterally Gastrointestinal: Yes: Normal Bowel Sounds, Soft, Other (colostomy pink) Edema: No Labs: CBC, BMP 08/05/20 06:26 08/05/20 06:26 INR, PTT INR 1.00 (0.83-1.09) 07/30/20 05:45 - ....Imaging EKG: Report Reviewed (Tele: NSR) Problem List - Problems (1) Colonic diverticular abscess Code(s): K57.20 - DVTRCLI OF LG INT W PERFORATION AND ABSCESS W/O BLEEDING (2) Colovesical fistula Code(s): N32.1 - VESICOINTESTINAL FISTULA (3) CAD (coronary artery disease) Code(s): I25.10 - ATHSCL HEART DISEASE OF [place] CORONARY ARTERY W/O ANG PCTRS Qualifiers: Coronary Disease-Associated Artery/Lesion type: [place] artery [place] vs. 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 use Diabetes mellitus complication status: with neurologic complications (7) HTN (hypertension) Code(s): I10 - ESSENTIAL (PRIMARY) HYPERTENSION Qualifiers: Hypertension type: essential hypertension Qualified Code(s): I10 - Essential (primary) hypertension (8) Hypercholesterolemia Code(s): E78.00 - PURE HYPERCHOLESTEROLEMIA, UNSPECIFIED (9) Hypothyroidism Code(s): E03.9 - HYPOTHYROIDISM, UNSPECIFIED Qualifiers: Hypothyroidism type: unspecified Qualified Code(s): E03.9 - Hypothyroidism, unspecified (10) GI hemorrhage Code(s): K92.2 - GASTROINTESTINAL HEMORRHAGE, UNSPECIFIED Qualifiers: GI bleed type/associated pathology: melena Qualified Code(s): K92.1 - Melena Assessment/Plan 04/12/2020 ECHO: normal LVEF; abnormal diastolic compliance, Tr TR 1. Post Gavin's procedure for complicated diverticulitis with abscess and colovesicular fistula 2. Resolved esophageal ulcer bleed, ? NG tube related 3. Diastolic dysfunction 4. Poorly controlled DM 5. HTN 6. Chronic stroke 7. Multi-infarct dementia 8. Hypokalemia 9. Acute blood loss anemia s/p 2 u pRBC 10. UTI PLAN: 1. Increase Metoprolol ER 50 mg QD, resume Lipitor 80 qd and ASA 81 qd 2. DVT prophylaxis, continue Protonix, replete K as you are 3. Post-op management. Surgery input noted 4. Monitor Hgb post transfusion
--- NOTE | 2020-08-05 09:07 | PN ---
Progress Note, Physician Chief Complaint: in bed awake alert NAD VSS afebrile buttock decubs much improved walked with PT few steps - Current Medication List Current Medications: Active Medications Acetaminophen (Tylenol -) 1,000 mg PO Q6H PRN PRN Reason: PAIN LEVEL 1-5 Last Admin: 08/03/20 21:33 Dose: 1,000 mg Documented by: Al Hydroxide/Mg Hydroxide (Mylanta Oral Suspension -) 30 ml PO TID [facility] Last Admin: 08/05/20 06:33 Dose: 30 ml Documented by: Amino Acids (Prosource No Carb Liquid Pkt) 30 ml PO BID@0800,1730 [facility] Last Admin: 08/05/20 08:33 Dose: Not Given Documented by: Insulin Aspart (Novolog Vial Sliding Scale -) 1 vial SQ ACHS [facility]; Protocol Last Admin: 08/05/20 06:34 Dose: Not Given Documented by: Insulin Detemir (Levemir Vial) 6 units SQ BID@0700,2200 [facility] Last Admin: 08/05/20 06:34 Dose: 6 units Documented by: Metoprolol Succinate (Toprol Xl -) 25 mg PO DAILY [facility] Last Admin: 08/04/20 09:45 Dose: 25 mg Documented by: Pantoprazole Sodium (Protonix Iv) 40 mg IVPUSH BID [facility] Last Admin: 08/04/20 21:23 Dose: 40 mg Documented by: Silver Sulfadiazine (Silvadene -) 1 applic TP BID [facility] Last Admin: 08/04/20 21:23 Dose: 1 applic Documented by: Sodium Hypochlorite (Dakin's Solution 0.25% (Half-Strength) -) 1 applic TP DAILY [facility] - Objective Vital Signs: Vital Signs Temperature 97.8 F 08/05/20 08:51 Pulse Rate 80 08/05/20 08:51 Respiratory Rate 20 08/05/20 08:51 Blood Pressure 157/76 08/05/20 08:51 O2 Sat by Pulse Oximetry (%) 98 08/05/20 08:51 Constitutional: Yes: No Distress Eyes: Yes: Conjunctiva Clear HENT: Yes: Atraumatic Neck: Yes: Supple Cardiovascular: Yes: Regular Rate and Rhythm Respiratory: Yes: Diminished Gastrointestinal: Yes: Soft, Other (colostomy bag no bleeding; wound open in 2 places - per surgery to be left open to heal by secondary intention) Edema: No Integumentary: No: Rash Neurological: Yes: Alert Psychiatric: Yes: Alert. No: Agitated Labs: CBC, BMP 08/05/20 06:26 08/05/20 06:26 INR, PTT INR 1.00 (0.83-1.09) 07/30/20 05:45 Assessment/Plan The patient is a 70y/o F with a pmh of recent CVA , IDDM, HTN admitted with sepsis diverticulitis with abscesses and UTI, also hydronephrosis; s/p Faustino procedure; GIB ; PUDs; wound care per surgery shayan to be removed before DC to [place] IVF; iv ATB per ID; po PPI replete K, Mg, f/u labs advance diet as tolerated decubs improved cardio and neuro f/u, ID, renal, GI, f/u hold ASA and heparin d/w GI for at least 2 weeks (until 08/14) d/w staff; d/w pt - prognosis guarded; turn in bed decubs pfx d.w pt and staff will call daughter
[2020-08-05] MEDS: PANTOPRAZOLE SODIUM 40 MG VIAL IVPUSH SCH ×2 (09:34→21:52)
[2020-08-05] MEDS: SODIUM HYPOCHLORITE 0.25%- 473 ML BULK BOTTLE TP SCH (09:49)
[2020-08-05] MEDS: SILVER SULFADIAZINE 1% TOP CREAM 50 GM JAR TP SCH ×2 (09:49→21:53)
[2020-08-05] MEDS: KCL 10 MEQ IVPB 10 MEQ/100 ML INFUS.BAG IVPB SCH ×2 (09:50→10:23)
[2020-08-05] MEDS ORDERED: MULTIVIT-MINERALS ORAL LIQUID PO SCH (10:00)
--- NOTE | 2020-08-05 11:54 | PN ---
Progress Note, Physician History of Present Illness: Seen and examined at the bedside awake and alert denies any cp, sob, abdominal pain when asked making urine on oral deit - Current Medication List Current Medications: Active Medications Acetaminophen (Tylenol -) 1,000 mg PO Q6H PRN PRN Reason: PAIN LEVEL 1-5 Last Admin: 08/03/20 21:33 Dose: 1,000 mg Documented by: Al Hydroxide/Mg Hydroxide (Mylanta Oral Suspension -) 30 ml PO TID [facility] Last Admin: 08/05/20 06:33 Dose: 30 ml Documented by: Amino Acids (Prosource No Carb Liquid Pkt) 30 ml PO BID@0800,1730 [facility] Last Admin: 08/05/20 08:33 Dose: Not Given Documented by: Insulin Aspart (Novolog Vial Sliding Scale -) 1 vial SQ ACHS [facility]; Protocol Last Admin: 08/05/20 11:01 Dose: Not Given Documented by: Insulin Detemir (Levemir Vial) 6 units SQ BID@0700,2200 [facility] Last Admin: 08/05/20 06:34 Dose: 6 units Documented by: Metoprolol Succinate (Toprol Xl -) 50 mg PO DAILY [facility] Last Admin: 08/05/20 09:50 Dose: 50 mg Documented by: Pantoprazole Sodium (Protonix Iv) 40 mg IVPUSH BID [facility] Last Admin: 08/05/20 09:34 Dose: 40 mg Documented by: Silver Sulfadiazine (Silvadene -) 1 applic TP BID [facility] Last Admin: 08/05/20 09:49 Dose: 1 applic Documented by: Sodium Hypochlorite (Dakin's Solution 0.25% (Half-Strength) -) 1 applic TP DAILY [facility] Last Admin: 08/05/20 09:49 Dose: 1 applic Documented by: - Objective Vital Signs: Vital Signs Temperature 97.8 F 08/05/20 08:51 Pulse Rate 80 08/05/20 08:51 Respiratory Rate 20 08/05/20 08:51 Blood Pressure 157/76 08/05/20 08:51 O2 Sat by Pulse Oximetry (%) 98 08/05/20 08:51 Constitutional: Yes: No Distress, Calm HENT: Yes: Atraumatic Neck: Yes: Supple Cardiovascular: Yes: Regular Rate and Rhythm Respiratory: Yes: Regular, Diminished Gastrointestinal: Yes: Soft Extremities: No: Cyanosis Edema: No Labs: CBC, BMP 08/05/20 06:26 08/05/20 06:26 INR, PTT INR 1.00 (0.83-1.09) 07/30/20 05:45 Assessment/Plan 70 year old woman with history of CVA, IDDM, hypertension who presented with lower abdominal pain and found to have likely UTI with hypokalemia. 1. Hypokalemia in setting of diarrhea/GI losses 2. Diverticular abscess 3. Hypertension 4. IDDM 5. Anemia 6. Lactic acidosis 7. Hypomagnesemia 8. Hypophosphatemia 9. Acute kidney injury 10. Acute GI bleed 11. Lactic acidosis Renal function stable lactic acidosis resolved s/p endoscopy, advance diet as per surgery. ICU monitoring start potassium chloride 20 meq BID Check K and Mg in AM Trend renal function and electrolytes Guillermo Ricks DO
--- NOTE | 2020-08-05 13:29 | PN ---
Progress Note (short form) - Note Progress Note: Resting in NAD. No CP or SOB. No overnight events. OBJECTIVE: Intake & Output 08/02/20 08/03/20 08/04/20 08/05/20 23:59 23:59 23:59 23:59 Intake Total 800 300 260 220 Output Total 3200 2400 1900 Balance -2400 -2100 -1640 220 Last Vital Signs Temp Pulse Resp BP Pulse Ox 97.8 F 80 20 157/76 98 08/05/20 08:51 08/05/20 08:51 08/05/20 08:51 08/05/20 08:51 08/05/20 08:51 Active Medications Acetaminophen (Tylenol -) 1,000 mg PO Q6H PRN PRN Reason: PAIN LEVEL 1-5 Last Admin: 08/03/20 21:33 Dose: 1,000 mg Documented by: Al Hydroxide/Mg Hydroxide (Mylanta Oral Suspension -) 30 ml PO TID [facility] Last Admin: 08/05/20 06:33 Dose: 30 ml Documented by: Amino Acids (Prosource No Carb Liquid Pkt) 30 ml PO BID@0800,1730 [facility] Last Admin: 08/05/20 08:33 Dose: Not Given Documented by: Insulin Aspart (Novolog Vial Sliding Scale -) 1 vial SQ [facility]; Protocol Last Admin: 08/05/20 11:01 Dose: Not Given Documented by: Insulin Detemir (Levemir Vial) 6 units SQ BID@0700,2200 [facility] Last Admin: 08/05/20 06:34 Dose: 6 units Documented by: Metoprolol Succinate (Toprol Xl -) 50 mg PO DAILY [facility] Last Admin: 08/05/20 09:50 Dose: 50 mg Documented by: Pantoprazole Sodium (Protonix Iv) 40 mg IVPUSH BID [facility] Last Admin: 08/05/20 09:34 Dose: 40 mg Documented by: Potassium Chloride (K-Dur -) 20 meq PO BID [facility] Silver Sulfadiazine (Silvadene -) 1 applic TP BID [facility] Last Admin: 08/05/20 09:49 Dose: 1 applic Documented by: Sodium Hypochlorite (Dakin's Solution 0.25% (Half-Strength) -) 1 applic TP DAILY [facility] Last Admin: 08/05/20 09:49 Dose: 1 applic Documented by: Gen: NAD at rest Heart: RRR Lung: decreased breath sounds at the bases Abd: soft, +ostomy pink Ext: no edema Laboratory Results - last 24 hr 08/04/20 08/04/20 08/05/20 16:25 21:19 06:23 WBC RBC Hgb Hct MCV MCH MCHC RDW Plt Count MPV Absolute Neuts (auto) Neutrophils % Lymphocytes % Monocytes % Eosinophils % Basophils % Nucleated RBC % Sodium Potassium Chloride Carbon Dioxide Anion Gap BUN Creatinine Est GFR (CKD-EPI)AfAm Est GFR (CKD-EPI)NonAf POC Glucometer 107 129 131 Random Glucose Calcium Phosphorus Magnesium Total Bilirubin AST ALT Alkaline Phosphatase Total Protein Albumin 08/05/20 08/05/20 08/05/20 06:26 06:26 10:59 WBC 7.0 RBC 2.95 L Hgb 9.3 L Hct 26.5 L MCV 89.6 MCH 31.4 MCHC 35.1 RDW 16.9 H Plt Count 504 H MPV 8.0 Absolute Neuts (auto) 4.6 Neutrophils % 66.6 Lymphocytes % 20.2 Monocytes % 9.8 Eosinophils % 2.3 Basophils % 1.1 Nucleated RBC % 0 Sodium 138 Potassium 3.1 L Chloride 104 Carbon Dioxide 27 Anion Gap 7 L BUN 5.0 L Creatinine 0.6 Est GFR (CKD-EPI)AfAm 105.54 Est GFR (CKD-EPI)NonAf 91.06 POC Glucometer 144 Random Glucose 130 H Calcium 7.3 L Phosphorus 2.7 Magnesium 2.5 H Total Bilirubin 0.4 AST 45 H ALT 31 Alkaline Phosphatase 180 H Total Protein 5.2 L Albumin 1.5 L ASSESSMENT AND PLAN: GI Bleed Acute Blood Loss Anemia Gastric Ulcers Hemorrhagic Shock improved Complicated Diverticulitis s/p Gavin's Procedure UTI LV Diastolic Dysfunction HTN DM h/o CVA - PPI - monitor H/H, coags - Off antibiotics per ID - advance diet as tolerated - replete lytes - DVT prophylaxis Dr Pierce
[2020-08-05] MEDS: POTASSIUM CHLORIDE TABS 20 MEQ TABLET.ER (FP) PO SCH (21:53)
[2020-08-06 06:42] LABS: BASO % 1.4 % (0-2.0); EOS % 2.9 % (0-4.5); HEMOGLOBIN 9.2 GM/dL (10.7-15.3); MCH 30.8 pg (25.7-33.7); MCHC 34.1 g/dl (32.0-36.0); MEAN CELL VOLUME 90.2 fl (80-96); MEAN PLT VOLUME 8.3 fl (7.5-11.1); MONO % 9.5 % (3.8-10.2); NEUT % 66.2 % (42.8-82.8); PLATELET COUNT 470 K/MM3 (134-434); RBC 2.99 M/mm3 (3.60-5.2); RDW 16.7 % (11.6-15.6); WHITE BLOOD COUNT 6.6 K/mm3 (4.0-10.0)
[2020-08-06] MEDS: INSULIN (LEVEMIR) 100 UNITS/ML UNITS SQ SCH (06:51)
[2020-08-06] MEDS: MAG HYDROX/AL HYDROX/SIMETH 30 ML UNIT-DOSE CUP PO SCH ×2 (06:51→13:40)
[2020-08-06] MEDS: INSULIN SLIDING SCALE (NOVOLOG) 1 VIAL SQ SCH ×3 (06:55→16:44)
[2020-08-06 07:18] LABS: ALBUMIN 1.6 g/dl (3.4-5.0); BILIRUBIN,TOTAL 0.6 mg/dL (0.2-1); BLOOD UREA NITROGEN 6.6 mg/dL (7-18); CALCIUM 7.6 mg/dL (8.5-10.1); CREATININE 0.6 mg/dL (0.55-1.3); MAGNESIUM 2.1 mg/dL (1.8-2.4); POTASSIUM 3.5 mmol/L (3.5-5.1); TOT PROT 5.3 g/dl (6.4-8.2)
[2020-08-06] MEDS: AMINO ACIDS/PROTEIN HYDROLYS 30 ML LIQUID.PKT PO SCH (07:54)
--- NOTE | 2020-08-06 09:29 | PN ---
Progress Note, Physician History of Present Illness: Previously hypotensive, lethargic, dark stools in colostomy with significant anemia suspicious of UGI bleed. NGT with dark gastric contents, transfused 2 u pRBC with improved sensorium and hemodynamics, EGD shows gastric clot Dieulafoy lesion vs Cristel Morales tear. Hgb and hemodynamics stable, now tolerating regular diet. - Current Medication List Current Medications: Active Medications Acetaminophen (Tylenol -) 1,000 mg PO Q6H PRN PRN Reason: PAIN LEVEL 1-5 Last Admin: 08/03/20 21:33 Dose: 1,000 mg Documented by: Al Hydroxide/Mg Hydroxide (Mylanta Oral Suspension -) 30 ml PO TID [facility] Last Admin: 08/06/20 06:51 Dose: 30 ml Documented by: Amino Acids (Prosource No Carb Liquid Pkt) 30 ml PO BID@0800,1730 [facility] Last Admin: 08/06/20 07:54 Dose: 30 ml Documented by: Insulin Aspart (Novolog Vial Sliding Scale -) 1 vial SQ [facility]; Protocol Last Admin: 08/06/20 06:55 Dose: Not Given Documented by: Insulin Detemir (Levemir Vial) 6 units SQ BID@0700,2200 [facility] Last Admin: 08/06/20 06:51 Dose: 6 units Documented by: Metoprolol Succinate (Toprol Xl -) 50 mg PO DAILY [facility] Last Admin: 08/05/20 09:50 Dose: 50 mg Documented by: Pantoprazole Sodium (Protonix Iv) 40 mg IVPUSH BID [facility] Last Admin: 08/05/20 21:52 Dose: 40 mg Documented by: Potassium Chloride (K-Dur -) 20 meq PO BID [facility] Last Admin: 08/05/20 21:53 Dose: 20 meq Documented by: Silver Sulfadiazine (Silvadene -) 1 applic TP BID [facility] Last Admin: 08/05/20 21:53 Dose: 1 applic Documented by: Sodium Hypochlorite (Dakin's Solution 0.25% (Half-Strength) -) 1 applic TP DAILY [facility] Last Admin: 08/05/20 09:49 Dose: 1 applic Documented by: - Objective Vital Signs: Vital Signs Temperature 98.0 F 08/06/20 05:00 Pulse Rate 82 08/06/20 05:00 Respiratory Rate 20 08/06/20 05:00 Blood Pressure 154/82 08/06/20 05:00 O2 Sat by Pulse Oximetry (%) 99 08/06/20 05:00 Constitutional: Yes: No Distress, Calm Neck: Yes: Supple Cardiovascular: Yes: Regular Rate and Rhythm Respiratory: Yes: Regular, CTA Bilaterally Gastrointestinal: Yes: Normal Bowel Sounds, Soft, Other (Colostomy pink) Edema: No Labs: CBC, BMP 08/06/20 06:00 08/06/20 06:00 INR, PTT INR 1.00 (0.83-1.09) 07/30/20 05:45 Problem List - Problems (1) Colonic diverticular abscess Code(s): K57.20 - DVTRCLI OF LG INT W PERFORATION AND ABSCESS W/O BLEEDING (2) Colovesical fistula Code(s): N32.1 - VESICOINTESTINAL FISTULA (3) CAD (coronary artery disease) Code(s): I25.10 - ATHSCL HEART DISEASE OF [place] CORONARY ARTERY W/O ANG PCTRS Qualifiers: Coronary Disease-Associated Artery/Lesion type: [place] artery [place] vs. transplanted heart: [place] heart Associated angina: without angina Qualified Code(s): I25.10 - Atherosclerotic heart disease of [place] coronary artery without angina pectoris (4) Carotid stenosis, left Code(s): I65.22 - OCCLUSION AND STENOSIS OF LEFT CAROTID ARTERY (5) Cerebrovascular accident (CVA) Code(s): I63.9 - CEREBRAL INFARCTION, UNSPECIFIED Qualifiers: CVA mechanism: unspecified Qualified Code(s): I63.9 - Cerebral infarction, unspecified (6) Diabetes Code(s): E11.9 - TYPE 2 DIABETES MELLITUS WITHOUT COMPLICATIONS Qualifiers: Diabetes mellitus type: type 2 Diabetes mellitus alf insulin use: with termination clerk use Diabetes mellitus complication status: with neurologic comp lications (7) HTN (hypertension) Code(s): I10 - ESSENTIAL (PRIMARY) HYPERTENSION Qualifiers: Hypertension type: essential hypertension Qualified Code(s): I10 - Essential (primary) hypertension (8) Hypercholesterolemia Code(s): E78.00 - PURE HYPERCHOLESTEROLEMIA, UNSPECIFIED (9) Hypothyroidism Code(s): E03.9 - HYPOTHYROIDISM, UNSPECIFIED Qualifiers: Hypothyroidism type: unspecified Qualified Code(s): E03.9 - Hypothyroidism, unspecified (10) GI hemorrhage Code(s): K92.2 - GASTROINTESTINAL HEMORRHAGE, UNSPECIFIED Qualifiers: GI bleed type/associated pathology: melena Qualified Code(s): K92.1 - Melena Assessment/Plan 04/12/2020 ECHO: normal LVEF; abnormal diastolic compliance, Tr TR 1. Post Gavin's procedure for complicated diverticulitis with abscess and colovesicular fistula 2. Resolved esophageal ulcer bleed, ? NG tube related 3. Diastolic dysfunction 4. Poorly controlled DM 5. HTN 6. Chronic stroke 7. Multi-infarct dementia 8. Hypokalemia 9. Acute blood loss anemia s/p 2 u pRBC 10. UTI PLAN: 1. Increased Metoprolol ER 50 mg QD, resume Lipitor 80 qd and ASA 81 qd 2. DVT prophylaxis, continue Protonix, replete K as you are 3. Monitor Hgb post transfusion 4. D/c planning with f/u in office
[2020-08-06] MEDS: SODIUM HYPOCHLORITE 0.25%- 473 ML BULK BOTTLE TP SCH (10:18)
[2020-08-06] MEDS: SILVER SULFADIAZINE 1% TOP CREAM 50 GM JAR TP SCH (10:18)
[2020-08-06] MEDS: PANTOPRAZOLE SODIUM 40 MG VIAL IVPUSH SCH (10:18)
[2020-08-06] MEDS: POTASSIUM CHLORIDE TABS 20 MEQ TABLET.ER (FP) PO SCH (10:18)
--- NOTE | 2020-08-06 13:44 | PN.GI ---
GI Progress Note Subjective: GI NOte: No evidence of persistent bleeding. - Objective Vital Signs: Vital Signs Temperature 98.0 F 08/06/20 05:00 Pulse Rate 82 08/06/20 05:00 Respiratory Rate 20 08/06/20 09:00 Blood Pressure 154/82 08/06/20 05:00 O2 Sat by Pulse Oximetry (%) 99 08/06/20 09:00 Laboratory Tests 08/04/20 08/05/20 08/06/20 05:50 06:26 06:00 Hgb 9.2 L 9.3 L 9.2 L Constitutional: Calm ...Auscultate: Yes: Normoactive Bowel Sounds ...Palpate: Yes: Soft, Other (nontender) Labs: CBC, BMP 08/06/20 06:00 08/06/20 06:00 INR, PTT INR 1.00 (0.83-1.09) 07/30/20 05:45 Assessment/Plan Impression: - Resolved esophageal ulcer bleed, ? NG tube related. - Multiple and large pelvic abscesses likely secondary to diverticular disease associated with a colovesical fistula. - Diarrhea is likely paradoxical and of an overflow nature with suspect proximal fecal impaction. Stool C diff negative Plan: - Chopped diet - PPI BID - Please replace potassium IV and avoid oral potassium given the esophageal ulcers - No GI objections to transfer to [place] Problem List - Problems (2) Gastric ulcer with hemorrhage Code(s): K25.4 - CHRONIC OR UNSPECIFIED GASTRIC ULCER WITH HEMORRHAGE Qualifiers: Gastric ulcer chronicity: acute Qualified Code(s): K25.0 - Acute gastric ulcer with hemorrhage (3) Hematemesis of unknown etiology Code(s): K92.0 - HEMATEMESIS (4) GI hemorrhage Code(s): K92.2 - GASTROINTESTINAL HEMORRHAGE, UNSPECIFIED Qualifiers: GI bleed type/associated pathology: melena Qualified Code(s): K92.1 - Melena (5) Colonic diverticular abscess Code(s): K57.20 - DVTRCLI OF LG INT W PERFORATION AND ABSCESS W/O BLEEDING (6) Colovesical fistula Code(s): N32.1 - VESICOINTESTINAL FISTULA (7) Bilateral hydronephrosis Code(s): N13.30 - UNSPECIFIED HYDRONEPHROSIS (8) Urinary tract infection Code(s): N39.0 - URINARY TRACT INFECTION, SITE NOT SPECIFIED Qualifiers: Urinary tract infection type: acute pyelonephritis Qualified Code(s): N10 - Acute pyelonephritis (9) CAD (coronary artery disease) Code(s): I25.10 - ATHSCL HEART DISEASE OF [place] CORONARY ARTERY W/O ANG PCTRS Qualifiers: Coronary Disease-Associated Artery/Lesion type: [place] artery [place] vs. transplanted heart: [place] heart Associated angina: without angina Qualified Code(s): I25.10 - Atherosclerotic heart disease of [place] coronary artery without angina pectoris (10) Cerebrovascular accident (CVA) Code(s): I63.9 - CEREBRAL INFARCTION, UNSPECIFIED Qualifiers: CVA mechanism: unspecified Qualified Code(s): I63.9 - Cerebral infarction, unspecified (11) Diabetes Code(s): E11.9 - TYPE 2 DIABETES MELLITUS WITHOUT COMPLICATIONS Qualifiers: Diabetes mellitus type: type 2 Diabetes mellitus plastic frame inserter insulin use: with plastic frame inserter use Diabetes mellitus complication status: with neurologic complications (12) HTN (hypertension) Code(s): I10 - ESSENTIAL (PRIMARY) HYPERTENSION Qualifiers: Hypertension type: essential hypertension Qualified Code(s): I10 - Essential (primary) hypertension (13) Hypercholesterolemia Code(s): E78.00 - PURE HYPERCHOLESTEROLEMIA, UNSPECIFIED (14) Hypothyroidism Code(s): E03.9 - HYPOTHYROIDISM, UNSPECIFIED Qualifiers: Hypothyroidism type: unspecified Qualified Code(s): E03.9 - Hypothyroidism, unspecified (15) Schizophrenia Code(s): F20.9 - SCHIZOPHRENIA, UNSPECIFIED
--- NOTE | 2020-08-06 13:48 | DS ---
Physical Examination Vital Signs: Vital Signs Temperature 98.0 F 08/06/20 05:00 Pulse Rate 82 08/06/20 05:00 Respiratory Rate 20 08/06/20 09:00 Blood Pressure 154/82 08/06/20 05:00 O2 Sat by Pulse Oximetry (%) 99 08/06/20 09:00 Findings/Remarks: in bed awake alert NAD VSS afebrile; ate OK, walked few steps with PT rehab; d/w pt and daughter Josee and surgery - pt to be transferred to [facility] for PT rehab; wounds healing but still 2 open spots; per surgery to be left open to heal by secondary intention; needs surgery and wound care f/u in [place] no GIB; K OK labs stable; decubs / buttock healed d/w surgery to remove shayan before DC to [place] d.w CM and daughter Josee T time 40 min Constitutional: Yes: No Distress, Calm Eyes: Yes: Conjunctiva Clear HENT: Yes: Atraumatic Neck: Yes: Supple Cardiovascular: Yes: Regular Rate and Rhythm Respiratory: Yes: CTA Bilaterally Gastrointestinal: Yes: Soft, Other (wound dressed no bleed). No: Tenderness Renal/: No: Hematuria Musculoskeletal: No: Joint Stiffness, Joint Swelling Extremities: No: Cold, Cool, Cyanosis Edema: No Integumentary: No: Rash, Venous Stasis Changes Neurological: Yes: Alert, Oriented ...Motor Strength: LUE (old 4/5), LLE (old 4/5) Psychiatric: Yes: Alert, Oriented. No: Agitated, Suicidal Ideation Labs: CBC, BMP 08/06/20 06:00 08/06/20 06:00 Discharge Summary Problems reviewed: Yes Reason For Visit: URINARY TRACT INFECTION Current Active Problems Abdominal pain (Acute) Bilateral hydronephrosis (Acute) Colonic diverticular abscess (Acute) Colovesical fistula (Acute) Esophageal ulcer with bleeding (Acute) GI hemorrhage (Acute) Gastric ulcer with hemorrhage (Acute) Hematemesis of unknown etiology (Acute) Hypokalemia (Acute) Hyponatremia (Acute) Leukocytosis (Acute) Pre-operative cardiovascular examination (Acute) Urinary tract infection (Acute) Procedures: Principal: 70 YOF HTN ASHD CVA DM and schizophrenia admitted with UTI sepsis low BP and hypoglycemia Other Procedures: seen by ID, < GI, surgery, cardiology and neurology in [place] Hospital Course: The patient is a 70 yo F with a pmh of CVA (3months ago), IDDM, HTN. She was brought in by EMS from her PCP clinic. She presented to the ED with intermittent lower abdominal/ suprapubic pain, urinary frequency, urgency and dysuria for 2 weeks. Per daughter, the urine is fouls smelling, but denies hematuria. Daughter reports 2 weeks of decreased appetite. In the hospital, she was found to be altered from baseline. CT Head was negative for any acute intracranial pathology. CT Abd/Pelvic found acute sigmoid diverticulitis with 3 possible diverticular abscesses with evidence suggesting primary inflammatory bowel disease as well as Bilateral hydrnephrosis. She was started on IV ATB per ID. Dr. 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 Dr. Horton performed Hartmnans surgery to remove a portion of the sigmoid colon and correct the colo-vesicular fistula. Pt was kept NPO after surgery. The NG tube and colostomy bag placed contained dark maroon fluid suggesting a GI bleed. Dr. Bronson performed an EGD which identified bleeding in the gastric cardia/fundus suspicious of Dieulafoy or Cristel Morales. ASA was held and PPI IV started. Dr. Cassidy performed a CT Angiogram with out any conclusive evidence for the bleeding source due to motion artifact. Dr Bronson performed another EGD which identified 2 gastric ulcers without active bleeding. Pt also received PRBCs. She improved after the above procedures. The abdominal wound is healing but still 2 spots open, per surgery will heal by secondary intention. She is transferred to [place] for SNF needs: wound care; PT rehab po PPI 40 mg bid x 2 weeks then daily restart ASA 325 mg/d on 08/14 if no GI Bleed po K and Magn, check labs CBC CMP Mg in 2-3 days after DC from falls and decubs PFX Condition: Improved - Instructions Diet, Activity, Other Instructions: Dr. Horton Discharge Instructions Dear DAGOBERTO VAZQUEZ, Post Operative Instructions Physical activity Resume your normal everyday activity as tolerated no heavy lifting or exercise until seen by your surgeon. You may walk unlimited amounts. Wound care Changing Your Ostomy Pouch Home care: Remove the used pouch and empty into the toilet. Starting at the upper edge of the skin barrier, carefully push the skin away from the barrier with one hand. Slowly peel back the skin barrier with the other hand. Peel all the way around the skin barrier until the pouch comes off. Seal the pouch in a plastic bag. Then put it in a second plastic bag. Throw it away in a trash bin. Clean around the stoma: Wipe any stool off the skin around the stoma with toilet paper. Clean the skin with warm water and a soft washcloth. Wash right up to the edge of the stoma. Pat the skin dry with a clean towel. If needed, put on extra skin protection, such as moisture barrier cream or powder. Put on the new pouch: Peel the backing off the skin barrier. Place the precut skin barrier over the stoma. If you dont use a pouch with a precut skin barrier, size and cut the opening (1/16 inch bigger than the stoma) and peel the backing off the skin barrier. Carefully place it over the stoma. The pouch opening should point toward your feet. If using a pouch with a clamp at the base, it may be easier to apply the clamp to the pouch first. Snap the pouch onto the barrier flange (if you use a 2-piece pouch). Press the barrier against your skin. Hold it in place for 45 seconds. Clamp the tail of the pouch (if drainable or reusable). Wash your hands with clean, warm or cold water for at least 20 seconds when you are done. Diet There are no dietary restrictions. Eat healthy, high-fiber foods. Drink 6 to 8 glasses of liquid each day. This will assist in keeping your bowels are regular. Pain management You may take Tylenol or acetaminophen or Ibuprofen (for example, Motrin, Advil etc.). Call Dr. Horton for any of the following: Severe pain not relieved by medication Fever of 101 or higher Excessive bleeding or drainage on dressing Inability to urinate Call the office at [phone] for a post operative appointment in 7 - 10 days. f/u PCP, surgery, GI, , THIRD HELPER, neurology and cardiology in 1-4 weeks after DC from [place] f.u with surgery dr Horton within 1 week from today (while in [place]) for wound check; wound care in [place] per wound care; PT rehab, falls and decubs prophylaxis continue Protonix po BID x 2 weeks then daily; restart ASA 325 mg/d on 08/14 if not more GI Bleed po K and Magn - check CBC and CMP, Mg level in 2-3 days after DC from [place] (check labs on 08/09/20) psychiatry f/u [facility] if worse or recurrent c/o d/w pt and daughter Referrals: Beatriz Desir [Primary Care Provider] - Raghu Horton MD [Staff Physician] - 1 Week Trev Cheng MD [Staff Physician] - Nila Bronson MD [Staff Physician] - Robert Kendrick MD [Staff Physician] - Sparkle Roas MD [Staff Physician] - Levar Cantu MD [Staff Physician] - Disposition: [facility] - Home Medications Comprehensive Discharge Medication List: Ambulatory Orders Escitalopram Oxalate [Lexapro -] 20 mg PO HS 04/10/20 Atorvastatin Ca [Lipitor] 80 mg PO HS tablet 04/15/20 Risperidone 3 mg PO DAILY 07/28/20 Acetaminophen [Tylenol .Extra-Strength -] 1,000 mg PO Q6H PRN tablet 08/06/20 Amino Acids/Protein Hydrolys [Prosource No Carb Liquid Pkt] 30 ml PO BID@0800,1730 packet 08/06/20 Aspirin [ASA -] 325 mg PO DAILY tablet 08/06/20 Insulin (Levemir) [Levemir Vial] 6 units SQ BID@0700,2200 units 08/06/20 Insulin Sliding Scale [Novolog Vial Sliding Scale -] 1 vial SQ ACHS units 08/06/20 Mag Hydrox/Al Hydrox/Simeth [Mylanta Oral Suspension -] 30 ml PO TID cup 08/06/20 Magnesium Oxide [Mag-Ox -] 400 mg PO DAILY #7 tablet 08/06/20 Metoprolol Succinate [Toprol XL -] 25 mg PO DAILY tab.sr.24h 08/06/20 Metoprolol Succinate [Toprol XL -] 50 mg PO DAILY tab.sr.24h 08/06/20 Multivit-Minerals [Certavite-Antioxidant Liquid] 15 ml PO DAILY cup 08/06/20 Pantoprazole Sodium [Protonix -] 40 mg PO BID #14 tablet.ec 08/06/20 Potassium Chloride 20 meq PO BID 10 Days liquid 08/06/20 Silver Sulfadiazine 1% Top Cr [Silvadene -] 1 applic TP BID jar 08/06/20 Sodium Hypochlorite [Dakin's Solution 0.25% (Half-Strength) -] 1 applic TP DAILY ml 08/06/20 traZODone HCL [Trazodone HCl] 50 mg PO HS PRN #30 tab 08/06/20
--- NOTE | 2020-08-06 15:16 | PN ---
Progress Note, Physician History of Present Illness: Seen and examined at the bedside awake and alert no overnight events - Current Medication List Current Medications: Active Medications Acetaminophen (Tylenol -) 1,000 mg PO Q6H PRN PRN Reason: PAIN LEVEL 1-5 Last Admin: 08/03/20 21:33 Dose: 1,000 mg Documented by: Al Hydroxide/Mg Hydroxide (Mylanta Oral Suspension -) 30 ml PO TID [facility] Last Admin: 08/06/20 13:40 Dose: 30 ml Documented by: Amino Acids (Prosource No Carb Liquid Pkt) 30 ml PO BID@0800,1730 [facility] Last Admin: 08/06/20 07:54 Dose: 30 ml Documented by: Insulin Aspart (Novolog Vial Sliding Scale -) 1 vial SQ [facility]; Protocol Last Admin: 08/06/20 12:24 Dose: Not Given Documented by: Insulin Detemir (Levemir Vial) 6 units SQ BID@0700,2200 [facility] Last Admin: 08/06/20 06:51 Dose: 6 units Documented by: Metoprolol Succinate (Toprol Xl -) 50 mg PO DAILY [facility] Last Admin: 08/06/20 10:18 Dose: 50 mg Documented by: Pantoprazole Sodium (Protonix Iv) 40 mg IVPUSH BID [facility] Last Admin: 08/06/20 10:18 Dose: 40 mg Documented by: Potassium Chloride (K-Dur -) 20 meq PO BID [facility] Last Admin: 08/06/20 10:18 Dose: 20 meq Documented by: Silver Sulfadiazine (Silvadene -) 1 applic TP BID [facility] Last Admin: 08/06/20 10:18 Dose: 1 applic Documented by: Sodium Hypochlorite (Dakin's Solution 0.25% (Half-Strength) -) 1 applic TP DAILY [facility] Last Admin: 08/06/20 10:18 Dose: 1 applic Documented by: - Objective Vital Signs: Vital Signs Temperature 97.8 F 08/06/20 09:00 Pulse Rate 88 08/06/20 09:00 Respiratory Rate 20 08/06/20 09:00 Blood Pressure 144/78 08/06/20 09:00 O2 Sat by Pulse Oximetry (%) 98 08/06/20 09:00 Constitutional: Yes: No Distress Gastrointestinal: Yes: Soft Extremities: No: Cyanosis Edema: No Labs: CBC, BMP 08/06/20 06:00 08/06/20 06:00 INR, PTT INR 1.00 (0.83-1.09) 07/30/20 05:45 Assessment/Plan 70 year old woman with history of CVA, IDDM, hypertension who presented with lower abdominal pain and found to have likely UTI with hypokalemia. 1. Hypokalemia in setting of diarrhea/GI losses 2. Diverticular abscess 3. Hypertension 4. IDDM 5. Anemia 6. Lactic acidosis 7. Hypomagnesemia 8. Hypophosphatemia 9. Acute kidney injury 10. Acute GI bleed 11. Lactic acidosis Renal function stable Continue potassium chloride 20 meq BID Check BMP in 5-7 days of discharge Discharge planning as per primary team Guillermo Ricks DO
[2020-08-06 16:01] VITALS: BP 137/88; PULSE 78; TEMP 98.1
== END 2020-08-06 17:05 | DRG 853 ==
LOC: JER 13:12 → JERBED 18:45 → J5S 07-16 23:25 → J6S 07-20 11:19 → J4W 07-28 06:00 → JICU 07-28 08:11 → J4W 08-04 16:38
PROVIDERS: ADMIT Internal Medicine; ATTEND Internal Medicine
PROC: 0D1L0Z4 Bypass Transverse Colon to Cutaneous, Open Approach (ICD-10-PCS; 2020-07-22)
PROC: 0D1N0Z4 Bypass Sigmoid Colon to Cutaneous, Open Approach (ICD-10-PCS; 2020-07-22)
PROC: 30233N1 Transfusion of Nonautologous Red Blood Cells into Peripheral Vein, Percutaneous Approach (ICD-10-PCS; 2020-07-22)
PROC: 0DBN0ZZ Excision of Sigmoid Colon, Open Approach (ICD-10-PCS; principal; 2020-07-22 09:30)
PROC: 0W9J0ZX Drainage of Pelvic Cavity, Open Approach, Diagnostic (ICD-10-PCS; 2020-07-22 09:30)
PROC: 05HM33Z Insertion of Infusion Device into Right Internal Jugular Vein, Percutaneous Approach (ICD-10-PCS; 2020-07-28)
PROC: B543ZZA Ultrasonography of Right Jugular Veins, Guidance (ICD-10-PCS; 2020-07-28)
PROC: 0D9670Z Drainage of Stomach with Drainage Device, Via Natural or Artificial Opening (ICD-10-PCS; 2020-07-28)
PROC: 0DB68ZX Excision of Stomach, Via Natural or Artificial Opening Endoscopic, Diagnostic (ICD-10-PCS; 2020-07-30)
DX: A41.89 Other specified sepsis (principal); R57.8 Other shock; K31.82 Dieulafoy lesion (hemorrhagic) of stomach and duodenum; K22.11 Ulcer of esophagus with bleeding; K57.20 Diverticulitis of large intestine with perforation and abscess without bleeding; N32.1 Vesicointestinal fistula; N39.0 Urinary tract infection, site not specified; E87.2 Acidosis; E87.1 Hypo-osmolality and hyponatremia; N13.30 Unspecified hydronephrosis; D62 Acute posthemorrhagic anemia; I50.30 Unspecified diastolic (congestive) heart failure; I69.354 Hemiplegia and hemiparesis following cerebral infarction affecting left non-dominant side; E22.1 Hyperprolactinemia; N17.9 Acute kidney failure, unspecified; K92.2 Gastrointestinal hemorrhage, unspecified; E11.649 Type 2 diabetes mellitus with hypoglycemia without coma; I95.9 Hypotension, unspecified; F20.9 Schizophrenia, unspecified; E87.6 Hypokalemia; F03.90 Unspecified dementia, unspecified severity, without behavioral disturbance, psychotic disturbance, mood disturbance, and anxiety; B96.5 Pseudomonas (aeruginosa) (mallei) (pseudomallei) as the cause of diseases classified elsewhere; E83.42 Hypomagnesemia; E83.39 Other disorders of phosphorus metabolism; D72.829 Elevated white blood cell count, unspecified; I65.22 Occlusion and stenosis of left carotid artery; I25.10 Atherosclerotic heart disease of native coronary artery without angina pectoris; I11.0 Hypertensive heart disease with heart failure; E88.09 Other disorders of plasma-protein metabolism, not elsewhere classified; E03.9 Hypothyroidism, unspecified; R00.0 Tachycardia, unspecified; E11.40 Type 2 diabetes mellitus with diabetic neuropathy, unspecified; R41.82 Altered mental status, unspecified; Z79.4 Long term (current) use of insulin
CPT/HCPCS: 36415; 36430; 70450-TC; 71045-TC-FY; 74174-TC; 74176-TC; 80048; 80053; 80061; 81003; 82272; 82550; 82565; 82728; 82962; 83540; 83550; 83605; 83721; 83735; 84100; 84300; 84484; 85025; 85027; 85610; 85730; 86140; 86850; 86900; 86901; 86922; 87040; 87070; 87077; 87086; 87186; 87205; 87324; 87449; 88305-TC; 93005; 93010; 93970-TC; 94010; 94760; 97116-GP; 99285-25; J0131; J1644; P9058; U0003

== ENCOUNTER 2020-12-01 04:36 | Day surgery (SDC) | payer OTHER ==
[2020-11-30 15:31] VITALS: BMI 29.2
[2020-12-01 08:58] VITALS: TEMP 97.9
[2020-12-01 10:21] VITALS: BP 169/94; PULSE 87
== END 2020-12-01 10:16 | disposition home or self-care (01) ==
LOC: JASU-ENDO 04:36
PROVIDERS: ATTEND Internal Medicine Gastroenterology
PROC: 0DB78ZX Excision of Stomach, Pylorus, Via Natural or Artificial Opening Endoscopic, Diagnostic (ICD-10-PCS; 2020-12-01)
PROC: 0DB98ZX Excision of Duodenum, Via Natural or Artificial Opening Endoscopic, Diagnostic (ICD-10-PCS; principal; 2020-12-01 08:00)
DX: Z12.11 Encounter for screening for malignant neoplasm of colon (principal); K25.3 Acute gastric ulcer without hemorrhage or perforation; K64.4 Residual hemorrhoidal skin tags; K64.8 Other hemorrhoids; K59.9 Functional intestinal disorder, unspecified; K57.30 Diverticulosis of large intestine without perforation or abscess without bleeding; K29.50 Unspecified chronic gastritis without bleeding; Z90.49 Acquired absence of other specified parts of digestive tract; Z87.19 Personal history of other diseases of the digestive system
CPT/HCPCS: 82962

== ENCOUNTER 2021-01-18 18:54 | Inpatient (IN) | payer OTHER ==
[2021-01-18] MEDS ORDERED: SODIUM CHLORIDE 0.9% 500 ML INFUS.BAG IV ONE ×2 (20:10→21:51)
[2021-01-18] MEDS ORDERED: SODIUM CHLORIDE 1,905 ML IV ONE (20:12)
[2021-01-18 20:19] LABS: BASO % 0.8 % (0-2.0); EOS % 3.3 % (0-4.5); HEMATOCRIT 37.5 % (32.4-45.2); HEMOGLOBIN 12.4 GM/dL (10.7-15.3); LYMPH % 27.4 % (8-40); MCH 30.8 pg (25.7-33.7); MCHC 33.1 g/dl (32.0-36.0); MEAN PLT VOLUME 9.9 fl (7.5-11.1); MONO % 8.9 % (3.8-10.2); NEUT % 59.6 % (42.8-82.8); PLATELET COUNT 234 K/MM3 (134-434); RBC 4.03 M/mm3 (3.60-5.2); RDW 15.7 % (11.6-15.6); WHITE BLOOD COUNT 7.7 K/mm3 (4.0-10.0)
[2021-01-18 20:38] LABS: POTASSIUM 4.1 mmol/L (3.5-5.1)
[2021-01-18 20:40] LABS: ALBUMIN 3.4 g/dl (3.4-5.0); BLOOD UREA NITROGEN 30.1 mg/dL (7-18); CALCIUM 9.4 mg/dL (8.5-10.1)
[2021-01-18 20:44] LABS: CREATININE 0.9 mg/dL (0.55-1.3)
[2021-01-18 20:45] LABS: BILIRUBIN,TOTAL 0.4 mg/dL (0.2-1); TOT PROT 7.2 g/dl (6.4-8.2)
[2021-01-18 21:01] LABS: INR 0.97 (0.83-1.09); PROTHROMBIN TIME (PATIENT) 11.8 SEC (9.7-13.0)
[2021-01-18 21:04] LABS: ACTIVATED PTT 27.6 SECONDS (25.2-36.5)
[2021-01-18 21:11] LABS: LIPASE 142 U/L (73-393); MAGNESIUM 2.2 mg/dL (1.8-2.4)
[2021-01-18 21:14] LABS: PHOSPHOROUS 4.9 mg/dL (2.5-4.9)
[2021-01-18 21:20] LABS: LACTIC ACID 2.2 mmol/L (0.4-2.0)
[2021-01-18 22:01] LABS: EPI CELLS 4 /uL (0-25.1); HYALINE CASTS 2 /uL (0-3.1); URINE APPEARANCE CLOUDY; URINE BACTERIA 868 /uL (0-1359); URINE BILIRUBIN NEGATIVE (NEGATIVE); URINE COLOR YELLOW; URINE GLUCOSE (UA) NEGATIVE (NEGATIVE); URINE KETONE NEGATIVE (NEGATIVE); URINE LEUK ESTERASE 2+ (NEGATIVE); URINE NITRITE NEGATIVE (NEGATIVE); URINE PROTEIN NEGATIVE (NEGATIVE); URINE RBC 16 /uL (0-23.9); URINE UROBILINOGEN 0.2 mg/dL (0.2-1.0); URINE WBC 1808 /uL (0-25.8)
[2021-01-18] MEDS ORDERED: CEFTRIAXONE 1,000 MG in DEXTROSE 5%-WATER - 50 ML IVPB ONE (22:01)
[2021-01-19] MEDS ORDERED: ACETAMINOPHEN 325 MG TABLET (FP) PO PRN (00:18)
[2021-01-19] MEDS ORDERED: CEFTRIAXONE 1 GM in DEXTROSE 5%-WATER - 50 ML IVPB ONE (00:19)
[2021-01-19] MEDS ORDERED: CEFTRIAXONE 1 GM/50 ML BAG ONE (01:01)
[2021-01-19] MEDS: SODIUM CHLORIDE 1,000 ML IV SCH ×2 (01:31→13:11)
[2021-01-19] MEDS ORDERED: CEFTRIAXONE 1 GM in DEXTROSE 5%-WATER - 50 ML IVPB SCH (10:00)
[2021-01-19] MEDS: INSULIN (LEVEMIR) 100 UNITS/ML UNITS SQ SCH ×2 (10:00→21:54)
[2021-01-19] MEDS: MAGNESIUM OXIDE 400 MG TABLET (FP) PO SCH (11:00)
[2021-01-19] MEDS: PANTOPRAZOLE 40 MG TABLET PO SCH ×2 (11:00→21:54)
[2021-01-19] MEDS: ASPIRIN COATED 81 MG TABLET.EC PO SCH (11:00)
[2021-01-19] MEDS ORDERED: ASPIRIN COATED 81 MG TABLET.EC ONE (11:08)
[2021-01-19] MEDS ORDERED: PANTOPRAZOLE 40 MG TABLET ONE (11:09)
[2021-01-19] MEDS ORDERED: MAGNESIUM OXIDE 400 MG TABLET (FP) ONE (11:09)
[2021-01-19] MEDS ORDERED: DEXTROSE 5%-WATER - 50 ML IVPB ONE (13:09)
[2021-01-19] MEDS ORDERED: PIPERACILLIN/TAZOBACTAM 3.375 GM VIAL IVPB ONE (13:09)
[2021-01-19] MEDS: PIPERACILLIN/TAZOB 3.375 GM 3.375 GM in DEXTROSE 5%-WATER - 50 ML IVPB SCH ×2 (13:11→18:14)
[2021-01-19] MEDS: MULTIVIT-MINERALS ORAL LIQUID PO SCH (13:14)
[2021-01-19 15:23] VITALS: BMI 27.7
[2021-01-19] MEDS ORDERED: ESCITALOPRAM OXALATE 10 MG TABLET ONE (21:47)
[2021-01-19] MEDS: ATORVASTATIN CA 80 MG TABLET (FP) PO SCH (21:54)
[2021-01-19] MEDS: HEPARIN NA (PORCINE) 5,000 UNITS/ML 1ML VIAL SQ SCH (21:54)
[2021-01-19] MEDS: ESCITALOPRAM OXALATE 20 MG TABLET PO SCH (21:57)
[2021-01-20] MEDS ORDERED: DEXTROSE 5%-WATER - 50 ML IVPB ONE ×3 (02:17→16:23)
[2021-01-20] MEDS ORDERED: PIPERACILLIN/TAZOBACTAM 3.375 GM VIAL IVPB ONE ×3 (02:17→16:23)
[2021-01-20] MEDS: PIPERACILLIN/TAZOB 3.375 GM 3.375 GM in DEXTROSE 5%-WATER - 50 ML IVPB SCH ×2 (02:44→09:56)
[2021-01-20] MEDS: INSULIN (LEVEMIR) 100 UNITS/ML UNITS SQ SCH ×2 (06:50→22:09)
[2021-01-20 08:34] LABS: BASO % 0.8 % (0-2.0); EOS % 2.4 % (0-4.5); HEMATOCRIT 35.4 % (32.4-45.2); LYMPH % 24.3 % (8-40); MCHC 33.9 g/dl (32.0-36.0); MEAN CELL VOLUME 91.4 fl (80-96); MEAN PLT VOLUME 9.3 fl (7.5-11.1); MONO % 7.9 % (3.8-10.2); NEUT % 64.6 % (42.8-82.8); PLATELET COUNT 228 K/MM3 (134-434); RBC 3.88 M/mm3 (3.60-5.2); RDW 15.5 % (11.6-15.6)
[2021-01-20 08:48] LABS: POTASSIUM 3.7 mmol/L (3.5-5.1)
[2021-01-20 09:03] LABS: ALBUMIN 3.3 g/dl (3.4-5.0); BLOOD UREA NITROGEN 13.7 mg/dL (7-18); CALCIUM 9.3 mg/dL (8.5-10.1)
[2021-01-20 09:07] LABS: CREATININE 0.6 mg/dL (0.55-1.3)
[2021-01-20 09:09] LABS: BILIRUBIN,TOTAL 0.8 mg/dL (0.2-1); TOT PROT 6.8 g/dl (6.4-8.2)
[2021-01-20] MEDS: HEPARIN NA (PORCINE) 5,000 UNITS/ML 1ML VIAL SQ SCH ×2 (09:56→22:02)
[2021-01-20] MEDS: PANTOPRAZOLE 40 MG TABLET PO SCH ×2 (09:57→22:02)
[2021-01-20] MEDS: MAGNESIUM OXIDE 400 MG TABLET (FP) PO SCH (09:57)
[2021-01-20] MEDS: ASPIRIN COATED 81 MG TABLET.EC PO SCH (09:57)
[2021-01-20] MEDS: MULTIVIT-MINERALS ORAL LIQUID PO SCH (09:58)
[2021-01-20] MEDS ORDERED: PT OWN MED DRAWER 7, Y5N ONE (18:44)
[2021-01-20] MEDS ORDERED: ESCITALOPRAM OXALATE 10 MG TABLET ONE (21:35)
[2021-01-20] MEDS: ATORVASTATIN CA 80 MG TABLET (FP) PO SCH (22:02)
[2021-01-20] MEDS: ESCITALOPRAM OXALATE 20 MG TABLET PO SCH (22:02)
[2021-01-21] MEDS: INSULIN (LEVEMIR) 100 UNITS/ML UNITS SQ SCH ×2 (06:40→21:03)
[2021-01-21] MEDS: SODIUM CHLORIDE 1,000 ML IV SCH (06:46)
[2021-01-21] MEDS ORDERED: PT OWN MED DRAWER 7, Y5N ONE (09:32)
[2021-01-21] MEDS: MULTIVIT-MINERALS ORAL LIQUID PO SCH (09:41)
[2021-01-21] MEDS: MAGNESIUM OXIDE 400 MG TABLET (FP) PO SCH (09:42)
[2021-01-21] MEDS: HEPARIN NA (PORCINE) 5,000 UNITS/ML 1ML VIAL SQ SCH ×2 (09:42→21:03)
[2021-01-21] MEDS: ASPIRIN COATED 81 MG TABLET.EC PO SCH (09:42)
[2021-01-21] MEDS: PANTOPRAZOLE 40 MG TABLET PO SCH ×2 (09:42→21:02)
[2021-01-21] MEDS: BACITRACIN 15 GM TUBE TOPICAL OINTMENT TP SCH (17:35)
[2021-01-21] MEDS ORDERED: ESCITALOPRAM OXALATE 10 MG TABLET ONE (20:57)
[2021-01-21] MEDS: ATORVASTATIN CA 80 MG TABLET (FP) PO SCH (21:02)
[2021-01-21] MEDS: ESCITALOPRAM OXALATE 20 MG TABLET PO SCH (21:03)
[2021-01-22] MEDS: SODIUM CHLORIDE 1,000 ML IV SCH (06:18)
[2021-01-22] MEDS: INSULIN (LEVEMIR) 100 UNITS/ML UNITS SQ SCH ×2 (06:20→21:45)
[2021-01-22] MEDS: BACITRACIN 15 GM TUBE TOPICAL OINTMENT TP SCH (09:52)
[2021-01-22] MEDS: HEPARIN NA (PORCINE) 5,000 UNITS/ML 1ML VIAL SQ SCH ×2 (09:53→21:44)
[2021-01-22] MEDS: PANTOPRAZOLE 40 MG TABLET PO SCH ×2 (09:53→21:43)
[2021-01-22] MEDS: MULTIVIT-MINERALS ORAL LIQUID PO SCH (09:53)
[2021-01-22] MEDS: MAGNESIUM OXIDE 400 MG TABLET (FP) PO SCH (09:53)
[2021-01-22] MEDS: ASPIRIN COATED 81 MG TABLET.EC PO SCH (09:53)
[2021-01-22] MEDS ORDERED: ESCITALOPRAM OXALATE 10 MG TABLET ONE (21:12)
[2021-01-22] MEDS: ESCITALOPRAM OXALATE 20 MG TABLET PO SCH (21:43)
[2021-01-22] MEDS: ATORVASTATIN CA 80 MG TABLET (FP) PO SCH (21:43)
[2021-01-23] MEDS: SODIUM CHLORIDE 1,000 ML IV SCH ×2 (01:25→01:30)
[2021-01-23] MEDS: INSULIN (LEVEMIR) 100 UNITS/ML UNITS SQ SCH ×2 (06:28→21:26)
[2021-01-23 09:43] LABS: BASO % 0.8 % (0-2.0); EOS % 2.2 % (0-4.5); HEMATOCRIT 33.8 % (32.4-45.2); HEMOGLOBIN 11.8 GM/dL (10.7-15.3); LYMPH % 16.6 % (8-40); MCH 31.6 pg (25.7-33.7); MEAN CELL VOLUME 90.3 fl (80-96); MEAN PLT VOLUME 9.1 fl (7.5-11.1); NEUT % 73.4 % (42.8-82.8); PLATELET COUNT 227 K/MM3 (134-434); RBC 3.74 M/mm3 (3.60-5.2); WHITE BLOOD COUNT 6.3 K/mm3 (4.0-10.0)
[2021-01-23 09:51] LABS: POTASSIUM 3.6 mmol/L (3.5-5.1)
[2021-01-23 09:53] LABS: ALBUMIN 2.9 g/dl (3.4-5.0); BLOOD UREA NITROGEN 11.9 mg/dL (7-18); CALCIUM 8.6 mg/dL (8.5-10.1)
[2021-01-23 09:56] LABS: CREATININE 0.7 mg/dL (0.55-1.3)
[2021-01-23 09:58] LABS: BILIRUBIN,TOTAL 0.5 mg/dL (0.2-1); TOT PROT 6.4 g/dl (6.4-8.2)
[2021-01-23] MEDS ORDERED: PT OWN MED DRAWER 7, Y5N ONE (10:03)
[2021-01-23] MEDS: MAGNESIUM OXIDE 400 MG TABLET (FP) PO SCH (10:15)
[2021-01-23] MEDS: ASPIRIN COATED 81 MG TABLET.EC PO SCH (10:15)
[2021-01-23] MEDS: HEPARIN NA (PORCINE) 5,000 UNITS/ML 1ML VIAL SQ SCH ×2 (10:15→21:26)
[2021-01-23] MEDS: BACITRACIN 15 GM TUBE TOPICAL OINTMENT TP SCH (10:15)
[2021-01-23] MEDS: MULTIVIT-MINERALS ORAL LIQUID PO SCH (10:15)
[2021-01-23] MEDS: PANTOPRAZOLE 40 MG TABLET PO SCH ×2 (10:15→21:25)
[2021-01-23] MEDS ORDERED: ESCITALOPRAM OXALATE 10 MG TABLET ONE (20:55)
[2021-01-23] MEDS: ESCITALOPRAM OXALATE 20 MG TABLET PO SCH (21:25)
[2021-01-23] MEDS: ATORVASTATIN CA 80 MG TABLET (FP) PO SCH (21:25)
[2021-01-24] MEDS: SODIUM CHLORIDE 1,000 ML IV SCH (04:30)
[2021-01-24] MEDS: INSULIN (LEVEMIR) 100 UNITS/ML UNITS SQ SCH ×2 (06:09→22:02)
[2021-01-24] MEDS: BACITRACIN 15 GM TUBE TOPICAL OINTMENT TP SCH (09:09)
[2021-01-24] MEDS: MULTIVIT-MINERALS ORAL LIQUID PO SCH (09:09)
[2021-01-24] MEDS ORDERED: PT OWN MED DRAWER 7, Y5N ONE (09:09)
[2021-01-24] MEDS: MAGNESIUM OXIDE 400 MG TABLET (FP) PO SCH (09:10)
[2021-01-24] MEDS: HEPARIN NA (PORCINE) 5,000 UNITS/ML 1ML VIAL SQ SCH ×2 (09:10→22:02)
[2021-01-24] MEDS: ASPIRIN COATED 81 MG TABLET.EC PO SCH (09:10)
[2021-01-24] MEDS: PANTOPRAZOLE 40 MG TABLET PO SCH ×2 (09:10→22:02)
[2021-01-24 09:43] LABS: BASO % 0.8 % (0-2.0); EOS % 2.5 % (0-4.5); HEMATOCRIT 35.4 % (32.4-45.2); HEMOGLOBIN 12.1 GM/dL (10.7-15.3); LYMPH % 22.2 % (8-40); MCH 31.2 pg (25.7-33.7); MCHC 34.2 g/dl (32.0-36.0); MEAN CELL VOLUME 91.3 fl (80-96); MEAN PLT VOLUME 9.3 fl (7.5-11.1); MONO % 7.1 % (3.8-10.2); NEUT % 67.4 % (42.8-82.8); PLATELET COUNT 236 K/MM3 (134-434); RBC 3.87 M/mm3 (3.60-5.2); RDW 15.2 % (11.6-15.6); WHITE BLOOD COUNT 6.8 K/mm3 (4.0-10.0)
[2021-01-24 10:09] LABS: POTASSIUM 4.1 mmol/L (3.5-5.1)
[2021-01-24 10:31] LABS: CALCIUM 8.9 mg/dL (8.5-10.1)
[2021-01-24 10:34] LABS: BILIRUBIN,TOTAL 0.6 mg/dL (0.2-1); BLOOD UREA NITROGEN 11.9 mg/dL (7-18)
[2021-01-24 10:36] LABS: TOT PROT 6.7 g/dl (6.4-8.2)
[2021-01-24 10:37] LABS: CREATININE 0.8 mg/dL (0.55-1.3)
[2021-01-24] MEDS ORDERED: ESCITALOPRAM OXALATE 10 MG TABLET ONE (21:58)
[2021-01-24] MEDS: ESCITALOPRAM OXALATE 20 MG TABLET PO SCH (22:03)
[2021-01-24] MEDS: ATORVASTATIN CA 80 MG TABLET (FP) PO SCH (22:03)
[2021-01-25] MEDS: SODIUM CHLORIDE 1,000 ML IV SCH ×3 (05:30→23:15)
[2021-01-25] MEDS: INSULIN (LEVEMIR) 100 UNITS/ML UNITS SQ SCH ×2 (06:33→21:33)
[2021-01-25] MEDS ORDERED: PT OWN MED DRAWER 7, Y5N ONE (08:48)
[2021-01-25] MEDS: MAGNESIUM OXIDE 400 MG TABLET (FP) PO SCH (09:05)
[2021-01-25] MEDS: HEPARIN NA (PORCINE) 5,000 UNITS/ML 1ML VIAL SQ SCH ×2 (09:05→21:33)
[2021-01-25] MEDS: PANTOPRAZOLE 40 MG TABLET PO SCH ×2 (09:05→21:32)
[2021-01-25] MEDS: ASPIRIN COATED 81 MG TABLET.EC PO SCH (09:05)
[2021-01-25] MEDS: MULTIVIT-MINERALS ORAL LIQUID PO SCH (09:06)
[2021-01-25] MEDS: BACITRACIN 15 GM TUBE TOPICAL OINTMENT TP SCH (09:41)
[2021-01-25] MEDS ORDERED: ESCITALOPRAM OXALATE 10 MG TABLET ONE (21:10)
[2021-01-25] MEDS: ESCITALOPRAM OXALATE 20 MG TABLET PO SCH (21:32)
[2021-01-25] MEDS: ATORVASTATIN CA 80 MG TABLET (FP) PO SCH (21:32)
[2021-01-26] MEDS: SODIUM CHLORIDE 1,000 ML IV SCH ×2 (03:30→12:03)
[2021-01-26] MEDS: INSULIN (LEVEMIR) 100 UNITS/ML UNITS SQ SCH ×2 (06:56→21:06)
[2021-01-26] MEDS: MULTIVIT-MINERALS ORAL LIQUID PO SCH (09:25)
[2021-01-26] MEDS: PANTOPRAZOLE 40 MG TABLET PO SCH ×2 (09:27→21:08)
[2021-01-26] MEDS: MAGNESIUM OXIDE 400 MG TABLET (FP) PO SCH (09:27)
[2021-01-26] MEDS: ASPIRIN COATED 81 MG TABLET.EC PO SCH (09:27)
[2021-01-26] MEDS: HEPARIN NA (PORCINE) 5,000 UNITS/ML 1ML VIAL SQ SCH ×2 (09:27→21:04)
[2021-01-26] MEDS: BACITRACIN 15 GM TUBE TOPICAL OINTMENT TP SCH (09:28)
[2021-01-26] MEDS ORDERED: ESCITALOPRAM OXALATE 10 MG TABLET ONE (20:53)
[2021-01-26] MEDS: ESCITALOPRAM OXALATE 20 MG TABLET PO SCH (21:07)
[2021-01-26] MEDS: ATORVASTATIN CA 80 MG TABLET (FP) PO SCH (21:07)
[2021-01-27] MEDS: SODIUM CHLORIDE 1,000 ML IV SCH ×2 (06:06→14:45)
[2021-01-27] MEDS: INSULIN (LEVEMIR) 100 UNITS/ML UNITS SQ SCH ×2 (06:07→21:40)
[2021-01-27] MEDS: BACITRACIN 15 GM TUBE TOPICAL OINTMENT TP SCH (09:46)
[2021-01-27] MEDS: PANTOPRAZOLE 40 MG TABLET PO SCH ×2 (09:49→21:38)
[2021-01-27] MEDS: HEPARIN NA (PORCINE) 5,000 UNITS/ML 1ML VIAL SQ SCH ×2 (10:00→21:38)
[2021-01-27] MEDS: ASPIRIN COATED 81 MG TABLET.EC PO SCH (10:00)
[2021-01-27] MEDS: MAGNESIUM OXIDE 400 MG TABLET (FP) PO SCH (10:00)
[2021-01-27] MEDS: MULTIVIT-MINERALS ORAL LIQUID PO SCH (10:00)
[2021-01-27] MEDS ORDERED: PROPOFOL 20 ML ONE (11:28)
[2021-01-27] MEDS ORDERED: MIDAZOLAM HCL 2 MG/2 ML SINGLE DOSE VIAL ONE (11:28)
[2021-01-27] MEDS ORDERED: GENTAMICIN SO4 80 MG/2 ML VIAL ONE (11:33)
[2021-01-27] MEDS ORDERED: ceFAZolin 2 GRAM PREMIX BAG IVPB ONE (11:52)
[2021-01-27] MEDS ORDERED: DEXAMETHASONE SOD PHOSPHATE 4 MG/1 ML VIAL ONE (12:01)
[2021-01-27] MEDS ORDERED: EPHEDRINE SULFATE/0.9% NACL/PF 50 MG/10 ML SYRINGE NR ONE (12:01)
[2021-01-27] MEDS ORDERED: ONDANSETRON 4 MG/2 ML VIAL IVPUSH PRN (12:34)
[2021-01-27] MEDS ORDERED: LACTATED RINGERS SOLUTION 1,000 ML IV SCH (12:45)
[2021-01-27] MEDS ORDERED: ACETAMINOPHEN 325 MG TABLET (FP) PO PRN (12:50)
[2021-01-27] MEDS ORDERED: PT OWN MED DRAWER 7, Y5N ONE (14:54)
[2021-01-27] MEDS ORDERED: ESCITALOPRAM OXALATE 10 MG TABLET ONE (21:35)
[2021-01-27] MEDS: ATORVASTATIN CA 80 MG TABLET (FP) PO SCH (21:38)
[2021-01-27] MEDS: ESCITALOPRAM OXALATE 20 MG TABLET PO SCH (21:39)
[2021-01-28] MEDS: SODIUM CHLORIDE 1,000 ML IV SCH ×2 (02:28→15:28)
[2021-01-28] MEDS: INSULIN (LEVEMIR) 100 UNITS/ML UNITS SQ SCH ×2 (07:03→21:54)
[2021-01-28] MEDS: BACITRACIN 15 GM TUBE TOPICAL OINTMENT TP SCH (10:43)
[2021-01-28] MEDS ORDERED: PT OWN MED DRAWER 7, Y5N ONE (11:14)
[2021-01-28] MEDS: MAGNESIUM OXIDE 400 MG TABLET (FP) PO SCH (11:17)
[2021-01-28] MEDS: CARBIDOPA/LEVODOPA 10/100 TABLET (FP) PO SCH ×2 (11:17→21:52)
[2021-01-28] MEDS: ASPIRIN COATED 81 MG TABLET.EC PO SCH (11:17)
[2021-01-28] MEDS: MULTIVIT-MINERALS ORAL LIQUID PO SCH (11:18)
[2021-01-28] MEDS: PANTOPRAZOLE 40 MG TABLET PO SCH ×2 (11:20→21:54)
[2021-01-28] MEDS: HEPARIN NA (PORCINE) 5,000 UNITS/ML 1ML VIAL SQ SCH ×2 (11:25→21:51)
[2021-01-28] MEDS ORDERED: ESCITALOPRAM OXALATE 10 MG TABLET ONE (20:51)
[2021-01-28] MEDS: ATORVASTATIN CA 80 MG TABLET (FP) PO SCH (21:52)
[2021-01-28] MEDS: ESCITALOPRAM OXALATE 20 MG TABLET PO SCH (21:52)
[2021-01-29] MEDS: INSULIN (LEVEMIR) 100 UNITS/ML UNITS SQ SCH ×2 (06:08→23:08)
[2021-01-29] MEDS ORDERED: PT OWN MED DRAWER 7, Y5N ONE ×2 (09:27→23:04)
[2021-01-29] MEDS: BACITRACIN 15 GM TUBE TOPICAL OINTMENT TP SCH (09:55)
[2021-01-29] MEDS: MULTIVIT-MINERALS ORAL LIQUID PO SCH (09:55)
[2021-01-29] MEDS: PANTOPRAZOLE 40 MG TABLET PO SCH ×2 (09:56→23:07)
[2021-01-29] MEDS: ASPIRIN COATED 81 MG TABLET.EC PO SCH (09:56)
[2021-01-29] MEDS: MAGNESIUM OXIDE 400 MG TABLET (FP) PO SCH (09:56)
[2021-01-29] MEDS: CARBIDOPA/LEVODOPA 10/100 TABLET (FP) PO SCH ×2 (09:56→23:08)
[2021-01-29] MEDS: HEPARIN NA (PORCINE) 5,000 UNITS/ML 1ML VIAL SQ SCH ×2 (10:33→23:08)
[2021-01-29] MEDS: SODIUM CHLORIDE 1,000 ML IV SCH (13:00)
[2021-01-29] MEDS: ACETAMINOPHEN 325 MG TABLET (FP) PO PRN (20:19)
[2021-01-29] MEDS ORDERED: ESCITALOPRAM OXALATE 10 MG TABLET ONE (23:03)
[2021-01-29] MEDS: ESCITALOPRAM OXALATE 20 MG TABLET PO SCH (23:07)
[2021-01-29] MEDS: ATORVASTATIN CA 80 MG TABLET (FP) PO SCH (23:07)
[2021-01-30] MEDS: INSULIN (LEVEMIR) 100 UNITS/ML UNITS SQ SCH ×2 (07:30→21:07)
[2021-01-30] MEDS ORDERED: amLODIPine BESYLATE 2.5 MG TABLET (FP) PO SCH (10:00)
[2021-01-30] MEDS ORDERED: PT OWN MED DRAWER 7, Y5N ONE ×3 (10:07→21:03)
[2021-01-30] MEDS: MULTIVIT-MINERALS ORAL LIQUID PO SCH (10:45)
[2021-01-30] MEDS: MAGNESIUM OXIDE 400 MG TABLET (FP) PO SCH (10:46)
[2021-01-30] MEDS: ASPIRIN COATED 81 MG TABLET.EC PO SCH (10:46)
[2021-01-30] MEDS: HEPARIN NA (PORCINE) 5,000 UNITS/ML 1ML VIAL SQ SCH ×2 (10:46→21:07)
[2021-01-30] MEDS: PANTOPRAZOLE 40 MG TABLET PO SCH ×2 (10:46→21:07)
[2021-01-30] MEDS: BACITRACIN 15 GM TUBE TOPICAL OINTMENT TP SCH (10:46)
[2021-01-30] MEDS: CARBIDOPA/LEVODOPA 10/100 TABLET (FP) PO SCH ×2 (10:47→21:07)
[2021-01-30 13:17] LABS: BASO % 0.9 % (0-2.0); HEMOGLOBIN 12.5 GM/dL (10.7-15.3); LYMPH % 19.9 % (8-40); MCH 31.4 pg (25.7-33.7); MCHC 34.7 g/dl (32.0-36.0); MEAN CELL VOLUME 90.7 fl (80-96); MEAN PLT VOLUME 9.2 fl (7.5-11.1); MONO % 10.1 % (3.8-10.2); NEUT % 68.1 % (42.8-82.8); PLATELET COUNT 277 K/MM3 (134-434); RBC 3.97 M/mm3 (3.60-5.2); WHITE BLOOD COUNT 7.7 K/mm3 (4.0-10.0)
[2021-01-30 13:44] LABS: POTASSIUM 4.1 mmol/L (3.5-5.1)
[2021-01-30 13:47] LABS: CALCIUM 9.1 mg/dL (8.5-10.1)
[2021-01-30 13:48] LABS: BLOOD UREA NITROGEN 17.2 mg/dL (7-18)
[2021-01-30 13:51] LABS: CREATININE 0.6 mg/dL (0.55-1.3)
[2021-01-30 13:52] LABS: BILIRUBIN,TOTAL 0.6 mg/dL (0.2-1)
[2021-01-30 13:53] LABS: TOT PROT 6.4 g/dl (6.4-8.2)
[2021-01-30] MEDS: SODIUM CHLORIDE 1,000 ML IV SCH (18:18)
[2021-01-30] MEDS: ESCITALOPRAM OXALATE 20 MG TABLET PO SCH (21:07)
[2021-01-30] MEDS: ATORVASTATIN CA 80 MG TABLET (FP) PO SCH (21:07)
[2021-01-31] MEDS: INSULIN (LEVEMIR) 100 UNITS/ML UNITS SQ SCH ×2 (06:40→21:26)
[2021-01-31] MEDS: amLODIPine BESYLATE 2.5 MG TABLET (FP) PO SCH (06:59)
[2021-01-31] MEDS: BACITRACIN 15 GM TUBE TOPICAL OINTMENT TP SCH (10:17)
[2021-01-31] MEDS: MULTIVIT-MINERALS ORAL LIQUID PO SCH (10:17)
[2021-01-31] MEDS: HEPARIN NA (PORCINE) 5,000 UNITS/ML 1ML VIAL SQ SCH ×2 (10:18→21:24)
[2021-01-31] MEDS: PANTOPRAZOLE 40 MG TABLET PO SCH ×2 (10:18→21:25)
[2021-01-31] MEDS: MAGNESIUM OXIDE 400 MG TABLET (FP) PO SCH (10:18)
[2021-01-31] MEDS: ASPIRIN COATED 81 MG TABLET.EC PO SCH (10:18)
[2021-01-31] MEDS: CARBIDOPA/LEVODOPA 10/100 TABLET (FP) PO SCH ×2 (10:19→21:26)
[2021-01-31] MEDS: SODIUM CHLORIDE 1 GM TABLET PO SCH (11:48)
[2021-01-31 12:51] LABS: POTASSIUM 4.3 mmol/L (3.5-5.1)
[2021-01-31 12:52] LABS: CALCIUM 9.3 mg/dL (8.5-10.1)
[2021-01-31 12:53] LABS: BLOOD UREA NITROGEN 14.7 mg/dL (7-18)
[2021-01-31 12:56] LABS: CREATININE 0.6 mg/dL (0.55-1.3)
[2021-01-31] MEDS ORDERED: INSULIN (NOVOLOG) ASPART 100 UNITS/ML 10ML VIAL ONE (21:20)
[2021-01-31] MEDS ORDERED: ESCITALOPRAM OXALATE 10 MG TABLET ONE (21:21)
[2021-01-31] MEDS: ATORVASTATIN CA 80 MG TABLET (FP) PO SCH (21:25)
[2021-01-31] MEDS: ESCITALOPRAM OXALATE 20 MG TABLET PO SCH (21:26)
[2021-02-01] MEDS: INSULIN (LEVEMIR) 100 UNITS/ML UNITS SQ SCH ×2 (06:24→21:32)
[2021-02-01 09:26] LABS: POTASSIUM 4.3 mmol/L (3.5-5.1)
[2021-02-01 09:27] LABS: CALCIUM 8.6 mg/dL (8.5-10.1)
[2021-02-01 09:28] LABS: BLOOD UREA NITROGEN 14.9 mg/dL (7-18)
[2021-02-01 09:31] LABS: CREATININE 0.7 mg/dL (0.55-1.3)
[2021-02-01] MEDS ORDERED: PT OWN MED DRAWER 7, Y5N ONE ×2 (09:36→21:00)
[2021-02-01] MEDS: MULTIVIT-MINERALS ORAL LIQUID PO SCH (10:05)
[2021-02-01] MEDS: ASPIRIN COATED 81 MG TABLET.EC PO SCH (10:05)
[2021-02-01] MEDS: HEPARIN NA (PORCINE) 5,000 UNITS/ML 1ML VIAL SQ SCH ×2 (10:05→21:27)
[2021-02-01] MEDS: BACITRACIN 15 GM TUBE TOPICAL OINTMENT TP SCH (10:05)
[2021-02-01] MEDS: CARBIDOPA/LEVODOPA 10/100 TABLET (FP) PO SCH ×2 (10:06→22:17)
[2021-02-01] MEDS: amLODIPine BESYLATE 2.5 MG TABLET (FP) PO SCH (10:06)
[2021-02-01] MEDS: MAGNESIUM OXIDE 400 MG TABLET (FP) PO SCH (10:06)
[2021-02-01] MEDS: PANTOPRAZOLE 40 MG TABLET PO SCH ×2 (10:06→21:27)
[2021-02-01] MEDS: SODIUM CHLORIDE 1 GM TABLET PO SCH ×2 (10:07→21:28)
[2021-02-01] MEDS ORDERED: SODIUM CHLORIDE 1,000 ML IV SCH (12:30)
[2021-02-01] MEDS: ACETAMINOPHEN 325 MG TABLET (FP) PO PRN (15:23)
[2021-02-01 15:56] LABS: URIC ACID 2.3 mg/dL (2.6-7.2)
[2021-02-01 19:55] LABS: POTASSIUM 4.5 mmol/L (3.5-5.1)
[2021-02-01 19:56] LABS: CALCIUM 8.6 mg/dL (8.5-10.1)
[2021-02-01 20:00] LABS: CREATININE 0.7 mg/dL (0.55-1.3)
[2021-02-01] MEDS ORDERED: ESCITALOPRAM OXALATE 10 MG TABLET ONE (20:59)
[2021-02-01] MEDS: ATORVASTATIN CA 80 MG TABLET (FP) PO SCH (21:27)
[2021-02-01] MEDS: ESCITALOPRAM OXALATE 20 MG TABLET PO SCH (22:16)
[2021-02-02] MEDS: INSULIN (LEVEMIR) 100 UNITS/ML UNITS SQ SCH ×2 (06:33→22:44)
[2021-02-02 09:18] LABS: CHLORIDE 88 mmol/L (98-107); POTASSIUM 4.6 mmol/L (3.5-5.1)
[2021-02-02 09:21] LABS: CALCIUM 9.2 mg/dL (8.5-10.1)
[2021-02-02 09:22] LABS: BLOOD UREA NITROGEN 15.4 mg/dL (7-18); CO2 23 mmol/L (21-32); GLUCOSE,RANDOM 131 mg/dL (74-106)
[2021-02-02 09:25] LABS: CREATININE 0.7 mg/dL (0.55-1.3)
[2021-02-02 09:37] LABS: ANION GAP 8 MMOL/L (8-16); SODIUM 119 mmol/L (136-145)
[2021-02-02] MEDS ORDERED: PT OWN MED DRAWER 7, Y5N ONE ×2 (09:57→22:35)
[2021-02-02] MEDS: amLODIPine BESYLATE 2.5 MG TABLET (FP) PO SCH (09:58)
[2021-02-02] MEDS: SODIUM CHLORIDE 1 GM TABLET PO SCH ×3 (09:58→22:42)
[2021-02-02] MEDS: PANTOPRAZOLE 40 MG TABLET PO SCH ×2 (09:58→22:43)
[2021-02-02] MEDS: MAGNESIUM OXIDE 400 MG TABLET (FP) PO SCH (09:58)
[2021-02-02] MEDS: POLYETHYLENE GLYCOL 3350 119 GM BTL PO SCH (09:59)
[2021-02-02] MEDS: MULTIVIT-MINERALS ORAL LIQUID PO SCH (09:59)
[2021-02-02] MEDS: CARBIDOPA/LEVODOPA 10/100 TABLET (FP) PO SCH ×2 (09:59→22:42)
[2021-02-02] MEDS: ASPIRIN COATED 81 MG TABLET.EC PO SCH (10:00)
[2021-02-02] MEDS: HEPARIN NA (PORCINE) 5,000 UNITS/ML 1ML VIAL SQ SCH ×2 (12:04→22:43)
[2021-02-02] MEDS: BACITRACIN 15 GM TUBE TOPICAL OINTMENT TP SCH (18:12)
[2021-02-02] MEDS: ATORVASTATIN CA 80 MG TABLET (FP) PO SCH (22:42)
[2021-02-03] MEDS: INSULIN (LEVEMIR) 100 UNITS/ML UNITS SQ SCH ×2 (06:41→22:14)
[2021-02-03] MEDS: SODIUM CHLORIDE 1 GM TABLET PO SCH ×3 (06:41→22:14)
[2021-02-03 08:29] LABS: POTASSIUM 4.4 mmol/L (3.5-5.1)
[2021-02-03 08:41] LABS: BLOOD UREA NITROGEN 20.5 mg/dL (7-18)
[2021-02-03 08:44] LABS: CREATININE 0.8 mg/dL (0.55-1.3)
[2021-02-03] MEDS: BACITRACIN 15 GM TUBE TOPICAL OINTMENT TP SCH (09:30)
[2021-02-03] MEDS: MAGNESIUM OXIDE 400 MG TABLET (FP) PO SCH (09:30)
[2021-02-03] MEDS: PANTOPRAZOLE 40 MG TABLET PO SCH ×2 (09:31→22:14)
[2021-02-03] MEDS: ASPIRIN COATED 81 MG TABLET.EC PO SCH (09:31)
[2021-02-03] MEDS: MULTIVIT-MINERALS ORAL LIQUID PO SCH (09:31)
[2021-02-03] MEDS: HEPARIN NA (PORCINE) 5,000 UNITS/ML 1ML VIAL SQ SCH (09:31)
[2021-02-03] MEDS: amLODIPine BESYLATE 2.5 MG TABLET (FP) PO SCH (09:31)
[2021-02-03] MEDS: CARBIDOPA/LEVODOPA 10/100 TABLET (FP) PO SCH ×2 (09:31→22:15)
[2021-02-03] MEDS: POLYETHYLENE GLYCOL 3350 119 GM BTL PO SCH (09:32)
[2021-02-03] MEDS ORDERED: PT OWN MED DRAWER 7, Y5N ONE (21:55)
[2021-02-03] MEDS: ATORVASTATIN CA 80 MG TABLET (FP) PO SCH (22:14)
[2021-02-04] MEDS: INSULIN (LEVEMIR) 100 UNITS/ML UNITS SQ SCH ×2 (06:02→23:40)
[2021-02-04] MEDS ORDERED: PT OWN MED DRAWER 7, Y5N ONE (09:05)
[2021-02-04] MEDS: CARBIDOPA/LEVODOPA 10/100 TABLET (FP) PO SCH (09:10)
[2021-02-04] MEDS: PANTOPRAZOLE 40 MG TABLET PO SCH ×2 (09:10→23:40)
[2021-02-04] MEDS: SODIUM CHLORIDE 1 GM TABLET PO SCH (09:10)
[2021-02-04] MEDS: amLODIPine BESYLATE 2.5 MG TABLET (FP) PO SCH (09:10)
[2021-02-04] MEDS: POLYETHYLENE GLYCOL 3350 119 GM BTL PO SCH (09:11)
[2021-02-04] MEDS: MULTIVIT-MINERALS ORAL LIQUID PO SCH (09:11)
[2021-02-04] MEDS: BACITRACIN 15 GM TUBE TOPICAL OINTMENT TP SCH (09:11)
[2021-02-04] MEDS: MAGNESIUM OXIDE 400 MG TABLET (FP) PO SCH (09:11)
[2021-02-04] MEDS: ASPIRIN COATED 81 MG TABLET.EC PO SCH (09:11)
[2021-02-04 09:22] LABS: EOS % 1.2 % (0-4.5); HEMATOCRIT 36.6 % (32.4-45.2); HEMOGLOBIN 13.1 GM/dL (10.7-15.3); MCH 32.3 pg (25.7-33.7); MCHC 35.8 g/dl (32.0-36.0); MEAN CELL VOLUME 90.1 fl (80-96); MEAN PLT VOLUME 8.8 fl (7.5-11.1); MONO % 12.8 % (3.8-10.2); PLATELET COUNT 290 K/MM3 (134-434); RBC 4.07 M/mm3 (3.60-5.2); RDW 15.1 % (11.6-15.6); WHITE BLOOD COUNT 6.8 K/mm3 (4.0-10.0)
[2021-02-04 09:23] LABS: POTASSIUM 4.3 mmol/L (3.5-5.1)
[2021-02-04 09:26] LABS: CALCIUM 8.8 mg/dL (8.5-10.1)
[2021-02-04 09:27] LABS: ALBUMIN 3.1 g/dl (3.4-5.0); BLOOD UREA NITROGEN 14.3 mg/dL (7-18)
[2021-02-04 09:30] LABS: CREATININE 0.6 mg/dL (0.55-1.3)
[2021-02-04 09:31] LABS: BILIRUBIN,TOTAL 0.7 mg/dL (0.2-1); TOT PROT 6.5 g/dl (6.4-8.2)
[2021-02-04 11:27] LABS: ANISOCYTOSIS 1+; MACROCYTOSIS 0; PLATELET ESTIMATE NORMAL
[2021-02-04] MEDS ORDERED: SODIUM CHLORIDE 3% 500 ML/500 ML INFUS.BAG IV ONE (12:52)
[2021-02-04 20:52] LABS: POTASSIUM 4.4 mmol/L (3.5-5.1)
[2021-02-04 20:53] LABS: BLOOD UREA NITROGEN 17.6 mg/dL (7-18); CALCIUM 8.9 mg/dL (8.5-10.1)
[2021-02-04 20:57] LABS: CREATININE 0.7 mg/dL (0.55-1.3)
[2021-02-04] MEDS ORDERED: amLODIPine BESYLATE 5 MG TABLET (FP) PO ONE (23:18)
[2021-02-04] MEDS: MUPIROCIN 2% TOPICAL OINTMENT FOR DECOLONIZATION NS SCH (23:39)
[2021-02-04] MEDS: ATORVASTATIN CA 80 MG TABLET (FP) PO SCH (23:40)
[2021-02-04] MEDS: CHLORHEXIDINE GLUCONATE 4% CLEANSER FOR DECOLONIZATION TP SCH (23:40)
[2021-02-05] MEDS: CARBIDOPA/LEVODOPA 10/100 TABLET (FP) PO SCH ×3 (00:30→23:45)
[2021-02-05 04:57] LABS: POTASSIUM 4.4 mmol/L (3.5-5.1)
[2021-02-05 04:58] LABS: BLOOD UREA NITROGEN 14.9 mg/dL (7-18); CALCIUM 8.9 mg/dL (8.5-10.1)
[2021-02-05 05:02] LABS: CREATININE 0.6 mg/dL (0.55-1.3)
[2021-02-05 07:02] LABS: BASO % 0.7 % (0-2.0); EOS % 1.2 % (0-4.5); HEMOGLOBIN 12.9 GM/dL (10.7-15.3); LYMPH % 18.1 % (8-40); MCHC 35.7 g/dl (32.0-36.0); MEAN CELL VOLUME 89.5 fl (80-96); MEAN PLT VOLUME 8.5 fl (7.5-11.1); MONO % 10.3 % (3.8-10.2); NEUT % 69.7 % (42.8-82.8); PLATELET COUNT 313 K/MM3 (134-434); RBC 4.03 M/mm3 (3.60-5.2); RDW 14.8 % (11.6-15.6); WHITE BLOOD COUNT 7.3 K/mm3 (4.0-10.0)
[2021-02-05] MEDS: INSULIN (LEVEMIR) 100 UNITS/ML UNITS SQ SCH ×2 (07:30→23:44)
[2021-02-05] MEDS ORDERED: PT OWN MED DRAWER 7, Y5N ONE ×2 (09:32→09:47)
[2021-02-05] MEDS: BACITRACIN 15 GM TUBE TOPICAL OINTMENT TP SCH (09:34)
[2021-02-05] MEDS: MUPIROCIN 2% TOPICAL OINTMENT FOR DECOLONIZATION NS SCH ×2 (09:34→23:44)
[2021-02-05] MEDS: MAGNESIUM OXIDE 400 MG TABLET (FP) PO SCH (09:34)
[2021-02-05] MEDS: MULTIVIT-MINERALS ORAL LIQUID PO SCH (09:34)
[2021-02-05] MEDS: PANTOPRAZOLE 40 MG TABLET PO SCH ×2 (09:35→23:45)
[2021-02-05] MEDS: amLODIPine BESYLATE 2.5 MG TABLET (FP) PO SCH (09:35)
[2021-02-05] MEDS: ASPIRIN COATED 81 MG TABLET.EC PO SCH (09:36)
[2021-02-05] MEDS: POLYETHYLENE GLYCOL 3350 119 GM BTL PO SCH (09:50)
[2021-02-05 10:06] LABS: ANISOCYTOSIS 0; MACROCYTOSIS 0; PLATELET ESTIMATE NORMAL
[2021-02-05 10:54] LABS: POTASSIUM 4.4 mmol/L (3.5-5.1)
[2021-02-05 10:56] LABS: BLOOD UREA NITROGEN 13.8 mg/dL (7-18); CALCIUM 8.6 mg/dL (8.5-10.1)
[2021-02-05 11:00] LABS: CREATININE 0.6 mg/dL (0.55-1.3)
[2021-02-05] MEDS: SODIUM CHLORIDE 3% 500 ML/500 ML INFUS.BAG IV ONE ×2 (14:09→14:58)
[2021-02-05 19:36] LABS: POTASSIUM 4.5 mmol/L (3.5-5.1)
[2021-02-05 19:38] LABS: BLOOD UREA NITROGEN 14.3 mg/dL (7-18); CALCIUM 8.2 mg/dL (8.5-10.1)
[2021-02-05 19:42] LABS: CREATININE 0.7 mg/dL (0.55-1.3)
[2021-02-05 23:20] LABS: CALCIUM 8.8 mg/dL (8.5-10.1)
[2021-02-05 23:21] LABS: BLOOD UREA NITROGEN 17.5 mg/dL (7-18)
[2021-02-05 23:24] LABS: CREATININE 0.7 mg/dL (0.55-1.3)
[2021-02-05] MEDS: CHLORHEXIDINE GLUCONATE 4% CLEANSER FOR DECOLONIZATION TP SCH (23:44)
[2021-02-05] MEDS: ATORVASTATIN CA 80 MG TABLET (FP) PO SCH (23:45)
[2021-02-06 00:46] LABS: POTASSIUM 4.5 mmol/L (3.5-5.1)
[2021-02-06 06:34] LABS: CALCIUM 9.3 mg/dL (8.5-10.1); POTASSIUM 4.5 mmol/L (3.5-5.1)
[2021-02-06 06:35] LABS: BLOOD UREA NITROGEN 15.3 mg/dL (7-18)
[2021-02-06 06:38] LABS: CREATININE 0.7 mg/dL (0.55-1.3)
[2021-02-06] MEDS: INSULIN (LEVEMIR) 100 UNITS/ML UNITS SQ SCH ×2 (06:59→21:29)
[2021-02-06] MEDS ORDERED: PT OWN MED DRAWER 7, Y5N ONE (09:24)
[2021-02-06] MEDS: PANTOPRAZOLE 40 MG TABLET PO SCH ×2 (09:26→21:30)
[2021-02-06] MEDS: MAGNESIUM OXIDE 400 MG TABLET (FP) PO SCH (09:26)
[2021-02-06] MEDS: CARBIDOPA/LEVODOPA 10/100 TABLET (FP) PO SCH ×2 (09:27→22:04)
[2021-02-06] MEDS: amLODIPine BESYLATE 2.5 MG TABLET (FP) PO SCH (09:27)
[2021-02-06] MEDS: BACITRACIN 15 GM TUBE TOPICAL OINTMENT TP SCH (09:28)
[2021-02-06] MEDS: MULTIVIT-MINERALS ORAL LIQUID PO SCH (09:28)
[2021-02-06] MEDS: ASPIRIN COATED 81 MG TABLET.EC PO SCH (09:28)
[2021-02-06] MEDS: MUPIROCIN 2% TOPICAL OINTMENT FOR DECOLONIZATION NS SCH (09:28)
[2021-02-06] MEDS: POLYETHYLENE GLYCOL 3350 119 GM BTL PO SCH (09:29)
[2021-02-06 12:54] LABS: POTASSIUM 4.4 mmol/L (3.5-5.1)
[2021-02-06 12:59] LABS: CREATININE 0.7 mg/dL (0.55-1.3)
[2021-02-06] MEDS ORDERED: ACETAMINOPHEN 325 MG TABLET (FP) PO PRN (13:38)
[2021-02-06] MEDS ORDERED: ONDANSETRON 4 MG/2 ML VIAL IVPUSH PRN (13:38)
[2021-02-06] MEDS ORDERED: ATORVASTATIN CA 80 MG TABLET (FP) PO SCH (22:00)
[2021-02-07] MEDS: INSULIN (LEVEMIR) 100 UNITS/ML UNITS SQ SCH (06:05)
[2021-02-07] MEDS ORDERED: MULTIVIT-MINERALS ORAL LIQUID PO SCH (08:00)
[2021-02-07 08:48] LABS: BASO % 0.9 % (0-2.0); EOS % 1.7 % (0-4.5); HEMATOCRIT 33.6 % (32.4-45.2); HEMOGLOBIN 12.1 GM/dL (10.7-15.3); LYMPH % 22.3 % (8-40); MCH 32.3 pg (25.7-33.7); MEAN CELL VOLUME 89.8 fl (80-96); MEAN PLT VOLUME 8.9 fl (7.5-11.1); NEUT % 65.1 % (42.8-82.8); PLATELET COUNT 297 K/MM3 (134-434); RBC 3.74 M/mm3 (3.60-5.2); RDW 15.4 % (11.6-15.6); WHITE BLOOD COUNT 6.4 K/mm3 (4.0-10.0)
[2021-02-07 08:58] LABS: POTASSIUM 4.1 mmol/L (3.5-5.1)
[2021-02-07 09:00] LABS: CALCIUM 8.8 mg/dL (8.5-10.1)
[2021-02-07 09:01] LABS: BLOOD UREA NITROGEN 15.6 mg/dL (7-18); MAGNESIUM 1.9 mg/dL (1.8-2.4)
[2021-02-07 09:04] LABS: CREATININE 0.7 mg/dL (0.55-1.3); PHOSPHOROUS 3.3 mg/dL (2.5-4.9)
[2021-02-07 09:05] LABS: BILIRUBIN,TOTAL 0.6 mg/dL (0.2-1); TOT PROT 6.2 g/dl (6.4-8.2)
[2021-02-07] MEDS: CARBIDOPA/LEVODOPA 10/100 TABLET (FP) PO SCH (09:45)
[2021-02-07] MEDS: PANTOPRAZOLE 40 MG TABLET PO SCH (09:45)
[2021-02-07] MEDS ORDERED: ASPIRIN COATED 81 MG TABLET.EC PO SCH (10:00)
[2021-02-07] MEDS ORDERED: amLODIPine BESYLATE 2.5 MG TABLET (FP) PO SCH (10:00)
[2021-02-07] MEDS ORDERED: MAGNESIUM OXIDE 400 MG TABLET (FP) PO SCH (10:00)
[2021-02-07] MEDS ORDERED: BACITRACIN 15 GM TUBE TOPICAL OINTMENT TP SCH (10:00)
[2021-02-07] MEDS ORDERED: POLYETHYLENE GLYCOL 3350 119 GM BTL PO SCH (10:00)
[2021-02-07 10:14] LABS: ANISOCYTOSIS 1+; MACROCYTOSIS 0; PLATELET ESTIMATE NORMAL
[2021-02-07] MEDS: FUROSEMIDE 20 MG TABLET (FP) PO SCH (14:50)
[2021-02-07] MEDS: SODIUM CHLORIDE 1 GM TABLET PO SCH (14:51)
[2021-02-07 18:42] LABS: POTASSIUM 3.9 mmol/L (3.5-5.1)
[2021-02-07 18:43] LABS: BLOOD UREA NITROGEN 15.6 mg/dL (7-18)
[2021-02-07 18:47] LABS: CREATININE 0.6 mg/dL (0.55-1.3)
[2021-02-08] MEDS: FUROSEMIDE 20 MG TABLET (FP) PO SCH (06:04)
[2021-02-08] MEDS: SODIUM CHLORIDE 1 GM TABLET PO SCH ×2 (06:04→13:37)
[2021-02-08 09:16] LABS: POTASSIUM 4.2 mmol/L (3.5-5.1)
[2021-02-08 09:28] LABS: CREATININE 0.7 mg/dL (0.55-1.3)
[2021-02-08] MEDS ORDERED: SODIUM CHLORIDE 1 GM TABLET PO ONE (11:20)
[2021-02-08] MEDS ORDERED: FUROSEMIDE 20 MG TABLET (FP) PO ONE (11:20)
[2021-02-08] MEDS: FUROSEMIDE 40 MG TABLET (FP) PO SCH (13:36)
[2021-02-09] MEDS: FUROSEMIDE 40 MG TABLET (FP) PO SCH ×2 (05:27→13:02)
[2021-02-09] MEDS: SODIUM CHLORIDE 1 GM TABLET PO SCH ×2 (05:27→13:02)
[2021-02-09 08:30] LABS: POTASSIUM 3.9 mmol/L (3.5-5.1)
[2021-02-09 08:32] LABS: CALCIUM 9.2 mg/dL (8.5-10.1)
[2021-02-09 08:36] LABS: CREATININE 0.7 mg/dL (0.55-1.3)
[2021-02-10] MEDS ORDERED: PT OWN MED DRAWER 7, Y5N ONE (05:23)
[2021-02-10] MEDS: FUROSEMIDE 40 MG TABLET (FP) PO SCH ×2 (05:32→13:22)
[2021-02-10] MEDS: SODIUM CHLORIDE 1 GM TABLET PO SCH ×2 (05:32→13:19)
[2021-02-10 08:17] LABS: POTASSIUM 3.7 mmol/L (3.5-5.1)
[2021-02-10 08:35] LABS: CALCIUM 9.1 mg/dL (8.5-10.1)
[2021-02-10 08:36] LABS: BLOOD UREA NITROGEN 18.8 mg/dL (7-18)
[2021-02-10 08:39] LABS: CREATININE 0.8 mg/dL (0.55-1.3)
[2021-02-10] MEDS: POTASSIUM CHLORIDE TABS 20 MEQ TABLET.ER (FP) PO SCH ×2 (13:19→21:39)
[2021-02-11] MEDS: SODIUM CHLORIDE 1 GM TABLET PO SCH ×2 (05:47→13:37)
[2021-02-11] MEDS: FUROSEMIDE 40 MG TABLET (FP) PO SCH ×2 (05:47→13:01)
[2021-02-11] MEDS: POTASSIUM CHLORIDE TABS 20 MEQ TABLET.ER (FP) PO SCH (09:35)
[2021-02-11 10:57] LABS: POTASSIUM 3.8 mmol/L (3.5-5.1)
[2021-02-11 10:58] LABS: CALCIUM 9.4 mg/dL (8.5-10.1)
[2021-02-11 10:59] LABS: BLOOD UREA NITROGEN 21.1 mg/dL (7-18)
[2021-02-11 11:01] LABS: CREATININE 0.9 mg/dL (0.55-1.3)
[2021-02-11] MEDS ORDERED: PT OWN MED DRAWER 7, Y5N ONE (13:02)
[2021-02-11 14:52] VITALS: BP 141/72; PULSE 100
[2021-02-11 15:34] VITALS: TEMP 98
== END 2021-02-11 05:20 | disposition home or self-care (01) | DRG 690 ==
LOC: JER 18:54 → JERBED 23:20 → J6S 01-19 11:59 → JICU 02-04 20:35 → J7W 02-06 15:23
PROVIDERS: ADMIT Internal Medicine; ATTEND Internal Medicine
PROC: BT1DZZZ Fluoroscopy of Right Kidney, Ureter and Bladder (ICD-10-PCS; 2021-01-27)
PROC: 0T938ZX Drainage of Right Kidney Pelvis, Via Natural or Artificial Opening Endoscopic, Diagnostic (ICD-10-PCS; principal; 2021-01-27 11:00)
DX: N39.0 Urinary tract infection, site not specified (principal); I69.354 Hemiplegia and hemiparesis following cerebral infarction affecting left non-dominant side; I50.30 Unspecified diastolic (congestive) heart failure; E87.1 Hypo-osmolality and hyponatremia; R41.82 Altered mental status, unspecified; E11.40 Type 2 diabetes mellitus with diabetic neuropathy, unspecified; M16.11 Unilateral primary osteoarthritis, right hip; N13.30 Unspecified hydronephrosis; I25.10 Atherosclerotic heart disease of native coronary artery without angina pectoris; I10 Essential (primary) hypertension; F32.9 Major depressive disorder, single episode, unspecified; G20 Parkinson's disease; N28.89 Other specified disorders of kidney and ureter; I95.9 Hypotension, unspecified
CPT/HCPCS: 36415; 70450-TC; 71045-TC-FY; 72125-TC; 72170-TC-FY; 73560-TC-LT-FY; 73560-TC-RT-FY; 74176-TC; 74178-TC; 74183-TC; 80048; 80053; 81003; 82533; 82962; 83605; 83690; 83735; 83930; 83935; 84100; 84295; 84300; 84439; 84443; 84481; 84484; 84550; 85025; 85610; 85730; 86140; 87040; 87086; 88108; 88305-TC; 93005; 93010; 94760; 97116-GP; 97162-GP; 99285-25; A9579; C9803; J1644; Q9967; U0003

== ENCOUNTER 2025-05-30 12:31 | Inpatient (IN) | payer OTHER ==
[2025-05-30] MEDS: ACETAMINOPHEN 1000 MG/100 ML BAG IVPB ONE (13:02)
[2025-05-30] MEDS: SODIUM CHLORIDE 0.9% 500 ML INFUS.BAG IV ONE ×2 (13:02→15:22)
[2025-05-30 13:14] LABS: ABSOLUTE IMMATURE GRANULOCYTES 0.03 x10^3/uL (0.0-0.031); BASOPHILS # 0.02 x10^3/uL (0.01-0.08); EOSINOPHIL % 0.0 % (0.7-5.8); EOSINOPHILS # 0.00 x10^3/uL (0.04-0.36); MCHC 29.9 g/dl (32.2-35.5); MEAN CELL VOLUME 90.9 fl (79.4-94.8); MEAN PLT VOLUME 12.3 fl (9.4-12.3); MONOCYTE # 0.46 x10^3/uL (0.24-0.86); MONOCYTE % 6.3 % (4.7-12.5); RDW 16.6 % (12.4-16.6)
[2025-05-30 13:20] LABS: INR 1.06 (0.83-1.09); PROTHROMBIN TIME (PATIENT) 11.6 SEC (9.7-13.0)
[2025-05-30 13:23] LABS: ACTIVATED PTT 27.2 SECONDS (25.2-36.5)
[2025-05-30 13:30] LABS: BG HCT 28.0 % (32.4-45.2); VENOUS BASE EXCESS -7.9 mmol/L (-2-2); VENOUS O2 SATURATION 35.3 % (70-80); VENOUS PCO2 37.2 mmHg (38-52); VENOUS PH 7.299 (7.310-7.410)
[2025-05-30 13:37] LABS: CO2 20.0 mmol/L (21-32)
[2025-05-30 13:39] LABS: GLUCOSE,RANDOM 178.0 mg/dL (74-106)
[2025-05-30 13:41] LABS: CREATININE 4.0 mg/dL (0.55-1.3); SGOT/AST 28.0 U/L (15-37); SGPT/ALT 27.0 U/L (13-61)
[2025-05-30 13:42] LABS: TOT PROT 6.8 g/dl (6.4-8.2)
[2025-05-30 13:43] LABS: LDL CHOLESTEROL (ONLY SJRH) 44.0 mg/dL (5-100)
[2025-05-30 13:45] LABS: ALK PHOS 82.0 U/L (45-117)
[2025-05-30 13:49] LABS: LACTIC ACID 3.5 mmol/L (0.4-2.0)
[2025-05-30 15:12] LABS: HCV DIAGNOSTIC IN-HOUSE W/RFLX NON-REACTIVE (NONREACTIVE)
[2025-05-30 15:19] LABS: HIV INTERPRETATION NEGATIVE (NEGATIVE)
[2025-05-30 15:49] LABS: MCHC 30.0 g/dl (32.2-35.5); MEAN CELL VOLUME 92.4 fl (79.4-94.8); MEAN PLT VOLUME 12.1 fl (9.4-12.3); RDW 16.7 % (12.4-16.6)
[2025-05-30] MEDS ORDERED: SODIUM ZIRCONIUM CYCLOSILICATE (LOKELMA) 10 GM PACKET ONE (16:15)
[2025-05-30] MEDS: INSULIN REGULAR HUMAN 100 UNITS/ML *VIAL IVPUSH ONE (16:20)
[2025-05-30] MEDS: DEXTROSE 50%-WATER 25 GM/50 ML DISP.SYRIN IVPUSH ONE (16:20)
[2025-05-30] MEDS: SODIUM ZIRCONIUM CYCLOSILICATE (LOKELMA) 5 GM PACKET PO ONE (16:20)
[2025-05-30] MEDS ORDERED: PIPERACILLIN/TAZOB 3.375 GM 3.375 GM in DEXTROSE 5%-WATER - 50 ML IVPB SCH (17:00)
[2025-05-30] MEDS ORDERED: CALCIUM GLUC IN NACL, ISO-OSM 1 GM/50 ML BAG IVPB ONE (17:01)
[2025-05-30] MEDS: CALCIUM GLUC IN NACL, ISO-OSM 1 GM/50 ML BAG IVPB ONE (17:06)
[2025-05-30] MEDS: PANTOPRAZOLE SODIUM 40 MG VIAL IVPUSH SCH (17:06)
[2025-05-30 17:42] LABS: EPI CELLS 8 /uL (0-25.1); HYALINE CASTS 0 /uL (0-3.1); URINE APPEARANCE CLOUDY; URINE BACTERIA 74 /uL (0-1359); URINE BILIRUBIN NEGATIVE (NEGATIVE); URINE COLOR YELLOW; URINE GLUCOSE (UA) NEGATIVE (NEGATIVE); URINE KETONE NEGATIVE (NEGATIVE); URINE LEUK ESTERASE 1+ (NEGATIVE); URINE NITRITE NEGATIVE (NEGATIVE); URINE PROTEIN 1+ (NEGATIVE); URINE RBC 27 /uL (0-23.9); URINE UROBILINOGEN 0.2 mg/dL (0.2-1.0); URINE WBC 11 /uL (0-25.8)
[2025-05-30 18:22] LABS: ABSOLUTE IMMATURE GRANULOCYTES 0.04 x10^3/uL (0.0-0.031); BASOPHILS # 0.03 x10^3/uL (0.01-0.08); EOSINOPHIL % 0.0 % (0.7-5.8); EOSINOPHILS # 0.00 x10^3/uL (0.04-0.36); MCHC 30.2 g/dl (32.2-35.5); MEAN CELL VOLUME 92.3 fl (79.4-94.8); MEAN PLT VOLUME 12.3 fl (9.4-12.3); MONOCYTE # 0.65 x10^3/uL (0.24-0.86); MONOCYTE % 9.0 % (4.7-12.5); RDW 16.8 % (12.4-16.6)
[2025-05-30] MEDS ORDERED: PIPERACILLIN/TAZOB 2.25 GM 2.25 GM/50 ML BAG IVPB SCH (18:30)
[2025-05-30 18:46] LABS: CO2 18.0 mmol/L (21-32); GLUCOSE,RANDOM 120.0 mg/dL (74-106)
[2025-05-30 18:50] LABS: CREATININE 3.1 mg/dL (0.55-1.3)
[2025-05-30] MEDS ORDERED: PIPERACILLIN/TAZOB 2.25 GM 2.25 GM/50 ML BAG IVPB ONE ×2 (19:32→19:33)
[2025-05-30] MEDS: SODIUM CHLORIDE 1,000 ML IV SCH (19:49)
[2025-05-31] MEDS ORDERED: PIPERACILLIN/TAZOB 2.25 GM 2.25 GM/50 ML BAG IVPB ONE ×2 (00:08→08:01)
[2025-05-31] MEDS: PIPERACILLIN/TAZOB 2.25 GM 2.25 GM in DEXTROSE 5%-WATER - 50 ML IVPB SCH (00:23)
[2025-05-31] MEDS ORDERED: PIPERACILLIN/TAZOB 2.25 GM 2.25 GM/50 ML BAG IVPB SCH (02:00)
[2025-05-31 06:46] LABS: CO2 21.0 mmol/L (21-32); GLUCOSE,RANDOM 82.0 mg/dL (74-106)
[2025-05-31 06:50] LABS: CREATININE 2.8 mg/dL (0.55-1.3)
[2025-05-31 07:17] LABS: ABSOLUTE IMMATURE GRANULOCYTES 0.03 x10^3/uL (0.0-0.031); BASOPHILS # 0.04 x10^3/uL (0.01-0.08); EOSINOPHIL % 1.1 % (0.7-5.8); EOSINOPHILS # 0.07 x10^3/uL (0.04-0.36); MCHC 30.4 g/dl (32.2-35.5); MEAN CELL VOLUME 90.1 fl (79.4-94.8); MEAN PLT VOLUME 11.8 fl (9.4-12.3); MONOCYTE # 0.85 x10^3/uL (0.24-0.86); MONOCYTE % 13.4 % (4.7-12.5); RDW 16.5 % (12.4-16.6)
[2025-05-31] MEDS ORDERED: PANTOPRAZOLE SODIUM 40 MG VIAL ONE (08:01)
[2025-05-31] MEDS ORDERED: ESCITALOPRAM OXALATE 10 MG TABLET ONE (08:01)
[2025-05-31] MEDS: ESCITALOPRAM OXALATE 20 MG TABLET PO SCH (09:02)
[2025-05-31] MEDS: SODIUM CHLORIDE 0.45% 1,000 ML IV SCH (16:04)
[2025-06-01] MEDS: ACETAMINOPHEN 1000 MG/100 ML BAG IVPB PRN (01:07)
[2025-06-01 09:52] LABS: CO2 17.0 mmol/L (21-32); GLUCOSE,RANDOM 107.0 mg/dL (74-106)
[2025-06-01 09:54] LABS: SGPT/ALT 50.0 U/L (13-61)
[2025-06-01 09:55] LABS: CREATININE 2.2 mg/dL (0.55-1.3); SGOT/AST 84.0 U/L (15-37); TOT PROT 6.2 g/dl (6.4-8.2)
[2025-06-01 09:56] LABS: ALK PHOS 74.0 U/L (45-117)
[2025-06-01 11:24] LABS: ABSOLUTE IMMATURE GRANULOCYTES 0.05 x10^3/uL (0.0-0.031); BASOPHILS # 0.05 x10^3/uL (0.01-0.08); EOSINOPHIL % 2.6 % (0.7-5.8); EOSINOPHILS # 0.15 x10^3/uL (0.04-0.36); MCHC 30.7 g/dl (32.2-35.5); MEAN CELL VOLUME 88.7 fl (79.4-94.8); MEAN PLT VOLUME 12.1 fl (9.4-12.3); MONOCYTE # 0.66 x10^3/uL (0.24-0.86); MONOCYTE % 11.4 % (4.7-12.5); RDW 16.7 % (12.4-16.6)
[2025-06-01] MEDS ORDERED: MIDAZOLAM HCL 2 MG/2 ML SINGLE DOSE VIAL ONE (14:21)
[2025-06-01] MEDS ORDERED: BUPIVACAINE HCL/PF 0.5% (5MG/ML) 10 ML VIAL ONE (14:37)
[2025-06-01 14:49] LABS: IRON SERUM 44.0 ug/dL (50-175)
[2025-06-01] MEDS: BUPIVACAINE HCL/PF 0.5% (5MG/ML) 10 ML VIAL IJ ONE (15:00)
[2025-06-01] MEDS ORDERED: ACETAMINOPHEN 1000 MG/100 ML BAG IVPB PRN (15:27)
[2025-06-01 16:01] VITALS: BMI 28.7
[2025-06-01] MEDS ORDERED: PIPERACILLIN/TAZOB 2.25 GM 2.25 GM in DEXTROSE 5%-WATER - 50 ML IVPB SCH (18:00)
[2025-06-01] MEDS: SODIUM CHLORIDE 0.45% 1,000 ML IV SCH (18:45)
[2025-06-01] MEDS: PIPERACILLIN/TAZOB 2.25 GM 2.25 GM in DEXTROSE 5%-WATER - 50 ML IVPB SCH (18:46)
[2025-06-01] MEDS: HEPARIN NA (PORCINE) 5,000 UNITS/ML 1ML VIAL SQ SCH (21:42)
[2025-06-02 03:57] LABS: MCHC 30.5 g/dl (32.2-35.5); MEAN CELL VOLUME 90.8 fl (79.4-94.8); MEAN PLT VOLUME 11.1 fl (9.4-12.3); RDW 17.1 % (12.4-16.6)
[2025-06-02 08:32] LABS: ABSOLUTE IMMATURE GRANULOCYTES 0.04 x10^3/uL (0.0-0.031); BASOPHILS # 0.03 x10^3/uL (0.01-0.08); EOSINOPHIL % 1.0 % (0.7-5.8); EOSINOPHILS # 0.10 x10^3/uL (0.04-0.36); MCHC 30.0 g/dl (32.2-35.5); MEAN CELL VOLUME 90.5 fl (79.4-94.8); MEAN PLT VOLUME 11.7 fl (9.4-12.3); MONOCYTE # 0.39 x10^3/uL (0.24-0.86); MONOCYTE % 3.8 % (4.7-12.5); RDW 16.9 % (12.4-16.6)
[2025-06-02 09:20] LABS: CO2 21.0 mmol/L (21-32)
[2025-06-02 09:21] LABS: GLUCOSE,RANDOM 94.0 mg/dL (74-106)
[2025-06-02 09:23] LABS: CREATININE 2.0 mg/dL (0.55-1.3); SGOT/AST 61.0 U/L (15-37)
[2025-06-02 09:25] LABS: TOT PROT 5.1 g/dl (6.4-8.2)
[2025-06-02 09:26] LABS: ALK PHOS 69.0 U/L (45-117); SGPT/ALT 45.0 U/L (13-61)
[2025-06-02] MEDS ORDERED: PANTOPRAZOLE SODIUM 40 MG VIAL IVPUSH SCH ×2 (10:00)
[2025-06-02] MEDS ORDERED: ESCITALOPRAM OXALATE 20 MG TABLET PO SCH (10:00)
[2025-06-02] MEDS: ESCITALOPRAM OXALATE 20 MG TABLET PO SCH (10:53)
[2025-06-02] MEDS: AMPICILLIN NA/SULBACTAM NA 3 GM in SODIUM CHLORIDE 100 ML IVPB SCH (22:07)
[2025-06-03 08:50] LABS: MCHC 30.9 g/dl (32.2-35.5); MEAN CELL VOLUME 88.3 fl (79.4-94.8); MEAN PLT VOLUME 11.3 fl (9.4-12.3); RDW 17.1 % (12.4-16.6)
[2025-06-03 10:00] LABS: CO2 19.0 mmol/L (21-32); GLUCOSE,RANDOM 81.0 mg/dL (74-106)
[2025-06-03 10:03] LABS: CREATININE 1.6 mg/dL (0.55-1.3)
[2025-06-04] MEDS: LACTATED RINGERS SOLUTION 1,000 ML/1,000 ML INFUS.BAG IV SCH (06:56)
[2025-06-04 12:11] LABS: MCHC 30.5 g/dl (32.2-35.5); MEAN CELL VOLUME 89.5 fl (79.4-94.8); MEAN PLT VOLUME 10.3 fl (9.4-12.3); RDW 17.2 % (12.4-16.6)
[2025-06-04 12:56] LABS: CO2 24.0 mmol/L (21-32)
[2025-06-04 12:58] LABS: GLUCOSE,RANDOM 148.0 mg/dL (74-106)
[2025-06-04 13:01] LABS: CREATININE 1.4 mg/dL (0.55-1.3)
[2025-06-04 14:22] VITALS: BP 169/67; PULSE 83; RESP 18; TEMP 98.2
== END 2025-06-04 15:44 | disposition home health service (06) | DRG 854 ==
LOC: JER 12:31 → JERBED 15:50 → J5S 05-31 10:42 → J7W 06-01 13:46
PROVIDERS: ADMIT Internal Medicine; ATTEND Internal Medicine
PROC: 0WBF0ZZ Excision of Abdominal Wall, Open Approach (ICD-10-PCS; 2025-06-01)
PROC: 0W9G00Z Drainage of Peritoneal Cavity with Drainage Device, Open Approach (ICD-10-PCS; 2025-06-01)
PROC: 0WPF0JZ Removal of Synthetic Substitute from Abdominal Wall, Open Approach (ICD-10-PCS; principal; 2025-06-01 17:00)
DX: A41.9 Sepsis, unspecified organism (principal); I13.0 Hypertensive heart and chronic kidney disease with heart failure and stage 1 through stage 4 chronic kidney disease, or unspecified chronic kidney disease; I50.32 Chronic diastolic (congestive) heart failure; I69.354 Hemiplegia and hemiparesis following cerebral infarction affecting left non-dominant side; N17.9 Acute kidney failure, unspecified; L03.311 Cellulitis of abdominal wall; L02.91 Cutaneous abscess, unspecified; T85.79XA Infection and inflammatory reaction due to other internal prosthetic devices, implants and grafts, initial encounter; M62.82 Rhabdomyolysis; Y83.9 Surgical procedure, unspecified as the cause of abnormal reaction of the patient, or of later complication, without mention of misadventure at the time of the procedure; T14.8XXA Other injury of unspecified body region, initial encounter; L08.9 Local infection of the skin and subcutaneous tissue, unspecified; F20.9 Schizophrenia, unspecified; E11.22 Type 2 diabetes mellitus with diabetic chronic kidney disease; E03.9 Hypothyroidism, unspecified; D64.9 Anemia, unspecified; D63.8 Anemia in other chronic diseases classified elsewhere; X58.XXXA Exposure to other specified factors, initial encounter; Y93.9 Activity, unspecified; Y92.89 Other specified places as the place of occurrence of the external cause; Y99.9 Unspecified external cause status
CPT/HCPCS: 36415; 70450-TC; 70496-TC; 70498-TC; 71045-TC-FY; 76775-TC; 80048; 80053; 80061; 81003; 82272; 82550; 82553; 82607; 82728; 82746; 82803; 82962; 83036; 83540; 83550; 83605; 83735; 84100; 84484; 85025; 85027; 85610; 85730; 86803; 86850; 86870; 86880; 86900; 86901; 86902; 87040; 87070; 87086; 87205; 87389; 87637-QW; 88300-TC; 93005; 93010; 94760; 97116-GP; 97162-GP; 99285-25; J0878